=== PATIENT | female | born 1930 | race Caucasian/White ===

== ENCOUNTER → 2016-11-07 | Outpatient (CLI) | payer MEDICARE ==
[2016-06-16 11:00] VITALS: BP 112/54
[~2016-11-07] MED LIST: AMLO10TA2; AMLO10TA2 PO; ATOR10TA60 PO; ATROVENT HFA12.9 GM IH; CARV25TA2 PO; CHOL10002; CHOL10002 PO; DOCU-27 PO; DOXY100T PO; FLUT1DIS IH; FLUT1DIS3; FURO-68 PO; FURO40TA4; LEVO100T5 PO; LORA0.5T PO; LORA10TA3 PO; LORA10TA68 PO; LORA1TAB; METO10TA81 PO; OLME40TA; OLME40TA PO; OXYC1TAB7 PO; PANT40TA3 PO; PANT40TA5; POLY17PO29 PO; POTA20TA4; POTASSIUM CHLO10 MEQ PO; PRED-220 PO; RANI150T2; RANI300C PO; SENN-22 PO; VIT1TABL32 PO; WARF2.5T71 PO; WARF2TAB7 PO
--- NOTE | 2016-11-07 13:26 | RAD ---
Chest, 2 views, 11/07/2016: History: Shortness of breath, cough Comparison is made to a study from 06/12/2016. There has been a previous median sternotomy. Epicardial pacing leads overlie the anterior aspect of the heart. The heart is mildly enlarged. There is moderate calcific plaquing of the aorta. The pulmonary vascularity is normal. No pulmonary infiltrates are seen. There is no evidence of pleural fluid. Moderate spurring is present in the spine. There is mild unchanged loss of height of the T12 vertebral body. IMPRESSION: 1. Cardiomegaly and aortic atherosclerosis. 2. No acute abnormality is detected.
== END | disposition home or self-care (01) ==
LOC: RAD 11:46
PROVIDERS: ATTEND Internal Medicine Pulmonary Disease
DX: I51.7 Cardiomegaly (principal); I70.0 Atherosclerosis of aorta; R06.02 Shortness of breath; R05 Cough
CPT/HCPCS: 71020

== ENCOUNTER 2016-11-28 10:42 | Emergency (ER) | payer MEDICARE ==
[~2016-11-28] VITALS: Ht 149.9 cm; Wt 102.1 kg
[~2016-11-28 10:42] MED LIST changes: +DOCU-109 PO; -DOCU-27 PO; -OLME40TA; -OLME40TA PO; +OLME40TA12; +OLME40TA12 PO
--- NOTE | 2016-11-28 11:43 | EKG ---
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 Electronically Signed On 12-01-2016 22:21:33 CDT by Zahra Worley
[2016-11-28 11:44] LABS: BASO # 0.1 x10^3/uL (0.0-0.2); BASO % 1 % (0-3); EOS % 3 % (0-3); HEMATOCRIT 39.8 % (36.0-47.0); HEMOGLOBIN 13.4 g/dL (12.0-15.5); LYMPH # 1.1 x10^3/uL (1.0-4.8); LYMPH % 17 % (24-48); MEAN CORPUSCULAR HEMOGLOBIN 32 pg (25-35); MEAN CORPUSCULAR HGB CONC 34 g/dL (31-37); MEAN CORPUSCULAR VOLUME 95 fL (79-100); MONO % 12 % (0-9); NEUT % 67 % (31-73); PLATELET COUNT 167 x10^3/uL (140-400); RED BLOOD COUNT 4.21 x10^6/uL (3.50-5.40); RED CELL DISTRIBUTION WIDTH 13.9 % (11.5-14.5); WHITE BLOOD COUNT 6.7 x10^3/uL (4.0-11.0)
[2016-11-28] MEDS ORDERED: IPRATRPIUM/ALBUTEROL 0.5/2.5MG 3 ML NEBU. NEB ONE (11:45)
[2016-11-28 11:56] LABS: INR 2.3 (0.8-1.1); PROTHROMBIN TIME PATIENT 23.9 SEC (11.7-14.0)
[2016-11-28 12:07] LABS: CALCIUM 8.8 mg/dL (8.5-10.1); CREATININE 0.8 mg/dL (0.6-1.0); GFR 67.8; POTASSIUM 4.1 mmol/L (3.5-5.1)
--- NOTE | 2016-11-28 12:08 | RAD ---
Chest, 2 views, 11/28/2016: History: Cough, shortness of breath Comparison is made to a study from 11/07/2016. There has been a previous median sternotomy. Epicardial pacing leads overlie the anterior aspect of the heart. The heart is enlarged. There is moderate calcific plaquing of the thoracic aorta. The pulmonary vascularity is normal. There is minimal parenchymal scarring. No pulmonary infiltrate is seen. No significant pleural fluid is evident. The bony structures are demineralized. There are moderate scattered spurs in the spine. IMPRESSION: 1. Cardiomegaly and aortic atherosclerosis. 2. No acute abnormality is detected.
[2016-11-28 12:41] VITALS: BP 126/72
[2016-11-28] MEDS ORDERED: PRED-220 PO (12:46)
--- NOTE | 2016-11-28 12:46 | PHYS DOC ---
Past Medical History Past Medical History: A-Fib, Anxiety, Bronchitis, COPD, GERD, High Cholesterol , Heart Disease, Hypertension, Hypothyroid, Other Additional Past Medical Histor: sleep apnea Past Surgical History: Cholecystectomy, Coronary Bypass Surgery, Hysterectomy, Pacemaker, Other Additional Past Surgical Histo: left knee, cardiac ablation, tricuspid valve replacement Alcohol Use: None Drug Use: None Adult General Chief Complaint Chief Complaint: SHORTNESS OF BREATH HPI HPI Patient is a 86 year old female with chronic dyspnea and cough who presents with 1-2 weeks of worsened dyspnea and increased cough with clear/white sputum. She notes compliance with home meds including coumadin and nebs. Has not been on steroids in a month. States she sees cardiology and pulmonology for this and wears 3L NC at baseline. States she has slight chest pressure for the past 2 days, mild, constant. Denies hemoptysis, palpitations, diaphoresis, leg pain or swelling, weight gain, orthopnea, fever or chills, sore throat, nasal congestion, rhinorrhea. Review of Systems Review of Systems Constitutional: Denies fever or chills [] Eyes: Denies change in visual acuity, redness, or eye pain [] HENT: Denies nasal congestion or sore throat [] Respiratory: Has cough and shortness of breath [] Cardiovascular: No additional information not addressed in HPI [] GI: Denies abdominal pain, nausea, vomiting, bloody stools or diarrhea [] : Denies dysuria or hematuria [] Musculoskeletal: Denies back pain or joint pain [] Integument: Denies rash or skin lesions [] Neurologic: Denies headache, focal weakness or sensory changes [] Endocrine: Denies polyuria or polydipsia [] Current Medications Current Medications Current Medications Medications (Trade) Dose Ordered Sig/Rhiannon Start Time Stop Time Status Last Admin Dose Admin Albuterol/ Ipratropium (Duoneb) 3 ml 1X ONCE 11/28/16 11:45 11/28/16 11:46 DC 11/28/16 11:50 3 ML Allergies Allergies Allergies Coded Allergies Type Severity Reaction Last Updated Verified Iodine and Iodide Containing Produc Allergy Intermediate Hives 11/28/16 Yes Penicillins Allergy Intermediate Rash 11/28/16 Yes bacitracin Allergy Intermediate 11/28/16 Yes codeine Allergy Intermediate Hives 11/28/16 Yes cyclobenzaprine Allergy Intermediate 11/28/16 Yes erythromycin base Allergy Intermediate Hives 11/28/16 Yes ethyl alcohol Allergy Intermediate 11/28/16 Yes mold Allergy Intermediate 11/28/16 Yes moxifloxacin Allergy Intermediate Hives 11/28/16 Yes neomycin Allergy Intermediate 11/28/16 Yes polymyxin B Allergy Intermediate 11/28/16 Yes Physical Exam Physical Exam Constitutional: Well developed, well nourished, no acute distress, non-toxic appearance. [] HENT: Normocephalic, atraumatic, bilateral external ears normal, oropharynx moist, no oral exudates, nose normal. [] Eyes: PERRLA, EOMI. [] Neck: Normal range of motion, no tenderness, supple, no stridor. [] Cardiovascular:Heart rate regular rhythm, no murmur [] Lungs & Thorax: Bilateral breath sounds clear to auscultation. Frequent dry cough and throat clearing [] Abdomen: Bowel sounds normal, soft, no tenderness. [] Skin: Warm, dry, no erythema, no rash. [] Back: No tenderness, no CVA tenderness. [] Extremities: No tenderness, ROM intact, no edema. [] Neurologic: Alert and oriented X 3, normal motor function, normal sensory function, no focal deficits noted. [] Psychologic: Affect normal, judgement normal, mood normal. [] Current Patient Data Vital Signs Vital Signs Date Time Temp Pulse Resp B/P (MAP) Pulse Ox O2 Delivery O2 Flow Rate FiO2 11/28/16 12:11 72 127/71 (89) 93 Nasal Cannula 3.0 11/28/16 10:56 97.9 22 97.9 Lab Values Laboratory Tests Test 11/28/16 11:30 White Blood Count 6.7 x10^3/uL (4.0-11.0) Red Blood Count 4.21 x10^6/uL (3.50-5.40) Hemoglobin 13.4 g/dL (12.0-15.5) Hematocrit 39.8 % (36.0-47.0) Mean Corpuscular Volume 95 fL (79-100) Mean Corpuscular Hemoglobin 32 pg (25-35) Mean Corpuscular Hemoglobin Concent 34 g/dL (31-37) Red Cell Distribution Width 13.9 % (11.5-14.5) Platelet Count 167 x10^3/uL (140-400) Neutrophils (%) (Auto) 67 % (31-73) Lymphocytes (%) (Auto) 17 % (24-48) L Monocytes (%) (Auto) 12 % (0-9) H Eosinophils (%) (Auto) 3 % (0-3) Basophils (%) (Auto) 1 % (0-3) Neutrophils # (Auto) 4.5 x10^3uL (1.8-7.7) Lymphocytes # (Auto) 1.1 x10^3/uL (1.0-4.8) Monocytes # (Auto) 0.8 x10^3/uL (0.0-1.1) Eosinophils # (Auto) 0.2 x10^3/uL (0.0-0.7) Basophils # (Auto) 0.1 x10^3/uL (0.0-0.2) Prothrombin Time 23.9 SEC (11.7-14.0) H Prothrombin Time INR 2.3 (0.8-1.1) H PTT 34 SEC (24-38) Sodium Level 144 mmol/L (136-145) Potassium Level 4.1 mmol/L (3.5-5.1) Chloride Level 106 mmol/L (98-107) Carbon Dioxide Level 30 mmol/L (21-32) Anion Gap 8 (6-14) Blood Urea Nitrogen 16 mg/dL (7-20) Creatinine 0.8 mg/dL (0.6-1.0) Estimated GFR (Cockcroft-Gault) 67.8 Glucose Level 94 mg/dL (70-99) Calcium Level 8.8 mg/dL (8.5-10.1) Troponin I Quantitative < 0.017 ng/mL (0.000-0.055) PT-Swd-[id number]-Type Natriuretic Peptide 715 pg/mL (0-449) H Laboratory Tests 11/28/16 11:30 Laboratory Tests 11/28/16 11:30 EKG EKG EKG as interpreted by me as ventricularly paced rhythm, rate 79 Radiology/Procedures Radiology/Procedures Chest xray as interpreted by me with no acute cardiopulmonary disease process Course & Med Decision Making Course & Med Decision Making Pertinent Labs and Imaging studies reviewed. (See chart for details) Workup is unremarkable. 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 Return precautions given. She and family understand and agree with plan. Dragon Disclaimer Dragon Disclaimer This electronic medical record was generated, in whole or in part, using a voice recognition dictation system. Departure Departure Impression: Primary Impression: SOB (shortness of breath) Additional Impression: Cough Disposition: HOME, SELF-CARE Condition: STABLE Referrals: CHRISTY ANDERSON MD (PCP) Patient Instructions: Cough, Adult, [id number] Additional Instructions: Take prednisone as prescribed. Follow-up with your primary care doctor and machine group leader within one week. Please call for appointments. Return for any concerns. Scripts Prednisone (PREDNISONE) 10 Mg Tablet 10 MG PO DAILY, #30 TAB Take 50 mg (5 pills) daily for 2 days, then take 40 mg (4 pills) daily for 2 days, then take 30 mg (3 pills) daily for 2 days, then take 20 mg (2 pills) daily for 2 days, then take 10 mg for 2 days. Prov: Goran GONZALEZ MD 11/28/16 Problem Qualifiers Goran GONZALEZ MD Nov 28, 2016 12:46
== END 2016-11-28 13:05 | disposition home or self-care (01) ==
LOC: ER 10:42
DX: R06.02 Shortness of breath (principal); R05 Cough; R07.89 Other chest pain; I48.91 Unspecified atrial fibrillation; F41.9 Anxiety disorder, unspecified; J44.9 Chronic obstructive pulmonary disease, unspecified; K21.9 Gastro-esophageal reflux disease without esophagitis; E78.00 Pure hypercholesterolemia, unspecified; I11.9 Hypertensive heart disease without heart failure; G47.30 Sleep apnea, unspecified; E03.9 Hypothyroidism, unspecified; Z95.0 Presence of cardiac pacemaker; Z95.2 Presence of prosthetic heart valve; Z90.49 Acquired absence of other specified parts of digestive tract; Z90.710 Acquired absence of both cervix and uterus; Z88.0 Allergy status to penicillin; Z88.5 Allergy status to narcotic agent; Z88.1 Allergy status to other antibiotic agents; Z91.041 Radiographic dye allergy status; Z88.8 Allergy status to other drugs, medicaments and biological substances; Z91.048 Other nonmedicinal substance allergy status; Z95.1 Presence of aortocoronary bypass graft
CPT/HCPCS: 36415; 71020; 80048; 83880; 84484; 85027; 85610; 85730; 93005; 94250; 94640; 99285; J7620

== ENCOUNTER 2016-12-28 21:57 | Inpatient (IN) | payer MEDICARE ==
[~2016-12-28] VITALS: Ht 152.4 cm; Wt 99.9 kg
[~2016-12-28 21:57] MED LIST changes: -LORA1TAB; +LORA1TAB PO
[2016-12-28] MEDS ORDERED: ALBUTEROL SULFATE 2.5 MG/3 ML NEBU. ONE (22:08)
[2016-12-28] MEDS ORDERED: IPRATRPIUM/ALBUTEROL 0.5/2.5MG 3 ML NEBU. ONE (22:08)
[2016-12-28] MEDS ORDERED: ALBUTEROL SULFATE 2.5 MG/3 ML NEBU. INH ONE (22:15)
[2016-12-28] MEDS ORDERED: IPRATRPIUM/ALBUTEROL 0.5/2.5MG 3 ML NEBU. NEB ONE (22:15)
[2016-12-28 22:28] LABS: BASO # 0.1 x10^3/uL (0.0-0.2); BASO % 1 % (0-3); EOS % 3 % (0-3); HEMATOCRIT 39.9 % (36.0-47.0); LYMPH # 1.2 x10^3/uL (1.0-4.8); LYMPH % 10 % (24-48); MEAN CORPUSCULAR HEMOGLOBIN 32 pg (25-35); MEAN CORPUSCULAR HGB CONC 33 g/dL (31-37); MEAN CORPUSCULAR VOLUME 97 fL (79-100); MONO % 10 % (0-9); NEUT % 77 % (31-73); PLATELET COUNT 208 x10^3/uL (140-400); RED BLOOD COUNT 4.13 x10^6/uL (3.50-5.40); RED CELL DISTRIBUTION WIDTH 14.7 % (11.5-14.5); WHITE BLOOD COUNT 12.2 x10^3/uL (4.0-11.0)
[2016-12-28] MEDS ORDERED: ALBUTEROL SULFATE 2.5 MG/3 ML NEBU. CONT NEB ONE (22:30)
[2016-12-28] MEDS ORDERED: methylPREDNISolone SOD SUCC PF 125 MG/2 ML VIAL. IV ONE (22:30)
[2016-12-28] MEDS ORDERED: ASPIRIN 325 MG TABLET PO ONE (22:30)
[2016-12-28 22:38] LABS: PROTHROMBIN TIME PATIENT 29.6 SEC (11.7-14.0)
--- NOTE | 2016-12-28 22:41 | PHYS DOC ---
Past Medical History Past Medical History: A-Fib, Anxiety, Bronchitis, COPD, GERD, High Cholesterol , Heart Disease, Hypertension, Hypothyroid, Other Additional Past Medical Histor: sleep apnea Past Surgical History: Cholecystectomy, Coronary Bypass Surgery, Hysterectomy, Pacemaker, Other Additional Past Surgical Histo: left knee, cardiac ablation, tricuspid valve replacement Alcohol Use: None Drug Use: None Adult General Chief Complaint Chief Complaint: SHORTNESS OF BREATH HPI HPI Patient is a 86 year old female who presents with shortness of breath. The patient reports 2 day history of dyspnea at rest with increased oxygen requirement. She reports productive cough. Denies fevers or chills, chest pain, lower extremity pain or swelling. Uses oxygen 3 L when necessary at home. Reports history of COPD and sleep apnea as well as CAD status post CABG, she denies history of CHF. Denies previous history of hospital admission for COPD, states she has never been on BiPAP or intubated. Review of Systems Review of Systems Constitutional: Denies fever or chills Eyes: Denies change in visual acuity HENT: Denies nasal congestion or sore throat Respiratory: Reports cough and shortness of breath Cardiovascular: Denies chest pain or edema GI: Denies abdominal pain, nausea, vomiting, bloody stools or diarrhea : Denies dysuria or hematuria Musculoskeletal: Denies back pain or joint pain Integument: Denies rash or skin lesions Neurologic: Denies headache, focal weakness or sensory changes Current Medications Current Medications Current Medications Medications (Trade) Dose Ordered Sig/Rhiannon Start Time Stop Time Status Last Admin Dose Admin Albuterol Sulfate (Ventolin Neb Soln) 10 mg 1X ONCE 12/28/16 22:30 12/28/16 22:34 DC 12/28/16 22:32 10 MG Albuterol/ Ipratropium (Duoneb) 3 ml 1X ONCE 12/28/16 22:15 12/28/16 22:16 DC 12/28/16 22:11 3 ML Aspirin (Andrew Aspirin) 325 mg 1X ONCE 12/28/16 22:30 12/28/16 22:31 DC 12/28/16 22:23 325 MG Methylprednisolone Sodium Succinate (SOLU-Medrol 125MG VIAL) 125 mg 1X ONCE 12/28/16 22:30 12/28/16 22:31 DC 12/28/16 22:23 125 MG Allergies Allergies Allergies Coded Allergies Type Severity Reaction Last Updated Verified Iodine and Iodide Containing Produc Allergy Intermediate Hives 11/28/16 Yes Penicillins Allergy Intermediate Rash 11/28/16 Yes bacitracin Allergy Intermediate 11/28/16 Yes codeine Allergy Intermediate Hives 11/28/16 Yes cyclobenzaprine Allergy Intermediate 11/28/16 Yes erythromycin base Allergy Intermediate Hives 11/28/16 Yes ethyl alcohol Allergy Intermediate 11/28/16 Yes mold Allergy Intermediate 11/28/16 Yes moxifloxacin Allergy Intermediate Hives 11/28/16 Yes neomycin Allergy Intermediate 11/28/16 Yes polymyxin B Allergy Intermediate 11/28/16 Yes Physical Exam Physical Exam Constitutional: Obese, no acute distress, non-toxic appearance. HENT: Normocephalic, atraumatic, bilateral external ears normal, oropharynx moist, nose normal. Eyes: conjunctiva normal, no discharge. Neck: supple, no stridor. Cardiovascular: RRR, no murmurs, 2+ edema to bilateral lower extremities. Lungs & Thorax: Diminished, shallow, tachypneic LCTAB, no wheezing. Speaking in short sentences. Abdomen: soft, nontender, nondistended. Skin: Warm, dry, no erythema, no rash. Back: No tenderness. Extremities: No tenderness, 2+ edema to bilateral lower extremities, no calf tenderness. Neurologic: Alert and oriented X 3, no focal deficits noted. Psychologic: Affect normal, judgement normal, mood normal. Current Patient Data Vital Signs Vital Signs Date Time Temp Pulse Resp B/P (MAP) Pulse Ox O2 Delivery O2 Flow Rate FiO2 12/28/16 23:34 64 24 124/62 (82) 93 Nasal Cannula 4.0 12/28/16 22:00 99.2 99.2 Lab Values Laboratory Tests Test 12/28/16 22:15 White Blood Count 12.2 x10^3/uL (4.0-11.0) H Red Blood Count 4.13 x10^6/uL (3.50-5.40) Hemoglobin 13.0 g/dL (12.0-15.5) Hematocrit 39.9 % (36.0-47.0) Mean Corpuscular Volume 97 fL (79-100) Mean Corpuscular Hemoglobin 32 pg (25-35) Mean Corpuscular Hemoglobin Concent 33 g/dL (31-37) Red Cell Distribution Width 14.7 % (11.5-14.5) H Platelet Count 208 x10^3/uL (140-400) Neutrophils (%) (Auto) 77 % (31-73) H Lymphocytes (%) (Auto) 10 % (24-48) L Monocytes (%) (Auto) 10 % (0-9) H Eosinophils (%) (Auto) 3 % (0-3) Basophils (%) (Auto) 1 % (0-3) Neutrophils # (Auto) 9.3 x10^3uL (1.8-7.7) H Lymphocytes # (Auto) 1.2 x10^3/uL (1.0-4.8) Monocytes # (Auto) 1.2 x10^3/uL (0.0-1.1) H Eosinophils # (Auto) 0.3 x10^3/uL (0.0-0.7) Basophils # (Auto) 0.1 x10^3/uL (0.0-0.2) Prothrombin Time 29.6 SEC (11.7-14.0) H Prothrombin Time INR 3.0 (0.8-1.1) H PTT 36 SEC (24-38) Sodium Level 143 mmol/L (136-145) Potassium Level 3.9 mmol/L (3.5-5.1) Chloride Level 105 mmol/L (98-107) Carbon Dioxide Level 27 mmol/L (21-32) Anion Gap 11 (6-14) Blood Urea Nitrogen 27 mg/dL (7-20) H Creatinine 1.2 mg/dL (0.6-1.0) H Estimated GFR (Cockcroft-Gault) 42.5 BUN/Creatinine Ratio 23 (6-20) H Glucose Level 130 mg/dL (70-99) H Calcium Level 8.1 mg/dL (8.5-10.1) L Total Bilirubin 1.9 mg/dL (0.2-1.0) H Aspartate Amino Transferase (AST) 18 U/L (15-37) Alanine Aminotransferase (ALT) 27 U/L (14-59) Alkaline Phosphatase 92 U/L (46-116) Troponin I Quantitative < 0.017 ng/mL (0.000-0.055) YT-Wpk-U-Type Natriuretic Peptide 1088 pg/mL (0-449) H Total Protein 6.7 g/dL (6.4-8.2) Albumin 3.5 g/dL (3.4-5.0) Albumin/Globulin Ratio 1.1 (1.0-1.7) Laboratory Tests 12/28/16 22:15 Laboratory Tests 12/28/16 22:15 EKG EKG Interpreted by me: Irregularly irregular A. fib rate 65, paced, significant artifact Radiology/Procedures Radiology/Procedures CXR: interpreted by me: cardiomegaly, pulmonary edema, possible infiltrate, no pneumothorax.[] Course & Med Decision Making Course & Med Decision Making Pertinent Labs and Imaging studies reviewed. (See chart for details) Patient presents with dyspnea. Oxygen saturation in the low 90s on 3 L of oxygen by nasal cannula. Gave nebulized breathing treatments here as well as Solu-Medrol and aspirin. She had persistent dyspnea. Administered hour-long breathing treatment. Chest x-ray shows CHF, BNP is elevated. Gave Lasix in the emergency department. She has productive cough and possible infiltrate on chest x-ray. Gave Rocephin and azithromycin for community-acquired pneumonia. She was persistently dyspneic after completing hour-long treatment. We will initiate BiPAP. She the hospital for further evaluation and treatment. The patient agrees with plan of care. Discussed with Dr. Farrell who agrees to admit to inpatient status. Consults to Dr. Dimas of cardiology & Dr. Syed of pulmonary medicine. The patient is admitted in stable & improved condition. Critical care time: 35 minutes[] Dragon Disclaimer Dragon Disclaimer This electronic medical record was generated, in whole or in part, using a voice recognition dictation system. Departure Departure Impression: Primary Impression: Acute respiratory failure Additional Impressions: Congestive heart failure COPD exacerbation Community acquired pneumonia Hypoxia Disposition: ADMITTED INPATIENT Admitting Physician: Davon Farrell Condition: STABLE Referrals: CHRISTY ANEDRSON MD (PCP) Problem Qualifiers MARCELO FRANKEL MD Dec 28, 2016 22:41
[2016-12-28 23:12] LABS: ALBUMIN 3.5 g/dL (3.4-5.0); ALBUMIN/GLOBULIN RATIO 1.1 (1.0-1.7); CALCIUM 8.1 mg/dL (8.5-10.1); CREATININE 1.2 mg/dL (0.6-1.0); GFR 42.5; POTASSIUM 3.9 mmol/L (3.5-5.1); TOTAL BILIRUBIN 1.9 mg/dL (0.2-1.0); TOTAL PROTEIN 6.7 g/dL (6.4-8.2)
[2016-12-29] VITALS (7 sets, daily range): BP systolic 104–146; BP diastolic 52–77
[2016-12-29] MEDS ORDERED: ACETAMINOPHEN 325 MG TABLET. PO PRN (00:15)
[2016-12-29] MEDS ORDERED: ONDANSETRON PF 4 MG/2 ML VIAL. IV PRN (00:15)
[2016-12-29] MEDS ORDERED: MORPHINE SULFATE 2 MG/ML DISP.SYRIN. IV PRN (00:15)
[2016-12-29] MEDS ORDERED: DOXYCYCLINE HYCLATE 100 MG in IV DEXTROSE 5% 100 ML IV ONE (00:30)
[2016-12-29 01:29] LABS: HCO3 ABG 25 mmol/L (21-28); PCO2 ABG 36 mmHg (35-46); PH ABG 7.45 (7.35-7.45); PO2 ABG 78 mmHg (65-108); SAT O2 ABG 96 % (92-99)
[2016-12-29 01:31] LABS: FIO2 ABG 34
[2016-12-29] MEDS ORDERED: BENZ100C PO (03:00)
--- NOTE | 2016-12-29 06:48 | EKG ---
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
--- NOTE | 2016-12-29 07:42 | RAD ---
Portable chest, 12/28/2016: History: Shortness of breath, asthma Comparison is made to a study from 11/28/2016. There has been a previous median sternotomy. Electrode leads overlie the heart. The heart is mildly enlarged. There is calcific plaquing of the aorta. The pulmonary vascularity is somewhat poorly defined. There is mild prominence of the pulmonary markings in the lower chest in a predominantly interstitial pattern. No dense consolidation is seen. There is no evidence of pleural fluid. IMPRESSION: 1. Cardiomegaly. 2. Prominent pulmonary markings in the lower chest suggesting mild interstitial edema and/or atelectasis. Follow-up PA and lateral chest radiographs are suggested for further evaluation, if clinically indicated.
[2016-12-29] MEDS ORDERED: ALBUTEROL SULFATE 2.5 MG/3 ML NEBU. NEB PRN (10:15)
[2016-12-29] MEDS: IPRATRPIUM/ALBUTEROL 0.5/2.5MG 3 ML NEBU. NEB SCH ×3 (10:29→20:33)
[2016-12-29] MEDS ORDERED: FUROSEMIDE 40 MG/4 ML VIAL. IVP ONE ×2 (10:30)
--- NOTE | 2016-12-29 11:19 | PDOC1 ---
History and Physical Date of Admission Date of Admission DATE: 12/29/16 TIME: 11:17 Identification/Chief Complaint Chief Complaint soa Problems: History of Present Illness History of Present Illness Elderly female presented with SOA. In ER noted to have multifactoral resp failure. PNA,COPD,CHF. Pt seen and examined DW RN Will give nebs, antibx, steroids, and Consult Pulm Dication still broken. Total time 31 minutes Past Medical History Cardiovascular: AFIB, CAD, HTN, Hyperlipidemia, Other Pulmonary: Bronchitis, COPD, Other CENTRAL NERVOUS SYSTEM: Other GI: GERD Heme/Onc: No pertinent hx Hepatobiliary: No pertinent hx Psych: Anxiety Musculoskeletal: Osteoarthritis Rheumatologic: No pertinent hx Infectious disease: No pertinent hx Renal/: No pertinent hx Endocrine: Hypothyroidism Family History Family History: Heart Disease Social History ALCOHOL: none Drugs: None Current Problem List Problem List Problems Medical Problems: (1) Acute respiratory failure Status: Acute (2) Community acquired pneumonia Status: Acute (3) Congestive heart failure Status: Acute (4) COPD exacerbation Status: Acute (5) Hypoxia Status: Acute Problems: Current Medications Current Medications Current Medications Albuterol/ Ipratropium (Duoneb) 3 ml STK-MED ONCE .ROUTE ; Start 12/28/16 at 22: 08; Stop 12/28/16 at 22:09; Status DC Albuterol Sulfate (Ventolin Neb Soln) 2.5 mg STK-MED ONCE .ROUTE ; Start at 22:08; Stop 12/28/16 at 22:09; Status DC Albuterol Sulfate (Ventolin Neb Soln) 5 mg 1X ONCE INH Last administered on 22:11; Start 12/28/16 at 22:15; Stop 12/28/16 at 22:16; Status DC Albuterol/ Ipratropium (Duoneb) 3 ml 1X ONCE NEB Last administered on 22:11; Start 12/28/16 at 22:15; Stop 12/28/16 at 22:16; Status DC Methylprednisolone Sodium Succinate (SOLU-Medrol 125MG VIAL) 125 mg 1X ONCE IV Last administered on 12/28/16 22:23; Start 12/28/16 at 22:30; Stop 12/28/16 at 22:31; Status DC Aspirin (Andrew Aspirin) 325 mg 1X ONCE PO Last administered on 12/28/16 22:23 ; Start 12/28/16 at 22:30; Stop 12/28/16 at 22:31; Status DC Albuterol Sulfate (Ventolin Neb Soln) 10 mg 1X ONCE CONT NEB Last administered on 12/28/16 22:32; Start 12/28/16 at 22:30; Stop 12/28/16 at 22:34; Status DC Furosemide (Lasix) 40 mg 1X ONCE IVP Last administered on 12/29/16 00:24; Start 12/29/16 at 00:00; Stop 12/29/16 at 00:01; Status DC Ceftriaxone Sodium 50 ml @ 100 mls/hr 1X ONCE IV Last administered on 00:24; Start 12/29/16 at 00:30; Stop 12/29/16 at 00:59; Status DC Doxycycline Hyclate 100 mg/ Dextrose 100 ml @ 50 mls/hr 1X ONCE IV Last administered on 12/29/16 01:47; Start 12/29/16 at 00:30; Stop 12/29/16 at 02:29; Status DC Ondansetron HCl (Zofran) 4 mg PRN Q8HRS PRN IV NAUSEA/VOMITING; Start 12/29/16 at 00:15; Stop 12/30/16 at 00:14 Morphine Sulfate 2 mg PRN Q2HR PRN IV SEVERE PAIN; Start 12/29/16 at 00:15; Stop 12/30/16 at 00:14 Acetaminophen (Tylenol) 650 mg PRN Q4HRS PRN PO FEVER; Start 12/29/16 at 00:15; Stop 12/30/16 at 00:14 Albuterol/ Ipratropium (Duoneb) 3 ml RTQID NEB Last administered on 12/29/16 10 :29; Start 12/29/16 at 12:00 Albuterol Sulfate (Ventolin Neb Soln) 2.5 mg PRN Q4HRS PRN NEB SHORTNESS OF BREATH; Start 12/29/16 at 10:15 Furosemide (Lasix) 40 mg 1X ONCE IVP Last administered on 12/29/16 10:44; Start 12/29/16 at 10:30; Stop 12/29/16 at 10:31; Status DC Active Scripts Active Prednisone 10 Mg Tablet 10 Mg PO DAILY Take 50 mg (5 pills) daily for 2 days, then take 40 mg (4 pills) daily for 2 days, then take 30 mg (3 pills) daily for 2 days, then take 20 mg (2 pills) daily for 2 days, then take 10 mg for 2 days. Prednisone 10 Mg Tablet 10 Mg PO UD Take 3 tabs daily for 3 days, then 2 tabs daily for 3 days, then 1 tablet daily for 3 days, then 1/2 tab daily x 3 days. Doxycycline Hyclate 100 Mg Tablet 100 Mg PO BID Miralax (Polyethylene Glycol 3350) 17 Gm Powd.pack 17 Gm PO PRN DAILY PRN Oxycodone-Acetaminophen 5-325 (Oxycodone Hcl/Acetaminophen) 1 Each Tablet 1 Tab PO PRN Q4HRS PRN Senna-Time S Tablet (Sennosides/Docusate Sodium) 1 Each Tablet 1 Tab PO BID Colace (Docusate Sodium) 100 Mg Capsule 100 Mg PO BID Reported Tessalon Perle (Benzonatate) 100 Mg Capsule 2 Cap PO BID Atrovent Hfa (Ipratropium [place]) 12.9 Gm Hfa.aer.ad 2 Puff IH Q6HRS Reglan (Metoclopramide Hcl) 10 Mg Tablet 10 Mg PO BIDAC Levothyroxine Sodium 100 Mcg Tablet 1 Tab PO DAILY Advair 250-50 Diskus (Fluticasone/Salmeterol) 1 Each Disk.w.dev Warfarin Sodium 2.5 Mg Tablet 2.5 Mg PO HS Lorazepam 1 Mg Tablet 1-2 Mg PO DAILY PRN Ranitidine Hcl 300 Mg Capsule 1 Cap PO HS Ocuvite Tablet (Vit A,C & E/Lutein/Minerals) 1 Each Tablet 1 Each PO DAILY Vitamin D (Cholecalciferol (Vitamin D3)) 1,000 Unit Tablet 1,000 Unit PO DAILY Amlodipine Besylate 10 Mg Tablet 10 Mg PO DAILY Claritin (Loratadine) 10 Mg Tablet 1-2 Tab PO HS Carvedilol 25 Mg Tablet 1 Tab PO BID Atorvastatin Calcium 10 Mg Tablet 1 Tab PO DAILY Potassium Chloride 10 Meq Capsule.er 20 Meq PO BID PRN Benicar (Olmesartan Medoxomil) 40 Mg Tablet 1 Tab PO DAILY Lasix (Furosemide) 40 Mg Tablet 1 Tab PO DAILY PRN Protonix (Pantoprazole Sodium) 40 Mg Tablet.dr 1 Tab PO DAILY Allergies Allergies: Coded Allergies: Iodine and Iodide Containing Produc (Verified Allergy, Intermediate, Hives , 11/28/16) Penicillins (Verified Allergy, Intermediate, Rash, 11/28/16) bacitracin (Verified Allergy, Intermediate, 11/28/16) codeine (Verified Allergy, Intermediate, Hives, 11/28/16) cyclobenzaprine (Verified Allergy, Intermediate, 11/28/16) erythromycin base (Verified Allergy, Intermediate, Hives, 11/28/16) ethyl alcohol (Verified Allergy, Intermediate, 11/28/16) mold (Verified Allergy, Intermediate, 11/28/16) moxifloxacin (Verified Allergy, Intermediate, Hives, 11/28/16) neomycin (Verified Allergy, Intermediate, 11/28/16) polymyxin B (Verified Allergy, Intermediate, 11/28/16) Vitals Vitals Vital Signs Date Time Temp Pulse Resp B/P (MAP) Pulse Ox O2 Delivery O2 Flow Rate FiO2 12/29/16 10:45 65 20 146/77 (100) 93 Nasal Cannula 3.0 12/29/16 07:51 97.6 97.6 Labs Labs Laboratory Tests Test 12/28/16 22:15 12/29/16 00:08 12/29/16 05:41 White Blood Count 12.2 x10^3/uL (4.0-11.0) Red Blood Count 4.13 x10^6/uL (3.50-5.40) Hemoglobin 13.0 g/dL (12.0-15.5) Hematocrit 39.9 % (36.0-47.0) Mean Corpuscular Volume 97 fL (79-100) Mean Corpuscular Hemoglobin 32 pg (25-35) Mean Corpuscular Hemoglobin Concent 33 g/dL (31-37) Red Cell Distribution Width 14.7 % (11.5-14.5) Platelet Count 208 x10^3/uL (140-400) Neutrophils (%) (Auto) 77 % (31-73) Lymphocytes (%) (Auto) 10 % (24-48) Monocytes (%) (Auto) 10 % (0-9) Eosinophils (%) (Auto) 3 % (0-3) Basophils (%) (Auto) 1 % (0-3) Neutrophils # (Auto) 9.3 x10^3uL (1.8-7.7) Lymphocytes # (Auto) 1.2 x10^3/uL (1.0-4.8) Monocytes # (Auto) 1.2 x10^3/uL (0.0-1.1) Eosinophils # (Auto) 0.3 x10^3/uL (0.0-0.7) Basophils # (Auto) 0.1 x10^3/uL (0.0-0.2) Prothrombin Time 29.6 SEC (11.7-14.0) Prothromb Time International Ratio 3.0 (0.8-1.1) Activated Partial Thromboplast Time 36 SEC (24-38) Sodium Level 143 mmol/L (136-145) Potassium Level 3.9 mmol/L (3.5-5.1) Chloride Level 105 mmol/L (98-107) Carbon Dioxide Level 27 mmol/L (21-32) Anion Gap 11 (6-14) Blood Urea Nitrogen 27 mg/dL (7-20) Creatinine 1.2 mg/dL (0.6-1.0) Estimated GFR (Cockcroft-Gault) 42.5 BUN/Creatinine Ratio 23 (6-20) Glucose Level 130 mg/dL (70-99) Calcium Level 8.1 mg/dL (8.5-10.1) Total Bilirubin 1.9 mg/dL (0.2-1.0) Aspartate Amino Transf (AST/SGOT) 18 U/L (15-37) Alanine Aminotransferase (ALT/SGPT) 27 U/L (14-59) Alkaline Phosphatase 92 U/L (46-116) Troponin I Quantitative < 0.017 ng/mL (0.000-0.055) < 0.017 ng/mL (0.000-0.055) ZW-Jyo-V-Type Natriuretic Peptide 1088 pg/mL (0-449) Total Protein 6.7 g/dL (6.4-8.2) Albumin 3.5 g/dL (3.4-5.0) Albumin/Globulin Ratio 1.1 (1.0-1.7) O2 Saturation 96 % (92-99) Arterial Blood pH 7.45 (7.35-7.45) Arterial Blood pCO2 at Patient Temp 36 mmHg (35-46) Arterial Blood pO2 at Patient Temp 78 mmHg (65-108) Arterial Blood HCO3 25 mmol/L (21-28) Arterial Blood Base Excess 1 mmol/L (-3-3) FiO2 34 Lactic Acid Level 3.7 mmol/L (0.4-2.0) Laboratory Tests Test 12/28/16 22:15 12/29/16 00:08 12/29/16 05:41 White Blood Count 12.2 x10^3/uL (4.0-11.0) Red Blood Count 4.13 x10^6/uL (3.50-5.40) Hemoglobin 13.0 g/dL (12.0-15.5) Hematocrit 39.9 % (36.0-47.0) Mean Corpuscular Volume 97 fL (79-100) Mean Corpuscular Hemoglobin 32 pg (25-35) Mean Corpuscular Hemoglobin Concent 33 g/dL (31-37) Red Cell Distribution Width 14.7 % (11.5-14.5) Platelet Count 208 x10^3/uL (140-400) Neutrophils (%) (Auto) 77 % (31-73) Lymphocytes (%) (Auto) 10 % (24-48) Monocytes (%) (Auto) 10 % (0-9) Eosinophils (%) (Auto) 3 % (0-3) Basophils (%) (Auto) 1 % (0-3) Neutrophils # (Auto) 9.3 x10^3uL (1.8-7.7) Lymphocytes # (Auto) 1.2 x10^3/uL (1.0-4.8) Monocytes # (Auto) 1.2 x10^3/uL (0.0-1.1) Eosinophils # (Auto) 0.3 x10^3/uL (0.0-0.7) Basophils # (Auto) 0.1 x10^3/uL (0.0-0.2) Prothrombin Time 29.6 SEC (11.7-14.0) Prothromb Time International Ratio 3.0 (0.8-1.1) Activated Partial Thromboplast Time 36 SEC (24-38) Sodium Level 143 mmol/L (136-145) Potassium Level 3.9 mmol/L (3.5-5.1) Chloride Level 105 mmol/L (98-107) Carbon Dioxide Level 27 mmol/L (21-32) Anion Gap 11 (6-14) Blood Urea Nitrogen 27 mg/dL (7-20) Creatinine 1.2 mg/dL (0.6-1.0) Estimated GFR (Cockcroft-Gault) 42.5 BUN/Creatinine Ratio 23 (6-20) Glucose Level 130 mg/dL (70-99) Calcium Level 8.1 mg/dL (8.5-10.1) Total Bilirubin 1.9 mg/dL (0.2-1.0) Aspartate Amino Transf (AST/SGOT) 18 U/L (15-37) Alanine Aminotransferase (ALT/SGPT) 27 U/L (14-59) Alkaline Phosphatase 92 U/L (46-116) Troponin I Quantitative < 0.017 ng/mL (0.000-0.055) < 0.017 ng/mL (0.000-0.055) LI-Azu-V-Type Natriuretic Peptide 1088 pg/mL (0-449) Total Protein 6.7 g/dL (6.4-8.2) Albumin 3.5 g/dL (3.4-5.0) Albumin/Globulin Ratio 1.1 (1.0-1.7) O2 Saturation 96 % (92-99) Arterial Blood pH 7.45 (7.35-7.45) Arterial Blood pCO2 at Patient Temp 36 mmHg (35-46) Arterial Blood pO2 at Patient Temp 78 mmHg (65-108) Arterial Blood HCO3 25 mmol/L (21-28) Arterial Blood Base Excess 1 mmol/L (-3-3) FiO2 34 Lactic Acid Level 3.7 mmol/L (0.4-2.0) VTE Prophylaxis Ordered VTE Prophylaxis Devices: Yes VTE Pharmacological Prophylaxi: Yes ALETHA CRYSTAL III DO Dec 29, 2016 11:19
--- NOTE | 2016-12-29 15:27 | PDOC2 ---
CONSULT Date of Consult Date of Consult DATE: 12/29/16 TIME: 15:20 Referring Physician Referring Physician: DR CRYSTAL Identification/Chief Complaint Chief Complaint SOA AND COUGH Problems: Source Source: Chart review, Patient History of Present Illness Reason for Visit: PT MORE SOA PAST 3-4 DAYS COUGH NON PRODUCTIVE NORMALLY WEAR 02 PRN, NEVER SMOKED, DEVELOPED ADULT ONSET ASTHMA USE FLOVENT AND ALBUTERO AT HOME NO CHEST PAIN NO F/C/VD NO RECENT EXPOSURES NO PETS Past Medical History Cardiovascular: AFIB, CAD, HTN, Hyperlipidemia, Other Pulmonary: Asthma (ADULT ONSET), Bronchitis, Other CENTRAL NERVOUS SYSTEM: Other GI: GERD Heme/Onc: No pertinent hx Hepatobiliary: No pertinent hx Psych: Anxiety Musculoskeletal: Osteoarthritis Rheumatologic: No pertinent hx Infectious disease: No pertinent hx Renal/: No pertinent hx Endocrine: Hypothyroidism Family History Family History: Heart Disease Social History ALCOHOL: none Drugs: None Current Problem List Problem List Problems Medical Problems: (1) Acute respiratory failure Status: Acute (2) Community acquired pneumonia Status: Acute (3) Congestive heart failure Status: Acute (4) COPD exacerbation Status: Acute (5) Hypoxia Status: Acute Current Medications Current Medications Current Medications Albuterol/ Ipratropium (Duoneb) 3 ml STK-MED ONCE .ROUTE ; Start 12/28/16 at 22: 08; Stop 12/28/16 at 22:09; Status DC Albuterol Sulfate (Ventolin Neb Soln) 2.5 mg STK-MED ONCE .ROUTE ; Start at 22:08; Stop 12/28/16 at 22:09; Status DC Albuterol Sulfate (Ventolin Neb Soln) 5 mg 1X ONCE INH Last administered on 22:11; Start 12/28/16 at 22:15; Stop 12/28/16 at 22:16; Status DC Albuterol/ Ipratropium (Duoneb) 3 ml 1X ONCE NEB Last administered on 22:11; Start 12/28/16 at 22:15; Stop 12/28/16 at 22:16; Status DC Methylprednisolone Sodium Succinate (SOLU-Medrol 125MG VIAL) 125 mg 1X ONCE IV Last administered on 12/28/16 22:23; Start 12/28/16 at 22:30; Stop 12/28/16 at 22:31; Status DC Aspirin (Andrew Aspirin) 325 mg 1X ONCE PO Last administered on 12/28/16 22:23 ; Start 12/28/16 at 22:30; Stop 12/28/16 at 22:31; Status DC Albuterol Sulfate (Ventolin Neb Soln) 10 mg 1X ONCE CONT NEB Last administered on 12/28/16 22:32; Start 12/28/16 at 22:30; Stop 12/28/16 at 22:34; Status DC Furosemide (Lasix) 40 mg 1X ONCE IVP Last administered on 12/29/16 00:24; Start 12/29/16 at 00:00; Stop 12/29/16 at 00:01; Status DC Ceftriaxone Sodium 50 ml @ 100 mls/hr 1X ONCE IV Last administered on 00:24; Start 12/29/16 at 00:30; Stop 12/29/16 at 00:59; Status DC Doxycycline Hyclate 100 mg/ Dextrose 100 ml @ 50 mls/hr 1X ONCE IV Last administered on 12/29/16 01:47; Start 12/29/16 at 00:30; Stop 12/29/16 at 02:29; Status DC Ondansetron HCl (Zofran) 4 mg PRN Q8HRS PRN IV NAUSEA/VOMITING; Start 12/29/16 at 00:15; Stop 12/30/16 at 00:14 Morphine Sulfate 2 mg PRN Q2HR PRN IV SEVERE PAIN; Start 12/29/16 at 00:15; Stop 12/30/16 at 00:14 Acetaminophen (Tylenol) 650 mg PRN Q4HRS PRN PO FEVER; Start 12/29/16 at 00:15; Stop 12/30/16 at 00:14 Albuterol/ Ipratropium (Duoneb) 3 ml RTQID NEB Last administered on 12/29/16 10 :29; Start 12/29/16 at 12:00 Albuterol Sulfate (Ventolin Neb Soln) 2.5 mg PRN Q4HRS PRN NEB SHORTNESS OF BREATH; Start 12/29/16 at 10:15 Furosemide (Lasix) 40 mg 1X ONCE IVP Last administered on 12/29/16 10:44; Start 12/29/16 at 10:30; Stop 12/29/16 at 10:31; Status DC Active Scripts Active Prednisone 10 Mg Tablet 10 Mg PO DAILY Take 50 mg (5 pills) daily for 2 days, then take 40 mg (4 pills) daily for 2 days, then take 30 mg (3 pills) daily for 2 days, then take 20 mg (2 pills) daily for 2 days, then take 10 mg for 2 days. Prednisone 10 Mg Tablet 10 Mg PO UD Take 3 tabs daily for 3 days, then 2 tabs daily for 3 days, then 1 tablet daily for 3 days, then 1/2 tab daily x 3 days. Doxycycline Hyclate 100 Mg Tablet 100 Mg PO BID Miralax (Polyethylene Glycol 3350) 17 Gm Powd.pack 17 Gm PO PRN DAILY PRN Oxycodone-Acetaminophen 5-325 (Oxycodone Hcl/Acetaminophen) 1 Each Tablet 1 Tab PO PRN Q4HRS PRN Senna-Time S Tablet (Sennosides/Docusate Sodium) 1 Each Tablet 1 Tab PO BID Colace (Docusate Sodium) 100 Mg Capsule 100 Mg PO BID Reported Tessalon Perle (Benzonatate) 100 Mg Capsule 2 Cap PO BID Atrovent Hfa (Ipratropium [place]) 12.9 Gm Hfa.aer.ad 2 Puff IH Q6HRS Reglan (Metoclopramide Hcl) 10 Mg Tablet 10 Mg PO BIDAC Levothyroxine Sodium 100 Mcg Tablet 1 Tab PO DAILY Advair 250-50 Diskus (Fluticasone/Salmeterol) 1 Each Disk.w.dev Warfarin Sodium 2.5 Mg Tablet 2.5 Mg PO HS Lorazepam 1 Mg Tablet 1-2 Mg PO DAILY PRN Ranitidine Hcl 300 Mg Capsule 1 Cap PO HS Ocuvite Tablet (Vit A,C & E/Lutein/Minerals) 1 Each Tablet 1 Each PO DAILY Vitamin D (Cholecalciferol (Vitamin D3)) 1,000 Unit Tablet 1,000 Unit PO DAILY Amlodipine Besylate 10 Mg Tablet 10 Mg PO DAILY Claritin (Loratadine) 10 Mg Tablet 1-2 Tab PO HS Carvedilol 25 Mg Tablet 1 Tab PO BID Atorvastatin Calcium 10 Mg Tablet 1 Tab PO DAILY Potassium Chloride 10 Meq Capsule.er 20 Meq PO BID PRN Benicar (Olmesartan Medoxomil) 40 Mg Tablet 1 Tab PO DAILY Lasix (Furosemide) 40 Mg Tablet 1 Tab PO DAILY PRN Protonix (Pantoprazole Sodium) 40 Mg Tablet.dr 1 Tab PO DAILY Allergies Allergies: Coded Allergies: Iodine and Iodide Containing Produc (Verified Allergy, Intermediate, Hives , 11/28/16) Penicillins (Verified Allergy, Intermediate, Rash, 11/28/16) bacitracin (Verified Allergy, Intermediate, 11/28/16) codeine (Verified Allergy, Intermediate, Hives, 11/28/16) cyclobenzaprine (Verified Allergy, Intermediate, 11/28/16) erythromycin base (Verified Allergy, Intermediate, Hives, 11/28/16) ethyl alcohol (Verified Allergy, Intermediate, 11/28/16) mold (Verified Allergy, Intermediate, 11/28/16) moxifloxacin (Verified Allergy, Intermediate, Hives, 11/28/16) neomycin (Verified Allergy, Intermediate, 11/28/16) polymyxin B (Verified Allergy, Intermediate, 11/28/16) Vitals VITALS Vital Signs Date Time Temp Pulse Resp B/P (MAP) Pulse Ox O2 Delivery O2 Flow Rate FiO2 12/29/16 14:45 98.1 65 21 118/59 (78) 91 Nasal Cannula 3.0 98.1 Labs Labs Laboratory Tests Test 12/28/16 22:15 12/29/16 00:08 12/29/16 05:41 12/29/16 12:25 White Blood Count 12.2 x10^3/uL (4.0-11.0) Red Blood Count 4.13 x10^6/uL (3.50-5.40) Hemoglobin 13.0 g/dL (12.0-15.5) Hematocrit 39.9 % (36.0-47.0) Mean Corpuscular Volume 97 fL (79-100) Mean Corpuscular Hemoglobin 32 pg (25-35) Mean Corpuscular Hemoglobin Concent 33 g/dL (31-37) Red Cell Distribution Width 14.7 % (11.5-14.5) Platelet Count 208 x10^3/uL (140-400) Neutrophils (%) (Auto) 77 % (31-73) Lymphocytes (%) (Auto) 10 % (24-48) Monocytes (%) (Auto) 10 % (0-9) Eosinophils (%) (Auto) 3 % (0-3) Basophils (%) (Auto) 1 % (0-3) Neutrophils # (Auto) 9.3 x10^3uL (1.8-7.7) Lymphocytes # (Auto) 1.2 x10^3/uL (1.0-4.8) Monocytes # (Auto) 1.2 x10^3/uL (0.0-1.1) Eosinophils # (Auto) 0.3 x10^3/uL (0.0-0.7) Basophils # (Auto) 0.1 x10^3/uL (0.0-0.2) Prothrombin Time 29.6 SEC (11.7-14.0) Prothromb Time International Ratio 3.0 (0.8-1.1) Activated Partial Thromboplast Time 36 SEC (24-38) Sodium Level 143 mmol/L (136-145) Potassium Level 3.9 mmol/L (3.5-5.1) Chloride Level 105 mmol/L (98-107) Carbon Dioxide Level 27 mmol/L (21-32) Anion Gap 11 (6-14) Blood Urea Nitrogen 27 mg/dL (7-20) Creatinine 1.2 mg/dL (0.6-1.0) Estimated GFR (Cockcroft-Gault) 42.5 BUN/Creatinine Ratio 23 (6-20) Glucose Level 130 mg/dL (70-99) Calcium Level 8.1 mg/dL (8.5-10.1) Total Bilirubin 1.9 mg/dL (0.2-1.0) Aspartate Amino Transf (AST/SGOT) 18 U/L (15-37) Alanine Aminotransferase (ALT/SGPT) 27 U/L (14-59) Alkaline Phosphatase 92 U/L (46-116) Troponin I Quantitative < 0.017 ng/mL (0.000-0.055) < 0.017 ng/mL (0.000-0.055) < 0.017 ng/mL (0.000-0.055) TN-Hsy-N-Type Natriuretic Peptide 1088 pg/mL (0-449) Total Protein 6.7 g/dL (6.4-8.2) Albumin 3.5 g/dL (3.4-5.0) Albumin/Globulin Ratio 1.1 (1.0-1.7) O2 Saturation 96 % (92-99) Arterial Blood pH 7.45 (7.35-7.45) Arterial Blood pCO2 at Patient Temp 36 mmHg (35-46) Arterial Blood pO2 at Patient Temp 78 mmHg (65-108) Arterial Blood HCO3 25 mmol/L (21-28) Arterial Blood Base Excess 1 mmol/L (-3-3) FiO2 34 Lactic Acid Level 3.7 mmol/L (0.4-2.0) Laboratory Tests Test 12/28/16 22:15 12/29/16 00:08 12/29/16 05:41 12/29/16 12:25 White Blood Count 12.2 x10^3/uL (4.0-11.0) Red Blood Count 4.13 x10^6/uL (3.50-5.40) Hemoglobin 13.0 g/dL (12.0-15.5) Hematocrit 39.9 % (36.0-47.0) Mean Corpuscular Volume 97 fL (79-100) Mean Corpuscular Hemoglobin 32 pg (25-35) Mean Corpuscular Hemoglobin Concent 33 g/dL (31-37) Red Cell Distribution Width 14.7 % (11.5-14.5) Platelet Count 208 x10^3/uL (140-400) Neutrophils (%) (Auto) 77 % (31-73) Lymphocytes (%) (Auto) 10 % (24-48) Monocytes (%) (Auto) 10 % (0-9) Eosinophils (%) (Auto) 3 % (0-3) Basophils (%) (Auto) 1 % (0-3) Neutrophils # (Auto) 9.3 x10^3uL (1.8-7.7) Lymphocytes # (Auto) 1.2 x10^3/uL (1.0-4.8) Monocytes # (Auto) 1.2 x10^3/uL (0.0-1.1) Eosinophils # (Auto) 0.3 x10^3/uL (0.0-0.7) Basophils # (Auto) 0.1 x10^3/uL (0.0-0.2) Prothrombin Time 29.6 SEC (11.7-14.0) Prothromb Time International Ratio 3.0 (0.8-1.1) Activated Partial Thromboplast Time 36 SEC (24-38) Sodium Level 143 mmol/L (136-145) Potassium Level 3.9 mmol/L (3.5-5.1) Chloride Level 105 mmol/L (98-107) Carbon Dioxide Level 27 mmol/L (21-32) Anion Gap 11 (6-14) Blood Urea Nitrogen 27 mg/dL (7-20) Creatinine 1.2 mg/dL (0.6-1.0) Estimated GFR (Cockcroft-Gault) 42.5 BUN/Creatinine Ratio 23 (6-20) Glucose Level 130 mg/dL (70-99) Calcium Level 8.1 mg/dL (8.5-10.1) Total Bilirubin 1.9 mg/dL (0.2-1.0) Aspartate Amino Transf (AST/SGOT) 18 U/L (15-37) Alanine Aminotransferase (ALT/SGPT) 27 U/L (14-59) Alkaline Phosphatase 92 U/L (46-116) Troponin I Quantitative < 0.017 ng/mL (0.000-0.055) < 0.017 ng/mL (0.000-0.055) < 0.017 ng/mL (0.000-0.055) IQ-Kjx-A-Type Natriuretic Peptide 1088 pg/mL (0-449) Total Protein 6.7 g/dL (6.4-8.2) Albumin 3.5 g/dL (3.4-5.0) Albumin/Globulin Ratio 1.1 (1.0-1.7) O2 Saturation 96 % (92-99) Arterial Blood pH 7.45 (7.35-7.45) Arterial Blood pCO2 at Patient Temp 36 mmHg (35-46) Arterial Blood pO2 at Patient Temp 78 mmHg (65-108) Arterial Blood HCO3 25 mmol/L (21-28) Arterial Blood Base Excess 1 mmol/L (-3-3) FiO2 34 Lactic Acid Level 3.7 mmol/L (0.4-2.0) Images Images 1. Cardiomegaly. 2. Prominent pulmonary markings in the lower chest suggesting mild interstitial edema and/or atelectasis. Follow-up PA and lateral chest radiographs are suggested for further evaluation, if clinically indicated. Assessment/Plan Assessment/Plan ASTHMA EXACERBATION ACUTE BRONCHITIS INCREASE DYSPNEA ACUTE HEART FAILURE POSSIBLE DIASTOLIC SACHA HTN S/P VALVE REPLACEMENT PLAN AGREE WITH CURRENT RX HOME CPAP DIURESE SISILLO,SABATO MD Dec 29, 2016 15:27
[2016-12-29] MEDS ORDERED: oxyCODONE/APAP 5/325 1 TAB TABLET PO PRN (18:00)
[2016-12-29] MEDS ORDERED: NON FORMULARY ITEM (Ipratropium Bromide (Atrovent Hfa) 2 PUFF) IH SCH (18:00)
[2016-12-29] MEDS ORDERED: FUROSEMIDE 40 MG TABLET. PO PRN (18:00)
[2016-12-29] MEDS ORDERED: POLYETHYLENE GLYCOL 3350 17 GM PACKET. PO PRN (18:00)
[2016-12-29] MEDS: WARFARIN 2.5 MG TABLET. PO SCH (18:10)
[2016-12-29] MEDS: CARVEDILOL 12.5 MG TABLET. PO SCH (18:14)
[2016-12-29] MEDS ORDERED: DOXYCYCLINE HYCLATE 100 MG TABLET PO SCH (21:00)
[2016-12-29] MEDS: DOCUSATE SODIUM 100 MG CAPSULE. PO SCH (21:00)
[2016-12-29] MEDS ORDERED: NON FORMULARY ITEM (Ranitidine Hcl 1 CAP) PO SCH (21:00)
[2016-12-29] MEDS: SENNOSIDES/DOCUSATE 8.6/50MG TABLET. PO SCH (21:00)
[2016-12-29] MEDS: BENZONATATE 100 MG CAPSULE. PO SCH (21:24)
[2016-12-29] MEDS: ATORVASTATIN CALCIUM 10 MG TABLET. PO SCH (21:25)
[2016-12-29] MEDS: LORazepam 1 MG TABLET PO PRN (21:25)
--- NOTE | 2016-12-29 23:53 | PDOC2 ---
CARDIOLOGY CONSULT NOTE CHEIF COMPLAINT: Shortness of breath Problems: HPI: 86 y.o debilitated woman presenting with recurrent shortness of breath. She denies any chest pain but does have some chest pressure. She has not had palpitations, syncope or orthopnea. PMHX: Adult asthma Tricuspid valve repair diastolic heart failure SOCHX: No alcohol, tobacco or illicits. FAMHX: Non contributory CURRENT MEDS: Current Medications Medications (Trade) Dose Ordered Sig/Rhiannon Start Time Stop Time Status Last Admin Dose Admin Acetaminophen (Tylenol) 650 mg PRN Q4HRS PRN 12/29/16 00:15 12/30/16 00:14 Albuterol Sulfate (Ventolin Neb Soln) 2.5 mg PRN Q4HRS PRN 12/29/16 10:15 12/29/16 23:24 2.5 MG Albuterol/ Ipratropium (Duoneb) 3 ml RTQID 12/29/16 12:00 12/29/16 20:33 3 ML Amlodipine Besylate (Norvasc) 10 mg DAILY 12/30/16 09:00 Aspirin (Andrew Aspirin) 325 mg 1X ONCE 12/28/16 22:30 12/28/16 22:31 DC 12/28/16 22:23 325 MG Atorvastatin Calcium (Lipitor) 10 mg QHS 12/29/16 21:00 12/29/16 21:25 10 MG Benzonatate (Tessalon Perle) 200 mg BID 12/29/16 21:00 12/29/16 21:24 200 MG Carvedilol (Coreg) 25 mg BIDWMEALS 12/29/16 18:30 12/29/16 18:14 25 MG Ceftriaxone Sodium 1 gm/ Sodium Chloride 50 ml @ 100 mls/hr Q24H 12/29/16 22:00 12/29/16 22:25 100 MLS/HR Ceftriaxone Sodium 50 ml @ 100 mls/hr 1X ONCE 12/29/16 00:30 12/29/16 00:59 DC 12/29/16 00:24 100 MLS/HR Cetirizine HCl (ZyrTEC) 10 mg DAILY 12/30/16 09:00 Docusate Sodium (Colace) 100 mg BID 12/29/16 21:00 Doxycycline Hyclate (Vibra-Tab) 100 mg BID 12/29/16 21:00 UNV Doxycycline Hyclate 100 mg/ Dextrose 100 ml @ 50 mls/hr 1X ONCE 12/29/16 00:30 12/29/16 02:29 DC 12/29/16 01:47 50 MLS/HR Furosemide (Lasix) 40 mg DAILY PRN 12/29/16 18:00 Levothyroxine Sodium (Synthroid) 100 mcg DAILY07 12/30/16 07:00 Lorazepam (Ativan) 1 mg PRN DAILY PRN 12/29/16 18:00 12/29/16 21:25 1 MG Losartan Potassium (Cozaar) 100 mg DAILY 12/30/16 09:00 Methylprednisolone Sodium Succinate (SOLU-Medrol 125MG VIAL) 125 mg 1X ONCE 12/28/16 22:30 12/28/16 22:31 DC 12/28/16 22:23 125 MG Metoclopramide HCl (Reglan) 5 mg BIDAC 12/30/16 07:30 Morphine Sulfate 2 mg PRN Q2HR PRN 12/29/16 00:15 12/30/16 00:14 Multivitamins/ Minerals (I-Oscar) 1 tab DAILY 12/30/16 09:00 Non-Formulary Medication 1 cap HS 12/29/16 21:00 UNV Ondansetron HCl (Zofran) 4 mg PRN Q8HRS PRN 12/29/16 00:15 12/30/16 00:14 Oxycodone/ Acetaminophen (Percocet 5/325) 1 tab PRN Q4HRS PRN 12/29/16 18:00 Pantoprazole Sodium (Protonix) 40 mg DAILYAC 12/30/16 07:30 Polyethylene Glycol (miraLAX PACKET) 17 gm PRN DAILY PRN 12/29/16 18:00 Potassium Chloride (Klor-Con) 20 meq PRN BID PRN 12/30/16 08:00 UNV Senna/Docusate Sodium (Senna Plus) 1 tab BID 12/29/16 21:00 Vitamin D (Vitamin D3) 1,000 unit DAILY 12/30/16 09:00 Warfarin Sodium (Coumadin Per Physician) 1 each PRN DAILY PRN 12/29/16 18:15 Warfarin Sodium (Coumadin) 2.5 mg DAILY16 12/29/16 18:30 ALLERGIES: Allergies Coded Allergies Type Severity Reaction Last Updated Verified Iodine and Iodide Containing Produc Allergy Intermediate Hives 11/28/16 Yes Penicillins Allergy Intermediate Rash 11/28/16 Yes bacitracin Allergy Intermediate 11/28/16 Yes codeine Allergy Intermediate Hives 11/28/16 Yes cyclobenzaprine Allergy Intermediate 11/28/16 Yes erythromycin base Allergy Intermediate Hives 11/28/16 Yes ethyl alcohol Allergy Intermediate 11/28/16 Yes mold Allergy Intermediate 11/28/16 Yes moxifloxacin Allergy Intermediate Hives 11/28/16 Yes neomycin Allergy Intermediate 11/28/16 Yes polymyxin B Allergy Intermediate 11/28/16 Yes ROS: Negative for 04/08 systems reviewed unless otherwise noted above in HPI PHYSICAL EXAM: Vital Signs: Vital Signs Date Time Temp Pulse Resp B/P (MAP) Pulse Ox O2 Delivery O2 Flow Rate FiO2 12/29/16 23:30 98.4 65 29 124/58 (80) 95 BiPAP/CPAP 3.0 98.4 I & O Intake and Output 12/29/16 07:00 Intake Total 0 ml Output Total 1400 ml Balance -1400 ml Intake Oral 0 ml Output Urine Total 1400 ml Physical Exam: Gen: Mild distress from dyspnea. CVS: Irr irr. No m/r/g PULM: Bilateral rhonchi. Trace edema. Normal neuro exam. DIAGNOSTIC TESTING: ABG reviewed. CXR noted and suspicious for mild edema Lab Laboratory Tests Test 12/29/16 00:08 12/29/16 05:41 12/29/16 18:33 O2 Saturation 96 % (92-99) Arterial Blood pH 7.45 (7.35-7.45) Arterial Blood pCO2 at Patient Temp 36 mmHg (35-46) Arterial Blood pO2 at Patient Temp 78 mmHg (65-108) Arterial Blood HCO3 25 mmol/L (21-28) Arterial Blood Base Excess 1 mmol/L (-3-3) FiO2 34 Lactic Acid Level 3.7 mmol/L (0.4-2.0) H 3.0 mmol/L (0.4-2.0) H ASSESSMENT: 1. acute on chronic diastolic HF 2. Acute resp failure due to asthma 3. 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 Gentle diuresis. 2. Supportive care from CV perspective. MARIOLA KEMP MD Dec 29, 2016 23:53
[2016-12-30 03:15] VITALS: BP 128/62
[2016-12-30] MEDS: METOCLOPRAMIDE 5 MG TABLET. PO SCH ×2 (06:12→16:56)
[2016-12-30] MEDS: PANTOPRAZOLE 40 MG TABLET.DR. PO SCH (06:12)
[2016-12-30] MEDS: LEVOTHYROXINE 100 MCG TABLET PO SCH (06:12)
[2016-12-30 07:00] VITALS: BP 133/70
--- NOTE | 2016-12-30 07:53 | RAD ---
Portable chest, 12/30/2016: History: Respiratory failure, congestive heart failure Comparison is made to a study from 12/28/2016. The heart is enlarged. The pulmonary vascularity is better defined and now appears to be within normal limits. Interstitial edema has cleared. No pulmonary consolidation is evident. No pleural fluid is identified. IMPRESSION: 1. Mild cardiomegaly. 2. Resolution of the previously seen mild pulmonary edema.
[2016-12-30] MEDS ORDERED: POTASSIUM CHLORIDE 20 MEQ TABLET.ER. PO PRN (08:00)
[2016-12-30] MEDS: IPRATRPIUM/ALBUTEROL 0.5/2.5MG 3 ML NEBU. NEB SCH ×4 (08:12→19:59)
--- NOTE | 2016-12-30 08:27 | PDOC ---
PROGRESS NOTES Chief Complaint Chief Complaint 1. Acute on chronic respiratory failure: likely 2/2 CAP 2. COPD: acute on chronic exacerbation 3. Bronchitis 4. Afib 5. CAD 6. HTN 7. HLP 8. CHF 9. OA 10. Hypothyroidism 11. GERD History of Present Illness History of Present Illness pt is resting in bed this morning, she is on 4L NC and having some difficulty with breathing, she has no other complaints Vitals Vitals Vital Signs Date Time Temp Pulse Resp B/P (MAP) Pulse Ox O2 Delivery O2 Flow Rate FiO2 12/30/16 08:13 92 Nasal Cannula 3.0 12/30/16 07:00 98.1 65 19 133/70 (91) 98.1 Physical Exam General: Alert, Oriented X3, Cooperative, No acute distress Heart: Regular rate, No murmurs Lungs: Wheezing (b/l), Crackles (b/l) Abdomen: Normal bowel sounds, Soft, No tenderness Extremities: No clubbing, No cyanosis, No edema Skin: No rashes, No breakdown Labs LABS Laboratory Tests Test 12/29/16 12:25 12/29/16 18:33 Troponin I Quantitative < 0.017 ng/mL (0.000-0.055) Lactic Acid Level 3.0 mmol/L (0.4-2.0) Review of Systems Review of Systems denies, nausea, vomiting, or WOO mild SOB Assessment and Plan Assessmemt and Plan Assessment 1. Acute on chronic respiratory failure: likely 2/2 CAP 2. COPD: acute on chronic exacerbation 3. Bronchitis 4. Afib 5. CAD 6. HTN 7. HLP 8. CHF 9. OA 10. Hypothyroidism 11. GERD Plan 1. Respiratory treatments with duoneb 2. Ceftriaxone for possible CAP 3. Albuterol prn 4. Gentle diurese with furosemide 5. CPAP at night when sleeping 6. Recheck labs and vitals tomorrow 7. Discussed plan of care with nursing 8. PT/OT 9. Appreciate cardiology subspecialty input 10. Cont home meds 11. Reviewed imaging: CXR showed cardiomegaly, and pulmonary markings in lower chest suggesting edema/atelectasis 12. Echo and repeat CXR today Problems: Comment Review of Relevant I have reviewed the following items wilmer (where applicable) has been applied. Labs Laboratory Tests Test 12/28/16 22:15 12/29/16 00:08 12/29/16 05:41 12/29/16 12:25 White Blood Count 12.2 x10^3/uL (4.0-11.0) Red Blood Count 4.13 x10^6/uL (3.50-5.40) Hemoglobin 13.0 g/dL (12.0-15.5) Hematocrit 39.9 % (36.0-47.0) Mean Corpuscular Volume 97 fL (79-100) Mean Corpuscular Hemoglobin 32 pg (25-35) Mean Corpuscular Hemoglobin Concent 33 g/dL (31-37) Red Cell Distribution Width 14.7 % (11.5-14.5) Platelet Count 208 x10^3/uL (140-400) Neutrophils (%) (Auto) 77 % (31-73) Lymphocytes (%) (Auto) 10 % (24-48) Monocytes (%) (Auto) 10 % (0-9) Eosinophils (%) (Auto) 3 % (0-3) Basophils (%) (Auto) 1 % (0-3) Neutrophils # (Auto) 9.3 x10^3uL (1.8-7.7) Lymphocytes # (Auto) 1.2 x10^3/uL (1.0-4.8) Monocytes # (Auto) 1.2 x10^3/uL (0.0-1.1) Eosinophils # (Auto) 0.3 x10^3/uL (0.0-0.7) Basophils # (Auto) 0.1 x10^3/uL (0.0-0.2) Prothrombin Time 29.6 SEC (11.7-14.0) Prothromb Time International Ratio 3.0 (0.8-1.1) Activated Partial Thromboplast Time 36 SEC (24-38) Sodium Level 143 mmol/L (136-145) Potassium Level 3.9 mmol/L (3.5-5.1) Chloride Level 105 mmol/L (98-107) Carbon Dioxide Level 27 mmol/L (21-32) Anion Gap 11 (6-14) Blood Urea Nitrogen 27 mg/dL (7-20) Creatinine 1.2 mg/dL (0.6-1.0) Estimated GFR (Cockcroft-Gault) 42.5 BUN/Creatinine Ratio 23 (6-20) Glucose Level 130 mg/dL (70-99) Calcium Level 8.1 mg/dL (8.5-10.1) Total Bilirubin 1.9 mg/dL (0.2-1.0) Aspartate Amino Transf (AST/SGOT) 18 U/L (15-37) Alanine Aminotransferase (ALT/SGPT) 27 U/L (14-59) Alkaline Phosphatase 92 U/L (46-116) Troponin I Quantitative < 0.017 ng/mL (0.000-0.055) < 0.017 ng/mL (0.000-0.055) < 0.017 ng/mL (0.000-0.055) MS-Dml-B-Type Natriuretic Peptide 1088 pg/mL (0-449) Total Protein 6.7 g/dL (6.4-8.2) Albumin 3.5 g/dL (3.4-5.0) Albumin/Globulin Ratio 1.1 (1.0-1.7) O2 Saturation 96 % (92-99) Arterial Blood pH 7.45 (7.35-7.45) Arterial Blood pCO2 at Patient Temp 36 mmHg (35-46) Arterial Blood pO2 at Patient Temp 78 mmHg (65-108) Arterial Blood HCO3 25 mmol/L (21-28) Arterial Blood Base Excess 1 mmol/L (-3-3) FiO2 34 Lactic Acid Level 3.7 mmol/L (0.4-2.0) Test 12/29/16 18:33 Lactic Acid Level 3.0 mmol/L (0.4-2.0) Laboratory Tests Test 12/29/16 12:25 12/29/16 18:33 Troponin I Quantitative < 0.017 ng/mL (0.000-0.055) Lactic Acid Level 3.0 mmol/L (0.4-2.0) Medications Current Medications Albuterol/ Ipratropium (Duoneb) 3 ml STK-MED ONCE .ROUTE ; Start 12/28/16 at 22: 08; Stop 12/28/16 at 22:09; Status DC Albuterol Sulfate (Ventolin Neb Soln) 2.5 mg STK-MED ONCE .ROUTE ; Start at 22:08; Stop 12/28/16 at 22:09; Status DC Albuterol Sulfate (Ventolin Neb Soln) 5 mg 1X ONCE INH Last administered on 22:11; Start 12/28/16 at 22:15; Stop 12/28/16 at 22:16; Status DC Albuterol/ Ipratropium (Duoneb) 3 ml 1X ONCE NEB Last administered on 22:11; Start 12/28/16 at 22:15; Stop 12/28/16 at 22:16; Status DC Methylprednisolone Sodium Succinate (SOLU-Medrol 125MG VIAL) 125 mg 1X ONCE IV Last administered on 12/28/16 22:23; Start 12/28/16 at 22:30; Stop 12/28/16 at 22:31; Status DC Aspirin (Andrew Aspirin) 325 mg 1X ONCE PO Last administered on 12/28/16 22:23 ; Start 12/28/16 at 22:30; Stop 12/28/16 at 22:31; Status DC Albuterol Sulfate (Ventolin Neb Soln) 10 mg 1X ONCE CONT NEB Last administered on 12/28/16 22:32; Start 12/28/16 at 22:30; Stop 12/28/16 at 22:34; Status DC Furosemide (Lasix) 40 mg 1X ONCE IVP Last administered on 12/29/16 00:24; Start 12/29/16 at 00:00; Stop 12/29/16 at 00:01; Status DC Ceftriaxone Sodium 50 ml @ 100 mls/hr 1X ONCE IV Last administered on 00:24; Start 12/29/16 at 00:30; Stop 12/29/16 at 00:59; Status DC Doxycycline Hyclate 100 mg/ Dextrose 100 ml @ 50 mls/hr 1X ONCE IV Last administered on 12/29/16 01:47; Start 12/29/16 at 00:30; Stop 12/29/16 at 02:29; Status DC Ondansetron HCl (Zofran) 4 mg PRN Q8HRS PRN IV NAUSEA/VOMITING; Start 12/29/16 at 00:15; Stop 12/30/16 at 00:14; Status DC Morphine Sulfate 2 mg PRN Q2HR PRN IV SEVERE PAIN; Start 12/29/16 at 00:15; Stop 12/30/16 at 00:14; Status DC Acetaminophen (Tylenol) 650 mg PRN Q4HRS PRN PO FEVER; Start 12/29/16 at 00:15; Stop 12/30/16 at 00:14; Status DC Albuterol/ Ipratropium (Duoneb) 3 ml RTQID NEB Last administered on 12/30/16 08 :12; Start 12/29/16 at 12:00 Albuterol Sulfate (Ventolin Neb Soln) 2.5 mg PRN Q4HRS PRN NEB SHORTNESS OF BREATH Last administered on 12/29/16 23:24; Start 12/29/16 at 10:15 Furosemide (Lasix) 40 mg 1X ONCE IVP Last administered on 12/29/16 10:44; Start 12/29/16 at 10:30; Stop 12/29/16 at 10:31; Status DC Amlodipine Besylate (Norvasc) 10 mg DAILY PO ; Start 12/30/16 at 09:00 Atorvastatin Calcium (Lipitor) 10 mg QHS PO Last administered on 12/29/16 21:25 ; Start 12/29/16 at 21:00 Benzonatate (Tessalon Perle) 200 mg BID PO Last administered on 12/29/16 21:24 ; Start 12/29/16 at 21:00 Vitamin D (Vitamin D3) 1,000 unit DAILY PO ; Start 12/30/16 at 09:00 Docusate Sodium (Colace) 100 mg BID PO ; Start 12/29/16 at 21:00 Doxycycline Hyclate (Vibra-Tab) 100 mg BID PO ; Start 12/29/16 at 21:00; Status UNV Furosemide (Lasix) 40 mg DAILY PRN PO WATER RETENTION; Start 12/29/16 at 18:00 Levothyroxine Sodium (Synthroid) 100 mcg DAILY07 PO Last administered on 06:12; Start 12/30/16 at 07:00 Lorazepam (Ativan) 1 mg PRN DAILY PRN PO ANXIETY / AGITATION Last administered on 12/29/16 21:25; Start 12/29/16 at 18:00 Metoclopramide HCl (Reglan) 5 mg BIDAC PO Last administered on 12/30/16 06:12; Start 12/30/16 at 07:30 Oxycodone/ Acetaminophen (Percocet 5/325) 1 tab PRN Q4HRS PRN PO PAIN; Start at 18:00 Pantoprazole Sodium (Protonix) 40 mg DAILYAC PO Last administered on 12/30/16 06:12; Start 12/30/16 at 07:30 Polyethylene Glycol (miraLAX PACKET) 17 gm PRN DAILY PRN PO CONSTIPATION; Start 12/29/16 at 18:00 Senna/Docusate Sodium (Senna Plus) 1 tab BID PO ; Start 12/29/16 at 21:00 Multivitamins/ Minerals (I-Oscar) 1 tab DAILY PO ; Start 12/30/16 at 09:00 Warfarin Sodium (Coumadin) 2.5 mg DAILY16 PO ; Start 12/29/16 at 18:30 Carvedilol (Coreg) 25 mg BIDWMEALS PO Last administered on 12/29/16 18:14; Start 12/29/16 at 18:30 Non-Formulary Medication 2 puff Q6HRS IH ; Start 12/29/16 at 18:00; Status UNV Cetirizine HCl (ZyrTEC) 10 mg DAILY PO ; Start 12/30/16 at 09:00 Losartan Potassium (Cozaar) 100 mg DAILY PO ; Start 12/30/16 at 09:00 Potassium Chloride (Klor-Con) 20 meq PRN BID PRN PO SEE COMMENTS; Start at 08:00; Status UNV Non-Formulary Medication 1 cap HS PO ; Start 12/29/16 at 21:00; Status UNV Warfarin Sodium (Coumadin Per Physician) 1 each PRN DAILY PRN MC SEE COMMENTS; Start 12/29/16 at 18:15 Ceftriaxone Sodium 1 gm/ Sodium Chloride 50 ml @ 100 mls/hr Q24H IV Last administered on 12/29/16 22:25; Start 12/29/16 at 22:00 Active Scripts Active Prednisone 10 Mg Tablet 10 Mg PO DAILY Take 50 mg (5 pills) daily for 2 days, then take 40 mg (4 pills) daily for 2 days, then take 30 mg (3 pills) daily for 2 days, then take 20 mg (2 pills) daily for 2 days, then take 10 mg for 2 days. Prednisone 10 Mg Tablet 10 Mg PO UD Take 3 tabs daily for 3 days, then 2 tabs daily for 3 days, then 1 tablet daily for 3 days, then 1/2 tab daily x 3 days. Doxycycline Hyclate 100 Mg Tablet 100 Mg PO BID Miralax (Polyethylene Glycol 3350) 17 Gm Powd.pack 17 Gm PO PRN DAILY PRN Oxycodone-Acetaminophen 5-325 (Oxycodone Hcl/Acetaminophen) 1 Each Tablet 1 Tab PO PRN Q4HRS PRN Senna-Time S Tablet (Sennosides/Docusate Sodium) 1 Each Tablet 1 Tab PO BID Colace (Docusate Sodium) 100 Mg Capsule 100 Mg PO BID Reported Tessalon Perle (Benzonatate) 100 Mg Capsule 2 Cap PO BID Atrovent Hfa (Ipratropium [place]) 12.9 Gm Hfa.aer.ad 2 Puff IH Q6HRS Reglan (Metoclopramide Hcl) 10 Mg Tablet 10 Mg PO BIDAC Levothyroxine Sodium 100 Mcg Tablet 1 Tab PO DAILY Advair 250-50 Diskus (Fluticasone/Salmeterol) 1 Each Disk.w.dev Warfarin Sodium 2.5 Mg Tablet 2.5 Mg PO HS Lorazepam 1 Mg Tablet 1-2 Mg PO DAILY PRN Ranitidine Hcl 300 Mg Capsule 1 Cap PO HS Ocuvite Tablet (Vit A,C & E/Lutein/Minerals) 1 Each Tablet 1 Each PO DAILY Vitamin D (Cholecalciferol (Vitamin D3)) 1,000 Unit Tablet 1,000 Unit PO DAILY Amlodipine Besylate 10 Mg Tablet 10 Mg PO DAILY Claritin (Loratadine) 10 Mg Tablet 1-2 Tab PO HS Carvedilol 25 Mg Tablet 1 Tab PO BID Atorvastatin Calcium 10 Mg Tablet 1 Tab PO DAILY Potassium Chloride 10 Meq Capsule.er 20 Meq PO BID PRN Benicar (Olmesartan Medoxomil) 40 Mg Tablet 1 Tab PO DAILY Lasix (Furosemide) 40 Mg Tablet 1 Tab PO DAILY PRN Protonix (Pantoprazole Sodium) 40 Mg Tablet. 1 Tab PO DAILY Vitals/I & O Vital Sign - Last 24 Hours 12/29/16 12/29/16 12/29/16 12/29/16 10:26 10:45 14:45 15:26 Temp 98.1 98.1 Pulse 65 65 Resp 20 21 B/P (MAP) 146/77 (100) 118/59 (78) Pulse Ox 92 93 91 93 O2 Delivery Nasal Cannula Nasal Cannula Nasal Cannula Nasal Cannula O2 Flow Rate 3.0 3.0 3.0 3.0 12/29/16 12/29/16 12/29/16 12/29/16 18:14 19:05 19:15 20:20 Temp 98.2 98.2 Pulse 65 65 Resp 28 B/P (MAP) 118/59 128/56 (80) Pulse Ox 95 95 O2 Delivery Nasal Cannula Nasal Cannula Nasal Cannula O2 Flow Rate 3.0 2.0 3.0 12/29/16 12/29/16 12/30/16 12/30/16 23:24 23:30 03:15 07:00 Temp 98.4 98.7 98.1 98.4 98.7 98.1 Pulse 65 65 65 Resp 29 20 19 B/P (MAP) 124/58 (80) 128/62 (84) 133/70 (91) Pulse Ox 97 95 94 93 O2 Delivery Home CPAP w/ 3L Bleed in BiPAP/CPAP BiPAP/CPAP Nasal Cannula O2 Flow Rate 3.0 3.0 3.0 3.0 12/30/16 12/30/16 08:12 08:13 Pulse Ox 92 O2 Delivery Nasal Cannula Nasal Cannula O2 Flow Rate 2.0 3.0 Intake and Output 12/29/16 12/29/16 12/30/16 15:00 23:00 07:00 Intake Total 480 ml 200 ml Output Total 900 ml 200 ml 300 ml Balance -420 ml -200 ml -100 ml ALETHA CRYSTAL III DO Dec 30, 2016 08:27
[2016-12-30] MEDS: SENNOSIDES/DOCUSATE 8.6/50MG TABLET. PO SCH ×2 (08:28→21:00)
[2016-12-30] MEDS: MULTIVITAMIN I-VITE TABLET. PO SCH (08:29)
[2016-12-30] MEDS: DOCUSATE SODIUM 100 MG CAPSULE. PO SCH ×2 (08:30→21:00)
[2016-12-30] MEDS: CHOLECALCIFEROL (VITAMIN D3) 1,000 UNIT TABLET PO SCH (08:31)
[2016-12-30] MEDS: LOSARTAN POTASSIUM 50 MG TABLET. PO SCH (08:31)
[2016-12-30] MEDS: CARVEDILOL 12.5 MG TABLET. PO SCH ×2 (08:32→16:56)
[2016-12-30] MEDS: CETIRIZINE HCL 10 MG TABLET. PO SCH (08:32)
[2016-12-30] MEDS: amLODIPine BESYLATE 10 MG TABLET PO SCH (08:32)
[2016-12-30] MEDS: BENZONATATE 100 MG CAPSULE. PO SCH ×2 (08:33→20:46)
[2016-12-30 08:50] LABS: BASO % 0 % (0-3); EOS % 0 % (0-3); HEMATOCRIT 39.3 % (36.0-47.0); HEMOGLOBIN 12.8 g/dL (12.0-15.5); LYMPH # 1.1 x10^3/uL (1.0-4.8); LYMPH % 8 % (24-48); MEAN CORPUSCULAR HEMOGLOBIN 32 pg (25-35); MEAN CORPUSCULAR HGB CONC 33 g/dL (31-37); MEAN CORPUSCULAR VOLUME 97 fL (79-100); MONO % 9 % (0-9); NEUT % 83 % (31-73); PLATELET COUNT 206 x10^3/uL (140-400); RED BLOOD COUNT 4.04 x10^6/uL (3.50-5.40); RED CELL DISTRIBUTION WIDTH 14.7 % (11.5-14.5); WHITE BLOOD COUNT 12.8 x10^3/uL (4.0-11.0)
[2016-12-30 08:56] LABS: CALCIUM 8.1 mg/dL (8.5-10.1); CREATININE 0.9 mg/dL (0.6-1.0); GFR 59.2; INR 3.1 (0.8-1.1); POTASSIUM 3.6 mmol/L (3.5-5.1); PROTHROMBIN TIME PATIENT 30.2 SEC (11.7-14.0)
[2016-12-30 11:00] VITALS: BP 136/68
--- NOTE | 2016-12-30 14:39 | PDOC ---
NOAH LUCIANO [employer] 12/30/16 1439: CARDIO Progress Notes Date and Time Date of Service 12/30/16 Time of Evaluation 1350 Subjective Subjective: No Chest Pain, No Palpitations, Other (mild SOA) Vitals Vitals Vital Signs Date Time Temp Pulse Resp B/P (MAP) Pulse Ox O2 Delivery O2 Flow Rate FiO2 12/30/16 11:29 96 Nasal Cannula 3.0 12/30/16 11:00 98.2 65 17 136/68 (90) 98.2 Weight Weight [ ] Input and Output Intake and Output Intake and Output 12/30/16 06:59 Intake Total 680 ml Output Total 1400 ml Balance -720 ml Intake Oral 680 ml Output Urine Total 1400 ml Laboratory Labs Laboratory Tests Test 12/29/16 18:33 12/30/16 08:25 12/30/16 08:28 Lactic Acid Level 3.0 mmol/L (0.4-2.0) Prothrombin Time 30.2 SEC (11.7-14.0) Prothromb Time International Ratio 3.1 (0.8-1.1) Sodium Level 147 mmol/L (136-145) Potassium Level 3.6 mmol/L (3.5-5.1) Chloride Level 109 mmol/L (98-107) Carbon Dioxide Level 29 mmol/L (21-32) Anion Gap 9 (6-14) Blood Urea Nitrogen 26 mg/dL (7-20) Creatinine 0.9 mg/dL (0.6-1.0) Estimated GFR (Cockcroft-Gault) 59.2 Glucose Level 130 mg/dL (70-99) Calcium Level 8.1 mg/dL (8.5-10.1) White Blood Count 12.8 x10^3/uL (4.0-11.0) Red Blood Count 4.04 x10^6/uL (3.50-5.40) Hemoglobin 12.8 g/dL (12.0-15.5) Hematocrit 39.3 % (36.0-47.0) Mean Corpuscular Volume 97 fL (79-100) Mean Corpuscular Hemoglobin 32 pg (25-35) Mean Corpuscular Hemoglobin Concent 33 g/dL (31-37) Red Cell Distribution Width 14.7 % (11.5-14.5) Platelet Count 206 x10^3/uL (140-400) Neutrophils (%) (Auto) 83 % (31-73) Lymphocytes (%) (Auto) 8 % (24-48) Monocytes (%) (Auto) 9 % (0-9) Eosinophils (%) (Auto) 0 % (0-3) Basophils (%) (Auto) 0 % (0-3) Neutrophils # (Auto) 10.6 x10^3uL (1.8-7.7) Lymphocytes # (Auto) 1.1 x10^3/uL (1.0-4.8) Monocytes # (Auto) 1.1 x10^3/uL (0.0-1.1) Eosinophils # (Auto) 0.0 x10^3/uL (0.0-0.7) Basophils # (Auto) 0.0 x10^3/uL (0.0-0.2) Physical Exam HEENT: Neck Supple W Full Motion Chest: Symmetric LUNGS: Other (diminished bases ) Heart: S1S2, RRR, murmurs (soft systolic murmur ) Abdomen: Soft N/T, Other (obese ) Extremities: No Edema, No Calf Tenderness Neurology: alert, oriented, follow commands Assessment Assessment 1. Acute on chronic diastolic HF 2. Acute resp failure due to asthma 3. 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 Hypertension Recommendations Daily oral diuresis for now. Replace K Continue supportive care from CV perspective. MARIOLA KEMP MD 12/30/161955: CARDIO Progress Notes Plan Plan Patient seen and examined. Agree with above nurse practitioner note with the following comments/changes Agent is minimally better today with respect to her dyspnea. Her rhonchi in bilateral lung mcneill are still present. Based on her elevated sodium, resolving pulmonary edema on chest x-ray she likely is at the threshold of her volume status. We will stop Lasix and use when necessary to help maintain her current weight. Obtain standing weight. Supportive care. Low suspicion for any cardiovascular involvement. NOAH LUCIANO APRN Dec 30, 2016 14:39 MARIOLA KEMP MD Dec 30, 2016 19:56
[2016-12-30 14:51] VITALS: BP 113/61
--- NOTE | 2016-12-30 15:34 | PDOC ---
PULMONARY PROGRESS NOTES Subjective PT WITH NO INCREASE MAURILIO A LITTLE BETTER LESS COUGH Vitals Vital Signs Date Time Temp Pulse Resp B/P (MAP) Pulse Ox O2 Delivery O2 Flow Rate FiO2 12/30/16 15:23 96 Nasal Cannula 3.0 12/30/16 14:51 98.3 65 17 113/61 (78) 98.3 ROS: No Nausea, No Abdominal Pain, No Increase Cough Cardiovascular: S1, S2 Abdomen: Soft Neuro Exam: Alert Extremities: No Edema Skin: Warm Labs Laboratory Tests Test 12/28/16 22:15 12/29/16 00:08 12/29/16 05:41 12/29/16 12:25 White Blood Count 12.2 x10^3/uL (4.0-11.0) Red Blood Count 4.13 x10^6/uL (3.50-5.40) Hemoglobin 13.0 g/dL (12.0-15.5) Hematocrit 39.9 % (36.0-47.0) Mean Corpuscular Volume 97 fL (79-100) Mean Corpuscular Hemoglobin 32 pg (25-35) Mean Corpuscular Hemoglobin Concent 33 g/dL (31-37) Red Cell Distribution Width 14.7 % (11.5-14.5) Platelet Count 208 x10^3/uL (140-400) Neutrophils (%) (Auto) 77 % (31-73) Lymphocytes (%) (Auto) 10 % (24-48) Monocytes (%) (Auto) 10 % (0-9) Eosinophils (%) (Auto) 3 % (0-3) Basophils (%) (Auto) 1 % (0-3) Neutrophils # (Auto) 9.3 x10^3uL (1.8-7.7) Lymphocytes # (Auto) 1.2 x10^3/uL (1.0-4.8) Monocytes # (Auto) 1.2 x10^3/uL (0.0-1.1) Eosinophils # (Auto) 0.3 x10^3/uL (0.0-0.7) Basophils # (Auto) 0.1 x10^3/uL (0.0-0.2) Prothrombin Time 29.6 SEC (11.7-14.0) Prothromb Time International Ratio 3.0 (0.8-1.1) Activated Partial Thromboplast Time 36 SEC (24-38) Sodium Level 143 mmol/L (136-145) Potassium Level 3.9 mmol/L (3.5-5.1) Chloride Level 105 mmol/L (98-107) Carbon Dioxide Level 27 mmol/L (21-32) Anion Gap 11 (6-14) Blood Urea Nitrogen 27 mg/dL (7-20) Creatinine 1.2 mg/dL (0.6-1.0) Estimated GFR (Cockcroft-Gault) 42.5 BUN/Creatinine Ratio 23 (6-20) Glucose Level 130 mg/dL (70-99) Calcium Level 8.1 mg/dL (8.5-10.1) Total Bilirubin 1.9 mg/dL (0.2-1.0) Aspartate Amino Transf (AST/SGOT) 18 U/L (15-37) Alanine Aminotransferase (ALT/SGPT) 27 U/L (14-59) Alkaline Phosphatase 92 U/L (46-116) Troponin I Quantitative < 0.017 ng/mL (0.000-0.055) < 0.017 ng/mL (0.000-0.055) < 0.017 ng/mL (0.000-0.055) CA-Ocp-L-Type Natriuretic Peptide 1088 pg/mL (0-449) Total Protein 6.7 g/dL (6.4-8.2) Albumin 3.5 g/dL (3.4-5.0) Albumin/Globulin Ratio 1.1 (1.0-1.7) O2 Saturation 96 % (92-99) Arterial Blood pH 7.45 (7.35-7.45) Arterial Blood pCO2 at Patient Temp 36 mmHg (35-46) Arterial Blood pO2 at Patient Temp 78 mmHg (65-108) Arterial Blood HCO3 25 mmol/L (21-28) Arterial Blood Base Excess 1 mmol/L (-3-3) FiO2 34 Lactic Acid Level 3.7 mmol/L (0.4-2.0) Test 12/29/16 18:33 12/30/16 08:25 12/30/16 08:28 Lactic Acid Level 3.0 mmol/L (0.4-2.0) Prothrombin Time 30.2 SEC (11.7-14.0) Prothromb Time International Ratio 3.1 (0.8-1.1) Sodium Level 147 mmol/L (136-145) Potassium Level 3.6 mmol/L (3.5-5.1) Chloride Level 109 mmol/L (98-107) Carbon Dioxide Level 29 mmol/L (21-32) Anion Gap 9 (6-14) Blood Urea Nitrogen 26 mg/dL (7-20) Creatinine 0.9 mg/dL (0.6-1.0) Estimated GFR (Cockcroft-Gault) 59.2 Glucose Level 130 mg/dL (70-99) Calcium Level 8.1 mg/dL (8.5-10.1) White Blood Count 12.8 x10^3/uL (4.0-11.0) Red Blood Count 4.04 x10^6/uL (3.50-5.40) Hemoglobin 12.8 g/dL (12.0-15.5) Hematocrit 39.3 % (36.0-47.0) Mean Corpuscular Volume 97 fL (79-100) Mean Corpuscular Hemoglobin 32 pg (25-35) Mean Corpuscular Hemoglobin Concent 33 g/dL (31-37) Red Cell Distribution Width 14.7 % (11.5-14.5) Platelet Count 206 x10^3/uL (140-400) Neutrophils (%) (Auto) 83 % (31-73) Lymphocytes (%) (Auto) 8 % (24-48) Monocytes (%) (Auto) 9 % (0-9) Eosinophils (%) (Auto) 0 % (0-3) Basophils (%) (Auto) 0 % (0-3) Neutrophils # (Auto) 10.6 x10^3uL (1.8-7.7) Lymphocytes # (Auto) 1.1 x10^3/uL (1.0-4.8) Monocytes # (Auto) 1.1 x10^3/uL (0.0-1.1) Eosinophils # (Auto) 0.0 x10^3/uL (0.0-0.7) Basophils # (Auto) 0.0 x10^3/uL (0.0-0.2) Laboratory Tests Test 12/29/16 18:33 12/30/16 08:25 12/30/16 08:28 Lactic Acid Level 3.0 mmol/L (0.4-2.0) Prothrombin Time 30.2 SEC (11.7-14.0) Prothromb Time International Ratio 3.1 (0.8-1.1) Sodium Level 147 mmol/L (136-145) Potassium Level 3.6 mmol/L (3.5-5.1) Chloride Level 109 mmol/L (98-107) Carbon Dioxide Level 29 mmol/L (21-32) Anion Gap 9 (6-14) Blood Urea Nitrogen 26 mg/dL (7-20) Creatinine 0.9 mg/dL (0.6-1.0) Estimated GFR (Cockcroft-Gault) 59.2 Glucose Level 130 mg/dL (70-99) Calcium Level 8.1 mg/dL (8.5-10.1) White Blood Count 12.8 x10^3/uL (4.0-11.0) Red Blood Count 4.04 x10^6/uL (3.50-5.40) Hemoglobin 12.8 g/dL (12.0-15.5) Hematocrit 39.3 % (36.0-47.0) Mean Corpuscular Volume 97 fL (79-100) Mean Corpuscular Hemoglobin 32 pg (25-35) Mean Corpuscular Hemoglobin Concent 33 g/dL (31-37) Red Cell Distribution Width 14.7 % (11.5-14.5) Platelet Count 206 x10^3/uL (140-400) Neutrophils (%) (Auto) 83 % (31-73) Lymphocytes (%) (Auto) 8 % (24-48) Monocytes (%) (Auto) 9 % (0-9) Eosinophils (%) (Auto) 0 % (0-3) Basophils (%) (Auto) 0 % (0-3) Neutrophils # (Auto) 10.6 x10^3uL (1.8-7.7) Lymphocytes # (Auto) 1.1 x10^3/uL (1.0-4.8) Monocytes # (Auto) 1.1 x10^3/uL (0.0-1.1) Eosinophils # (Auto) 0.0 x10^3/uL (0.0-0.7) Basophils # (Auto) 0.0 x10^3/uL (0.0-0.2) Medications Active Scripts Medications Dose Route/Sig Max Daily Dose Days Date Category Dose Instructions Tessalon Perle (Benzonatate) 100 Mg Capsule 2 Cap PO BID 12/29/16 Reported Prednisone 10 Mg Tablet 10 Mg PO DAILY 11/28/16 Rx Take 50 mg (5 pills) daily for 2 days, then take 40 mg (4 pills) daily for 2 days, then take 30 mg (3 pills) daily for 2 days, then take 20 mg (2 pills) daily for 2 days, then take 10 mg for 2 days. Prednisone 10 Mg Tablet 10 Mg PO UD 06/16/16 Rx Take 3 tabs daily for 3 days, then 2 tabs daily for 3 days, then 1 tablet daily for 3 days, then 1/2 tab daily x 3 days. Doxycycline Hyclate 100 Mg Tablet 100 Mg PO BID 06/16/16 Rx Miralax (Polyethylene Glycol 3350) 17 Gm Powd.pack 17 Gm PO PRN DAILY PRN 03/08/16 Rx Oxycodone-Acetaminophen 5-325 (Oxycodone Hcl/Acetaminophen) 1 Each Tablet 1 Tab PO PRN Q4HRS PRN 03/08/16 Rx Senna-Time S Tablet (Sennosides/Docusate Sodium) 1 Each Tablet 1 Tab PO BID 03/08/16 Rx Colace (Docusate Sodium) 100 Mg Capsule 100 Mg PO BID 03/08/16 Rx Atrovent Hfa (Ipratropium [place]) 12.9 Gm Hfa.aer.ad 2 Puff IH Q6HRS 03/05/16 Reported Reglan (Metoclopramide Hcl) 10 Mg Tablet 10 Mg PO BIDAC 03/05/16 Reported Levothyroxine Sodium 100 Mcg Tablet 1 Tab PO DAILY 03/05/16 Reported Advair 250-50 Diskus (Fluticasone/Salmeterol) 1 Each Disk.w.dev 12/02/15 Reported Warfarin Sodium 2.5 Mg Tablet 2.5 Mg PO HS 12/02/15 Reported Lorazepam 1 Mg Tablet 1-2 Mg PO DAILY PRN 12/02/15 Reported Ranitidine Hcl 300 Mg Capsule 1 Cap PO HS 11/25/15 Reported Ocuvite Tablet (Vit A,C & E/Lutein/Minerals) 1 Each Tablet 1 Each PO DAILY 10/23/15 Reported Vitamin D (Cholecalciferol (Vitamin D3)) 1,000 Unit Tablet 1,000 Unit PO DAILY 10/23/15 Reported Amlodipine Besylate 10 Mg Tablet 10 Mg PO DAILY 10/23/15 Reported Claritin (Loratadine) 10 Mg Tablet 1-2 Tab PO HS 10/23/15 Reported Carvedilol 25 Mg Tablet 1 Tab PO BID 10/23/15 Reported Atorvastatin Calcium 10 Mg Tablet 1 Tab PO DAILY 10/23/15 Reported Potassium Chloride 10 Meq Capsule.er 20 Meq PO BID PRN 10/23/15 Reported Benicar (Olmesartan Medoxomil) 40 Mg Tablet 1 Tab PO DAILY 10/23/15 Reported Lasix (Furosemide) 40 Mg Tablet 1 Tab PO DAILY PRN 10/23/15 Reported Protonix (Pantoprazole Sodium) 40 Mg Tablet.dr 1 Tab PO DAILY 10/23/15 Reported Impression . ASTHMA EXACERBATION ACUTE BRONCHITIS INCREASE DYSPNEA ACUTE HEART FAILURE POSSIBLE DIASTOLIC ASCHA HTN S/P VALVE REPLACEMENT Plan . IMPROVING AGREE WITH CURRENT RX HOME CPAP SHAKIR BOCANEGRA MD Dec 30, 2016 15:34
[2016-12-30] MEDS ORDERED: FUROSEMIDE 40 MG TABLET. PO SCH (15:45)
[2016-12-30] MEDS: WARFARIN 2.5 MG TABLET. PO SCH (16:00)
[2016-12-30] MEDS: POTASSIUM CHLORIDE 20 MEQ TABLET.ER. PO SCH (16:58)
[2016-12-30 19:15] VITALS: BP 124/63
[2016-12-30] MEDS: ATORVASTATIN CALCIUM 10 MG TABLET. PO SCH (20:46)
[2016-12-30] MEDS: LORazepam 1 MG TABLET PO PRN (20:46)
[2016-12-30 23:11] VITALS: BP 120/62
[2016-12-31 03:15] VITALS: BP 133/61
[2016-12-31] MEDS: LEVOTHYROXINE 100 MCG TABLET PO SCH (06:32)
[2016-12-31 06:44] LABS: CALCIUM 8.2 mg/dL (8.5-10.1); CREATININE 0.7 mg/dL (0.6-1.0); GFR 79.2; POTASSIUM 3.8 mmol/L (3.5-5.1)
[2016-12-31 07:00] VITALS: BP 128/63
[2016-12-31] MEDS: IPRATRPIUM/ALBUTEROL 0.5/2.5MG 3 ML NEBU. NEB SCH ×4 (07:23→19:10)
[2016-12-31] MEDS: PANTOPRAZOLE 40 MG TABLET.DR. PO SCH (07:30)
--- NOTE | 2016-12-31 08:05 | PDOC ---
NOAH LUCIANO LONGITUDINAL FLOAT OPERATOR 12/31/16 0804: CARDIO Progress Notes Date and Time Date of Service 12/31/16 Time of Evaluation 0800 Subjective Subjective: No Chest Pain, No Palpitations, Other (sitting up in chair,. SOA improved. ) Vitals Vitals Vital Signs Date Time Temp Pulse Resp B/P (MAP) Pulse Ox O2 Delivery O2 Flow Rate FiO2 12/31/16 07:23 98 Nasal Cannula 3.0 12/31/16 07:00 97.4 65 20 128/63 (84) 97.4 Weight Weight [ ] Input and Output Intake and Output Intake and Output 12/31/16 07:00 Intake Total 1200 ml Output Total 1051 ml Balance 149 ml Intake Oral 1150 ml IV Total 50 ml Output Urine Total 1050 ml Urine/Stool Mix 1 ml Laboratory Labs Laboratory Tests Test 12/30/16 08:25 12/30/16 08:28 12/31/16 05:40 Prothrombin Time 30.2 SEC (11.7-14.0) Prothromb Time International Ratio 3.1 (0.8-1.1) Sodium Level 147 mmol/L (136-145) 145 mmol/L (136-145) Potassium Level 3.6 mmol/L (3.5-5.1) 3.8 mmol/L (3.5-5.1) Chloride Level 109 mmol/L (98-107) 107 mmol/L (98-107) Carbon Dioxide Level 29 mmol/L (21-32) 27 mmol/L (21-32) Anion Gap 9 (6-14) 11 (6-14) Blood Urea Nitrogen 26 mg/dL (7-20) 22 mg/dL (7-20) Creatinine 0.9 mg/dL (0.6-1.0) 0.7 mg/dL (0.6-1.0) Estimated GFR (Cockcroft-Gault) 59.2 79.2 Glucose Level 130 mg/dL (70-99) 109 mg/dL (70-99) Calcium Level 8.1 mg/dL (8.5-10.1) 8.2 mg/dL (8.5-10.1) White Blood Count 12.8 x10^3/uL (4.0-11.0) Red Blood Count 4.04 x10^6/uL (3.50-5.40) Hemoglobin 12.8 g/dL (12.0-15.5) Hematocrit 39.3 % (36.0-47.0) Mean Corpuscular Volume 97 fL (79-100) Mean Corpuscular Hemoglobin 32 pg (25-35) Mean Corpuscular Hemoglobin Concent 33 g/dL (31-37) Red Cell Distribution Width 14.7 % (11.5-14.5) Platelet Count 206 x10^3/uL (140-400) Neutrophils (%) (Auto) 83 % (31-73) Lymphocytes (%) (Auto) 8 % (24-48) Monocytes (%) (Auto) 9 % (0-9) Eosinophils (%) (Auto) 0 % (0-3) Basophils (%) (Auto) 0 % (0-3) Neutrophils # (Auto) 10.6 x10^3uL (1.8-7.7) Lymphocytes # (Auto) 1.1 x10^3/uL (1.0-4.8) Monocytes # (Auto) 1.1 x10^3/uL (0.0-1.1) Eosinophils # (Auto) 0.0 x10^3/uL (0.0-0.7) Basophils # (Auto) 0.0 x10^3/uL (0.0-0.2) Physical Exam HEENT: Neck Supple W Full Motion Chest: Symmetric LUNGS: Other (diminished bases ) Heart: S1S2, RRR, murmurs (soft systolic murmur ) Abdomen: Soft N/T, Other (obese ) Extremities: No Edema, No Calf Tenderness Neurology: alert, oriented, follow commands Assessment Assessment 1. Diastolic HF 2. Acute resp failure due to asthma 3. 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 Hypertension Recommendations Supportive care Diuresis as needed Will follow along peripherally. Please call with questions. MARIOLA KEMP MD 12/31/16 1132: CARDIO Progress Notes Plan Plan Pt. seen and examined. Agree with above [employer] TELEVISION ANNOUNCER note. No new events. Continue present meds. Would hold aggressive diuresis. Supportive care from cardiac standpoint. When closer to DC, consider lasix 20mg or 40mg daily. Will follow peripherally. NOAH LUCIANO APRN Dec 31, 2016 08:04 MARIOLA KEMP MD Dec 31, 2016 11:32
[2016-12-31 08:35] LABS: BASO % 0 % (0-3); EOS % 1 % (0-3); HEMATOCRIT 39.7 % (36.0-47.0); HEMOGLOBIN 13.2 g/dL (12.0-15.5); LYMPH # 1.2 x10^3/uL (1.0-4.8); LYMPH % 12 % (24-48); MEAN CORPUSCULAR HEMOGLOBIN 32 pg (25-35); MEAN CORPUSCULAR HGB CONC 33 g/dL (31-37); MEAN CORPUSCULAR VOLUME 97 fL (79-100); MONO % 11 % (0-9); NEUT % 75 % (31-73); PLATELET COUNT 207 x10^3/uL (140-400); RED BLOOD COUNT 4.11 x10^6/uL (3.50-5.40); RED CELL DISTRIBUTION WIDTH 14.3 % (11.5-14.5); WHITE BLOOD COUNT 9.9 x10^3/uL (4.0-11.0)
[2016-12-31] MEDS: SENNOSIDES/DOCUSATE 8.6/50MG TABLET. PO SCH ×2 (09:00→21:00)
[2016-12-31] MEDS: DOCUSATE SODIUM 100 MG CAPSULE. PO SCH ×2 (09:00→21:35)
[2016-12-31] MEDS: METOCLOPRAMIDE 5 MG TABLET. PO SCH ×2 (09:37→17:15)
[2016-12-31] MEDS: POTASSIUM CHLORIDE 20 MEQ TABLET.ER. PO SCH (09:37)
[2016-12-31] MEDS: MULTIVITAMIN I-VITE TABLET. PO SCH (09:38)
[2016-12-31] MEDS: LOSARTAN POTASSIUM 50 MG TABLET. PO SCH (09:38)
[2016-12-31] MEDS: CHOLECALCIFEROL (VITAMIN D3) 1,000 UNIT TABLET PO SCH (09:38)
[2016-12-31] MEDS: amLODIPine BESYLATE 10 MG TABLET PO SCH (09:39)
[2016-12-31] MEDS: BENZONATATE 100 MG CAPSULE. PO SCH ×2 (09:39→21:35)
[2016-12-31] MEDS: CARVEDILOL 12.5 MG TABLET. PO SCH ×2 (09:41→17:19)
[2016-12-31] MEDS: CETIRIZINE HCL 10 MG TABLET. PO SCH (09:49)
[2016-12-31 09:51] LABS: PROTHROMBIN TIME PATIENT 21.4 SEC (11.7-14.0)
[2016-12-31 10:55] VITALS: BP 123/68
--- NOTE | 2016-12-31 11:17 | PDOC ---
PROGRESS NOTES Chief Complaint Chief Complaint 1. Acute on chronic respiratory failure: likely 2/2 CAP 2. COPD: acute on chronic exacerbation 3. Bronchitis 4. Afib 5. CAD 6. HTN 7. HLP 8. CHF 9. OA 10. Hypothyroidism 11. GERD History of Present Illness History of Present Illness pt is resting comfortably in bed this morning, she denies any complaints, she is receptive to SNU so will evaluate today Vitals Vitals Vital Signs Date Time Temp Pulse Resp B/P (MAP) Pulse Ox O2 Delivery O2 Flow Rate FiO2 12/31/16 10:50 95 Nasal Cannula 3.0 12/31/16 09:41 65 128/63 12/31/16 07:00 97.4 20 97.4 Physical Exam General: Alert, Oriented X3, Cooperative, No acute distress Heart: Regular rate, No murmurs Abdomen: Normal bowel sounds, Soft, No tenderness Extremities: No clubbing, No cyanosis, No edema Skin: No rashes, No breakdown Labs LABS Laboratory Tests Test 12/31/16 05:40 12/31/16 08:05 Sodium Level 145 mmol/L (136-145) Potassium Level 3.8 mmol/L (3.5-5.1) Chloride Level 107 mmol/L (98-107) Carbon Dioxide Level 27 mmol/L (21-32) Anion Gap 11 (6-14) Blood Urea Nitrogen 22 mg/dL (7-20) Creatinine 0.7 mg/dL (0.6-1.0) Estimated GFR (Cockcroft-Gault) 79.2 Glucose Level 109 mg/dL (70-99) Calcium Level 8.2 mg/dL (8.5-10.1) White Blood Count 9.9 x10^3/uL (4.0-11.0) Red Blood Count 4.11 x10^6/uL (3.50-5.40) Hemoglobin 13.2 g/dL (12.0-15.5) Hematocrit 39.7 % (36.0-47.0) Mean Corpuscular Volume 97 fL (79-100) Mean Corpuscular Hemoglobin 32 pg (25-35) Mean Corpuscular Hemoglobin Concent 33 g/dL (31-37) Red Cell Distribution Width 14.3 % (11.5-14.5) Platelet Count 207 x10^3/uL (140-400) Neutrophils (%) (Auto) 75 % (31-73) Lymphocytes (%) (Auto) 12 % (24-48) Monocytes (%) (Auto) 11 % (0-9) Eosinophils (%) (Auto) 1 % (0-3) Basophils (%) (Auto) 0 % (0-3) Neutrophils # (Auto) 7.5 x10^3uL (1.8-7.7) Lymphocytes # (Auto) 1.2 x10^3/uL (1.0-4.8) Monocytes # (Auto) 1.1 x10^3/uL (0.0-1.1) Eosinophils # (Auto) 0.1 x10^3/uL (0.0-0.7) Basophils # (Auto) 0.0 x10^3/uL (0.0-0.2) Prothrombin Time 21.4 SEC (11.7-14.0) Prothromb Time International Ratio 2.0 (0.8-1.1) Lactic Acid Level 1.4 mmol/L (0.4-2.0) Assessment and Plan Assessmemt and Plan Assessment 1. Acute on chronic respiratory failure: likely 2/2 CAP 2. COPD: acute on chronic exacerbation 3. Bronchitis 4. Afib 5. CAD 6. HTN 7. HLP 8. CHF 9. OA 10. Hypothyroidism 11. GERD Plan 1. Respiratory treatments with duoneb 2. Ceftriaxone for possible CAP 3. Albuterol prn 4. Gentle diurese with furosemide, lasix held today 5. CPAP at night when sleeping 6. Recheck labs and vitals tomorrow 7. Discussed plan of care with nursing 8. PT/OT 9. Appreciate cardiology subspecialty input 10. Cont home meds 11. Reviewed imaging: CXR showed cardiomegaly, and pulmonary markings in lower chest suggesting edema/atelectasis 12. SNU eval Problems: Comment Review of Relevant I have reviewed the following items wilmer (where applicable) has been applied. Labs Laboratory Tests Test 12/29/16 12:25 12/29/16 18:33 12/30/16 08:25 12/30/16 08:28 Troponin I Quantitative < 0.017 ng/mL (0.000-0.055) Lactic Acid Level 3.0 mmol/L (0.4-2.0) Prothrombin Time 30.2 SEC (11.7-14.0) Prothromb Time International Ratio 3.1 (0.8-1.1) Sodium Level 147 mmol/L (136-145) Potassium Level 3.6 mmol/L (3.5-5.1) Chloride Level 109 mmol/L (98-107) Carbon Dioxide Level 29 mmol/L (21-32) Anion Gap 9 (6-14) Blood Urea Nitrogen 26 mg/dL (7-20) Creatinine 0.9 mg/dL (0.6-1.0) Estimated GFR (Cockcroft-Gault) 59.2 Glucose Level 130 mg/dL (70-99) Calcium Level 8.1 mg/dL (8.5-10.1) White Blood Count 12.8 x10^3/uL (4.0-11.0) Red Blood Count 4.04 x10^6/uL (3.50-5.40) Hemoglobin 12.8 g/dL (12.0-15.5) Hematocrit 39.3 % (36.0-47.0) Mean Corpuscular Volume 97 fL (79-100) Mean Corpuscular Hemoglobin 32 pg (25-35) Mean Corpuscular Hemoglobin Concent 33 g/dL (31-37) Red Cell Distribution Width 14.7 % (11.5-14.5) Platelet Count 206 x10^3/uL (140-400) Neutrophils (%) (Auto) 83 % (31-73) Lymphocytes (%) (Auto) 8 % (24-48) Monocytes (%) (Auto) 9 % (0-9) Eosinophils (%) (Auto) 0 % (0-3) Basophils (%) (Auto) 0 % (0-3) Neutrophils # (Auto) 10.6 x10^3uL (1.8-7.7) Lymphocytes # (Auto) 1.1 x10^3/uL (1.0-4.8) Monocytes # (Auto) 1.1 x10^3/uL (0.0-1.1) Eosinophils # (Auto) 0.0 x10^3/uL (0.0-0.7) Basophils # (Auto) 0.0 x10^3/uL (0.0-0.2) Test 12/31/16 05:40 12/31/16 08:05 Sodium Level 145 mmol/L (136-145) Potassium Level 3.8 mmol/L (3.5-5.1) Chloride Level 107 mmol/L (98-107) Carbon Dioxide Level 27 mmol/L (21-32) Anion Gap 11 (6-14) Blood Urea Nitrogen 22 mg/dL (7-20) Creatinine 0.7 mg/dL (0.6-1.0) Estimated GFR (Cockcroft-Gault) 79.2 Glucose Level 109 mg/dL (70-99) Calcium Level 8.2 mg/dL (8.5-10.1) White Blood Count 9.9 x10^3/uL (4.0-11.0) Red Blood Count 4.11 x10^6/uL (3.50-5.40) Hemoglobin 13.2 g/dL (12.0-15.5) Hematocrit 39.7 % (36.0-47.0) Mean Corpuscular Volume 97 fL (79-100) Mean Corpuscular Hemoglobin 32 pg (25-35) Mean Corpuscular Hemoglobin Concent 33 g/dL (31-37) Red Cell Distribution Width 14.3 % (11.5-14.5) Platelet Count 207 x10^3/uL (140-400) Neutrophils (%) (Auto) 75 % (31-73) Lymphocytes (%) (Auto) 12 % (24-48) Monocytes (%) (Auto) 11 % (0-9) Eosinophils (%) (Auto) 1 % (0-3) Basophils (%) (Auto) 0 % (0-3) Neutrophils # (Auto) 7.5 x10^3uL (1.8-7.7) Lymphocytes # (Auto) 1.2 x10^3/uL (1.0-4.8) Monocytes # (Auto) 1.1 x10^3/uL (0.0-1.1) Eosinophils # (Auto) 0.1 x10^3/uL (0.0-0.7) Basophils # (Auto) 0.0 x10^3/uL (0.0-0.2) Prothrombin Time 21.4 SEC (11.7-14.0) Prothromb Time International Ratio 2.0 (0.8-1.1) Lactic Acid Level 1.4 mmol/L (0.4-2.0) Laboratory Tests Test 12/31/16 05:40 12/31/16 08:05 Sodium Level 145 mmol/L (136-145) Potassium Level 3.8 mmol/L (3.5-5.1) Chloride Level 107 mmol/L (98-107) Carbon Dioxide Level 27 mmol/L (21-32) Anion Gap 11 (6-14) Blood Urea Nitrogen 22 mg/dL (7-20) Creatinine 0.7 mg/dL (0.6-1.0) Estimated GFR (Cockcroft-Gault) 79.2 Glucose Level 109 mg/dL (70-99) Calcium Level 8.2 mg/dL (8.5-10.1) White Blood Count 9.9 x10^3/uL (4.0-11.0) Red Blood Count 4.11 x10^6/uL (3.50-5.40) Hemoglobin 13.2 g/dL (12.0-15.5) Hematocrit 39.7 % (36.0-47.0) Mean Corpuscular Volume 97 fL (79-100) Mean Corpuscular Hemoglobin 32 pg (25-35) Mean Corpuscular Hemoglobin Concent 33 g/dL (31-37) Red Cell Distribution Width 14.3 % (11.5-14.5) Platelet Count 207 x10^3/uL (140-400) Neutrophils (%) (Auto) 75 % (31-73) Lymphocytes (%) (Auto) 12 % (24-48) Monocytes (%) (Auto) 11 % (0-9) Eosinophils (%) (Auto) 1 % (0-3) Basophils (%) (Auto) 0 % (0-3) Neutrophils # (Auto) 7.5 x10^3uL (1.8-7.7) Lymphocytes # (Auto) 1.2 x10^3/uL (1.0-4.8) Monocytes # (Auto) 1.1 x10^3/uL (0.0-1.1) Eosinophils # (Auto) 0.1 x10^3/uL (0.0-0.7) Basophils # (Auto) 0.0 x10^3/uL (0.0-0.2) Prothrombin Time 21.4 SEC (11.7-14.0) Prothromb Time International Ratio 2.0 (0.8-1.1) Lactic Acid Level 1.4 mmol/L (0.4-2.0) Medications Current Medications Albuterol/ Ipratropium (Duoneb) 3 ml STK-MED ONCE .ROUTE ; Start 12/28/16 at 22: 08; Stop 12/28/16 at 22:09; Status DC Albuterol Sulfate (Ventolin Neb Soln) 2.5 mg STK-MED ONCE .ROUTE ; Start at 22:08; Stop 12/28/16 at 22:09; Status DC Albuterol Sulfate (Ventolin Neb Soln) 5 mg 1X ONCE INH Last administered on 22:11; Start 12/28/16 at 22:15; Stop 12/28/16 at 22:16; Status DC Albuterol/ Ipratropium (Duoneb) 3 ml 1X ONCE NEB Last administered on 22:11; Start 12/28/16 at 22:15; Stop 12/28/16 at 22:16; Status DC Methylprednisolone Sodium Succinate (SOLU-Medrol 125MG VIAL) 125 mg 1X ONCE IV Last administered on 12/28/16 22:23; Start 12/28/16 at 22:30; Stop 12/28/16 at 22:31; Status DC Aspirin (Andrew Aspirin) 325 mg 1X ONCE PO Last administered on 12/28/16 22:23 ; Start 12/28/16 at 22:30; Stop 12/28/16 at 22:31; Status DC Albuterol Sulfate (Ventolin Neb Soln) 10 mg 1X ONCE CONT NEB Last administered on 12/28/16 22:32; Start 12/28/16 at 22:30; Stop 12/28/16 at 22:34; Status DC Furosemide (Lasix) 40 mg 1X ONCE IVP Last administered on 12/29/16 00:24; Start 12/29/16 at 00:00; Stop 12/29/16 at 00:01; Status DC Ceftriaxone Sodium 50 ml @ 100 mls/hr 1X ONCE IV Last administered on 00:24; Start 12/29/16 at 00:30; Stop 12/29/16 at 00:59; Status DC Doxycycline Hyclate 100 mg/ Dextrose 100 ml @ 50 mls/hr 1X ONCE IV Last administered on 12/29/16 01:47; Start 12/29/16 at 00:30; Stop 12/29/16 at 02:29; Status DC Ondansetron HCl (Zofran) 4 mg PRN Q8HRS PRN IV NAUSEA/VOMITING; Start 12/29/16 at 00:15; Stop 12/30/16 at 00:14; Status DC Morphine Sulfate 2 mg PRN Q2HR PRN IV SEVERE PAIN; Start 12/29/16 at 00:15; Stop 12/30/16 at 00:14; Status DC Acetaminophen (Tylenol) 650 mg PRN Q4HRS PRN PO FEVER; Start 12/29/16 at 00:15; Stop 12/30/16 at 00:14; Status DC Albuterol/ Ipratropium (Duoneb) 3 ml RTQID NEB Last administered on 12/31/16 10 :48; Start 12/29/16 at 12:00 Albuterol Sulfate (Ventolin Neb Soln) 2.5 mg PRN Q4HRS PRN NEB SHORTNESS OF BREATH Last administered on 12/29/16 23:24; Start 12/29/16 at 10:15 Furosemide (Lasix) 40 mg 1X ONCE IVP Last administered on 12/29/16 10:44; Start 12/29/16 at 10:30; Stop 12/29/16 at 10:31; Status DC Amlodipine Besylate (Norvasc) 10 mg DAILY PO Last administered on 12/31/16 09: 39; Start 12/30/16 at 09:00 Atorvastatin Calcium (Lipitor) 10 mg QHS PO Last administered on 12/30/16 20:46 ; Start 12/29/16 at 21:00 Benzonatate (Tessalon Perle) 200 mg BID PO Last administered on 12/31/16 09:39 ; Start 12/29/16 at 21:00 Vitamin D (Vitamin D3) 1,000 unit DAILY PO Last administered on 12/31/16 09:38 ; Start 12/30/16 at 09:00 Docusate Sodium (Colace) 100 mg BID PO Last administered on 12/30/16 08:30; Start 12/29/16 at 21:00 Doxycycline Hyclate (Vibra-Tab) 100 mg BID PO ; Start 12/29/16 at 21:00; Status UNV Furosemide (Lasix) 40 mg DAILY PRN PO WATER RETENTION; Start 12/29/16 at 18:00; Stop 12/30/16 at 15:42; Status DC Levothyroxine Sodium (Synthroid) 100 mcg DAILY07 PO Last administered on 06:32; Start 12/30/16 at 07:00 Lorazepam (Ativan) 1 mg PRN DAILY PRN PO ANXIETY / AGITATION Last administered on 12/30/16 20:46; Start 12/29/16 at 18:00 Metoclopramide HCl (Reglan) 5 mg BIDAC PO Last administered on 12/31/16 09:37; Start 12/30/16 at 07:30 Oxycodone/ Acetaminophen (Percocet 5/325) 1 tab PRN Q4HRS PRN PO PAIN; Start at 18:00 Pantoprazole Sodium (Protonix) 40 mg DAILYAC PO Last administered on 12/31/16 07:30; Start 12/30/16 at 07:30 Polyethylene Glycol (miraLAX PACKET) 17 gm PRN DAILY PRN PO CONSTIPATION; Start 12/29/16 at 18:00 Senna/Docusate Sodium (Senna Plus) 1 tab BID PO ; Start 12/29/16 at 21:00 Multivitamins/ Minerals (I-Oscar) 1 tab DAILY PO Last administered on 12/31/16 09:38; Start 12/30/16 at 09:00 Warfarin Sodium (Coumadin) 2.5 mg DAILY16 PO ; Start 12/29/16 at 18:30 Carvedilol (Coreg) 25 mg BIDWMEALS PO Last administered on 12/31/16 09:41; Start 12/29/16 at 18:30 Non-Formulary Medication 2 puff Q6HRS IH ; Start 12/29/16 at 18:00; Status UNV Cetirizine HCl (ZyrTEC) 10 mg DAILY PO Last administered on 12/31/16 09:49; Start 12/30/16 at 09:00 Losartan Potassium (Cozaar) 100 mg DAILY PO Last administered on 12/31/16 09:38 ; Start 12/30/16 at 09:00 Potassium Chloride (Klor-Con) 20 meq PRN BID PRN PO SEE COMMENTS; Start at 08:00; Status UNV Non-Formulary Medication 1 cap HS PO ; Start 12/29/16 at 21:00; Status UNV Warfarin Sodium (Coumadin Per Physician) 1 each PRN DAILY PRN MC SEE COMMENTS Last administered on 12/31/16 09:01; Start 12/29/16 at 18:15 Ceftriaxone Sodium 1 gm/ Sodium Chloride 50 ml @ 100 mls/hr Q24H IV Last administered on 12/30/16 22:11; Start 12/29/16 at 22:00 Furosemide (Lasix) 40 mg DAILY PO Last administered on 12/30/16 16:57; Start at 15:45; Stop 12/30/16 at 19:58; Status DC Potassium Chloride (Klor-Con) 20 meq DAILYWBKFT PO Last administered on 09:37; Start 12/30/16 at 15:45 Active Scripts Active Prednisone 10 Mg Tablet 10 Mg PO DAILY Take 50 mg (5 pills) daily for 2 days, then take 40 mg (4 pills) daily for 2 days, then take 30 mg (3 pills) daily for 2 days, then take 20 mg (2 pills) daily for 2 days, then take 10 mg for 2 days. Prednisone 10 Mg Tablet 10 Mg PO UD Take 3 tabs daily for 3 days, then 2 tabs daily for 3 days, then 1 tablet daily for 3 days, then 1/2 tab daily x 3 days. Doxycycline Hyclate 100 Mg Tablet 100 Mg PO BID Miralax (Polyethylene Glycol 3350) 17 Gm Powd.pack 17 Gm PO PRN DAILY PRN Oxycodone-Acetaminophen 5-325 (Oxycodone Hcl/Acetaminophen) 1 Each Tablet 1 Tab PO PRN Q4HRS PRN Senna-Time S Tablet (Sennosides/Docusate Sodium) 1 Each Tablet 1 Tab PO BID Colace (Docusate Sodium) 100 Mg Capsule 100 Mg PO BID Reported Tessalon Perle (Benzonatate) 100 Mg Capsule 2 Cap PO BID Atrovent Hfa (Ipratropium [place]) 12.9 Gm Hfa.aer.ad 2 Puff IH Q6HRS Reglan (Metoclopramide Hcl) 10 Mg Tablet 10 Mg PO BIDAC Levothyroxine Sodium 100 Mcg Tablet 1 Tab PO DAILY Advair 250-50 Diskus (Fluticasone/Salmeterol) 1 Each Disk.w.dev Warfarin Sodium 2.5 Mg Tablet 2.5 Mg PO HS Lorazepam 1 Mg Tablet 1-2 Mg PO DAILY PRN Ranitidine Hcl 300 Mg Capsule 1 Cap PO HS Ocuvite Tablet (Vit A,C & E/Lutein/Minerals) 1 Each Tablet 1 Each PO DAILY Vitamin D (Cholecalciferol (Vitamin D3)) 1,000 Unit Tablet 1,000 Unit PO DAILY Amlodipine Besylate 10 Mg Tablet 10 Mg PO DAILY Claritin (Loratadine) 10 Mg Tablet 1-2 Tab PO HS Carvedilol 25 Mg Tablet 1 Tab PO BID Atorvastatin Calcium 10 Mg Tablet 1 Tab PO DAILY Potassium Chloride 10 Meq Capsule.er 20 Meq PO BID PRN Benicar (Olmesartan Medoxomil) 40 Mg Tablet 1 Tab PO DAILY Lasix (Furosemide) 40 Mg Tablet 1 Tab PO DAILY PRN Protonix (Pantoprazole Sodium) 40 Mg Tablet. 1 Tab PO DAILY Vitals/I & O Vital Sign - Last 24 Hours 12/30/16 12/30/16 12/30/16 12/30/16 11:29 14:51 15:23 16:56 Temp 98.3 98.3 Pulse 65 65 Resp 17 B/P (MAP) 113/61 (78) 113/61 Pulse Ox 96 93 96 O2 Delivery Nasal Cannula Nasal Cannula Nasal Cannula O2 Flow Rate 3.0 3.0 3.0 12/30/16 12/30/16 12/30/16 12/30/16 19:15 19:48 20:00 23:11 Temp 98.1 98.4 98.1 98.4 Pulse 65 65 Resp 22 22 B/P (MAP) 124/63 (83) 120/62 (81) Pulse Ox 94 97 96 O2 Delivery Nasal Cannula Nasal Cannula Nasal Cannula BiPAP/CPAP O2 Flow Rate 3.0 3.0 2.0 3.0 12/31/16 12/31/16 12/31/16 12/31/16 03:15 07:00 07:23 07:42 Temp 98.0 97.4 98.0 97.4 Pulse 65 65 Resp 18 20 B/P (MAP) 133/61 (85) 128/63 (84) Pulse Ox 97 96 98 O2 Delivery BiPAP/CPAP BiPAP/CPAP Nasal Cannula Nasal Cannula O2 Flow Rate 3.0 3.0 2.0 12/31/16 12/31/16 12/31/16 12/31/16 09:38 09:39 09:41 10:50 Pulse 65 65 65 B/P (MAP) 128/63 128/63 128/63 Pulse Ox 95 O2 Delivery Nasal Cannula O2 Flow Rate 3.0 Intake and Output 12/30/16 12/30/16 12/31/16 15:00 23:00 07:00 Intake Total 1140 ml 60 ml Output Total 701 ml 350 ml Balance 439 ml -290 ml ALETHA CRYSTAL III DO Dec 31, 2016 11:17
[2016-12-31 15:00] VITALS: BP 145/47
--- NOTE | 2016-12-31 15:22 | PDOC ---
PULMONARY PROGRESS NOTES Subjective PT FEELS BETTER COUGH NON PRODUCTIVE Vitals Vital Signs Date Time Temp Pulse Resp B/P (MAP) Pulse Ox O2 Delivery O2 Flow Rate FiO2 12/31/16 15:00 98.0 63 18 145/47 (79) 97 Nasal Cannula 3.0 98.0 ROS: No Nausea, No Abdominal Pain, No Increase Cough Cardiovascular: S1, S2 Abdomen: Soft Neuro Exam: Alert Extremities: No Edema Skin: Warm Labs Laboratory Tests Test 12/29/16 18:33 12/30/16 08:25 12/30/16 08:28 12/31/16 05:40 Lactic Acid Level 3.0 mmol/L (0.4-2.0) Prothrombin Time 30.2 SEC (11.7-14.0) Prothromb Time International Ratio 3.1 (0.8-1.1) Sodium Level 147 mmol/L (136-145) 145 mmol/L (136-145) Potassium Level 3.6 mmol/L (3.5-5.1) 3.8 mmol/L (3.5-5.1) Chloride Level 109 mmol/L (98-107) 107 mmol/L (98-107) Carbon Dioxide Level 29 mmol/L (21-32) 27 mmol/L (21-32) Anion Gap 9 (6-14) 11 (6-14) Blood Urea Nitrogen 26 mg/dL (7-20) 22 mg/dL (7-20) Creatinine 0.9 mg/dL (0.6-1.0) 0.7 mg/dL (0.6-1.0) Estimated GFR (Cockcroft-Gault) 59.2 79.2 Glucose Level 130 mg/dL (70-99) 109 mg/dL (70-99) Calcium Level 8.1 mg/dL (8.5-10.1) 8.2 mg/dL (8.5-10.1) White Blood Count 12.8 x10^3/uL (4.0-11.0) Red Blood Count 4.04 x10^6/uL (3.50-5.40) Hemoglobin 12.8 g/dL (12.0-15.5) Hematocrit 39.3 % (36.0-47.0) Mean Corpuscular Volume 97 fL (79-100) Mean Corpuscular Hemoglobin 32 pg (25-35) Mean Corpuscular Hemoglobin Concent 33 g/dL (31-37) Red Cell Distribution Width 14.7 % (11.5-14.5) Platelet Count 206 x10^3/uL (140-400) Neutrophils (%) (Auto) 83 % (31-73) Lymphocytes (%) (Auto) 8 % (24-48) Monocytes (%) (Auto) 9 % (0-9) Eosinophils (%) (Auto) 0 % (0-3) Basophils (%) (Auto) 0 % (0-3) Neutrophils # (Auto) 10.6 x10^3uL (1.8-7.7) Lymphocytes # (Auto) 1.1 x10^3/uL (1.0-4.8) Monocytes # (Auto) 1.1 x10^3/uL (0.0-1.1) Eosinophils # (Auto) 0.0 x10^3/uL (0.0-0.7) Basophils # (Auto) 0.0 x10^3/uL (0.0-0.2) Test 12/31/16 08:05 White Blood Count 9.9 x10^3/uL (4.0-11.0) Red Blood Count 4.11 x10^6/uL (3.50-5.40) Hemoglobin 13.2 g/dL (12.0-15.5) Hematocrit 39.7 % (36.0-47.0) Mean Corpuscular Volume 97 fL (79-100) Mean Corpuscular Hemoglobin 32 pg (25-35) Mean Corpuscular Hemoglobin Concent 33 g/dL (31-37) Red Cell Distribution Width 14.3 % (11.5-14.5) Platelet Count 207 x10^3/uL (140-400) Neutrophils (%) (Auto) 75 % (31-73) Lymphocytes (%) (Auto) 12 % (24-48) Monocytes (%) (Auto) 11 % (0-9) Eosinophils (%) (Auto) 1 % (0-3) Basophils (%) (Auto) 0 % (0-3) Neutrophils # (Auto) 7.5 x10^3uL (1.8-7.7) Lymphocytes # (Auto) 1.2 x10^3/uL (1.0-4.8) Monocytes # (Auto) 1.1 x10^3/uL (0.0-1.1) Eosinophils # (Auto) 0.1 x10^3/uL (0.0-0.7) Basophils # (Auto) 0.0 x10^3/uL (0.0-0.2) Prothrombin Time 21.4 SEC (11.7-14.0) Prothromb Time International Ratio 2.0 (0.8-1.1) Lactic Acid Level 1.4 mmol/L (0.4-2.0) Laboratory Tests Test 12/31/16 05:40 12/31/16 08:05 Sodium Level 145 mmol/L (136-145) Potassium Level 3.8 mmol/L (3.5-5.1) Chloride Level 107 mmol/L (98-107) Carbon Dioxide Level 27 mmol/L (21-32) Anion Gap 11 (6-14) Blood Urea Nitrogen 22 mg/dL (7-20) Creatinine 0.7 mg/dL (0.6-1.0) Estimated GFR (Cockcroft-Gault) 79.2 Glucose Level 109 mg/dL (70-99) Calcium Level 8.2 mg/dL (8.5-10.1) White Blood Count 9.9 x10^3/uL (4.0-11.0) Red Blood Count 4.11 x10^6/uL (3.50-5.40) Hemoglobin 13.2 g/dL (12.0-15.5) Hematocrit 39.7 % (36.0-47.0) Mean Corpuscular Volume 97 fL (79-100) Mean Corpuscular Hemoglobin 32 pg (25-35) Mean Corpuscular Hemoglobin Concent 33 g/dL (31-37) Red Cell Distribution Width 14.3 % (11.5-14.5) Platelet Count 207 x10^3/uL (140-400) Neutrophils (%) (Auto) 75 % (31-73) Lymphocytes (%) (Auto) 12 % (24-48) Monocytes (%) (Auto) 11 % (0-9) Eosinophils (%) (Auto) 1 % (0-3) Basophils (%) (Auto) 0 % (0-3) Neutrophils # (Auto) 7.5 x10^3uL (1.8-7.7) Lymphocytes # (Auto) 1.2 x10^3/uL (1.0-4.8) Monocytes # (Auto) 1.1 x10^3/uL (0.0-1.1) Eosinophils # (Auto) 0.1 x10^3/uL (0.0-0.7) Basophils # (Auto) 0.0 x10^3/uL (0.0-0.2) Prothrombin Time 21.4 SEC (11.7-14.0) Prothromb Time International Ratio 2.0 (0.8-1.1) Lactic Acid Level 1.4 mmol/L (0.4-2.0) Medications Active Scripts Medications Dose Route/Sig Max Daily Dose Days Date Category Dose Instructions Tessalon Perle (Benzonatate) 100 Mg Capsule 2 Cap PO BID 12/29/16 Reported Prednisone 10 Mg Tablet 10 Mg PO DAILY 11/28/16 Rx Take 50 mg (5 pills) daily for 2 days, then take 40 mg (4 pills) daily for 2 days, then take 30 mg (3 pills) daily for 2 days, then take 20 mg (2 pills) daily for 2 days, then take 10 mg for 2 days. Prednisone 10 Mg Tablet 10 Mg PO UD 06/16/16 Rx Take 3 tabs daily for 3 days, then 2 tabs daily for 3 days, then 1 tablet daily for 3 days, then 1/2 tab daily x 3 days. Doxycycline Hyclate 100 Mg Tablet 100 Mg PO BID 06/16/16 Rx Miralax (Polyethylene Glycol 3350) 17 Gm Powd.pack 17 Gm PO PRN DAILY PRN 03/08/16 Rx Oxycodone-Acetaminophen 5-325 (Oxycodone Hcl/Acetaminophen) 1 Each Tablet 1 Tab PO PRN Q4HRS PRN 03/08/16 Rx Senna-Time S Tablet (Sennosides/Docusate Sodium) 1 Each Tablet 1 Tab PO BID 03/08/16 Rx Colace (Docusate Sodium) 100 Mg Capsule 100 Mg PO BID 03/08/16 Rx Atrovent Hfa (Ipratropium [place]) 12.9 Gm Hfa.aer.ad 2 Puff IH Q6HRS 03/05/16 Reported Reglan (Metoclopramide Hcl) 10 Mg Tablet 10 Mg PO BIDAC 03/05/16 Reported Levothyroxine Sodium 100 Mcg Tablet 1 Tab PO DAILY 03/05/16 Reported Advair 250-50 Diskus (Fluticasone/Salmeterol) 1 Each Disk.w.dev 12/02/15 Reported Warfarin Sodium 2.5 Mg Tablet 2.5 Mg PO HS 12/02/15 Reported Lorazepam 1 Mg Tablet 1-2 Mg PO DAILY PRN 12/02/15 Reported Ranitidine Hcl 300 Mg Capsule 1 Cap PO HS 11/25/15 Reported Ocuvite Tablet (Vit A,C & E/Lutein/Minerals) 1 Each Tablet 1 Each PO DAILY 10/23/15 Reported Vitamin D (Cholecalciferol (Vitamin D3)) 1,000 Unit Tablet 1,000 Unit PO DAILY 10/23/15 Reported Amlodipine Besylate 10 Mg Tablet 10 Mg PO DAILY 10/23/15 Reported Claritin (Loratadine) 10 Mg Tablet 1-2 Tab PO HS 10/23/15 Reported Carvedilol 25 Mg Tablet 1 Tab PO BID 10/23/15 Reported Atorvastatin Calcium 10 Mg Tablet 1 Tab PO DAILY 10/23/15 Reported Potassium Chloride 10 Meq Capsule.er 20 Meq PO BID PRN 10/23/15 Reported Benicar (Olmesartan Medoxomil) 40 Mg Tablet 1 Tab PO DAILY 10/23/15 Reported Lasix (Furosemide) 40 Mg Tablet 1 Tab PO DAILY PRN 10/23/15 Reported Protonix (Pantoprazole Sodium) 40 Mg Tablet.dr 1 Tab PO DAILY 10/23/15 Reported Impression . ASTHMA EXACERBATION ACUTE BRONCHITIS INCREASE DYSPNEA ACUTE HEART FAILURE POSSIBLE DIASTOLIC SACHA HTN S/P VALVE REPLACEMENT Plan . PRED ORAL D/C SOON WILL CHECK AN NOCTURNAL DESAT ON CURRENT SETTING AGREE WITH CURRENT RX HOME CPAP D/C ANTIBX SAHKIR LARA MD Dec 31, 2016 15:22
[2016-12-31] MEDS: WARFARIN 2.5 MG TABLET. PO SCH (16:00)
[2016-12-31] MEDS: predniSONE 20 MG TABLET PO SCH (17:15)
[2016-12-31] MEDS ORDERED: WARFARIN 3 MG TABLET. PO ONE (18:15)
[2016-12-31 19:40] VITALS: BP 115/58
[2016-12-31] MEDS: LORazepam 1 MG TABLET PO PRN (21:35)
[2016-12-31] MEDS: ATORVASTATIN CALCIUM 10 MG TABLET. PO SCH (21:35)
[2016-12-31 23:33] VITALS: BP 130/62
[2017-01-01 03:15] VITALS: BP 127/58
[2017-01-01 03:56] LABS: BASO % 0 % (0-3); EOS % 0 % (0-3); HEMATOCRIT 37.1 % (36.0-47.0); HEMOGLOBIN 12.2 g/dL (12.0-15.5); LYMPH # 0.9 x10^3/uL (1.0-4.8); LYMPH % 11 % (24-48); MEAN CORPUSCULAR HEMOGLOBIN 32 pg (25-35); MEAN CORPUSCULAR HGB CONC 33 g/dL (31-37); MEAN CORPUSCULAR VOLUME 97 fL (79-100); MONO % 8 % (0-9); NEUT % 81 % (31-73); PLATELET COUNT 197 x10^3/uL (140-400); RED BLOOD COUNT 3.83 x10^6/uL (3.50-5.40); RED CELL DISTRIBUTION WIDTH 14.4 % (11.5-14.5); WHITE BLOOD COUNT 8.2 x10^3/uL (4.0-11.0)
[2017-01-01 04:36] LABS: INR 1.6 (0.8-1.1)
[2017-01-01 05:38] LABS: CALCIUM 7.9 mg/dL (8.5-10.1); CREATININE 0.8 mg/dL (0.6-1.0); GFR 67.8; POTASSIUM 3.9 mmol/L (3.5-5.1)
[2017-01-01] MEDS: LEVOTHYROXINE 100 MCG TABLET PO SCH (06:20)
[2017-01-01] MEDS: METOCLOPRAMIDE 5 MG TABLET. PO SCH ×2 (06:50→17:45)
[2017-01-01] MEDS: PANTOPRAZOLE 40 MG TABLET.DR. PO SCH (06:50)
[2017-01-01 07:00] VITALS: BP 138/88
[2017-01-01] MEDS: IPRATRPIUM/ALBUTEROL 0.5/2.5MG 3 ML NEBU. NEB SCH ×4 (07:00→19:09)
[2017-01-01] MEDS: CETIRIZINE HCL 10 MG TABLET. PO SCH (08:39)
[2017-01-01] MEDS: BENZONATATE 100 MG CAPSULE. PO SCH ×2 (08:40→20:57)
[2017-01-01] MEDS: amLODIPine BESYLATE 10 MG TABLET PO SCH (08:40)
[2017-01-01] MEDS: POTASSIUM CHLORIDE 20 MEQ TABLET.ER. PO SCH (08:40)
[2017-01-01] MEDS: predniSONE 20 MG TABLET PO SCH (08:40)
[2017-01-01] MEDS: CHOLECALCIFEROL (VITAMIN D3) 1,000 UNIT TABLET PO SCH (08:41)
[2017-01-01] MEDS: LOSARTAN POTASSIUM 50 MG TABLET. PO SCH (08:41)
[2017-01-01] MEDS: MULTIVITAMIN I-VITE TABLET. PO SCH (08:41)
[2017-01-01] MEDS: DOCUSATE SODIUM 100 MG CAPSULE. PO SCH ×2 (08:42→20:58)
[2017-01-01] MEDS: SENNOSIDES/DOCUSATE 8.6/50MG TABLET. PO SCH ×2 (08:42→20:58)
[2017-01-01] MEDS: CARVEDILOL 12.5 MG TABLET. PO SCH ×2 (08:42→17:49)
[2017-01-01 11:00] VITALS: BP 119/70
--- NOTE | 2017-01-01 12:07 | PDOC ---
PROGRESS NOTES Chief Complaint Chief Complaint 1. Acute on chronic respiratory failure: likely 2/2 CAP 2. COPD: acute on chronic exacerbation 3. Bronchitis 4. Afib 5. CAD 6. HTN 7. HLP 8. CHF 9. OA 10. Hypothyroidism 11. GERD History of Present Illness History of Present Illness pt is sitting comfortably in chair this morning, she denies any complaints, she states she is breathing well, she is receptive to SNU Vitals Vitals Vital Signs Date Time Temp Pulse Resp B/P (MAP) Pulse Ox O2 Delivery O2 Flow Rate FiO2 01/01/17 10:53 Nasal Cannula 3.0 01/01/17 08:42 65 138/88 01/01/17 07:01 95 01/01/17 07:00 98.6 20 98.6 Physical Exam General: Alert, Oriented X3, Cooperative, No acute distress Heart: Regular rate, No murmurs Lungs: Wheezing (b/l lower lobs) Abdomen: Normal bowel sounds, Soft, No tenderness Extremities: No clubbing, No cyanosis, No edema Skin: No rashes, No breakdown Labs LABS Laboratory Tests Test 01/01/17 03:00 White Blood Count 8.2 x10^3/uL (4.0-11.0) Red Blood Count 3.83 x10^6/uL (3.50-5.40) Hemoglobin 12.2 g/dL (12.0-15.5) Hematocrit 37.1 % (36.0-47.0) Mean Corpuscular Volume 97 fL (79-100) Mean Corpuscular Hemoglobin 32 pg (25-35) Mean Corpuscular Hemoglobin Concent 33 g/dL (31-37) Red Cell Distribution Width 14.4 % (11.5-14.5) Platelet Count 197 x10^3/uL (140-400) Neutrophils (%) (Auto) 81 % (31-73) Lymphocytes (%) (Auto) 11 % (24-48) Monocytes (%) (Auto) 8 % (0-9) Eosinophils (%) (Auto) 0 % (0-3) Basophils (%) (Auto) 0 % (0-3) Neutrophils # (Auto) 6.6 x10^3uL (1.8-7.7) Lymphocytes # (Auto) 0.9 x10^3/uL (1.0-4.8) Monocytes # (Auto) 0.7 x10^3/uL (0.0-1.1) Eosinophils # (Auto) 0.0 x10^3/uL (0.0-0.7) Basophils # (Auto) 0.0 x10^3/uL (0.0-0.2) Prothrombin Time 18.0 SEC (11.7-14.0) Prothromb Time International Ratio 1.6 (0.8-1.1) Sodium Level 145 mmol/L (136-145) Potassium Level 3.9 mmol/L (3.5-5.1) Chloride Level 108 mmol/L (98-107) Carbon Dioxide Level 29 mmol/L (21-32) Anion Gap 8 (6-14) Blood Urea Nitrogen 22 mg/dL (7-20) Creatinine 0.8 mg/dL (0.6-1.0) Estimated GFR (Cockcroft-Gault) 67.8 Glucose Level 116 mg/dL (70-99) Calcium Level 7.9 mg/dL (8.5-10.1) Review of Systems Review of Systems denies nausea, vomiting, and WOO Assessment and Plan Assessmemt and Plan Assessment 1. Acute on chronic respiratory failure: likely 2/2 CAP 2. COPD: acute on chronic exacerbation 3. Bronchitis 4. Afib 5. CAD 6. HTN 7. HLP 8. CHF 9. OA 10. Hypothyroidism 11. GERD Plan 1. Respiratory treatments with duoneb 2. Ceftriaxone for possible CAP 3. Albuterol prn 4. Gentle diurese with furosemide, lasix held today 5. CPAP at night when sleeping 6. Recheck labs and vitals tomorrow 7. Discussed plan of care with nursing 8. PT/OT 9. Appreciate cardiology subspecialty input 10. Cont home meds 11. Reviewed imaging: CXR showed cardiomegaly, and pulmonary markings in lower chest suggesting edema/atelectasis 12. SNU eval 13. INR 1.6 today, pharmacy consulted for management 14. Overnight observation for nocturnal desats per pulm Problems: Comment Review of Relevant I have reviewed the following items wilmer (where applicable) has been applied. Labs Laboratory Tests Test 12/31/16 05:40 12/31/16 08:05 01/01/17 03:00 Sodium Level 145 mmol/L (136-145) 145 mmol/L (136-145) Potassium Level 3.8 mmol/L (3.5-5.1) 3.9 mmol/L (3.5-5.1) Chloride Level 107 mmol/L (98-107) 108 mmol/L (98-107) Carbon Dioxide Level 27 mmol/L (21-32) 29 mmol/L (21-32) Anion Gap 11 (6-14) 8 (6-14) Blood Urea Nitrogen 22 mg/dL (7-20) 22 mg/dL (7-20) Creatinine 0.7 mg/dL (0.6-1.0) 0.8 mg/dL (0.6-1.0) Estimated GFR (Cockcroft-Gault) 79.2 67.8 Glucose Level 109 mg/dL (70-99) 116 mg/dL (70-99) Calcium Level 8.2 mg/dL (8.5-10.1) 7.9 mg/dL (8.5-10.1) White Blood Count 9.9 x10^3/uL (4.0-11.0) 8.2 x10^3/uL (4.0-11.0) Red Blood Count 4.11 x10^6/uL (3.50-5.40) 3.83 x10^6/uL (3.50-5.40) Hemoglobin 13.2 g/dL (12.0-15.5) 12.2 g/dL (12.0-15.5) Hematocrit 39.7 % (36.0-47.0) 37.1 % (36.0-47.0) Mean Corpuscular Volume 97 fL (79-100) 97 fL (79-100) Mean Corpuscular Hemoglobin 32 pg (25-35) 32 pg (25-35) Mean Corpuscular Hemoglobin Concent 33 g/dL (31-37) 33 g/dL (31-37) Red Cell Distribution Width 14.3 % (11.5-14.5) 14.4 % (11.5-14.5) Platelet Count 207 x10^3/uL (140-400) 197 x10^3/uL (140-400) Neutrophils (%) (Auto) 75 % (31-73) 81 % (31-73) Lymphocytes (%) (Auto) 12 % (24-48) 11 % (24-48) Monocytes (%) (Auto) 11 % (0-9) 8 % (0-9) Eosinophils (%) (Auto) 1 % (0-3) 0 % (0-3) Basophils (%) (Auto) 0 % (0-3) 0 % (0-3) Neutrophils # (Auto) 7.5 x10^3uL (1.8-7.7) 6.6 x10^3uL (1.8-7.7) Lymphocytes # (Auto) 1.2 x10^3/uL (1.0-4.8) 0.9 x10^3/uL (1.0-4.8) Monocytes # (Auto) 1.1 x10^3/uL (0.0-1.1) 0.7 x10^3/uL (0.0-1.1) Eosinophils # (Auto) 0.1 x10^3/uL (0.0-0.7) 0.0 x10^3/uL (0.0-0.7) Basophils # (Auto) 0.0 x10^3/uL (0.0-0.2) 0.0 x10^3/uL (0.0-0.2) Prothrombin Time 21.4 SEC (11.7-14.0) 18.0 SEC (11.7-14.0) Prothromb Time International Ratio 2.0 (0.8-1.1) 1.6 (0.8-1.1) Lactic Acid Level 1.4 mmol/L (0.4-2.0) Laboratory Tests Test 01/01/17 03:00 White Blood Count 8.2 x10^3/uL (4.0-11.0) Red Blood Count 3.83 x10^6/uL (3.50-5.40) Hemoglobin 12.2 g/dL (12.0-15.5) Hematocrit 37.1 % (36.0-47.0) Mean Corpuscular Volume 97 fL (79-100) Mean Corpuscular Hemoglobin 32 pg (25-35) Mean Corpuscular Hemoglobin Concent 33 g/dL (31-37) Red Cell Distribution Width 14.4 % (11.5-14.5) Platelet Count 197 x10^3/uL (140-400) Neutrophils (%) (Auto) 81 % (31-73) Lymphocytes (%) (Auto) 11 % (24-48) Monocytes (%) (Auto) 8 % (0-9) Eosinophils (%) (Auto) 0 % (0-3) Basophils (%) (Auto) 0 % (0-3) Neutrophils # (Auto) 6.6 x10^3uL (1.8-7.7) Lymphocytes # (Auto) 0.9 x10^3/uL (1.0-4.8) Monocytes # (Auto) 0.7 x10^3/uL (0.0-1.1) Eosinophils # (Auto) 0.0 x10^3/uL (0.0-0.7) Basophils # (Auto) 0.0 x10^3/uL (0.0-0.2) Prothrombin Time 18.0 SEC (11.7-14.0) Prothromb Time International Ratio 1.6 (0.8-1.1) Sodium Level 145 mmol/L (136-145) Potassium Level 3.9 mmol/L (3.5-5.1) Chloride Level 108 mmol/L (98-107) Carbon Dioxide Level 29 mmol/L (21-32) Anion Gap 8 (6-14) Blood Urea Nitrogen 22 mg/dL (7-20) Creatinine 0.8 mg/dL (0.6-1.0) Estimated GFR (Cockcroft-Gault) 67.8 Glucose Level 116 mg/dL (70-99) Calcium Level 7.9 mg/dL (8.5-10.1) Medications Current Medications Albuterol/ Ipratropium (Duoneb) 3 ml STK-MED ONCE .ROUTE ; Start 12/28/16 at 22: 08; Stop 12/28/16 at 22:09; Status DC Albuterol Sulfate (Ventolin Neb Soln) 2.5 mg STK-MED ONCE .ROUTE ; Start at 22:08; Stop 12/28/16 at 22:09; Status DC Albuterol Sulfate (Ventolin Neb Soln) 5 mg 1X ONCE INH Last administered on t 22:11; Start 12/28/16 at 22:15; Stop 12/28/16 at 22:16; Status DC Albuterol/ Ipratropium (Duoneb) 3 ml 1X ONCE NEB Last administered on 22:11; Start 12/28/16 at 22:15; Stop 12/28/16 at 22:16; Status DC Methylprednisolone Sodium Succinate (SOLU-Medrol 125MG VIAL) 125 mg 1X ONCE IV Last administered on 12/28/16 22:23; Start 12/28/16 at 22:30; Stop 12/28/16 at 22:31; Status DC Aspirin (Andrew Aspirin) 325 mg 1X ONCE PO Last administered on 12/28/16 22:23 ; Start 12/28/16 at 22:30; Stop 12/28/16 at 22:31; Status DC Albuterol Sulfate (Ventolin Neb Soln) 10 mg 1X ONCE CONT NEB Last administered on 12/28/16 22:32; Start 12/28/16 at 22:30; Stop 12/28/16 at 22:34; Status DC Furosemide (Lasix) 40 mg 1X ONCE IVP Last administered on 12/29/16 00:24; Start 12/29/16 at 00:00; Stop 12/29/16 at 00:01; Status DC Ceftriaxone Sodium 50 ml @ 100 mls/hr 1X ONCE IV Last administered on 00:24; Start 12/29/16 at 00:30; Stop 12/29/16 at 00:59; Status DC Doxycycline Hyclate 100 mg/ Dextrose 100 ml @ 50 mls/hr 1X ONCE IV Last administered on 12/29/16 01:47; Start 12/29/16 at 00:30; Stop 12/29/16 at 02:29; Status DC Ondansetron HCl (Zofran) 4 mg PRN Q8HRS PRN IV NAUSEA/VOMITING; Start 12/29/16 at 00:15; Stop 12/30/16 at 00:14; Status DC Morphine Sulfate 2 mg PRN Q2HR PRN IV SEVERE PAIN; Start 12/29/16 at 00:15; Stop 12/30/16 at 00:14; Status DC Acetaminophen (Tylenol) 650 mg PRN Q4HRS PRN PO FEVER; Start 12/29/16 at 00:15; Stop 12/30/16 at 00:14; Status DC Albuterol/ Ipratropium (Duoneb) 3 ml RTQID NEB Last administered on 01/01/17 10 :52; Start 12/29/16 at 12:00 Albuterol Sulfate (Ventolin Neb Soln) 2.5 mg PRN Q4HRS PRN NEB SHORTNESS OF BREATH Last administered on 12/29/16 23:24; Start 12/29/16 at 10:15 Furosemide (Lasix) 40 mg 1X ONCE IVP Last administered on 12/29/16 10:44; Start 12/29/16 at 10:30; Stop 12/29/16 at 10:31; Status DC Amlodipine Besylate (Norvasc) 10 mg DAILY PO Last administered on 01/01/17 08: 40; Start 12/30/16 at 09:00 Atorvastatin Calcium (Lipitor) 10 mg QHS PO Last administered on 12/31/16 21:35 ; Start 12/29/16 at 21:00 Benzonatate (Tessalon Perle) 200 mg BID PO Last administered on 01/01/17 08:40 ; Start 12/29/16 at 21:00 Vitamin D (Vitamin D3) 1,000 unit DAILY PO Last administered on 01/01/17 08:41 ; Start 12/30/16 at 09:00 Docusate Sodium (Colace) 100 mg BID PO Last administered on 12/31/16 21:35; Start 12/29/16 at 21:00 Doxycycline Hyclate (Vibra-Tab) 100 mg BID PO ; Start 12/29/16 at 21:00; Status UNV Furosemide (Lasix) 40 mg DAILY PRN PO WATER RETENTION; Start 12/29/16 at 18:00; Stop 12/30/16 at 15:42; Status DC Levothyroxine Sodium (Synthroid) 100 mcg DAILY07 PO Last administered on 06:20; Start 12/30/16 at 07:00 Lorazepam (Ativan) 1 mg PRN DAILY PRN PO ANXIETY / AGITATION Last administered on 12/31/16 21:35; Start 12/29/16 at 18:00 Metoclopramide HCl (Reglan) 5 mg BIDAC PO Last administered on 01/01/17 06:50; Start 12/30/16 at 07:30 Oxycodone/ Acetaminophen (Percocet 5/325) 1 tab PRN Q4HRS PRN PO PAIN; Start at 18:00 Pantoprazole Sodium (Protonix) 40 mg DAILYAC PO Last administered on 01/01/17 06:50; Start 12/30/16 at 07:30 Polyethylene Glycol (miraLAX PACKET) 17 gm PRN DAILY PRN PO CONSTIPATION; Start 12/29/16 at 18:00 Senna/Docusate Sodium (Senna Plus) 1 tab BID PO ; Start 12/29/16 at 21:00 Multivitamins/ Minerals (I-Oscar) 1 tab DAILY PO Last administered on 01/01/17 08:41; Start 12/30/16 at 09:00 Warfarin Sodium (Coumadin) 2.5 mg DAILY16 PO ; Start 12/29/16 at 18:30; Stop 12/31 at 17:55; Status DC Carvedilol (Coreg) 25 mg BIDWMEALS PO Last administered on 01/01/17 08:42; Start 12/29/16 at 18:30 Non-Formulary Medication 2 puff Q6HRS IH ; Start 12/29/16 at 18:00; Status UNV Cetirizine HCl (ZyrTEC) 10 mg DAILY PO Last administered on 01/01/17 08:39; Start 12/30/16 at 09:00 Losartan Potassium (Cozaar) 100 mg DAILY PO Last administered on 01/01/17 08:41 ; Start 12/30/16 at 09:00 Potassium Chloride (Klor-Con) 20 meq PRN BID PRN PO SEE COMMENTS; Start at 08:00; Status UNV Non-Formulary Medication 1 cap HS PO ; Start 12/29/16 at 21:00; Status UNV Warfarin Sodium (Coumadin Per Physician) 1 each PRN DAILY PRN MC SEE COMMENTS Last administered on 12/31/16 09:01; Start 12/29/16 at 18:15; Stop 12/31/16 at 17: 53; Status DC Ceftriaxone Sodium 1 gm/ Sodium Chloride 50 ml @ 100 mls/hr Q24H IV Last administered on 12/30/16 22:11; Start 12/29/16 at 22:00; Stop 12/31/16 at 15:21; Status DC Furosemide (Lasix) 40 mg DAILY PO Last administered on 12/30/16 16:57; Start at 15:45; Stop 12/30/16 at 19:58; Status DC Potassium Chloride (Klor-Con) 20 meq DAILYWBKFT PO Last administered on 08:40; Start 12/30/16 at 15:45 Prednisone (Prednisone) 20 mg DAILY PO Last administered on 01/01/17 08:40; Start 12/31/16 at 16:00 Warfarin Sodium (Coumadin Per Pharmacy) 1 each PRN DAILY PRN MC SEE COMMENTS Last administered on 01/01/17 09:13; Start 12/31/16 at 18:00 Warfarin Sodium (Coumadin) 3 mg 1X ONCE PO Last administered on 12/31/16 18:15 ; Start 12/31/16 at 18:15; Stop 12/31/16 at 18:16; Status DC Warfarin Sodium (Coumadin) 3 mg 1X WARF ONCE PO ; Start 01/01/17 at 16:00; Stop 01/01/17 at 16:01 Active Scripts Active Prednisone 10 Mg Tablet 10 Mg PO DAILY Take 50 mg (5 pills) daily for 2 days, then take 40 mg (4 pills) daily for 2 days, then take 30 mg (3 pills) daily for 2 days, then take 20 mg (2 pills) daily for 2 days, then take 10 mg for 2 days. Prednisone 10 Mg Tablet 10 Mg PO UD Take 3 tabs daily for 3 days, then 2 tabs daily for 3 days, then 1 tablet daily for 3 days, then 1/2 tab daily x 3 days. Doxycycline Hyclate 100 Mg Tablet 100 Mg PO BID Miralax (Polyethylene Glycol 3350) 17 Gm Powd.pack 17 Gm PO PRN DAILY PRN Oxycodone-Acetaminophen 5-325 (Oxycodone Hcl/Acetaminophen) 1 Each Tablet 1 Tab PO PRN Q4HRS PRN Senna-Time S Tablet (Sennosides/Docusate Sodium) 1 Each Tablet 1 Tab PO BID Colace (Docusate Sodium) 100 Mg Capsule 100 Mg PO BID Reported Tessalon Perle (Benzonatate) 100 Mg Capsule 2 Cap PO BID Atrovent Hfa (Ipratropium [place]) 12.9 Gm Hfa.aer.ad 2 Puff IH Q6HRS Reglan (Metoclopramide Hcl) 10 Mg Tablet 10 Mg PO BIDAC Levothyroxine Sodium 100 Mcg Tablet 1 Tab PO DAILY Advair 250-50 Diskus (Fluticasone/Salmeterol) 1 Each Disk.w.dev Warfarin Sodium 2.5 Mg Tablet 2.5 Mg PO HS Lorazepam 1 Mg Tablet 1-2 Mg PO DAILY PRN Ranitidine Hcl 300 Mg Capsule 1 Cap PO HS Ocuvite Tablet (Vit A,C & E/Lutein/Minerals) 1 Each Tablet 1 Each PO DAILY Vitamin D (Cholecalciferol (Vitamin D3)) 1,000 Unit Tablet 1,000 Unit PO DAILY Amlodipine Besylate 10 Mg Tablet 10 Mg PO DAILY Claritin (Loratadine) 10 Mg Tablet 1-2 Tab PO HS Carvedilol 25 Mg Tablet 1 Tab PO BID Atorvastatin Calcium 10 Mg Tablet 1 Tab PO DAILY Potassium Chloride 10 Meq Capsule.er 20 Meq PO BID PRN Benicar (Olmesartan Medoxomil) 40 Mg Tablet 1 Tab PO DAILY Lasix (Furosemide) 40 Mg Tablet 1 Tab PO DAILY PRN Protonix (Pantoprazole Sodium) 40 Mg Tablet.dr 1 Tab PO DAILY Vitals/I & O Vital Sign - Last 24 Hours 12/31/16 12/31/16 12/31/16 12/31/16 14:52 15:00 17:19 19:11 Temp 98.0 98.0 Pulse 63 65 Resp 18 B/P (MAP) 145/47 (79) 145/47 Pulse Ox 96 97 92 O2 Delivery Nasal Cannula Nasal Cannula Nasal Cannula O2 Flow Rate 3.0 3.0 3.0 12/31/16 12/31/16 12/31/16 01/01/17 19:30 19:40 23:33 03:15 Temp 97.9 97.7 98.1 97.9 97.7 98.1 Pulse 65 65 65 Resp 23 22 21 B/P (MAP) 115/58 (77) 130/62 (84) 127/58 (81) Pulse Ox 95 96 94 O2 Delivery Nasal Cannula Nasal Cannula BiPAP/CPAP BiPAP/CPAP O2 Flow Rate 3.0 2.5 3.0 01/01/17 01/01/17 01/01/17 01/01/17 07:00 07:01 08:15 08:40 Temp 98.6 98.6 Pulse 65 65 Resp 20 B/P (MAP) 138/88 (105) 138/88 Pulse Ox 95 95 O2 Delivery Nasal Cannula Nasal Cannula Nasal Cannula O2 Flow Rate 3.0 3.0 01/01/17 01/01/17 01/01/17 08:41 08:42 10:53 Pulse 65 65 B/P (MAP) 138/88 138/88 O2 Delivery Nasal Cannula O2 Flow Rate 3.0 Intake and Output 12/31/16 12/31/16 01/01/17 15:00 23:00 07:00 Intake Total 500 ml 750 ml 200 ml Output Total 550 ml 125 ml 400 ml Balance -50 ml 625 ml -200 ml ALETHA CRYSTAL III DO Jan 01, 2017 12:07
[2017-01-01 15:00] VITALS: BP 107/37
--- NOTE | 2017-01-01 15:51 | PDOC ---
PULMONARY PROGRESS NOTES Subjective PT FEELS BETTER COUGH NON PRODUCTIVE Vitals Vital Signs Date Time Temp Pulse Resp B/P (MAP) Pulse Ox O2 Delivery O2 Flow Rate FiO2 01/01/17 15:00 97.7 65 20 107/37 (60) 94 Nasal Cannula 97.7 01/01/17 14:51 3.0 ROS: No Nausea, No Abdominal Pain, No Increase Cough Lungs: Wheezing (b/l lower lobs) Cardiovascular: S1, S2 Abdomen: Soft Neuro Exam: Alert Extremities: No Edema Skin: Warm Labs Laboratory Tests Test 12/31/16 05:40 12/31/16 08:05 01/01/17 03:00 Sodium Level 145 mmol/L (136-145) 145 mmol/L (136-145) Potassium Level 3.8 mmol/L (3.5-5.1) 3.9 mmol/L (3.5-5.1) Chloride Level 107 mmol/L (98-107) 108 mmol/L (98-107) Carbon Dioxide Level 27 mmol/L (21-32) 29 mmol/L (21-32) Anion Gap 11 (6-14) 8 (6-14) Blood Urea Nitrogen 22 mg/dL (7-20) 22 mg/dL (7-20) Creatinine 0.7 mg/dL (0.6-1.0) 0.8 mg/dL (0.6-1.0) Estimated GFR (Cockcroft-Gault) 79.2 67.8 Glucose Level 109 mg/dL (70-99) 116 mg/dL (70-99) Calcium Level 8.2 mg/dL (8.5-10.1) 7.9 mg/dL (8.5-10.1) White Blood Count 9.9 x10^3/uL (4.0-11.0) 8.2 x10^3/uL (4.0-11.0) Red Blood Count 4.11 x10^6/uL (3.50-5.40) 3.83 x10^6/uL (3.50-5.40) Hemoglobin 13.2 g/dL (12.0-15.5) 12.2 g/dL (12.0-15.5) Hematocrit 39.7 % (36.0-47.0) 37.1 % (36.0-47.0) Mean Corpuscular Volume 97 fL (79-100) 97 fL (79-100) Mean Corpuscular Hemoglobin 32 pg (25-35) 32 pg (25-35) Mean Corpuscular Hemoglobin Concent 33 g/dL (31-37) 33 g/dL (31-37) Red Cell Distribution Width 14.3 % (11.5-14.5) 14.4 % (11.5-14.5) Platelet Count 207 x10^3/uL (140-400) 197 x10^3/uL (140-400) Neutrophils (%) (Auto) 75 % (31-73) 81 % (31-73) Lymphocytes (%) (Auto) 12 % (24-48) 11 % (24-48) Monocytes (%) (Auto) 11 % (0-9) 8 % (0-9) Eosinophils (%) (Auto) 1 % (0-3) 0 % (0-3) Basophils (%) (Auto) 0 % (0-3) 0 % (0-3) Neutrophils # (Auto) 7.5 x10^3uL (1.8-7.7) 6.6 x10^3uL (1.8-7.7) Lymphocytes # (Auto) 1.2 x10^3/uL (1.0-4.8) 0.9 x10^3/uL (1.0-4.8) Monocytes # (Auto) 1.1 x10^3/uL (0.0-1.1) 0.7 x10^3/uL (0.0-1.1) Eosinophils # (Auto) 0.1 x10^3/uL (0.0-0.7) 0.0 x10^3/uL (0.0-0.7) Basophils # (Auto) 0.0 x10^3/uL (0.0-0.2) 0.0 x10^3/uL (0.0-0.2) Prothrombin Time 21.4 SEC (11.7-14.0) 18.0 SEC (11.7-14.0) Prothromb Time International Ratio 2.0 (0.8-1.1) 1.6 (0.8-1.1) Lactic Acid Level 1.4 mmol/L (0.4-2.0) Laboratory Tests Test 01/01/17 03:00 White Blood Count 8.2 x10^3/uL (4.0-11.0) Red Blood Count 3.83 x10^6/uL (3.50-5.40) Hemoglobin 12.2 g/dL (12.0-15.5) Hematocrit 37.1 % (36.0-47.0) Mean Corpuscular Volume 97 fL (79-100) Mean Corpuscular Hemoglobin 32 pg (25-35) Mean Corpuscular Hemoglobin Concent 33 g/dL (31-37) Red Cell Distribution Width 14.4 % (11.5-14.5) Platelet Count 197 x10^3/uL (140-400) Neutrophils (%) (Auto) 81 % (31-73) Lymphocytes (%) (Auto) 11 % (24-48) Monocytes (%) (Auto) 8 % (0-9) Eosinophils (%) (Auto) 0 % (0-3) Basophils (%) (Auto) 0 % (0-3) Neutrophils # (Auto) 6.6 x10^3uL (1.8-7.7) Lymphocytes # (Auto) 0.9 x10^3/uL (1.0-4.8) Monocytes # (Auto) 0.7 x10^3/uL (0.0-1.1) Eosinophils # (Auto) 0.0 x10^3/uL (0.0-0.7) Basophils # (Auto) 0.0 x10^3/uL (0.0-0.2) Prothrombin Time 18.0 SEC (11.7-14.0) Prothromb Time International Ratio 1.6 (0.8-1.1) Sodium Level 145 mmol/L (136-145) Potassium Level 3.9 mmol/L (3.5-5.1) Chloride Level 108 mmol/L (98-107) Carbon Dioxide Level 29 mmol/L (21-32) Anion Gap 8 (6-14) Blood Urea Nitrogen 22 mg/dL (7-20) Creatinine 0.8 mg/dL (0.6-1.0) Estimated GFR (Cockcroft-Gault) 67.8 Glucose Level 116 mg/dL (70-99) Calcium Level 7.9 mg/dL (8.5-10.1) Medications Active Scripts Medications Dose Route/Sig Max Daily Dose Days Date Category Dose Instructions Tessalon Perle (Benzonatate) 100 Mg Capsule 2 Cap PO BID 12/29/16 Reported Prednisone 10 Mg Tablet 10 Mg PO DAILY 11/28/16 Rx Take 50 mg (5 pills) daily for 2 days, then take 40 mg (4 pills) daily for 2 days, then take 30 mg (3 pills) daily for 2 days, then take 20 mg (2 pills) daily for 2 days, then take 10 mg for 2 days. Prednisone 10 Mg Tablet 10 Mg PO UD 06/16/16 Rx Take 3 tabs daily for 3 days, then 2 tabs daily for 3 days, then 1 tablet daily for 3 days, then 1/2 tab daily x 3 days. Doxycycline Hyclate 100 Mg Tablet 100 Mg PO BID 06/16/16 Rx Miralax (Polyethylene Glycol 3350) 17 Gm Powd.pack 17 Gm PO PRN DAILY PRN 03/08/16 Rx Oxycodone-Acetaminophen 5-325 (Oxycodone Hcl/Acetaminophen) 1 Each Tablet 1 Tab PO PRN Q4HRS PRN 03/08/16 Rx Senna-Time S Tablet (Sennosides/Docusate Sodium) 1 Each Tablet 1 Tab PO BID 03/08/16 Rx Colace (Docusate Sodium) 100 Mg Capsule 100 Mg PO BID 03/08/16 Rx Atrovent Hfa (Ipratropium [place]) 12.9 Gm Hfa.aer.ad 2 Puff IH Q6HRS 03/05/16 Reported Reglan (Metoclopramide Hcl) 10 Mg Tablet 10 Mg PO BIDAC 03/05/16 Reported Levothyroxine Sodium 100 Mcg Tablet 1 Tab PO DAILY 03/05/16 Reported Advair 250-50 Diskus (Fluticasone/Salmeterol) 1 Each Disk.w.dev 12/02/15 Reported Warfarin Sodium 2.5 Mg Tablet 2.5 Mg PO HS 12/02/15 Reported Lorazepam 1 Mg Tablet 1-2 Mg PO DAILY PRN 12/02/15 Reported Ranitidine Hcl 300 Mg Capsule 1 Cap PO HS 11/25/15 Reported Ocuvite Tablet (Vit A,C & E/Lutein/Minerals) 1 Each Tablet 1 Each PO DAILY 10/23/15 Reported Vitamin D (Cholecalciferol (Vitamin D3)) 1,000 Unit Tablet 1,000 Unit PO DAILY 10/23/15 Reported Amlodipine Besylate 10 Mg Tablet 10 Mg PO DAILY 10/23/15 Reported Claritin (Loratadine) 10 Mg Tablet 1-2 Tab PO HS 10/23/15 Reported Carvedilol 25 Mg Tablet 1 Tab PO BID 10/23/15 Reported Atorvastatin Calcium 10 Mg Tablet 1 Tab PO DAILY 10/23/15 Reported Potassium Chloride 10 Meq Capsule.er 20 Meq PO BID PRN 10/23/15 Reported Benicar (Olmesartan Medoxomil) 40 Mg Tablet 1 Tab PO DAILY 10/23/15 Reported Lasix (Furosemide) 40 Mg Tablet 1 Tab PO DAILY PRN 10/23/15 Reported Protonix (Pantoprazole Sodium) 40 Mg Tablet. 1 Tab PO DAILY 10/23/15 Reported Impression . ASTHMA EXACERBATION ACUTE BRONCHITIS INCREASE DYSPNEA ACUTE HEART FAILURE POSSIBLE DIASTOLIC SACHA HTN S/P VALVE REPLACEMENT Plan . PRED ORAL, 6 MIN WALK IN AM D/C AM FOLLOW UP WITH DR THOMAS IN OUR OFFICE PT ONLY ABLE TO COME TO OFFICE ON MONDAY OR MONDAY NOCTURNAL DESAT ON HOME CPAP LOOKS GOOD AGREE WITH CURRENT RX HOME CPAP D/C ANTIBX SHAKIR LARA MD Jan 01, 2017 15:51
[2017-01-01] MEDS ORDERED: WARFARIN 3 MG TABLET. PO ONE (16:00)
[2017-01-01 19:32] VITALS: BP 117/61
[2017-01-01] MEDS: LORazepam 1 MG TABLET PO PRN (20:57)
[2017-01-01] MEDS: ATORVASTATIN CALCIUM 10 MG TABLET. PO SCH (20:57)
[2017-01-01 22:57] VITALS: BP 119/64
[2017-01-02 03:34] VITALS: BP 118/64
[2017-01-02 04:57] LABS: BASO % 0 % (0-3); EOS % 1 % (0-3); HEMATOCRIT 37.3 % (36.0-47.0); HEMOGLOBIN 12.3 g/dL (12.0-15.5); LYMPH # 1.3 x10^3/uL (1.0-4.8); LYMPH % 15 % (24-48); MEAN CORPUSCULAR HEMOGLOBIN 32 pg (25-35); MEAN CORPUSCULAR HGB CONC 33 g/dL (31-37); MEAN CORPUSCULAR VOLUME 98 fL (79-100); MONO % 11 % (0-9); NEUT % 73 % (31-73); PLATELET COUNT 179 x10^3/uL (140-400); RED BLOOD COUNT 3.81 x10^6/uL (3.50-5.40); RED CELL DISTRIBUTION WIDTH 14.4 % (11.5-14.5); WHITE BLOOD COUNT 8.4 x10^3/uL (4.0-11.0)
[2017-01-02 05:03] LABS: CALCIUM 7.9 mg/dL (8.5-10.1); CREATININE 0.9 mg/dL (0.6-1.0); GFR 59.2; POTASSIUM 3.6 mmol/L (3.5-5.1)
[2017-01-02 05:16] LABS: INR 1.8 (0.8-1.1); PROTHROMBIN TIME PATIENT 19.7 SEC (11.7-14.0)
[2017-01-02] MEDS: LEVOTHYROXINE 100 MCG TABLET PO SCH (06:24)
[2017-01-02 06:53] LABS: PLT ESTIMATE ADEQUATE (ADEQUATE)
[2017-01-02 07:00] VITALS: BP 158/76
[2017-01-02] MEDS: IPRATRPIUM/ALBUTEROL 0.5/2.5MG 3 ML NEBU. NEB SCH ×2 (07:34→11:24)
[2017-01-02] MEDS: PANTOPRAZOLE 40 MG TABLET.DR. PO SCH (07:47)
[2017-01-02] MEDS: METOCLOPRAMIDE 5 MG TABLET. PO SCH (07:47)
[2017-01-02] MEDS: DOCUSATE SODIUM 100 MG CAPSULE. PO SCH (09:00)
[2017-01-02] MEDS: SENNOSIDES/DOCUSATE 8.6/50MG TABLET. PO SCH (09:00)
[2017-01-02] MEDS: predniSONE 20 MG TABLET PO SCH (09:05)
[2017-01-02] MEDS: amLODIPine BESYLATE 10 MG TABLET PO SCH (09:07)
[2017-01-02] MEDS: LOSARTAN POTASSIUM 50 MG TABLET. PO SCH (09:07)
[2017-01-02] MEDS: CETIRIZINE HCL 10 MG TABLET. PO SCH (09:07)
[2017-01-02] MEDS: CARVEDILOL 12.5 MG TABLET. PO SCH (09:09)
[2017-01-02] MEDS: CHOLECALCIFEROL (VITAMIN D3) 1,000 UNIT TABLET PO SCH (09:09)
[2017-01-02] MEDS: BENZONATATE 100 MG CAPSULE. PO SCH (09:09)
[2017-01-02] MEDS: MULTIVITAMIN I-VITE TABLET. PO SCH (09:09)
[2017-01-02] MEDS: POTASSIUM CHLORIDE 20 MEQ TABLET.ER. PO SCH (09:13)
--- NOTE | 2017-01-02 10:36 | PDOC ---
PULMONARY PROGRESS NOTES Subjective PT FEELS BETTER COUGH NON PRODUCTIVE Vitals Vital Signs Date Time Temp Pulse Resp B/P (MAP) Pulse Ox O2 Delivery O2 Flow Rate FiO2 01/02/17 09:09 65 158/76 01/02/17 07:34 96 Nasal Cannula 3.0 01/02/17 07:00 97.9 18 97.9 ROS: No Nausea, No Abdominal Pain, No Increase Cough Lungs: Wheezing (resolved) Cardiovascular: S1, S2 Abdomen: Soft Neuro Exam: Alert Extremities: No Edema Skin: Warm Labs Laboratory Tests Test 01/01/17 03:00 01/02/17 03:00 01/02/17 03:50 White Blood Count 8.2 x10^3/uL (4.0-11.0) 8.4 x10^3/uL (4.0-11.0) Red Blood Count 3.83 x10^6/uL (3.50-5.40) 3.81 x10^6/uL (3.50-5.40) Hemoglobin 12.2 g/dL (12.0-15.5) 12.3 g/dL (12.0-15.5) Hematocrit 37.1 % (36.0-47.0) 37.3 % (36.0-47.0) Mean Corpuscular Volume 97 fL (79-100) 98 fL (79-100) Mean Corpuscular Hemoglobin 32 pg (25-35) 32 pg (25-35) Mean Corpuscular Hemoglobin Concent 33 g/dL (31-37) 33 g/dL (31-37) Red Cell Distribution Width 14.4 % (11.5-14.5) 14.4 % (11.5-14.5) Platelet Count 197 x10^3/uL (140-400) 179 x10^3/uL (140-400) Neutrophils (%) (Auto) 81 % (31-73) 73 % (31-73) Lymphocytes (%) (Auto) 11 % (24-48) 15 % (24-48) Monocytes (%) (Auto) 8 % (0-9) 11 % (0-9) Eosinophils (%) (Auto) 0 % (0-3) 1 % (0-3) Basophils (%) (Auto) 0 % (0-3) 0 % (0-3) Neutrophils # (Auto) 6.6 x10^3uL (1.8-7.7) 6.2 x10^3uL (1.8-7.7) Lymphocytes # (Auto) 0.9 x10^3/uL (1.0-4.8) 1.3 x10^3/uL (1.0-4.8) Monocytes # (Auto) 0.7 x10^3/uL (0.0-1.1) 0.9 x10^3/uL (0.0-1.1) Eosinophils # (Auto) 0.0 x10^3/uL (0.0-0.7) 0.0 x10^3/uL (0.0-0.7) Basophils # (Auto) 0.0 x10^3/uL (0.0-0.2) 0.0 x10^3/uL (0.0-0.2) Prothrombin Time 18.0 SEC (11.7-14.0) 19.7 SEC (11.7-14.0) Prothromb Time International Ratio 1.6 (0.8-1.1) 1.8 (0.8-1.1) Sodium Level 145 mmol/L (136-145) 147 mmol/L (136-145) Potassium Level 3.9 mmol/L (3.5-5.1) 3.6 mmol/L (3.5-5.1) Chloride Level 108 mmol/L (98-107) 109 mmol/L (98-107) Carbon Dioxide Level 29 mmol/L (21-32) 30 mmol/L (21-32) Anion Gap 8 (6-14) 8 (6-14) Blood Urea Nitrogen 22 mg/dL (7-20) 22 mg/dL (7-20) Creatinine 0.8 mg/dL (0.6-1.0) 0.9 mg/dL (0.6-1.0) Estimated GFR (Cockcroft-Gault) 67.8 59.2 Glucose Level 116 mg/dL (70-99) 114 mg/dL (70-99) Calcium Level 7.9 mg/dL (8.5-10.1) 7.9 mg/dL (8.5-10.1) Segmented Neutrophils % 69 % (35-66) Lymphocytes % 18 % (24-48) Atypical Lymphocytes % (Manual) 1 % (0-0) Monocytes % 12 % (0-10) Platelet Estimate Adequate (ADEQUATE) Laboratory Tests Test 01/02/17 03:00 01/02/17 03:50 White Blood Count 8.4 x10^3/uL (4.0-11.0) Red Blood Count 3.81 x10^6/uL (3.50-5.40) Hemoglobin 12.3 g/dL (12.0-15.5) Hematocrit 37.3 % (36.0-47.0) Mean Corpuscular Volume 98 fL (79-100) Mean Corpuscular Hemoglobin 32 pg (25-35) Mean Corpuscular Hemoglobin Concent 33 g/dL (31-37) Red Cell Distribution Width 14.4 % (11.5-14.5) Platelet Count 179 x10^3/uL (140-400) Neutrophils (%) (Auto) 73 % (31-73) Lymphocytes (%) (Auto) 15 % (24-48) Monocytes (%) (Auto) 11 % (0-9) Eosinophils (%) (Auto) 1 % (0-3) Basophils (%) (Auto) 0 % (0-3) Neutrophils # (Auto) 6.2 x10^3uL (1.8-7.7) Lymphocytes # (Auto) 1.3 x10^3/uL (1.0-4.8) Monocytes # (Auto) 0.9 x10^3/uL (0.0-1.1) Eosinophils # (Auto) 0.0 x10^3/uL (0.0-0.7) Basophils # (Auto) 0.0 x10^3/uL (0.0-0.2) Segmented Neutrophils % 69 % (35-66) Lymphocytes % 18 % (24-48) Atypical Lymphocytes % (Manual) 1 % (0-0) Monocytes % 12 % (0-10) Platelet Estimate Adequate (ADEQUATE) Prothrombin Time 19.7 SEC (11.7-14.0) Prothromb Time International Ratio 1.8 (0.8-1.1) Sodium Level 147 mmol/L (136-145) Potassium Level 3.6 mmol/L (3.5-5.1) Chloride Level 109 mmol/L (98-107) Carbon Dioxide Level 30 mmol/L (21-32) Anion Gap 8 (6-14) Blood Urea Nitrogen 22 mg/dL (7-20) Creatinine 0.9 mg/dL (0.6-1.0) Estimated GFR (Cockcroft-Gault) 59.2 Glucose Level 114 mg/dL (70-99) Calcium Level 7.9 mg/dL (8.5-10.1) Medications Active Scripts Medications Dose Route/Sig Max Daily Dose Days Date Category Dose Instructions Tessalon Perle (Benzonatate) 100 Mg Capsule 2 Cap PO BID 12/29/16 Reported Prednisone 10 Mg Tablet 10 Mg PO DAILY 11/28/16 Rx Take 50 mg (5 pills) daily for 2 days, then take 40 mg (4 pills) daily for 2 days, then take 30 mg (3 pills) daily for 2 days, then take 20 mg (2 pills) daily for 2 days, then take 10 mg for 2 days. Prednisone 10 Mg Tablet 10 Mg PO UD 06/16/16 Rx Take 3 tabs daily for 3 days, then 2 tabs daily for 3 days, then 1 tablet daily for 3 days, then 1/2 tab daily x 3 days. Doxycycline Hyclate 100 Mg Tablet 100 Mg PO BID 06/16/16 Rx Miralax (Polyethylene Glycol 3350) 17 Gm Powd.pack 17 Gm PO PRN DAILY PRN 03/08/16 Rx Oxycodone-Acetaminophen 5-325 (Oxycodone Hcl/Acetaminophen) 1 Each Tablet 1 Tab PO PRN Q4HRS PRN 03/08/16 Rx Senna-Time S Tablet (Sennosides/Docusate Sodium) 1 Each Tablet 1 Tab PO BID 03/08/16 Rx Colace (Docusate Sodium) 100 Mg Capsule 100 Mg PO BID 03/08/16 Rx Atrovent Hfa (Ipratropium [place]) 12.9 Gm Hfa.aer.ad 2 Puff IH Q6HRS 03/05/16 Reported Reglan (Metoclopramide Hcl) 10 Mg Tablet 10 Mg PO BIDAC 03/05/16 Reported Levothyroxine Sodium 100 Mcg Tablet 1 Tab PO DAILY 03/05/16 Reported Advair 250-50 Diskus (Fluticasone/Salmeterol) 1 Each Disk.w.dev 12/02/15 Reported Warfarin Sodium 2.5 Mg Tablet 2.5 Mg PO HS 12/02/15 Reported Lorazepam 1 Mg Tablet 1-2 Mg PO DAILY PRN 12/02/15 Reported Ranitidine Hcl 300 Mg Capsule 1 Cap PO HS 11/25/15 Reported Ocuvite Tablet (Vit A,C & E/Lutein/Minerals) 1 Each Tablet 1 Each PO DAILY 10/23/15 Reported Vitamin D (Cholecalciferol (Vitamin D3)) 1,000 Unit Tablet 1,000 Unit PO DAILY 10/23/15 Reported Amlodipine Besylate 10 Mg Tablet 10 Mg PO DAILY 10/23/15 Reported Claritin (Loratadine) 10 Mg Tablet 1-2 Tab PO HS 10/23/15 Reported Carvedilol 25 Mg Tablet 1 Tab PO BID 10/23/15 Reported Atorvastatin Calcium 10 Mg Tablet 1 Tab PO DAILY 10/23/15 Reported Potassium Chloride 10 Meq Capsule.er 20 Meq PO BID PRN 10/23/15 Reported Benicar (Olmesartan Medoxomil) 40 Mg Tablet 1 Tab PO DAILY 10/23/15 Reported Lasix (Furosemide) 40 Mg Tablet 1 Tab PO DAILY PRN 10/23/15 Reported Protonix (Pantoprazole Sodium) 40 Mg Tablet. 1 Tab PO DAILY 10/23/15 Reported Impression . ASTHMA EXACERBATION, RESOLVED ACUTE BRONCHITIS DYSPNEA, IMPROVED ACUTE HEART FAILURE POSSIBLE DIASTOLIC SACHA HTN S/P VALVE REPLACEMENT Plan . PRED ORAL TAPER PT HAS HOME OXYGEN, 3 LITRES 24 HR D/C HOME. FOLLOW UP WITH DR THOMAS IN OUR OFFICE. PT ONLY ABLE TO COME TO OFFICE ON MONDAY OR MONDAY NOCTURNAL DESAT ON HOME CPAP LOOKS GOOD AGREE WITH CURRENT RX HOME CPAP ZOYA ACOSTA MD Jan 02, 2017 10:36
[2017-01-02 11:00] VITALS: BP 122/53
--- NOTE | 2017-01-02 11:13 | PDOC ---
PROGRESS NOTES Chief Complaint Chief Complaint Acute hypoxic respir failure ASSESSMENT AND PLAN: 1. ?CAP vs bronchtis: on ceftriax, steroids ( increased from home dose of 10mg ) 2. COPD exacerbation: cont nebs, suppl O2 3. CHF: gentle diuresis, monitor BMP 4. Afib: well controlled on BB 5. OAC: on coumadin 5. CAD: no acute issues. continue secondary prevention meds 6. HTN: borderline control. monitor, adjust meds as indicated if persistent 7. HLD: on statin 8. Hypothyroidism: on synthroid 9. OA: on percocet 10. GERD: H2B History of Present Illness History of Present Illness feels well, eager to go home Vitals Vitals Vital Signs Date Time Temp Pulse Resp B/P (MAP) Pulse Ox O2 Delivery O2 Flow Rate FiO2 01/02/17 09:09 65 158/76 01/02/17 07:34 96 Nasal Cannula 3.0 01/02/17 07:00 97.9 18 97.9 Physical Exam General: Alert, Oriented X3, Cooperative, No acute distress Heart: Regular rate, No murmurs Lungs: Wheezing (resolved) Abdomen: Normal bowel sounds, Soft, No tenderness Extremities: No clubbing, No cyanosis, No edema Skin: No rashes, No breakdown Labs LABS Laboratory Tests Test 01/02/17 03:00 01/02/17 03:50 White Blood Count 8.4 x10^3/uL (4.0-11.0) Red Blood Count 3.81 x10^6/uL (3.50-5.40) Hemoglobin 12.3 g/dL (12.0-15.5) Hematocrit 37.3 % (36.0-47.0) Mean Corpuscular Volume 98 fL (79-100) Mean Corpuscular Hemoglobin 32 pg (25-35) Mean Corpuscular Hemoglobin Concent 33 g/dL (31-37) Red Cell Distribution Width 14.4 % (11.5-14.5) Platelet Count 179 x10^3/uL (140-400) Neutrophils (%) (Auto) 73 % (31-73) Lymphocytes (%) (Auto) 15 % (24-48) Monocytes (%) (Auto) 11 % (0-9) Eosinophils (%) (Auto) 1 % (0-3) Basophils (%) (Auto) 0 % (0-3) Neutrophils # (Auto) 6.2 x10^3uL (1.8-7.7) Lymphocytes # (Auto) 1.3 x10^3/uL (1.0-4.8) Monocytes # (Auto) 0.9 x10^3/uL (0.0-1.1) Eosinophils # (Auto) 0.0 x10^3/uL (0.0-0.7) Basophils # (Auto) 0.0 x10^3/uL (0.0-0.2) Segmented Neutrophils % 69 % (35-66) Lymphocytes % 18 % (24-48) Atypical Lymphocytes % (Manual) 1 % (0-0) Monocytes % 12 % (0-10) Platelet Estimate Adequate (ADEQUATE) Prothrombin Time 19.7 SEC (11.7-14.0) Prothromb Time International Ratio 1.8 (0.8-1.1) Sodium Level 147 mmol/L (136-145) Potassium Level 3.6 mmol/L (3.5-5.1) Chloride Level 109 mmol/L (98-107) Carbon Dioxide Level 30 mmol/L (21-32) Anion Gap 8 (6-14) Blood Urea Nitrogen 22 mg/dL (7-20) Creatinine 0.9 mg/dL (0.6-1.0) Estimated GFR (Cockcroft-Gault) 59.2 Glucose Level 114 mg/dL (70-99) Calcium Level 7.9 mg/dL (8.5-10.1) SANDRA BROOKE MD Jan 02, 2017 11:13
--- NOTE | 2017-01-02 13:41 | PDOC3 ---
Discharge Summary* Date of Discharge: Jan 02, 2017 Admitting Diagnosis Problems Medical Problems: (1) Acute respiratory failure Status: Acute (2) Community acquired pneumonia Status: Acute (3) Congestive heart failure Status: Acute (4) COPD exacerbation Status: Acute (5) Hypoxia Status: Acute Problems: Final Diagnosis Problems Medical Problems: (1) Acute respiratory failure Status: Acute (2) Community acquired pneumonia Status: Acute (3) Congestive heart failure Status: Acute (4) COPD exacerbation Status: Acute (5) Hypoxia Status: Acute Brief Hospital Course Ms. Horn is a 86 old [sex] who presented with [ ] CONDITION AT DISCHARGE: Improved Scheduled Amlodipine Besylate (Amlodipine Besylate), 10 MG PO DAILY, (Reported) Atorvastatin Calcium (Atorvastatin Calcium), 1 TAB PO DAILY, (Reported) Benzonatate (Tessalon Perle), 2 CAP PO BID, (Reported) Carvedilol (Carvedilol), 1 TAB PO BID, (Reported) Cholecalciferol (Vitamin D3) (Vitamin D), 1,000 UNIT PO DAILY, (Reported) Docusate Sodium (Colace), 100 MG PO BID Ipratropium [place] (Atrovent Hfa), 2 PUFF IH Q6HRS, (Reported) Levothyroxine Sodium (Levothyroxine Sodium), 1 TAB PO DAILY, (Reported) Loratadine (Claritin), 1-2 TAB PO HS, (Reported) Metoclopramide Hcl (Reglan), 10 MG PO BIDAC, (Reported) Olmesartan Medoxomil (Benicar), 1 TAB PO DAILY, (Reported) Pantoprazole Sodium (Protonix), 1 TAB PO DAILY, (Reported) Prednisone (Prednisone), 10 MG PO UD Prednisone (Prednisone), 10 MG PO DAILY Ranitidine Hcl (Ranitidine Hcl), 1 CAP PO HS, (Reported) Sennosides/Docusate Sodium (Senna-Time S Tablet), 1 TAB PO BID Vit A,C & E/Lutein/Minerals (Ocuvite Tablet), 1 EACH PO DAILY, (Reported) Warfarin Sodium (Warfarin Sodium), 2.5 MG PO HS, (Reported) Scheduled PRN Furosemide (Lasix), 1 TAB PO DAILY PRN for WATER RETENTION, (Reported) Lorazepam (Lorazepam), 1-2 MG PO DAILY PRN for ANXIETY / AGITATION, (Reported) Oxycodone Hcl/Acetaminophen (Oxycodone-Acetaminophen 5-325), 1 TAB PO PRN Q4HRS PRN for PAIN Polyethylene Glycol 3350 (Miralax), 17 GM PO PRN DAILY PRN for CONSTIPATION Potassium Chloride (Potassium Chloride), 20 MEQ PO BID PRN for SEE COMMENTS, ( Reported) Miscellaneous Medications Fluticasone/Salmeterol (Advair 250-50 Diskus), (Reported) Discontinued Medications Doxycycline Hyclate (Doxycycline Hyclate), 100 MG PO BID Time Spent Total time spent with patient [] minutes for coordination of care, counseling, and education. SANDRA BROOKE MD Jan 02, 2017 13:41
[2017-01-02] MEDS ORDERED: WARFARIN 3 MG TABLET. PO ONE (16:00)
[2017-01-02] MEDS ORDERED: FAMOTIDINE 20 MG TABLET. PO SCH (21:00)
--- NOTE | 2017-01-03 18:10 | PDOC3 ---
Discharge Summary* Date of Admission: Dec 28, 2016 Date of Discharge: Jan 02, 2017 Admitting Diagnosis (1) Acute respiratory failure (2) Community acquired pneumonia (3) Congestive heart failure (4) COPD exacerbation (5) Hypoxia Problems: Final Diagnosis (1) Acute respiratory failure (2) Community acquired pneumonia (3) Congestive heart failure (4) COPD exacerbation (5) Hypoxia CONSULTS Cardiology Pulmonology Brief Hospital Course Ms. Horn is a 86 old woman with adult-onset asthma, CHF, CAD, who presented to the ER with 3-4 day history of shortness of breath with nonproductive cough. She is using home O2 at 2L normally. her inhalers did not seem to help. She denied any chest pain, fever, chills. In the ER, she was hyopxic on 3L O2, with CXR showing possible infiltrate. she was admitted with ?CAP, COPD/asthma exacerbation, possible CHF exacerbation 1. ?CAP vs bronchtis: on ceftriax, steroids ( increased from home dose of 10mg , tapering off) 2. COPD exacerbation: cont nebs, suppl O2 3. CHF: gentle diuresis, BMP stable 4. Afib: well controlled on BB 5. OAC: on coumadin 5. CAD: no acute issues. continue secondary prevention meds 6. HTN: borderline control. monitor, adjust meds as indicated if persistent 7. HLD: on statin 8. Hypothyroidism: on synthroid 9. OA: on percocet 10. GERD: H2B Disposition/Orders: D/C to Home CONDITION AT DISCHARGE: Improved Diet: Cardiac Scheduled Amlodipine Besylate (Amlodipine Besylate), 10 MG PO DAILY, (Reported) Atorvastatin Calcium (Atorvastatin Calcium), 1 TAB PO DAILY, (Reported) Benzonatate (Tessalon Perle), 2 CAP PO BID, (Reported) Carvedilol (Carvedilol), 1 TAB PO BID, (Reported) Cholecalciferol (Vitamin D3) (Vitamin D), 1,000 UNIT PO DAILY, (Reported) Docusate Sodium (Colace), 100 MG PO BID Ipratropium [place] (Atrovent Hfa), 2 PUFF IH Q6HRS, (Reported) Levothyroxine Sodium (Levothyroxine Sodium), 1 TAB PO DAILY, (Reported) Loratadine (Claritin), 1-2 TAB PO HS, (Reported) Metoclopramide Hcl (Reglan), 10 MG PO BIDAC, (Reported) Olmesartan Medoxomil (Benicar), 1 TAB PO DAILY, (Reported) Pantoprazole Sodium (Protonix), 1 TAB PO DAILY, (Reported) Prednisone (Prednisone), 10 MG PO UD Prednisone (Prednisone), 10 MG PO DAILY Ranitidine Hcl (Ranitidine Hcl), 1 CAP PO HS, (Reported) Sennosides/Docusate Sodium (Senna-Time S Tablet), 1 TAB PO BID Vit A,C & E/Lutein/Minerals (Ocuvite Tablet), 1 EACH PO DAILY, (Reported) Warfarin Sodium (Warfarin Sodium), 2.5 MG PO HS, (Reported) Scheduled PRN Furosemide (Lasix), 1 TAB PO DAILY PRN for WATER RETENTION, (Reported) Lorazepam (Lorazepam), 1-2 MG PO DAILY PRN for ANXIETY / AGITATION, (Reported) Oxycodone Hcl/Acetaminophen (Oxycodone-Acetaminophen 5-325), 1 TAB PO PRN Q4HRS PRN for PAIN Polyethylene Glycol 3350 (Miralax), 17 GM PO PRN DAILY PRN for CONSTIPATION Potassium Chloride (Potassium Chloride), 20 MEQ PO BID PRN for SEE COMMENTS, ( Reported) Miscellaneous Medications Fluticasone/Salmeterol (Advair 250-50 Diskus), (Reported) Discontinued Medications Doxycycline Hyclate (Doxycycline Hyclate), 100 MG PO BID FOLLOW UP APPOINTMENT: PCP in 1 week Time Spent Total time spent with patient [] minutes for coordination of care, counseling, and education. SANDRA BROOKE MD Jan 03, 2017 18:10
== END 2017-01-02 13:55 | disposition home or self-care (01) | DRG 177 ==
LOC: ER 21:57 → 2 NORTH 23:42
PROVIDERS: ADMIT Internal Medicine; ATTEND Internal Medicine
PROC: 5A09357 Assistance with Respiratory Ventilation, Less than 24 Consecutive Hours, Continuous Positive Airway Pressure (ICD-10-PCS; principal; 2016-12-29)
DX: J69.0 Pneumonitis due to inhalation of food and vomit (principal); I50.33 Acute on chronic diastolic (congestive) heart failure; J96.21 Acute and chronic respiratory failure with hypoxia; J44.0 Chronic obstructive pulmonary disease with (acute) lower respiratory infection; J44.1 Chronic obstructive pulmonary disease with (acute) exacerbation; Z68.41 Body mass index [BMI] 40.0-44.9, adult; E03.9 Hypothyroidism, unspecified; E78.5 Hyperlipidemia, unspecified; E78.00 Pure hypercholesterolemia, unspecified; F41.9 Anxiety disorder, unspecified; G47.33 Obstructive sleep apnea (adult) (pediatric); I08.0 Rheumatic disorders of both mitral and aortic valves; I11.0 Hypertensive heart disease with heart failure; I25.10 Atherosclerotic heart disease of native coronary artery without angina pectoris; I48.91 Unspecified atrial fibrillation; E66.9 Obesity, unspecified; J20.9 Acute bronchitis, unspecified; M19.90 Unspecified osteoarthritis, unspecified site; K21.9 Gastro-esophageal reflux disease without esophagitis; Z95.1 Presence of aortocoronary bypass graft; Z95.2 Presence of prosthetic heart valve; Z90.49 Acquired absence of other specified parts of digestive tract; Z95.0 Presence of cardiac pacemaker; Z90.710 Acquired absence of both cervix and uterus; Z88.5 Allergy status to narcotic agent; Z88.0 Allergy status to penicillin; Z88.8 Allergy status to other drugs, medicaments and biological substances; Z88.1 Allergy status to other antibiotic agents; Z91.041 Radiographic dye allergy status
CPT/HCPCS: 36415; 36600; 71010; 80048; 80053; 82805; 83605; 83880; 84484; 85007; 85027; 85610; 85730; 93005; 94250; 94620; 94640; 94660; 94799; 96365; 96375; J0690; J0696; J1940; J2930; J3490; J7512; J7620; J8597; 99291-25

== ENCOUNTER → 2017-03-30 | Outpatient (CLI) | payer MEDICARE ==
[~2017-03-30] MED LIST changes: +BENZ100C PO
--- NOTE | 2017-03-30 14:56 | KCIC ---
3 views right and left knee 03/30/2017 CLINICAL INDICATION: Bilateral knee degenerative joint disease. COMPARISON: None. FINDINGS: Left knee: There is a surgical clip in the medial tibial plateau. Tricompartment osteoarthritis to severe degree lateral joint compartment with [id number] contact osteophytosis and subchondral sclerosis, severe patellofemoral arthrosis with large osteophyte formation and moderate medial joint compartment with joint space narrowing and osteophytic spurring. No acute fracture or traumatic malalignment. Right knee: Tricompartment osteoarthritis, moderate severe degree in the lateral joint compartment with joint space narrowing osteophytic spurring and subchondral sclerosis, moderate to severe degree patellofemoral with osteophytic spurring, and moderate lateral joint compartment osteoarthritis with joint space narrowing. No significant knee joint effusion. There are multiple ossific densities the posterior aspect of the knee joint. IMPRESSION: 1. Tricompartment left knee osteoarthritis greatest to severe degree in the lateral and patellofemoral joint compartments. 2. Tricompartment right knee osteoarthritis, greatest to a moderate to severe degree lateral and patellofemoral femoral joint compartments. 3. Ossific densities posterior to the right knee, may represent intra-articular bodies. Electronically signed by: Ra Smalls MD (03/30/2017 2:53 PM) [id number]
== END | disposition home or self-care (01) ==
LOC: KCIC 13:58
PROVIDERS: ATTEND Family Medicine
DX: M17.0 Bilateral primary osteoarthritis of knee (principal)
CPT/HCPCS: 73562

== ENCOUNTER → 2017-10-06 | Outpatient (CLI) | payer MEDICARE ==
[2017-10-06 16:55] LABS: INR 3.9 (0.8-1.1); PROTHROMBIN TIME PATIENT 37.5 SEC (11.7-14.0)
== END | disposition home or self-care (01) ==
LOC: LAB 16:26
DX: Z79.01 Long term (current) use of anticoagulants (principal)
CPT/HCPCS: 36415; 85610

== ENCOUNTER → 2017-10-26 | Outpatient (CLI) | payer MEDICARE ==
[2017-10-26 15:38] LABS: INR 2.2 (0.8-1.1); PROTHROMBIN TIME PATIENT 23.8 SEC (11.7-14.0)
== END | disposition home or self-care (01) ==
LOC: LAB 14:44
DX: Z79.01 Long term (current) use of anticoagulants (principal)
CPT/HCPCS: 36415; 85610

== ENCOUNTER 2017-11-18 12:19 | Inpatient (IN) | payer MEDICARE ==
[2017-11-18] MEDS ORDERED: MORPHINE SULFATE 4 MG/ML DISP.SYRIN. IV (13:00)
[2017-11-18] MEDS: fentaNYL PF VIAL 100 MCG/2 ML VIAL IV ×2 (13:14→19:39)
[2017-11-18 13:21] LABS: BASO % 0 % (0-3); EOS # 0.1 x10^3/uL (0.0-0.7); EOS % 1 % (0-3); HEMATOCRIT 38.5 % (36.0-47.0); HEMOGLOBIN 12.8 g/dL (12.0-15.5); LYMPH # 1.2 x10^3/uL (1.0-4.8); LYMPH % 9 % (24-48); MEAN CORPUSCULAR HEMOGLOBIN 32 pg (25-35); MEAN CORPUSCULAR HGB CONC 33 g/dL (31-37); MEAN CORPUSCULAR VOLUME 97 fL (79-100); MONO % 8 % (0-9); NEUT # 10.3 x10^3uL (1.8-7.7); NEUT % 82 % (31-73); PLATELET COUNT 166 x10^3/uL (140-400); RED BLOOD COUNT 3.97 x10^6/uL (3.50-5.40); RED CELL DISTRIBUTION WIDTH 13.8 % (11.5-14.5); WHITE BLOOD COUNT 12.7 x10^3/uL (4.0-11.0)
[2017-11-18 13:27] LABS: ADD MAN DIFF? YES
[2017-11-18 13:32] LABS: PARTIAL THROMBOPLASTIN TIME 31 SEC (24-38)
[2017-11-18 13:33] LABS: INR 3.4 (0.8-1.1); PROTHROMBIN TIME PATIENT 33.8 SEC (11.7-14.0)
[2017-11-18] MEDS: ONDANSETRON PF 4 MG/2 ML VIAL. IV (13:39)
[2017-11-18 13:42] LABS: LACTIC ACID 1.5 mmol/L (0.4-2.0)
[2017-11-18 13:48] LABS: ALBUMIN 3.3 g/dL (3.4-5.0); ALK PHOS 80 U/L (46-116); ALT (SGPT) 23 U/L (14-59); ANION GAP 4 (6-14); AST (SGOT) 16 U/L (15-37); BLOOD UREA NITROGEN 84 mg/dL (7-20); CALCIUM 8.7 mg/dL (8.5-10.1); CARBON DIOXIDE 25 mmol/L (21-32); CHLORIDE 107 mmol/L (98-107); CREATININE 2.5 mg/dL (0.6-1.0); DIRECT BILIRUBIN 0.2 mg/dL (0.0-0.2); GFR 18.2; GLUCOSE 119 mg/dL (70-99); LIPASE 164 U/L (73-393); SODIUM 136 mmol/L (136-145); TOTAL PROTEIN 6.2 g/dL (6.4-8.2)
[2017-11-18 13:48] LABS: TROPONINI < 0.017 ng/mL (0.000-0.055)
[2017-11-18 13:53] LABS: POTASSIUM 6.2 mmol/L (3.5-5.1)
[2017-11-18 14:04] LABS: % BANDS 2 % (0-9); % EOS 1 % (0-5); % LYMPHS 8 % (24-48); % MONOS 5 % (0-10); % SEGS 84 % (35-66)
[2017-11-18 14:05] LABS: PLT ESTIMATE ADEQUATE (ADEQUATE)
[2017-11-18] MEDS: IPRATRPIUM/ALBUTEROL 0.5/2.5MG 3 ML NEBU. NEB (14:05)
[2017-11-18] MEDS: IV NORMAL SALINE 1000ML BAG 1,000 ML IV (14:10)
[2017-11-18] MEDS: CALCIUM GLUCONATE 1,000 MG/10 ML VIAL. IVP (14:12)
[2017-11-18] MEDS: DEXTROSE 50% 25 GM / 50ML DISP.SYRIN. IV (14:19)
[2017-11-18] MEDS: INSULIN REGULAR 100 UNIT/ML 3ML VIAL. IV (14:20)
[2017-11-18] MEDS ORDERED: ONDANSETRON PF 4 MG/2 ML VIAL. IV (14:30)
[2017-11-18 15:34] LABS: FECAL OB PT POSITIVE (NEG); NEG OBC FOB NEG; POS OBC FOB POS
[2017-11-18] MEDS ORDERED: DOCUSATE SODIUM 100 MG CAPSULE. PO (15:45)
[2017-11-18] MEDS: IV DEXTROSE 5 %-0.45 % NACL 500 ML IV (15:45)
[2017-11-18] MEDS ORDERED: MAGNESIUM SULFATE 2GM 50 ML IV (15:45)
[2017-11-18] MEDS ORDERED: hydrALAZINE 20 MG/ML VIAL. IVP (15:45)
[2017-11-18] MEDS: SODIUM POLYSTYRENE SULFONATE 15 GM/60 ML ORAL.SUSP. PO (15:46)
[2017-11-18 16:42] LABS: LACTIC ACID 2.1 mmol/L (0.4-2.0)
[2017-11-18 21:42] LABS: SECOND ABO/RH TYPE 1 1
[2017-11-19] MEDS: fentaNYL PF VIAL 100 MCG/2 ML VIAL IV (04:06)
[2017-11-19 06:29] LABS: INR 1.9 (0.8-1.1); PROTHROMBIN TIME PATIENT 21.5 SEC (11.7-14.0)
[2017-11-19 08:29] LABS: ADD MAN DIFF? NO
[2017-11-19 08:42] LABS: BASO % 0 % (0-3); EOS # 0.1 x10^3/uL (0.0-0.7); EOS % 1 % (0-3); HEMOGLOBIN 12.6 g/dL (12.0-15.5); LYMPH # 1.3 x10^3/uL (1.0-4.8); LYMPH % 12 % (24-48); MEAN CORPUSCULAR HEMOGLOBIN 32 pg (25-35); MEAN CORPUSCULAR HGB CONC 33 g/dL (31-37); MEAN CORPUSCULAR VOLUME 96 fL (79-100); MONO # 1.1 x10^3/uL (0.0-1.1); MONO % 10 % (0-9); NEUT # 8.1 x10^3uL (1.8-7.7); NEUT % 76 % (31-73); PLATELET COUNT 146 x10^3/uL (140-400); RED BLOOD COUNT 3.95 x10^6/uL (3.50-5.40); RED CELL DISTRIBUTION WIDTH 13.4 % (11.5-14.5); WHITE BLOOD COUNT 10.7 x10^3/uL (4.0-11.0)
[2017-11-19 08:47] LABS: % SAT IRON 45 % (15-34); ALBUMIN 3.5 g/dL (3.4-5.0); ANION GAP 8 (6-14); BLOOD UREA NITROGEN 59 mg/dL (7-20); CALCIUM 8.8 mg/dL (8.5-10.1); CARBON DIOXIDE 29 mmol/L (21-32); CHLORIDE 107 mmol/L (98-107); CREATININE 1.8 mg/dL (0.6-1.0); GFR 26.6; GLUCOSE 99 mg/dL (70-99); IRON,SERUM 134 ug/dL (50-170); PHOSPHORUS 4.7 mg/dL (2.6-4.7); SODIUM 144 mmol/L (136-145)
[2017-11-19 08:52] LABS: POTASSIUM 4.3 mmol/L (3.5-5.1)
[2017-11-19 08:54] LABS: LACTIC ACID 2.1 mmol/L (0.4-2.0)
[2017-11-19 09:08] LABS: MAGNESIUM 2.9 mg/dL (1.8-2.4)
[2017-11-19 09:26] LABS: FERRITIN 186 ng/mL (8-252)
[2017-11-19] MEDS ORDERED: IV 1/2 NORMAL SALINE 1,000 ML IV (12:15)
[2017-11-19] MEDS: CHOLECALCIFEROL (VITAMIN D3) 1,000 UNIT TABLET PO (12:35)
[2017-11-19] MEDS: DOCUSATE SODIUM 100 MG CAPSULE. PO ×2 (12:36→20:54)
[2017-11-19] MEDS: amLODIPine BESYLATE 10 MG TABLET PO (12:37)
[2017-11-19] MEDS: HYDROCORTISONE ACETATE 25 MG SUPP.RECT PR ×2 (12:37→20:54)
[2017-11-19] MEDS: PANTOPRAZOLE 40 MG TABLET.DR. PO (12:37)
[2017-11-19] MEDS: LEVOTHYROXINE 100 MCG TABLET PO (12:37)
[2017-11-19] MEDS: POLYETHYLENE GLYCOL 3350 17 GM PACKET. PO (12:38)
[2017-11-19] MEDS ORDERED: FUROSEMIDE 40 MG TABLET. PO (12:45)
[2017-11-19] MEDS: FUROSEMIDE 40 MG TABLET. PO (14:10)
[2017-11-19] MEDS: METOCLOPRAMIDE 10 MG TABLET. PO (17:26)
[2017-11-19 18:10] LABS: MRSA BY PCR Negative (Negative)
[2017-11-19] MEDS: ATORVASTATIN CALCIUM 10 MG TABLET. PO (20:54)
[2017-11-19] MEDS: IPRATRPIUM/ALBUTEROL 0.5/2.5MG 3 ML NEBU. NEB (21:29)
[2017-11-20] MEDS: LORazepam 1 MG TABLET PO ×2 (03:58→22:49)
[2017-11-20] MEDS: LEVOTHYROXINE 100 MCG TABLET PO (05:32)
[2017-11-20 07:09] LABS: ADD MAN DIFF? NO
[2017-11-20 07:29] LABS: ALBUMIN 3.2 g/dL (3.4-5.0); ANION GAP 5 (6-14); BLOOD UREA NITROGEN 44 mg/dL (7-20); CALCIUM 8.2 mg/dL (8.5-10.1); CARBON DIOXIDE 31 mmol/L (21-32); CHLORIDE 108 mmol/L (98-107); CREATININE 1.6 mg/dL (0.6-1.0); GFR 30.4; GLUCOSE 104 mg/dL (70-99); MAGNESIUM 2.4 mg/dL (1.8-2.4); PHOSPHORUS 3.7 mg/dL (2.6-4.7); POTASSIUM 3.8 mmol/L (3.5-5.1); SODIUM 144 mmol/L (136-145)
[2017-11-20 07:33] LABS: INR 2.2 (0.8-1.1); PROTHROMBIN TIME PATIENT 23.9 SEC (11.7-14.0)
[2017-11-20] MEDS: IPRATRPIUM/ALBUTEROL 0.5/2.5MG 3 ML NEBU. NEB ×4 (07:53→20:06)
[2017-11-20 08:23] LABS: BASO % 0 % (0-3); EOS # 0.2 x10^3/uL (0.0-0.7); EOS % 2 % (0-3); HEMOGLOBIN 12.3 g/dL (12.0-15.5); LYMPH # 1.3 x10^3/uL (1.0-4.8); LYMPH % 15 % (24-48); MEAN CORPUSCULAR HEMOGLOBIN 33 pg (25-35); MEAN CORPUSCULAR HGB CONC 34 g/dL (31-37); MEAN CORPUSCULAR VOLUME 96 fL (79-100); MONO # 1.1 x10^3/uL (0.0-1.1); MONO % 12 % (0-9); NEUT # 6.3 x10^3uL (1.8-7.7); NEUT % 71 % (31-73); PLATELET COUNT 143 x10^3/uL (140-400); RED BLOOD COUNT 3.75 x10^6/uL (3.50-5.40); RED CELL DISTRIBUTION WIDTH 13.7 % (11.5-14.5); WHITE BLOOD COUNT 8.9 x10^3/uL (4.0-11.0)
[2017-11-20] MEDS: CHOLECALCIFEROL (VITAMIN D3) 1,000 UNIT TABLET PO (09:00)
[2017-11-20] MEDS: PANTOPRAZOLE 40 MG TABLET.DR. PO (09:10)
[2017-11-20] MEDS: DOCUSATE SODIUM 100 MG CAPSULE. PO ×2 (09:10→21:00)
[2017-11-20] MEDS: METOCLOPRAMIDE 10 MG TABLET. PO ×2 (09:10→16:55)
[2017-11-20] MEDS: FUROSEMIDE 40 MG TABLET. PO (09:11)
[2017-11-20] MEDS: POLYETHYLENE GLYCOL 3350 17 GM PACKET. PO (09:11)
[2017-11-20] MEDS: amLODIPine BESYLATE 10 MG TABLET PO (09:11)
[2017-11-20] MEDS: HYDROCORTISONE ACETATE 25 MG SUPP.RECT PR ×2 (09:11→21:00)
[2017-11-20 09:27] LABS: VITAMIN-B12 326 pg/mL (247-911)
[2017-11-20 09:29] LABS: FOLATE 14.14 ng/ml (3.2-20.0)
[2017-11-20] MEDS: ATORVASTATIN CALCIUM 10 MG TABLET. PO (21:04)
[2017-11-20] MEDS: oxyCODONE/APAP 5/325 1 TAB TABLET PO (22:49)
[2017-11-20] MEDS: ONDANSETRON PF 4 MG/2 ML VIAL. IV (22:49)
[2017-11-21 04:01] LABS: ADD MAN DIFF? NO
[2017-11-21 04:11] LABS: BASO % 0 % (0-3); EOS # 0.3 x10^3/uL (0.0-0.7); EOS % 3 % (0-3); HEMATOCRIT 36.5 % (36.0-47.0); HEMOGLOBIN 12.3 g/dL (12.0-15.5); LYMPH # 1.6 x10^3/uL (1.0-4.8); LYMPH % 17 % (24-48); MEAN CORPUSCULAR HEMOGLOBIN 32 pg (25-35); MEAN CORPUSCULAR HGB CONC 34 g/dL (31-37); MEAN CORPUSCULAR VOLUME 96 fL (79-100); MONO % 12 % (0-9); NEUT # 6.1 x10^3uL (1.8-7.7); NEUT % 68 % (31-73); PLATELET COUNT 141 x10^3/uL (140-400); RED CELL DISTRIBUTION WIDTH 13.6 % (11.5-14.5)
[2017-11-21 04:37] LABS: ALBUMIN 3.2 g/dL (3.4-5.0); ANION GAP 8 (6-14); BLOOD UREA NITROGEN 43 mg/dL (7-20); CALCIUM 8.3 mg/dL (8.5-10.1); CARBON DIOXIDE 28 mmol/L (21-32); CHLORIDE 106 mmol/L (98-107); CREATININE 1.8 mg/dL (0.6-1.0); GFR 26.6; GLUCOSE 113 mg/dL (70-99); MAGNESIUM 2.4 mg/dL (1.8-2.4); PHOSPHORUS 3.9 mg/dL (2.6-4.7); POTASSIUM 3.7 mmol/L (3.5-5.1); SODIUM 142 mmol/L (136-145)
[2017-11-21 04:54] LABS: INR 1.8 (0.8-1.1); PROTHROMBIN TIME PATIENT 19.9 SEC (11.7-14.0)
[2017-11-21] MEDS: METOCLOPRAMIDE 10 MG TABLET. PO ×2 (06:37→17:35)
[2017-11-21] MEDS: PANTOPRAZOLE 40 MG TABLET.DR. PO (06:37)
[2017-11-21] MEDS: LEVOTHYROXINE 100 MCG TABLET PO (06:37)
[2017-11-21] MEDS: IPRATRPIUM/ALBUTEROL 0.5/2.5MG 3 ML NEBU. NEB ×4 (07:13→20:09)
[2017-11-21] MEDS: FUROSEMIDE 40 MG TABLET. PO (09:00)
[2017-11-21] MEDS: DOCUSATE SODIUM 100 MG CAPSULE. PO ×2 (09:00→21:15)
[2017-11-21] MEDS: amLODIPine BESYLATE 10 MG TABLET PO (09:00)
[2017-11-21] MEDS: HYDROCORTISONE ACETATE 25 MG SUPP.RECT PR ×2 (09:00→21:14)
[2017-11-21] MEDS: CHOLECALCIFEROL (VITAMIN D3) 1,000 UNIT TABLET PO (09:00)
[2017-11-21] MEDS: POLYETHYLENE GLYCOL 3350 17 GM PACKET. PO (09:00)
[2017-11-21] MEDS: WARFARIN 1 MG TABLET. PO (16:00)
[2017-11-21] MEDS: WARFARIN 2 MG TABLET. PO (17:36)
[2017-11-21] MEDS: ATORVASTATIN CALCIUM 10 MG TABLET. PO (21:15)
[2017-11-21] MEDS: NYSTATIN TOPICAL POWDER 15GM BOTTLE. TP (21:15)
[2017-11-21] MEDS: oxyCODONE/APAP 5/325 1 TAB TABLET PO (23:03)
[2017-11-22 01:01] LABS: BILIRUBIN,URINE NEGATIVE (NEG); CLARITY,URINE CLEAR; COLOR,URINE YELLOW; GLUCOSE,URINE NEGATIVE (NEG); NITRITE,URINE NEGATIVE (NEG); PROTEIN,URINE NEGATIVE (NEG-TRACE); UROBILINOGEN,URINE 0.2 mg/dL (0.2 mg/dL)
[2017-11-22 01:46] LABS: BACTERIA,URINE FEW /HPF (0-FEW); RBC,URINE 0 /HPF (0-2)
[2017-11-22 01:47] LABS: HYALINE CASTS, URINE FEW /HPF; SQUAMOUS EPITHELIAL CELL,UR FEW /LPF
[2017-11-22 04:39] LABS: ADD MAN DIFF? NO
[2017-11-22 04:47] LABS: BASO # 0.1 x10^3/uL (0.0-0.2); BASO % 1 % (0-3); EOS # 0.4 x10^3/uL (0.0-0.7); EOS % 4 % (0-3); HEMATOCRIT 36.1 % (36.0-47.0); HEMOGLOBIN 12.4 g/dL (12.0-15.5); LYMPH # 1.6 x10^3/uL (1.0-4.8); LYMPH % 17 % (24-48); MEAN CORPUSCULAR HEMOGLOBIN 33 pg (25-35); MEAN CORPUSCULAR HGB CONC 34 g/dL (31-37); MEAN CORPUSCULAR VOLUME 96 fL (79-100); MONO # 1.1 x10^3/uL (0.0-1.1); MONO % 12 % (0-9); NEUT # 6.4 x10^3uL (1.8-7.7); NEUT % 67 % (31-73); PLATELET COUNT 135 x10^3/uL (140-400); RED BLOOD COUNT 3.76 x10^6/uL (3.50-5.40); RED CELL DISTRIBUTION WIDTH 13.3 % (11.5-14.5); WHITE BLOOD COUNT 9.5 x10^3/uL (4.0-11.0)
[2017-11-22 05:20] LABS: ALBUMIN 3.1 g/dL (3.4-5.0); ANION GAP 8 (6-14); BLOOD UREA NITROGEN 38 mg/dL (7-20); CALCIUM 8.2 mg/dL (8.5-10.1); CARBON DIOXIDE 27 mmol/L (21-32); CHLORIDE 100 mmol/L (98-107); GFR 23.5; GLUCOSE 106 mg/dL (70-99); MAGNESIUM 2.4 mg/dL (1.8-2.4); PHOSPHORUS 3.1 mg/dL (2.6-4.7); POTASSIUM 3.5 mmol/L (3.5-5.1); SODIUM 135 mmol/L (136-145)
[2017-11-22 05:21] LABS: INR 1.5 (0.8-1.1); PROTHROMBIN TIME PATIENT 17.8 SEC (11.7-14.0)
[2017-11-22] MEDS: LEVOTHYROXINE 100 MCG TABLET PO (06:22)
[2017-11-22] MEDS: IPRATRPIUM/ALBUTEROL 0.5/2.5MG 3 ML NEBU. NEB ×4 (07:25→19:40)
[2017-11-22] MEDS: NYSTATIN TOPICAL POWDER 15GM BOTTLE. TP ×2 (09:00→20:59)
[2017-11-22] MEDS: PANTOPRAZOLE 40 MG TABLET.DR. PO (09:31)
[2017-11-22] MEDS: POLYETHYLENE GLYCOL 3350 17 GM PACKET. PO (09:32)
[2017-11-22] MEDS: amLODIPine BESYLATE 10 MG TABLET PO (09:32)
[2017-11-22] MEDS: FUROSEMIDE 40 MG TABLET. PO (09:32)
[2017-11-22] MEDS: DOCUSATE SODIUM 100 MG CAPSULE. PO ×2 (09:32→20:59)
[2017-11-22] MEDS: METOCLOPRAMIDE 10 MG TABLET. PO ×2 (09:32→16:30)
[2017-11-22] MEDS: CHOLECALCIFEROL (VITAMIN D3) 1,000 UNIT TABLET PO (09:33)
[2017-11-22] MEDS: HYDROCORTISONE ACETATE 25 MG SUPP.RECT PR ×2 (09:33→20:59)
[2017-11-22] MEDS: WARFARIN 3 MG TABLET. PO (15:37)
[2017-11-22] MEDS: ONDANSETRON PF 4 MG/2 ML VIAL. IV (15:38)
[2017-11-22] MEDS: ATORVASTATIN CALCIUM 10 MG TABLET. PO (20:59)
[2017-11-22] MEDS: oxyCODONE/APAP 5/325 1 TAB TABLET PO (21:00)
[2017-11-23 05:57] LABS: INR 1.6 (0.8-1.1); PROTHROMBIN TIME PATIENT 18.5 SEC (11.7-14.0)
[2017-11-23 05:58] LABS: ALBUMIN 3.2 g/dL (3.4-5.0); ANION GAP 11 (6-14); BLOOD UREA NITROGEN 31 mg/dL (7-20); CALCIUM 8.5 mg/dL (8.5-10.1); CARBON DIOXIDE 28 mmol/L (21-32); CHLORIDE 102 mmol/L (98-107); CREATININE 1.6 mg/dL (0.6-1.0); GFR 30.4; GLUCOSE 121 mg/dL (70-99); MAGNESIUM 2.3 mg/dL (1.8-2.4); PHOSPHORUS 2.7 mg/dL (2.6-4.7); POTASSIUM 3.9 mmol/L (3.5-5.1); SODIUM 141 mmol/L (136-145)
[2017-11-23] MEDS: LEVOTHYROXINE 100 MCG TABLET PO (06:21)
[2017-11-23] MEDS: IPRATRPIUM/ALBUTEROL 0.5/2.5MG 3 ML NEBU. NEB ×4 (07:23→19:45)
[2017-11-23] MEDS: PANTOPRAZOLE 40 MG TABLET.DR. PO (09:00)
[2017-11-23] MEDS: METOCLOPRAMIDE 10 MG TABLET. PO ×2 (09:00→16:51)
[2017-11-23] MEDS: amLODIPine BESYLATE 10 MG TABLET PO (09:00)
[2017-11-23] MEDS: POLYETHYLENE GLYCOL 3350 17 GM PACKET. PO (09:00)
[2017-11-23] MEDS: CHOLECALCIFEROL (VITAMIN D3) 1,000 UNIT TABLET PO (09:00)
[2017-11-23] MEDS: FUROSEMIDE 40 MG TABLET. PO (09:00)
[2017-11-23] MEDS: DOCUSATE SODIUM 100 MG CAPSULE. PO ×2 (09:00→20:32)
[2017-11-23] MEDS: HYDROCORTISONE ACETATE 25 MG SUPP.RECT PR ×2 (09:01→20:33)
[2017-11-23] MEDS: NYSTATIN TOPICAL POWDER 15GM BOTTLE. TP ×2 (14:54→20:33)
[2017-11-23] MEDS: WARFARIN 5 MG TABLET. PO (14:54)
[2017-11-23] MEDS ORDERED: WARFARIN 3 MG TABLET. PO (16:00)
[2017-11-23] MEDS ORDERED: WARFARIN 4 MG TABLET. PO (16:00)
[2017-11-23] MEDS: DOXYCYCLINE HYCLATE 100 MG TABLET PO (16:51)
[2017-11-23] MEDS: ACETAMINOPHEN 325 MG TABLET. PO (16:51)
[2017-11-23] MEDS: ATORVASTATIN CALCIUM 10 MG TABLET. PO (20:32)
[2017-11-23] MEDS: oxyCODONE/APAP 5/325 1 TAB TABLET PO (20:32)
[2017-11-23] MEDS: LACTOBACILLUS RHAMNOSUS GG 1 CAPSULE. PO (20:32)
[2017-11-23 20:38] LABS: BILIRUBIN,URINE NEGATIVE (NEG); CLARITY,URINE CLEAR; COLOR,URINE YELLOW; GLUCOSE,URINE NEGATIVE (NEG); NITRITE,URINE NEGATIVE (NEG); PH,URINE 5.5; PROTEIN,URINE NEGATIVE (NEG-TRACE); UROBILINOGEN,URINE 0.2 mg/dL (0.2 mg/dL)
[2017-11-23 20:52] LABS: BACTERIA,URINE 0 /HPF (0-FEW); RBC,URINE 0 /HPF (0-2); SQUAMOUS EPITHELIAL CELL,UR OCC /LPF; WBC,URINE OCC /HPF (0-4)
[2017-11-23 21:31] LABS: INR 1.7 (0.8-1.1); PROTHROMBIN TIME PATIENT 19.2 SEC (11.7-14.0)
[2017-11-24 04:46] LABS: PROTHROMBIN TIME PATIENT 22.2 SEC (11.7-14.0)
[2017-11-24 04:52] LABS: ALBUMIN 2.9 g/dL (3.4-5.0); ANION GAP 8 (6-14); BLOOD UREA NITROGEN 25 mg/dL (7-20); CALCIUM 8.6 mg/dL (8.5-10.1); CARBON DIOXIDE 29 mmol/L (21-32); CHLORIDE 99 mmol/L (98-107); CREATININE 1.4 mg/dL (0.6-1.0); GFR 35.5; GLUCOSE 118 mg/dL (70-99); PHOSPHORUS 2.7 mg/dL (2.6-4.7); POTASSIUM 3.5 mmol/L (3.5-5.1); SODIUM 136 mmol/L (136-145)
[2017-11-24] MEDS: LEVOTHYROXINE 100 MCG TABLET PO (06:24)
[2017-11-24] MEDS: POLYETHYLENE GLYCOL 3350 17 GM PACKET. PO (08:06)
[2017-11-24] MEDS: METOCLOPRAMIDE 10 MG TABLET. PO (08:06)
[2017-11-24] MEDS: FUROSEMIDE 40 MG TABLET. PO (08:06)
[2017-11-24] MEDS: DOXYCYCLINE HYCLATE 100 MG TABLET PO (08:06)
[2017-11-24] MEDS: DOCUSATE SODIUM 100 MG CAPSULE. PO (08:07)
[2017-11-24] MEDS: amLODIPine BESYLATE 10 MG TABLET PO (08:07)
[2017-11-24] MEDS: LACTOBACILLUS RHAMNOSUS GG 1 CAPSULE. PO (08:07)
[2017-11-24] MEDS: CHOLECALCIFEROL (VITAMIN D3) 1,000 UNIT TABLET PO (08:07)
[2017-11-24] MEDS: PANTOPRAZOLE 40 MG TABLET.DR. PO (08:07)
[2017-11-24] MEDS: HYDROCORTISONE ACETATE 25 MG SUPP.RECT PR (08:07)
[2017-11-24] MEDS: NYSTATIN TOPICAL POWDER 15GM BOTTLE. TP (08:11)
[2017-11-24] MEDS: IPRATRPIUM/ALBUTEROL 0.5/2.5MG 3 ML NEBU. NEB ×2 (09:09→12:25)
== END 2017-11-24 16:00 | DRG 393 ==
LOC: ER 12:19 → 2 NORTH 14:20
PROC: 30233L1 Transfusion of Nonautologous Fresh Plasma into Peripheral Vein, Percutaneous Approach (ICD-10-PCS; principal; 2017-11-18)
PROC: 30233K1 Transfusion of Nonautologous Frozen Plasma into Peripheral Vein, Percutaneous Approach (ICD-10-PCS; 2017-11-18)
DX: K64.9 Unspecified hemorrhoids (principal); N17.0 Acute kidney failure with tubular necrosis; J96.10 Chronic respiratory failure, unspecified whether with hypoxia or hypercapnia; I95.9 Hypotension, unspecified; E87.2 Acidosis; E87.5 Hyperkalemia; I48.91 Unspecified atrial fibrillation; J44.1 Chronic obstructive pulmonary disease with (acute) exacerbation; E66.01 Morbid (severe) obesity due to excess calories; E87.1 Hypo-osmolality and hyponatremia; Z68.42 Body mass index [BMI] 45.0-49.9, adult; N39.0 Urinary tract infection, site not specified; E86.0 Dehydration; D64.9 Anemia, unspecified; E03.9 Hypothyroidism, unspecified; E78.00 Pure hypercholesterolemia, unspecified; E78.5 Hyperlipidemia, unspecified; F03.90 Unspecified dementia, unspecified severity, without behavioral disturbance, psychotic disturbance, mood disturbance, and anxiety; G47.33 Obstructive sleep apnea (adult) (pediatric); I12.9 Hypertensive chronic kidney disease with stage 1 through stage 4 chronic kidney disease, or unspecified chronic kidney disease; I25.10 Atherosclerotic heart disease of native coronary artery without angina pectoris; I34.0 Nonrheumatic mitral (valve) insufficiency; K21.9 Gastro-esophageal reflux disease without esophagitis; K57.30 Diverticulosis of large intestine without perforation or abscess without bleeding; K59.00 Constipation, unspecified; N18.3 Chronic kidney disease, stage 3 (moderate); Z79.01 Long term (current) use of anticoagulants; Z79.899 Other long term (current) drug therapy; Z90.710 Acquired absence of both cervix and uterus; Z95.1 Presence of aortocoronary bypass graft; Z95.2 Presence of prosthetic heart valve; Z99.81 Dependence on supplemental oxygen; F41.9 Anxiety disorder, unspecified; M19.90 Unspecified osteoarthritis, unspecified site; Z90.49 Acquired absence of other specified parts of digestive tract; Z88.1 Allergy status to other antibiotic agents; Z88.5 Allergy status to narcotic agent; Z88.0 Allergy status to penicillin; Z88.8 Allergy status to other drugs, medicaments and biological substances; Z82.49 Family history of ischemic heart disease and other diseases of the circulatory system
CPT/HCPCS: 36415; 71045; 74176; 80048; 80069; 80076; 81001; 82274; 82607; 82728; 82746; 83540; 83550; 83605; 83690; 83735; 84484; 85007; 85025; 85610; 85730; 86850; 86900; 86901; 86927; 87086; 87186; 87641; 93005; 94640; 94760; 96361; 96374; 96375; 97110-GO; 97110-GP; 97116-GP; 97162-GP; 97166-GO; 97530-GO; 97535-GO; 99285; 99285-25; J0610; J1815; J2405; J3010; J7030; J7042; J7620; J8597; P9017

== ENCOUNTER → 2017-12-05 | Outpatient (CLI) | payer MEDICARE | END | disposition home or self-care (01) | LOC: RAD 10:03 | DX: M43.16 Spondylolisthesis, lumbar region (principal); M12.88 Other specific arthropathies, not elsewhere classified, other specified site; I51.7 Cardiomegaly | CPT/HCPCS: 72072; 72100 ==

== ENCOUNTER 2018-02-08 16:59 | Inpatient (IN) | payer MEDICARE ==
[~2018-02-08] VITALS: Ht 152.4 cm; Wt 102.6 kg
[~2018-02-08 16:59] MED LIST changes: +APIX5TAB PO; +DOXY100C2 PO; +LEVO500T59 PO; +LIDO1ADH44 TD; +NYST15PO9 TOP; +POTA10TA12 PO; -POTASSIUM CHLO10 MEQ PO; +WARF2TAB PO; -WARF2TAB7 PO; +WARF2TAB96 PO
[2018-02-08 17:39] LABS: BILIRUBIN,URINE NEGATIVE (NEG); CLARITY,URINE CLEAR; COLOR,URINE YELLOW; NITRITE,URINE NEGATIVE (NEG); PROTEIN,URINE NEGATIVE (NEG-TRACE); UROBILINOGEN,URINE 0.2 mg/dL (0.2 mg/dL)
[2018-02-08 17:42] LABS: BASO % 0 % (0-3); EOS % 0 % (0-3); HEMATOCRIT 40.1 % (36.0-47.0); LYMPH # 0.8 x10^3/uL (1.0-4.8); LYMPH % 6 % (24-48); MEAN CORPUSCULAR HEMOGLOBIN 32 pg (25-35); MEAN CORPUSCULAR HGB CONC 32 g/dL (31-37); MEAN CORPUSCULAR VOLUME 98 fL (79-100); MONO # 0.9 x10^3/uL (0.0-1.1); MONO % 7 % (0-9); NEUT % 87 % (31-73); PLATELET COUNT 220 x10^3/uL (140-400); RED BLOOD COUNT 4.09 x10^6/uL (3.50-5.40); RED CELL DISTRIBUTION WIDTH 14.8 % (11.5-14.5); WHITE BLOOD COUNT 13.8 x10^3/uL (4.0-11.0)
[2018-02-08 17:51] LABS: BACTERIA,URINE FEW /HPF (0-FEW); SQUAMOUS EPITHELIAL CELL,UR MOD /LPF
[2018-02-08 17:54] LABS: PROTHROMBIN TIME PATIENT 19.2 SEC (11.7-14.0)
[2018-02-08 18:02] LABS: ALBUMIN 4.1 g/dL (3.4-5.0); ALBUMIN/GLOBULIN RATIO 1.5 (1.0-1.7); CALCIUM 9.3 mg/dL (8.5-10.1); CREATININE 2.8 mg/dL (0.6-1.0); GFR 15.9; TOTAL BILIRUBIN 0.9 mg/dL (0.2-1.0); TOTAL PROTEIN 6.9 g/dL (6.4-8.2)
[2018-02-08 18:09] LABS: POTASSIUM 8.2 mmol/L (3.5-5.1)
--- NOTE | 2018-02-08 18:15 | PHYS DOC ---
Past Medical History Past Medical History: A-Fib, Anxiety, Bronchitis, CHF, COPD, GERD, High Cholesterol, Heart Disease, Hypertension, Hypothyroid, Other Additional Past Medical Histor: sleep apnea Past Surgical History: Cholecystectomy, Coronary Bypass Surgery, Hysterectomy, Pacemaker, Other Additional Past Surgical Histo: left knee, cardiac ablation, tricuspid valve replacement Alcohol Use: None Drug Use: None Adult General Chief Complaint Chief Complaint: DYSPNEA/RESPIRATOY DISTRESS HPI HPI Patient is a 87 year old female with a history of A. fib, COPD and CHF presents the ED shortness of breath times one day. Patient lives at [facility] and was complaining of shortness of breath so the staff thought that she needed to come to the ER. Patient is on 3 L of oxygen at home. Patient states she is more short of breath when she lays down. EMS gave her a breathing treatment which patient states has improved her symptoms. Denies chest pain, dizziness, skin changes, neck pain, fever, nausea/ vomiting, headache or rash. Review of Systems Review of Systems Constitutional: Denies fever or chills [] Eyes: Denies change in visual acuity, redness, or eye pain [] HENT: Denies nasal congestion or sore throat [] Respiratory: Complains of shortness of breath and cough. Cardiovascular: No additional information not addressed in HPI [] GI: Denies abdominal pain, nausea, vomiting, bloody stools or diarrhea [] : Denies dysuria or hematuria [] Musculoskeletal: Denies back pain or joint pain [] Integument: Denies rash or skin lesions [] Neurologic: Denies headache, focal weakness or sensory changes [] All other systems were reviewed and found to be within normal limits, except as documented in this note. Current Medications Current Medications Allergies Allergies Allergies Coded Allergies Type Severity Reaction Last Updated Verified Iodine and Iodide Containing Produc Allergy Intermediate Hives 04/12/17 Yes Penicillins Allergy Intermediate Rash, TOLERATES ROCEPHIN 12/15/17 Yes bacitracin Allergy Intermediate 04/12/17 Yes codeine Allergy Intermediate Hives 04/12/17 Yes cyclobenzaprine Allergy Intermediate 04/12/17 Yes erythromycin base Allergy Intermediate Hives 04/12/17 Yes ethyl alcohol Allergy Intermediate 04/12/17 Yes mold Allergy Intermediate 04/12/17 Yes moxifloxacin Allergy Intermediate Hives 04/12/17 Yes neomycin Allergy Intermediate 04/12/17 Yes polymyxin B Allergy Intermediate 04/12/17 Yes I S O L A T I O N *CONTACT* Allergy Unknown 12/13/17 Yes Physical Exam Physical Exam Constitutional: Well developed, well nourished, no acute distress, non-toxic appearance. [] HENT: Normocephalic, atraumatic, bilateral external ears normal, oropharynx moist, no oral exudates, nose normal. [] Eyes: PERRLA, EOMI, conjunctiva normal, no discharge. [] Neck: Normal range of motion, no tenderness, supple, no stridor. [] Cardiovascular:Heart rate regular rhythm, no murmur [] Lungs & Thorax: Bilateral breath sounds clear to auscultation [] Abdomen: Bowel sounds normal, soft, no tenderness, no masses, no pulsatile masses. [] Skin: Warm, dry, no erythema, no rash. [] Back: No tenderness, no CVA tenderness. [] Extremities: No tenderness, no cyanosis, no clubbing, ROM intact, 2+ bilateral lower leg pitting edema. Neurologic: Alert and oriented X 3, normal motor function, normal sensory function, no focal deficits noted. [] Psychologic: Affect normal, judgement normal, mood normal. [] Current Patient Data Vital Signs Vital Signs Date Time Temp Pulse Resp B/P (MAP) Pulse Ox O2 Delivery O2 Flow Rate FiO2 02/08/18 17:39 68 164/70 (101) 98 Nasal Cannula 3.0 02/08/18 16:59 97.5 26 97.5 Lab Values Laboratory Tests Test 02/08/18 17:10 02/08/18 17:36 02/08/18 18:50 Urine Collection Type Void Urine Color Yellow Urine Clarity Clear Urine pH 5.0 Urine Specific [place] 1.015 Urine Protein Negative mg/dL (NEG-TRACE) Urine Glucose (UA) Negative mg/dL (NEG) Urine Ketones (Stick) Negative mg/dL (NEG) Urine Blood Moderate (NEG) Urine Nitrite Negative (NEG) Urine Bilirubin Negative (NEG) Urine Urobilinogen Dipstick 0.2 mg/dL (0.2 mg/dL) Urine Leukocyte Esterase Moderate (NEG) Urine RBC 11-20 /HPF (0-2) Urine WBC 1-4 /HPF (0-4) Urine Squamous Epithelial Cells Mod /LPF Urine Bacteria Few /HPF (0-FEW) Urine Mucus Slight /LPF White Blood Count 13.8 x10^3/uL (4.0-11.0) H Red Blood Count 4.09 x10^6/uL (3.50-5.40) Hemoglobin 13.0 g/dL (12.0-15.5) Hematocrit 40.1 % (36.0-47.0) Mean Corpuscular Volume 98 fL (79-100) Mean Corpuscular Hemoglobin 32 pg (25-35) Mean Corpuscular Hemoglobin Concent 32 g/dL (31-37) Red Cell Distribution Width 14.8 % (11.5-14.5) H Platelet Count 220 x10^3/uL (140-400) Neutrophils (%) (Auto) 87 % (31-73) H Lymphocytes (%) (Auto) 6 % (24-48) L Monocytes (%) (Auto) 7 % (0-9) Eosinophils (%) (Auto) 0 % (0-3) Basophils (%) (Auto) 0 % (0-3) Neutrophils # (Auto) 12.0 x10^3uL (1.8-7.7) H Lymphocytes # (Auto) 0.8 x10^3/uL (1.0-4.8) L Monocytes # (Auto) 0.9 x10^3/uL (0.0-1.1) Eosinophils # (Auto) 0.0 x10^3/uL (0.0-0.7) Basophils # (Auto) 0.0 x10^3/uL (0.0-0.2) Segmented Neutrophils % 88 % (35-66) H Lymphocytes % 7 % (24-48) L Monocytes % 5 % (0-10) Platelet Estimate Adequate (ADEQUATE) Prothrombin Time 19.2 SEC (11.7-14.0) H Prothrombin Time INR 1.7 (0.8-1.1) H Sodium Level 126 mmol/L (136-145) L Potassium Level 8.2 mmol/L (3.5-5.1) *H 7.5 mmol/L (3.5-5.1) *H Chloride Level 99 mmol/L (98-107) Carbon Dioxide Level 17 mmol/L (21-32) L Anion Gap 10 (6-14) Blood Urea Nitrogen 81 mg/dL (7-20) H Creatinine 2.8 mg/dL (0.6-1.0) H Estimated GFR (Cockcroft-Gault) 15.9 BUN/Creatinine Ratio 29 (6-20) H Glucose Level 132 mg/dL (70-99) H Calcium Level 9.3 mg/dL (8.5-10.1) Total Bilirubin 0.9 mg/dL (0.2-1.0) Aspartate Amino Transferase (AST) 29 U/L (15-37) Alanine Aminotransferase (ALT) 72 U/L (14-59) H Alkaline Phosphatase 115 U/L (46-116) Troponin I Quantitative < 0.017 ng/mL (0.000-0.055) BQ-Xel-X-Type Natriuretic Peptide 867 pg/mL (0-449) H Total Protein 6.9 g/dL (6.4-8.2) Albumin 4.1 g/dL (3.4-5.0) Albumin/Globulin Ratio 1.5 (1.0-1.7) Laboratory Tests 02/08/18 17:36 Laboratory Tests 02/08/18 17:36 02/08/18 18:50 EKG EKG Regular Rhythmat 70 BPM. LBBB. No STEMI. Compared with previous EKG on 11/18/2017 [] Radiology/Procedures Radiology/Procedures [] Course & Med Decision Making Course & Med Decision Making Pertinent Labs and Imaging studies reviewed. (See chart for details) []Patient found to be hyperkalemic at 7.5. Discussed case with attending physician. Will order calcium gluconate, DuoNeb, bicarbonate, insulin and fluids. Patient states she is feeling better at this time. Discussed case with hospitalist, Dr. Adam. Agrees to admission further management patient. Patient stable for admission. Dragon Disclaimer Dragon Disclaimer This electronic medical record was generated, in whole or in part, using a voice recognition dictation system. Departure Departure Impression: Primary Impression: Hyperkalemia Additional Impressions: ELIEZER (acute kidney injury) Shortness of breath Urinary tract infection Disposition: ADMITTED INPATIENT Admitting Physician: René Adams Condition: STABLE Referrals: CHRISTY ANDERSON MD (PCP) Problem Qualifiers VALORIE CURTIS Feb 08, 2018 18:15
[2018-02-08 18:26] LABS: % LYMPHS 7 % (24-48); % MONOS 5 % (0-10); % SEGS 88 % (35-66)
[2018-02-08 18:27] LABS: PLT ESTIMATE ADEQUATE (ADEQUATE)
[2018-02-08] MEDS ORDERED: IPRATRPIUM/ALBUTEROL 0.5/2.5MG 3 ML NEBU. NEB ONE (19:30)
[2018-02-08] MEDS ORDERED: SODIUM BICARB ADULT 8.4% 50 MEQ/50 ML DISP.SYRIN. IV ONE (19:30)
[2018-02-08] MEDS ORDERED: INSULIN REGULAR 100 UNIT/ML 3ML VIAL. IV ONE (19:30)
[2018-02-08] MEDS ORDERED: SODIUM POLYSTYRENE SULFONATE 15 GM/60 ML ORAL.SUSP. PO ONE (19:30)
[2018-02-08] MEDS ORDERED: DEXTROSE 50% 25 GM / 50ML DISP.SYRIN. IV ONE (19:30)
[2018-02-08] MEDS ORDERED: CALCIUM GLUCONATE 1,000 MG/10 ML VIAL. IVP ONE ×2 (19:30)
[2018-02-08] MEDS ORDERED: IV NORMAL SALINE 500ML BAG 500 ML IV ONE (19:45)
[2018-02-08] MEDS ORDERED: ONDANSETRON PF 4 MG/2 ML VIAL. IV PRN (20:00)
[2018-02-08] MEDS ORDERED: fentaNYL PF VIAL 100 MCG/2 ML VIAL IV PRN (20:00)
[2018-02-08] MEDS ORDERED: ACETAMINOPHEN 325 MG TABLET. PO PRN (20:00)
[2018-02-08 21:45] VITALS: BP 121/60
[2018-02-08 22:00] VITALS: BP 108/52
[2018-02-08 22:15] VITALS: BP 100/53
--- NOTE | 2018-02-08 22:19 | EKG ---
[facility] [address] [place] [address] Test Date: 2018-02-08 Test Time: 17:38:02 Pat Name: DEMETRICE SNOWDEN Department: Room: 104 1 Gender: F Core Inserter: GIOVANY : 1930 Requested By: VALORIE CURTIS Order Number: [id number] Reading MD: Deni Mane MD Measurements Intervals Yantis Rate: 69 P: AL: QRS: -138 QRSD: 202 T: 46 QT: 454 QTc: 493 Interpretive Statements V-PACING Electronically Signed On 02-12-2018 10:33:00 CDT by Deni Mane MD
[2018-02-08 22:30] VITALS: BP 89/59
[2018-02-08 23:00] VITALS: BP 118/60
[2018-02-08] MEDS: IV NORMAL SALINE 1000ML BAG 1,000 ML IV SCH (23:28)
[2018-02-09] VITALS (15 sets, daily range): BP systolic 81–150; BP diastolic 47–70
[2018-02-09] MEDS ORDERED: LORazepam 0.5 MG TABLET PO PRN (00:30)
[2018-02-09] MEDS ORDERED: SODIUM POLYSTYRENE SULFONATE 15 GM/60 ML ORAL.SUSP. PO ONE (01:00)
[2018-02-09 03:54] LABS: BASO % 0 % (0-3); EOS # 0.1 x10^3/uL (0.0-0.7); EOS % 1 % (0-3); HEMATOCRIT 33.5 % (36.0-47.0); HEMOGLOBIN 11.6 g/dL (12.0-15.5); LYMPH % 9 % (24-48); MEAN CORPUSCULAR HEMOGLOBIN 33 pg (25-35); MEAN CORPUSCULAR HGB CONC 35 g/dL (31-37); MEAN CORPUSCULAR VOLUME 95 fL (79-100); MONO # 1.3 x10^3/uL (0.0-1.1); MONO % 11 % (0-9); NEUT % 79 % (31-73); PLATELET COUNT 175 x10^3/uL (140-400); RED BLOOD COUNT 3.51 x10^6/uL (3.50-5.40); RED CELL DISTRIBUTION WIDTH 14.5 % (11.5-14.5); WHITE BLOOD COUNT 11.4 x10^3/uL (4.0-11.0)
[2018-02-09 04:24] LABS: ALBUMIN/GLOBULIN RATIO 1.1 (1.0-1.7); CALCIUM 8.5 mg/dL (8.5-10.1); CREATININE 2.1 mg/dL (0.6-1.0); GFR 22.2; POTASSIUM 3.5 mmol/L (3.5-5.1); TOTAL BILIRUBIN 0.9 mg/dL (0.2-1.0); TOTAL PROTEIN 5.7 g/dL (6.4-8.2)
--- NOTE | 2018-02-09 07:56 | RAD ---
EXAM: Portable AP upright view of the chest DATE: 02/08/2018 5:27 PM INDICATION: SOA. HX OF COPD, CHF COMPARISON: 01/08/2018, 12/12/2017 FINDINGS: Changes of cardiothoracic surgery are seen with median sternotomy wires.. Cardiomediastinal silhouette is enlarged, grossly stable accounting for differences in positioning and technique. Platelike opacities left lung base, stable. No lobar consolidation. No definite pleural effusion or pneumothorax. IMPRESSION: 1. Cardiomegaly 2. Unchanged platelike opacities left lung base likely atelectasis. Electronically signed by: Polo Padilla MD (02/09/2018 7:52 AM) [facility]
[2018-02-09] MEDS: NYSTATIN TOPICAL POWDER 15GM BOTTLE. TP SCH ×2 (10:08→20:02)
--- NOTE | 2018-02-09 10:55 | CONS ---
DATE OF CONSULTATION: ATTENDING PHYSICIAN: Dr. Adam. REASON FOR CONSULTATION: Dyspnea. HISTORY OF PRESENT ILLNESS: The patient is an 87-year-old female with history of chronic atrial fibrillation, history of COPD, CHF and [id number] mitral regurgitation. She presented to the Hospital ER after she was complaining of shortness of breath to the staff. The patient normally is on 3 liters of oxygen on a chronic basis. She denies history of tobacco use, but reportedly has COPD in her medical records. The patient has no headaches, no nausea or vomiting, no diarrhea. I have reviewed the patient's chest x-ray on admission, it showed poor inspiratory effort. The vascular markings at the upper limit of normal and left basilar atelectasis. The patient was noted to have severe hyperkalemia with a potassium level of 7.5, which is now down to 3.5. She also has renal failure. I have been asked to see her for further evaluation. PAST MEDICAL HISTORY: History of AFib, anxiety, bronchitis, CHF, COPD, GERD, dyslipidemia, [id number] MR. Normal EF. PAST SURGICAL HISTORY: Cholecystectomy, coronary bypass surgery, hysterectomy, pacemaker, left knee surgery, cardiac ablation, and triscuspid valve replacement. ALLERGIES: IODINE, PENICILLIN, BACITRACIN, CODEINE, CYCLOBENZAPRINE, ERYTHROMYCIN, MOXIFLOXACIN, NEOMYCIN, POLYMYXIN B. MEDICATIONS: All reviewed as listed in the MRAD. REVIEW OF SYSTEMS: Limited, but 10-point system review obtained. Pertinent positives discussed in my history of present illness, otherwise noncontributory. All systems that were negative were reviewed as well. SOCIAL HISTORY: She denies tobacco history. PHYSICAL EXAMINATION: GENERAL: She is awake, following commands. VITAL SIGNS: Blood pressure 102/48, afebrile, pulse ox 96% on 2 liters. NECK: Supple. LUNGS: Diminished breath sounds. CARDIOVASCULAR: Regular rate. ABDOMEN: Soft, obese. EXTREMITIES: With venous stasis and 1+ pitting edema. LABORATORY DATA: Reviewed. Chemistries with a BUN of 65, creatinine 2.1. Potassium is down from 7.5 to 3.5. INR 1.7. White cell count was 13.8 and it is improving, hemoglobin 11.6 and platelets 175. IMPRESSION: 1. Dyspnea, likely related to physical deconditioning, weakness and possible mild congestive heart failure. 2. Abnormal chest x-ray with poor inspiratory effort. She has left lower lobe atelectasis and vascular markings slightly prominent. 3. History of [id number] mitral regurgitation. 4. History of chronic hypoxic respiratory failure. 5. Questionable history of COPD. She admits to no history of tobacco use. 6. Severe hyperkalemia, present on admission, this has improved. RECOMMENDATIONS: 1. From a pulmonary standpoint, continue present oxygen. 2. Avoid benzodiazepines. 3. Monitoring of hyperkalemia per Renal. 4. Add DuoNeb. 5. Empiric antibiotic was initiated. We can continue for now. 6. She can be transferred out of the ICU. Discussed with RN and RT. Critical care time 30 minutes. ZOYA ACOSTA MD DR: THEE/zulema JOB#: [id number] / [id number]
[2018-02-09] MEDS: VITS A & D/LANOLIN TOPICAL OINTMENT 56GM TUBE. TP SCH ×2 (11:30→20:02)
[2018-02-09] MEDS: IPRATRPIUM/ALBUTEROL 0.5/2.5MG 3 ML NEBU. NEB SCH ×3 (11:52→19:40)
--- NOTE | 2018-02-09 12:10 | HP ---
ADMIT DATE: 02/09/2018 CHIEF COMPLAINT: Shortness of breath. HISTORY OF PRESENT ILLNESS: The patient is a pleasant 87-year-old female well known to our service. She presented with shortness of breath. While in the ER, they found that she had potassium of 8.2. Also had acute kidney injury with a creatinine of 2.1. I have discussed the case with the ER physician. We are admitting the patient to the ICU with consultation to Nephrology and Pulmonary Medicine. PAST MEDICAL HISTORY: AFib, anxiety, bronchitis, CHF, COPD, GERD, hypertension, hyperlipidemia, hypothyroidism, obstructive sleep apnea, cholecystectomy, coronary artery bypass, hysterectomy, pacemaker, left knee surgery, cardiac ablation and tricuspid valve replacement. ALLERGIES: IODINE, PENICILLIN, BACITRACIN, CODEINE, CYCLOBENZAPRINE, ERYTHROMYCIN, ETHYL ALCOHOL, MOLD, MOXIFLOXACIN, NEOMYCIN, POLYMYXIN. FAMILY HISTORY: Coronary artery disease. SOCIAL HISTORY: She does not drink, smoke or take drugs. MEDICATIONS: Reviewed, please refer to the MRAD. REVIEW OF SYSTEMS: GENERAL: No history of weight change, weakness or fevers. SKIN: No bruising, hair changes or rashes. EYES: No blurred, double or loss of vision. NOSE AND THROAT: No history of nosebleeds, hoarseness or sore throat. HEART: No history of palpitations, chest pain or shortness of breath on exertion. LUNGS: Denies cough, hemoptysis, wheezing or shortness of breath. GASTROINTESTINAL: Denies changes in appetite, nausea, vomiting, diarrhea or constipation. GENITOURINARY: No history of frequency, urgency, hesitancy or nocturia. NEUROLOGIC: Denies history of numbness, tingling, tremor or weakness. PSYCHIATRIC: No history of panic, anxiety or depression. ENDOCRINE: No history of heat or cold intolerance, polyuria or polydipsia. EXTREMITIES: Denies muscle weakness, joint pain, pain on walking or stiffness. PHYSICAL EXAMINATION: VITAL SIGNS: Temperature afebrile, pulse 90, respirations 18, blood pressure 116/63. GENERAL: She is awake and weak, but pleasant. HEART: Normal S1 and S2. LUNGS: Clear. ABDOMEN: Soft. EXTREMITIES: Trace edema. SKIN: No rash. ENDOCRINE: No thyromegaly. LYMPHATICS: No cervical nodes. HEMATOPOIETIC: No bruising. LABORATORY DATA: Potassium was 8.2 and we have got it now down to 3.5 after several treatments with appropriate hyperkalemia drugs. White count is high at 13, hemoglobin low at 11.6 and platelets 220. Sodium is 135, creatinine is 2.1 and BUN 65. ASSESSMENT AND PLAN: Acute on chronic renal failure with hyperkalemia, anemia, leukocytosis, hyponatremia and UTI. The patient has been admitted. We will consult Dr. Crawford and consult Dr. Syed. IV antibiotics for her UTI, home meds and ICU monitoring. PROGNOSIS: Guarded. ALETHA CRYSTAL DO DR: GAVIOTA/zulema JOB#: [id number] / [id number]
[2018-02-09] MEDS: IV NORMAL SALINE 1000ML BAG 1,000 ML IV SCH (13:54)
[2018-02-09] MEDS ORDERED: SMZ/TMP 800/160MG TABLET. PO SCH (14:00)
[2018-02-09] MEDS ORDERED: PROAIR HFA8.5 GM INH (14:36)
[2018-02-09] MEDS ORDERED: LIDO1ADH TP (14:36)
[2018-02-09] MEDS ORDERED: FLUT1DIS3 IH (14:36)
[2018-02-09] MEDS ORDERED: GUAI600T79 PO (14:36)
[2018-02-09] MEDS ORDERED: DICL100G18 TP (14:36)
[2018-02-09] MEDS ORDERED: SENN1TAB99 PO (14:36)
[2018-02-09] MEDS ORDERED: IPRA3AMP29 NEB (14:36)
[2018-02-09] MEDS ORDERED: CETI10TA16 PO (14:36)
[2018-02-09] MEDS ORDERED: LOSA50TA6 PO (14:40)
[2018-02-09] MEDS ORDERED: RANI150T2 PO (14:43)
[2018-02-09] MEDS ORDERED: SPIR50TA4 PO (14:43)
[2018-02-09] MEDS ORDERED: DICLOFENAC SODIUM 1% TOPICAL GEL 100GM TUBE. TP PRN (15:00)
[2018-02-09] MEDS: CETIRIZINE HCL 10 MG TABLET. PO SCH (15:25)
[2018-02-09] MEDS: FUROSEMIDE 20 MG TABLET PO SCH (15:25)
[2018-02-09] MEDS: predniSONE 10 MG TABLET PO SCH (15:26)
[2018-02-09] MEDS: FAMOTIDINE 20 MG TABLET. PO SCH (15:26)
[2018-02-09] MEDS ORDERED: ALBUTEROL SULFATE 2.5 MG/3 ML NEBU. NEB SCH (16:00)
[2018-02-09] MEDS: SMZ/TMP 800/160MG TABLET. PO SCH (17:34)
[2018-02-09] MEDS ORDERED: IPRATRPIUM/ALBUTEROL 0.5/2.5MG 3 ML NEBU. NEB SCH (18:00)
[2018-02-09] MEDS ORDERED: BUDESONIDE 0.5 MG/2 ML NEBU. NEB SCH (20:00)
[2018-02-09] MEDS: LORazepam 1 MG TABLET PO SCH (20:02)
[2018-02-09] MEDS: LACTOBACILLUS RHAMNOSUS GG 1 CAPSULE. PO SCH (20:02)
[2018-02-09] MEDS: SENNOSIDES/DOCUSATE 8.6/50MG TABLET. PO SCH (20:02)
[2018-02-09] MEDS: oxyCODONE/APAP 5/325 1 TAB TABLET PO PRN (20:08)
[2018-02-09] MEDS ORDERED: NITROFURANTOIN MONOHYD/M-CRYST 100 MG CAPSULE. PO SCH (21:00)
[2018-02-09] MEDS ORDERED: NON FORMULARY ITEM (Fluticasone/Salmeterol (Advair 250-50 Diskus) 1 INH) IH SCH (21:00)
[2018-02-09] MEDS ORDERED: APIXABAN 5 MG TABLET. PO SCH (21:00)
[2018-02-10] VITALS (8 sets, daily range): BP systolic 109–152; BP diastolic 53–72
[2018-02-10] MEDS: IV NORMAL SALINE 1000ML BAG 1,000 ML IV SCH ×2 (00:15→14:09)
[2018-02-10] MEDS: LEVOTHYROXINE 100 MCG TABLET PO SCH (06:28)
--- NOTE | 2018-02-10 06:46 | PDOC ---
PULMONARY PROGRESS NOTES Subjective is on home 02, has sob, better, has cough, no pain Vitals Vital Signs Date Time Temp Pulse Resp B/P (MAP) Pulse Ox O2 Delivery O2 Flow Rate FiO2 02/10/18 04:00 98.3 68 21 117/58 (77) 95 Nasal Cannula 2.0 98.3 Comments ros as mentioned as above, other sys otherwise neg ROS: No Nausea, No Chest Pain General: Alert, No acute distress HEENT: Other (nc at perrl nose throat clear neck no lad, no thyromegaly) Lungs: Wheezing, Crackles, Other Cardiovascular: S1, S2 Abdomen: Soft, Non-tender, Other (no mass) Neuro Exam: Alert Extremities: No Edema Skin: Warm Labs Laboratory Tests Test 02/08/18 17:10 02/08/18 17:36 02/08/18 18:50 02/08/18 23:00 Urine Collection Type Void Urine Color Yellow Urine Clarity Clear Urine pH 5.0 Urine Specific [place] 1.015 Urine Protein Negative mg/dL (NEG-TRACE) Urine Glucose (UA) Negative mg/dL (NEG) Urine Ketones (Stick) Negative mg/dL (NEG) Urine Blood Moderate (NEG) Urine Nitrite Negative (NEG) Urine Bilirubin Negative (NEG) Urine Urobilinogen Dipstick 0.2 mg/dL (0.2 mg/dL) Urine Leukocyte Esterase Moderate (NEG) Urine RBC 11-20 /HPF (0-2) Urine WBC 1-4 /HPF (0-4) Urine Squamous Epithelial Cells Mod /LPF Urine Bacteria Few /HPF (0-FEW) Urine Mucus Slight /LPF White Blood Count 13.8 x10^3/uL (4.0-11.0) Red Blood Count 4.09 x10^6/uL (3.50-5.40) Hemoglobin 13.0 g/dL (12.0-15.5) Hematocrit 40.1 % (36.0-47.0) Mean Corpuscular Volume 98 fL (79-100) Mean Corpuscular Hemoglobin 32 pg (25-35) Mean Corpuscular Hemoglobin Concent 32 g/dL (31-37) Red Cell Distribution Width 14.8 % (11.5-14.5) Platelet Count 220 x10^3/uL (140-400) Neutrophils (%) (Auto) 87 % (31-73) Lymphocytes (%) (Auto) 6 % (24-48) Monocytes (%) (Auto) 7 % (0-9) Eosinophils (%) (Auto) 0 % (0-3) Basophils (%) (Auto) 0 % (0-3) Neutrophils # (Auto) 12.0 x10^3uL (1.8-7.7) Lymphocytes # (Auto) 0.8 x10^3/uL (1.0-4.8) Monocytes # (Auto) 0.9 x10^3/uL (0.0-1.1) Eosinophils # (Auto) 0.0 x10^3/uL (0.0-0.7) Basophils # (Auto) 0.0 x10^3/uL (0.0-0.2) Segmented Neutrophils % 88 % (35-66) Lymphocytes % 7 % (24-48) Monocytes % 5 % (0-10) Platelet Estimate Adequate (ADEQUATE) Prothrombin Time 19.2 SEC (11.7-14.0) Prothromb Time International Ratio 1.7 (0.8-1.1) Sodium Level 126 mmol/L (136-145) Potassium Level 8.2 mmol/L (3.5-5.1) 7.5 mmol/L (3.5-5.1) 5.7 mmol/L (3.5-5.1) Chloride Level 99 mmol/L (98-107) Carbon Dioxide Level 17 mmol/L (21-32) Anion Gap 10 (6-14) Blood Urea Nitrogen 81 mg/dL (7-20) Creatinine 2.8 mg/dL (0.6-1.0) Estimated GFR (Cockcroft-Gault) 15.9 BUN/Creatinine Ratio 29 (6-20) Glucose Level 132 mg/dL (70-99) Calcium Level 9.3 mg/dL (8.5-10.1) Total Bilirubin 0.9 mg/dL (0.2-1.0) Aspartate Amino Transf (AST/SGOT) 29 U/L (15-37) Alanine Aminotransferase (ALT/SGPT) 72 U/L (14-59) Alkaline Phosphatase 115 U/L (46-116) Troponin I Quantitative < 0.017 ng/mL (0.000-0.055) BC-Lxi-H-Type Natriuretic Peptide 867 pg/mL (0-449) Total Protein 6.9 g/dL (6.4-8.2) Albumin 4.1 g/dL (3.4-5.0) Albumin/Globulin Ratio 1.5 (1.0-1.7) Lactic Acid Level 2.1 mmol/L (0.4-2.0) Test 02/09/18 00:30 02/09/18 03:30 Nasal Screen MRSA (PCR) Positive (Negative) White Blood Count 11.4 x10^3/uL (4.0-11.0) Red Blood Count 3.51 x10^6/uL (3.50-5.40) Hemoglobin 11.6 g/dL (12.0-15.5) Hematocrit 33.5 % (36.0-47.0) Mean Corpuscular Volume 95 fL (79-100) Mean Corpuscular Hemoglobin 33 pg (25-35) Mean Corpuscular Hemoglobin Concent 35 g/dL (31-37) Red Cell Distribution Width 14.5 % (11.5-14.5) Platelet Count 175 x10^3/uL (140-400) Neutrophils (%) (Auto) 79 % (31-73) Lymphocytes (%) (Auto) 9 % (24-48) Monocytes (%) (Auto) 11 % (0-9) Eosinophils (%) (Auto) 1 % (0-3) Basophils (%) (Auto) 0 % (0-3) Neutrophils # (Auto) 9.0 x10^3uL (1.8-7.7) Lymphocytes # (Auto) 1.0 x10^3/uL (1.0-4.8) Monocytes # (Auto) 1.3 x10^3/uL (0.0-1.1) Eosinophils # (Auto) 0.1 x10^3/uL (0.0-0.7) Basophils # (Auto) 0.0 x10^3/uL (0.0-0.2) Sodium Level 135 mmol/L (136-145) Potassium Level 3.5 mmol/L (3.5-5.1) Chloride Level 104 mmol/L (98-107) Carbon Dioxide Level 20 mmol/L (21-32) Anion Gap 11 (6-14) Blood Urea Nitrogen 65 mg/dL (7-20) Creatinine 2.1 mg/dL (0.6-1.0) Estimated GFR (Cockcroft-Gault) 22.2 BUN/Creatinine Ratio 31 (6-20) Glucose Level 94 mg/dL (70-99) Lactic Acid Level 0.8 mmol/L (0.4-2.0) Calcium Level 8.5 mg/dL (8.5-10.1) Total Bilirubin 0.9 mg/dL (0.2-1.0) Aspartate Amino Transf (AST/SGOT) 25 U/L (15-37) Alanine Aminotransferase (ALT/SGPT) 57 U/L (14-59) Alkaline Phosphatase 91 U/L (46-116) Total Protein 5.7 g/dL (6.4-8.2) Albumin 3.0 g/dL (3.4-5.0) Albumin/Globulin Ratio 1.1 (1.0-1.7) Medications Active Scripts Medications Dose Route/Sig Max Daily Dose Days Date Category Dose Instructions Spironolactone 50 Mg Tablet 50 Mg PO DAILY 02/09/18 Reported Ranitidine Hcl 150 Mg Tablet 150 Mg PO DAILY 02/09/18 Reported Losartan Potassium 50 Mg Tablet 50 Mg PO DAILY 02/09/18 Reported Lidopatch (Lidocaine/Menthol) 1 Each Adh..patch 1 Patch TP PRN DAILY PRN 02/09/18 Reported Guaifenesin 600 Mg Tablet.er 600 Mg PO BID 02/09/18 Reported Advair 250-50 Diskus (Fluticasone/Salmeterol) 1 Each Disk.w.dev 1 Inh IH BID 02/09/18 Reported Senna-Docusate Sodium Tablet (Sennosides/Docusate Sodium) 1 Each Tablet 1 Tab PO BID 02/09/18 Reported Voltaren (Diclofenac Sodium) 100 Gm Gel..gram. 4 Gm TP PRN Q6HRS PRN 02/09/18 Reported Cetirizine Hcl 10 Mg Tablet 10 Mg PO DAILY 02/09/18 Reported Duoneb 0.5-3(2.5) Mg/3 Ml (Albuterol/Ipratropium) 3 Ml Ampul.neb 3 Ml NEB Q6HRS 02/09/18 Reported Proair Hfa Inhaler (Albuterol Sulfate) 8.5 Gm Hfa.aer.ad 1 Puff INH DAILY 02/09/18 Reported Eliquis (Apixaban) 5 Mg Tablet 5 Mg PO BID 12/12/17 Reported Nystatin Unknown Strength Powder 1 Keisha TOP PRN BID PRN 12/12/17 Reported Tessalon Perle (Benzonatate) 100 Mg Capsule 200 Mg PO PRN Q8HRS 12/29/16 Reported Prednisone (Prednisone) 10 Mg Tablet 10 Mg PO DAILY 11/28/16 Rx Take 50 mg (5 pills) daily for 2 days, then take 40 mg (4 pills) daily for 2 days, then take 30 mg (3 pills) daily for 2 days, then take 20 mg (2 pills) daily for 2 days, then take 10 mg for 2 days. Miralax (Polyethylene Glycol 3350) 17 Gm Powd.pack 17 Gm PO PRN DAILY PRN 03/08/16 Rx Oxycodone-Acetaminophen 5-325 (Oxycodone Hcl/Acetaminophen) 1 Each Tablet 1 Tab PO PRN Q4HRS PRN 03/08/16 Rx Levothyroxine Sodium 100 Mcg Tablet 1 Tab PO DAILY 03/05/16 Reported Lorazepam 1 Mg Tablet 1 Mg PO BID 12/02/15 Reported Ocuvite Tablet (Vit A,C & E/Lutein/Minerals) 1 Each Tablet 1 Each PO DAILY 10/23/15 Reported Vitamin D (Cholecalciferol (Vitamin D3)) 1,000 Unit Tablet 1,000 Unit PO DAILY 10/23/15 Reported Amlodipine Besylate 10 Mg Tablet 10 Mg PO DAILY 10/23/15 Reported Atorvastatin Calcium 10 Mg Tablet 1 Tab PO DAILY 10/23/15 Reported Potassium Chloride 10 Meq Capsule.er 40 Meq PO BID 10/23/15 Reported Lasix (Furosemide) 40 Mg Tablet 40 Mg PO BID 10/23/15 Reported Comments reviewed cxr 1. Cardiomegaly 2. Unchanged platelike opacities left lung base likely atelectasis. Impression . MPRESSION: 1. acute on chronic resp fail, likely related to physical deconditioning, weakness and congestive heart failure. 2. Abnormal chest x-ray with poor inspiratory effort. She has left lower lobe atelectasis and vascular markings slightly prominent. 3. History of tmvtquvi-tt-saypgy mitral regurgitation. 4. History of chronic hypoxic respiratory failure. 5. Questionable history of COPD. She admits to no history of tobacco use. 6. Severe hyperkalemia, present on admission, resolved RECOMMENDATIONS: 1. From a pulmonary standpoint, continue present oxygen. 2. Avoid benzodiazepines. 3. Monitoring of hyperkalemia per Renal. 4. DuoNeb. 5. Empiric antibiotic was initiated. We can continue for now. 6. add ICS Plan . RECOMMENDATIONS: 1. continue 02 titration 2. Avoid benzodiazepines. 3. hyperkalemia resolved 4. DuoNeb. 5. Empiric antibiotic 6. add ICS 7. pepcid, scds for prophylaxis discussed w rn, pt LAURA CARREON MD Feb 10, 2018 06:46
[2018-02-10] MEDS: IPRATRPIUM/ALBUTEROL 0.5/2.5MG 3 ML NEBU. NEB SCH ×4 (08:03→20:15)
[2018-02-10] MEDS: BUDESONIDE 0.5 MG/2 ML NEBU. NEB SCH ×2 (08:03→20:15)
[2018-02-10] MEDS: VITS A & D/LANOLIN TOPICAL OINTMENT 56GM TUBE. TP SCH ×2 (08:14→21:03)
[2018-02-10] MEDS: SMZ/TMP 800/160MG TABLET. PO SCH ×2 (08:14→21:03)
[2018-02-10] MEDS: LORazepam 1 MG TABLET PO SCH ×2 (08:14→21:03)
[2018-02-10] MEDS: NYSTATIN TOPICAL POWDER 15GM BOTTLE. TP SCH ×2 (08:14→21:03)
[2018-02-10] MEDS: FAMOTIDINE 20 MG TABLET. PO SCH (08:15)
[2018-02-10] MEDS: APIXABAN 2.5 MG TABLET. PO SCH ×2 (08:15→21:03)
[2018-02-10] MEDS: MULTIVITAMIN I-VITE TABLET. PO SCH (08:15)
[2018-02-10] MEDS: CETIRIZINE HCL 10 MG TABLET. PO SCH (08:15)
[2018-02-10] MEDS: CHOLECALCIFEROL (VITAMIN D3) 1,000 UNIT TABLET PO SCH (08:15)
[2018-02-10] MEDS: FUROSEMIDE 20 MG TABLET PO SCH ×2 (08:15→14:08)
[2018-02-10] MEDS: predniSONE 10 MG TABLET PO SCH (08:15)
[2018-02-10] MEDS: SENNOSIDES/DOCUSATE 8.6/50MG TABLET. PO SCH ×2 (08:15→21:03)
[2018-02-10] MEDS: LACTOBACILLUS RHAMNOSUS GG 1 CAPSULE. PO SCH ×2 (08:15→21:03)
[2018-02-10] MEDS ORDERED: POLYETHYLENE GLYCOL 3350 17 GM PACKET. PO PRN (09:00)
[2018-02-10] MEDS ORDERED: NON FORMULARY ITEM (Albuterol Sulfate (Proair Hfa Inhaler) 1 PUFF) INH SCH (09:00)
[2018-02-10] MEDS ORDERED: LIDOCAINE (700MG/PATCH) PATCH. TD PRN (09:00)
[2018-02-10] MEDS ORDERED: ATORVASTATIN CALCIUM 10 MG TABLET. PO SCH (09:00)
--- NOTE | 2018-02-10 12:17 | PDOC ---
PROGRESS NOTES Chief Complaint Chief Complaint Hyperkalemia SOB UTI AFib, anxiety, bronchitis, CHF, COPD, GERD, hypertension, hyperlipidemia, hypothyroidism, obstructive sleep apnea, cholecystectomy, coronary artery bypass, hysterectomy, pacemaker, left knee surgery, cardiac ablation and tricuspid valve replacement. History of Present Illness History of Present Illness Pt seen and examined Pt was receiving bath and getting washed up Was transferred out of ICU and appears to be doing better DW RN Vitals Vitals Vital Signs Date Time Temp Pulse Resp B/P (MAP) Pulse Ox O2 Delivery O2 Flow Rate FiO2 02/10/18 09:30 98.0 71 26 137/72 (93) 92 Nasal Cannula 3.0 98.0 Physical Exam General: Alert, Oriented X3 Heart: Regular rate, Other Lungs: Wheezing, Crackles, Other Abdomen: Normal bowel sounds, Soft Extremities: No clubbing, No cyanosis Skin: No rashes, No breakdown Review of Systems Review of Systems Denies WOO Denies N/V Assessment and Plan Assessmemt and Plan Hyperkalemia SOB UTI AFib, anxiety, bronchitis, CHF, COPD, GERD, hypertension, hyperlipidemia, hypothyroidism, obstructive sleep apnea, cholecystectomy, coronary artery bypass, hysterectomy, pacemaker, left knee surgery, cardiac ablation and tricuspid valve replacement. Plan: Breathing treatments Steroids Abx Cardiac monitoring Home meds labs PT/OT Appreciate input from subspecialties Comment Review of Relevant I have reviewed the following items wilmer (where applicable) has been applied. Labs Laboratory Tests Test 02/08/18 17:10 02/08/18 17:36 02/08/18 18:50 02/08/18 23:00 Urine Collection Type Void Urine Color Yellow Urine Clarity Clear Urine pH 5.0 Urine Specific [place] 1.015 Urine Protein Negative mg/dL (NEG-TRACE) Urine Glucose (UA) Negative mg/dL (NEG) Urine Ketones (Stick) Negative mg/dL (NEG) Urine Blood Moderate (NEG) Urine Nitrite Negative (NEG) Urine Bilirubin Negative (NEG) Urine Urobilinogen Dipstick 0.2 mg/dL (0.2 mg/dL) Urine Leukocyte Esterase Moderate (NEG) Urine RBC 11-20 /HPF (0-2) Urine WBC 1-4 /HPF (0-4) Urine Squamous Epithelial Cells Mod /LPF Urine Bacteria Few /HPF (0-FEW) Urine Mucus Slight /LPF White Blood Count 13.8 x10^3/uL (4.0-11.0) Red Blood Count 4.09 x10^6/uL (3.50-5.40) Hemoglobin 13.0 g/dL (12.0-15.5) Hematocrit 40.1 % (36.0-47.0) Mean Corpuscular Volume 98 fL (79-100) Mean Corpuscular Hemoglobin 32 pg (25-35) Mean Corpuscular Hemoglobin Concent 32 g/dL (31-37) Red Cell Distribution Width 14.8 % (11.5-14.5) Platelet Count 220 x10^3/uL (140-400) Neutrophils (%) (Auto) 87 % (31-73) Lymphocytes (%) (Auto) 6 % (24-48) Monocytes (%) (Auto) 7 % (0-9) Eosinophils (%) (Auto) 0 % (0-3) Basophils (%) (Auto) 0 % (0-3) Neutrophils # (Auto) 12.0 x10^3uL (1.8-7.7) Lymphocytes # (Auto) 0.8 x10^3/uL (1.0-4.8) Monocytes # (Auto) 0.9 x10^3/uL (0.0-1.1) Eosinophils # (Auto) 0.0 x10^3/uL (0.0-0.7) Basophils # (Auto) 0.0 x10^3/uL (0.0-0.2) Segmented Neutrophils % 88 % (35-66) Lymphocytes % 7 % (24-48) Monocytes % 5 % (0-10) Platelet Estimate Adequate (ADEQUATE) Prothrombin Time 19.2 SEC (11.7-14.0) Prothromb Time International Ratio 1.7 (0.8-1.1) Sodium Level 126 mmol/L (136-145) Potassium Level 8.2 mmol/L (3.5-5.1) 7.5 mmol/L (3.5-5.1) 5.7 mmol/L (3.5-5.1) Chloride Level 99 mmol/L (98-107) Carbon Dioxide Level 17 mmol/L (21-32) Anion Gap 10 (6-14) Blood Urea Nitrogen 81 mg/dL (7-20) Creatinine 2.8 mg/dL (0.6-1.0) Estimated GFR (Cockcroft-Gault) 15.9 BUN/Creatinine Ratio 29 (6-20) Glucose Level 132 mg/dL (70-99) Calcium Level 9.3 mg/dL (8.5-10.1) Total Bilirubin 0.9 mg/dL (0.2-1.0) Aspartate Amino Transf (AST/SGOT) 29 U/L (15-37) Alanine Aminotransferase (ALT/SGPT) 72 U/L (14-59) Alkaline Phosphatase 115 U/L (46-116) Troponin I Quantitative < 0.017 ng/mL (0.000-0.055) GD-Nor-Y-Type Natriuretic Peptide 867 pg/mL (0-449) Total Protein 6.9 g/dL (6.4-8.2) Albumin 4.1 g/dL (3.4-5.0) Albumin/Globulin Ratio 1.5 (1.0-1.7) Lactic Acid Level 2.1 mmol/L (0.4-2.0) Test 02/09/18 00:30 02/09/18 03:30 Nasal Screen MRSA (PCR) Positive (Negative) White Blood Count 11.4 x10^3/uL (4.0-11.0) Red Blood Count 3.51 x10^6/uL (3.50-5.40) Hemoglobin 11.6 g/dL (12.0-15.5) Hematocrit 33.5 % (36.0-47.0) Mean Corpuscular Volume 95 fL (79-100) Mean Corpuscular Hemoglobin 33 pg (25-35) Mean Corpuscular Hemoglobin Concent 35 g/dL (31-37) Red Cell Distribution Width 14.5 % (11.5-14.5) Platelet Count 175 x10^3/uL (140-400) Neutrophils (%) (Auto) 79 % (31-73) Lymphocytes (%) (Auto) 9 % (24-48) Monocytes (%) (Auto) 11 % (0-9) Eosinophils (%) (Auto) 1 % (0-3) Basophils (%) (Auto) 0 % (0-3) Neutrophils # (Auto) 9.0 x10^3uL (1.8-7.7) Lymphocytes # (Auto) 1.0 x10^3/uL (1.0-4.8) Monocytes # (Auto) 1.3 x10^3/uL (0.0-1.1) Eosinophils # (Auto) 0.1 x10^3/uL (0.0-0.7) Basophils # (Auto) 0.0 x10^3/uL (0.0-0.2) Sodium Level 135 mmol/L (136-145) Potassium Level 3.5 mmol/L (3.5-5.1) Chloride Level 104 mmol/L (98-107) Carbon Dioxide Level 20 mmol/L (21-32) Anion Gap 11 (6-14) Blood Urea Nitrogen 65 mg/dL (7-20) Creatinine 2.1 mg/dL (0.6-1.0) Estimated GFR (Cockcroft-Gault) 22.2 BUN/Creatinine Ratio 31 (6-20) Glucose Level 94 mg/dL (70-99) Lactic Acid Level 0.8 mmol/L (0.4-2.0) Calcium Level 8.5 mg/dL (8.5-10.1) Total Bilirubin 0.9 mg/dL (0.2-1.0) Aspartate Amino Transf (AST/SGOT) 25 U/L (15-37) Alanine Aminotransferase (ALT/SGPT) 57 U/L (14-59) Alkaline Phosphatase 91 U/L (46-116) Total Protein 5.7 g/dL (6.4-8.2) Albumin 3.0 g/dL (3.4-5.0) Albumin/Globulin Ratio 1.1 (1.0-1.7) Microbiology 02/08/18 Blood Culture - Preliminary, Resulted NO GROWTH AFTER 1 DAY Medications Current Medications Albuterol/ Ipratropium (Duoneb) 3 ml 1X ONCE NEB Last administered on at 20:27; Start 02/08/18 at 19:30; Stop 02/08/18 at 19:31; Status DC Levofloxacin/ Dextrose 150 ml @ 100 mls/hr 1X ONCE IV Last administered on at 21:08; Start 02/08/18 at 19:30; Stop 02/08/18 at 20:59; Status DC Calcium Gluconate (Calcium Gluconate) 1,000 mg 1X ONCE IVP Last administered on 02/08/18at 19:46; Start 02/08/18 at 19:30; Stop 02/08/18 at 19:31; Status DC Sodium Polystyrene Sulfonate (Kayexalate) 30 gm 1X ONCE PO Last administered on 02/08/18at 21:06; Start 02/08/18 at 19:30; Stop 02/08/18 at 19:32; Status DC Calcium Gluconate (Calcium Gluconate) 1,000 mg 1X ONCE IVP ; Start 02/08/18 at 19:30; Stop 02/08/18 at 19:31; Status UNV Sodium Bicarbonate (Sodium Bicarb Adult 8.4% Syr) 50 meq 1X ONCE IV Last administered on 02/08/18at 19:54; Start 02/08/18 at 19:30; Stop 02/08/18 at 19:33 ; Status DC Insulin Human Regular (HumuLIN R VIAL) 10 unit 1X ONCE IV Last administered on 02/08/18at 19:56; Start 02/08/18 at 19:30; Stop 02/08/18 at 19:33; Status DC Dextrose (Dextrose 50%-Water Syringe) 25 gm 1X ONCE IV Last administered on at 19:59; Start 02/08/18 at 19:30; Stop 02/08/18 at 19:33; Status DC Sodium Chloride 500 ml @ 500 mls/hr 1X ONCE IV Last administered on at 22:23; Start 02/08/18 at 19:45; Stop 02/08/18 at 20:44; Status DC Ondansetron HCl (Zofran) 4 mg PRN Q8HRS PRN IV NAUSEA/VOMITING Last administered on 02/09/18at 11:46; Start 02/08/18 at 20:00; Stop 02/09/18 at 19:59 ; Status DC Fentanyl Citrate (Fentanyl 2ml Vial) 50 mcg PRN Q1HR PRN IV PAIN Last administered on 02/09/18at 00:53; Start 02/08/18 at 20:00; Stop 02/09/18 at 19:59 ; Status DC Acetaminophen (Tylenol) 650 mg PRN Q4HRS PRN PO FEVER; Start 02/08/18 at 20:00 ; Stop 02/09/18 at 19:59; Status DC Sodium Chloride 1,000 ml @ 80 mls/hr [id number] IV Last administered on at 00:15; Start 02/08/18 at 23:15 Lorazepam (Ativan) 0.5 mg PRN Q8HRS PRN PO ANXIETY / AGITATION Last administered on 02/09/18at 00:52; Start 02/09/18 at 00:30 Nystatin (Nystop) 1 natasha BID TP Last administered on 02/10/18at 08:14; Start at 09:00 Sodium Polystyrene Sulfonate (Kayexalate) 15 gm 1X ONCE PO Last administered on 02/09/18at 01:00; Start 02/09/18 at 01:00; Stop 02/09/18 at 01:01; Status DC Albuterol/ Ipratropium (Duoneb) 3 ml RTQID NEB Last administered on 02/10/18at 08:03; Start 02/09/18 at 12:00 Vitamin A/Vitamin D (Vitamin A & D Ointment) 1 natasha BID TP Last administered on 02/10/18at 08:14; Start 02/09/18 at 11:00 Nitrofurantoin Macrocrystals (Macrobid) 100 mg BID PO ; Start 02/09/18 at 21:00 ; Status UNV Trimethoprim/ Sulfamethoxazole (Bactrim Ds) 0.5 tab BID PO ; Start 02/09/18 at 14:00; Stop 02/09/18 at 14:08; Status DC Trimethoprim/ Sulfamethoxazole (Bactrim Ds) 0.5 tab BID PO Last administered on 02/10/18at 08:14; Start 02/09/18 at 18:00 Lactobacillus Rhamnosus (Culturelle) 1 cap BID PO Last administered on at 08:15; Start 02/09/18 at 21:00 Apixaban (Eliquis) 5 mg BID PO Last administered on 02/09/18at 20:02; Start at 21:00; Stop 02/10/18 at 08:01; Status DC Atorvastatin Calcium (Lipitor) 10 mg QHS PO ; Start 02/10/18 at 09:00; Stop at 09:00; Status DC Cetirizine HCl (ZyrTEC) 10 mg DAILY PO Last administered on 02/10/18at 08:15; Start 02/09/18 at 15:00 Vitamin D (Vitamin D3) 1,000 unit DAILY PO Last administered on 02/10/18at 08:15 ; Start 02/10/18 at 09:00 Diclofenac Sodium (Voltaren) 4 natasha PRN Q6HRS PRN TP PAIN 2nd Choice; Start at 15:00 Guaifenesin (Mucinex) 600 mg BID PO Last administered on 02/10/18at 08:15; Start 02/09/18 at 21:00 Albuterol/ Ipratropium (Duoneb) 3 ml Q6HRS NEB ; Start 02/09/18 at 18:00; Status Cancel Levothyroxine Sodium (Synthroid) 100 mcg DAILY07 PO Last administered on at 06:28; Start 02/10/18 at 07:00 Lorazepam (Ativan) 1 mg BID PO Last administered on 02/10/18at 08:14; Start at 21:00 Oxycodone/ Acetaminophen (Percocet 5/325) 1 tab PRN Q4HRS PRN PO MODERATE TO SEVERE PAIN Last administered on 02/09/18at 20:08; Start 02/09/18 at 15:00 Prednisone (Prednisone) 10 mg DAILY PO Last administered on 02/10/18at 08:15; Start 02/09/18 at 15:00 Senna/Docusate Sodium (Senna Plus) 1 tab BID PO Last administered on 02/10/18at 08:15; Start 02/09/18 at 21:00 Multivitamins/ Minerals (I-Oscar) 1 tab DAILY PO Last administered on 02/10/18at 08:15; Start 02/10/18 at 09:00 Non-Formulary Medication (Albuterol Sulfate (Proair Hfa Inhaler)) 1 puff DAILY INH ; Start 02/10/18 at 09:00; Status UNV Non-Formulary Medication (Fluticasone/ Salmeterol (Advair 250-50 Diskus)) 1 inh BID IH ; Start 02/09/18 at 21:00; Status UNV Lidocaine (Lidoderm) 1 patch PRN DAILY PRN TD FOR TOPICAL PAIN 1st Choice; Start 02/10/18 at 09:00 Polyethylene Glycol (miraLAX PACKET) 17 gm PRN DAILY PRN PO CONSTIPATION; Start 02/10/18 at 09:00 Famotidine (Pepcid) 20 mg DAILY PO Last administered on 02/10/18at 08:15; Start 02/09/18 at 15:00 Furosemide (Lasix) 20 mg BID92 PO Last administered on 02/10/18at 08:15; Start 02/09/18 at 15:00 Info (Anti-Coagulation Monitoring By Pharmacy) 1 each PRN DAILY PRN MC SEE COMMENTS; Start 02/09/18 at 15:15 Albuterol Sulfate (Ventolin Neb Soln) 2.5 mg RTQID NEB ; Start 02/09/18 at 16:00 ; Status UNV Budesonide (Pulmicort) 0.5 mg RTBID NEB Last administered on 02/09/18at 19:40; Start 02/09/18 at 20:00; Stop 02/10/18 at 06:49; Status DC Budesonide (Pulmicort) 0.5 mg RTBID NEB Last administered on 02/10/18at 08:03; Start 02/10/18 at 08:00 Apixaban (Eliquis) 2.5 mg BID PO Last administered on 02/10/18at 08:15; Start at 09:00 Atorvastatin Calcium (Lipitor) 10 mg QHS PO ; Start 02/10/18 at 21:00 Active Scripts Active Prednisone (Prednisone) 10 Mg Tablet 10 Mg PO DAILY Take 50 mg (5 pills) daily for 2 days, then take 40 mg (4 pills) daily for 2 days, then take 30 mg (3 pills) daily for 2 days, then take 20 mg (2 pills) daily for 2 days, then take 10 mg for 2 days. Miralax (Polyethylene Glycol 3350) 17 Gm Powd.pack 17 Gm PO PRN DAILY PRN Oxycodone-Acetaminophen 5-325 (Oxycodone Hcl/Acetaminophen) 1 Each Tablet 1 Tab PO PRN Q4HRS PRN Reported Spironolactone 50 Mg Tablet 50 Mg PO DAILY Ranitidine Hcl 150 Mg Tablet 150 Mg PO DAILY Losartan Potassium 50 Mg Tablet 50 Mg PO DAILY Lidopatch (Lidocaine/Menthol) 1 Each Adh..patch 1 Patch TP PRN DAILY PRN Guaifenesin 600 Mg Tablet.er 600 Mg PO BID Advair 250-50 Diskus (Fluticasone/Salmeterol) 1 Each Disk.w.dev 1 Inh IH BID Senna-Docusate Sodium Tablet (Sennosides/Docusate Sodium) 1 Each Tablet 1 Tab PO BID Voltaren (Diclofenac Sodium) 100 Gm Gel..gram. 4 Gm TP PRN Q6HRS PRN Cetirizine Hcl 10 Mg Tablet 10 Mg PO DAILY Duoneb 0.5-3(2.5) Mg/3 Ml (Albuterol/Ipratropium) 3 Ml Ampul.neb 3 Ml NEB Q6HRS Proair Hfa Inhaler (Albuterol Sulfate) 8.5 Gm Hfa.aer.ad 1 Puff INH DAILY Eliquis (Apixaban) 5 Mg Tablet 5 Mg PO BID Nystatin Unknown Strength Powder 1 Natasha TOP PRN BID PRN Tessalon Perle (Benzonatate) 100 Mg Capsule 200 Mg PO PRN Q8HRS Levothyroxine Sodium 100 Mcg Tablet 1 Tab PO DAILY Lorazepam 1 Mg Tablet 1 Mg PO BID Ocuvite Tablet (Vit A,C & E/Lutein/Minerals) 1 Each Tablet 1 Each PO DAILY Vitamin D (Cholecalciferol (Vitamin D3)) 1,000 Unit Tablet 1,000 Unit PO DAILY Amlodipine Besylate 10 Mg Tablet 10 Mg PO DAILY Atorvastatin Calcium 10 Mg Tablet 1 Tab PO DAILY Potassium Chloride 10 Meq Capsule.er 40 Meq PO BID Lasix (Furosemide) 40 Mg Tablet 40 Mg PO BID Vitals/I & O Vital Sign - Last 24 Hours 02/09/18 02/09/18 02/09/18 02/09/18 16:00 16:18 19:41 20:00 Temp 97.3 98.1 97.3 98.1 Pulse 77 71 Resp 26 24 B/P (MAP) 150/70 (96) 106/47 (66) Pulse Ox 96 94 94 O2 Delivery Nasal Cannula Nasal Cannula Nasal Cannula Nasal Cannula O2 Flow Rate 2.0 2.0 2.0 2.0 02/09/18 02/09/18 02/09/18 02/10/18 20:00 20:08 21:08 00:00 Temp 98.0 98.0 Pulse 71 Resp 23 B/P (MAP) 109/55 (73) Pulse Ox 94 94 96 O2 Delivery Nasal Cannula Nasal Cannula Nasal Cannula Nasal Cannula O2 Flow Rate 2.0 2.0 2.0 2.0 02/10/18 02/10/18 02/10/18 02/10/18 04:00 08:00 08:00 08:03 Temp 98.3 98.7 98.3 98.7 Pulse 68 73 Resp 21 28 B/P (MAP) 117/58 (77) 122/55 (77) Pulse Ox 95 95 98 O2 Delivery Nasal Cannula Nasal Cannula Nasal Cannula Nasal Cannula O2 Flow Rate 2.0 2.0 2.0 2.0 02/10/18 09:30 Temp 98.0 98.0 Pulse 71 Resp 26 B/P (MAP) 137/72 (93) Pulse Ox 92 O2 Delivery Nasal Cannula O2 Flow Rate 3.0 Intake and Output 02/09/18 02/09/18 02/10/18 15:00 23:00 07:00 Intake Total 600 ml 740.76 ml 1274 ml Output Total 560 ml 580 ml 750 ml Balance 40 ml 160.76 ml 524 ml ALETHA CRYSTAL III DO Feb 10, 2018 12:17
[2018-02-10] MEDS: cefTRIAXone IV Push 1 GM VIAL. IVP SCH (14:09)
[2018-02-10] MEDS: oxyCODONE/APAP 5/325 1 TAB TABLET PO PRN (16:13)
[2018-02-10] MEDS: ANTI-COAG MONITOR BY PHARMACY. MC PRN (17:19)
[2018-02-10] MEDS: ATORVASTATIN CALCIUM 10 MG TABLET. PO SCH (21:02)
--- NOTE | 2018-02-10 22:25 | CONS ---
DATE OF CONSULTATION: REQUESTING PHYSICIAN: Hospitalist. REASON FOR CONSULTATION: Renal failure with hyperkalemia. HISTORY OF PRESENT ILLNESS: An 87-year-old female with history of moderate to severe mitral regurgitation, congestive cardiomyopathy, chronic atrial fibrillation, COPD and chronic kidney disease. The patient presents to the hospital with increasing shortness of breath. She was also found to be hyperkalemic. Hyperkalemia has been addressed and has resolved. In this setting, Nephrology evaluation is requested. The patient states that she does see a senior research engineer and is unsure as to who it is. No difficulty in urination, nephrolithiasis or gross hematuria at this time. PAST MEDICAL HISTORY: Coronary artery disease, coronary artery bypass grafting, moderate to severe mitral regurgitation, hypertension, COPD, atrial fibrillation, GE reflux disease, chronic kidney disease stage 3, hyperlipidemia, cholecystectomy, cholecystectomy, coronary artery bypass grafting, hysterectomy, pacemaker placement, left knee surgery, cardiac ablation, tricuspid valve replacement. ALLERGIES: IODINE, IV CONTRAST, PENICILLIN, BACITRACIN, CODEINE, CYCLOBENZAPRINE, ERYTHROMYCIN, MOXIFLOXACIN, NEOMYCIN, POLYMYXIN B. FAMILY HISTORY: Noncontributory. SOCIAL HISTORY: The patient resides with assistance. REVIEW OF SYSTEMS: No headache, sinus problem, nasal drainage, epistaxis, change in vision or hearing. No difficulty swallowing. No fever, chills, cough, sputum production or hemoptysis. No chest pain. She does get dyspnea on exertion. No abdominal pain or upper or lower gastrointestinal blood loss. No nausea, vomiting, diarrhea, seizures or malignancies. PHYSICAL EXAMINATION: GENERAL: The patient awake, conversant. HEENT: Clear. NECK: No increased JVD. No thyromegaly, masses or adenopathy. LUNGS: Decreased breath sound at bases. CARDIAC: Without S3 or rub. ABDOMEN: Soft, nontender, no bruits. She is obese. EXTREMITIES: 1+ bilateral pretibial edema. NEUROLOGIC: Nonfocal localizing. PSYCHIATRIC: Fair attention to detail, appropriate affect. LABORATORY DATA: Hemoglobin is 11.6, hematocrit 33.5, white count 11.4. Sodium 135, potassium 3.5, chloride 104, CO2 of 20, BUN 65, creatinine 2.1, GFR 31 mL per minute. IMPRESSION: 1. Chronic kidney disease stage 3, likely secondary to hypertension, nephrosclerosis and chronic interstitial nephritis. 2. Hyperkalemia -- resolved. RECOMMENDATIONS: 1. Maintain fluid balance. 2. Per Pulmonary as it relates to shortness of breath. We will follow. NANETTE ROBISON MD DR: JUSTIN/zulema JOB#: [id number] / [id number]
[2018-02-11 04:00] VITALS: BP 122/59
[2018-02-11] MEDS: LEVOTHYROXINE 100 MCG TABLET PO SCH (05:32)
[2018-02-11 05:33] LABS: BASO % 1 % (0-3); EOS # 0.3 x10^3/uL (0.0-0.7); EOS % 3 % (0-3); HEMOGLOBIN 12.3 g/dL (12.0-15.5); LYMPH # 1.2 x10^3/uL (1.0-4.8); LYMPH % 13 % (24-48); MEAN CORPUSCULAR HEMOGLOBIN 33 pg (25-35); MEAN CORPUSCULAR HGB CONC 34 g/dL (31-37); MEAN CORPUSCULAR VOLUME 95 fL (79-100); MONO # 0.8 x10^3/uL (0.0-1.1); MONO % 9 % (0-9); NEUT # 6.8 x10^3uL (1.8-7.7); NEUT % 74 % (31-73); PLATELET COUNT 176 x10^3/uL (140-400); RED BLOOD COUNT 3.78 x10^6/uL (3.50-5.40); RED CELL DISTRIBUTION WIDTH 14.2 % (11.5-14.5); WHITE BLOOD COUNT 9.1 x10^3/uL (4.0-11.0)
[2018-02-11 05:50] LABS: CALCIUM 8.8 mg/dL (8.5-10.1); CREATININE 1.3 mg/dL (0.6-1.0); GFR 38.7
[2018-02-11 07:44] VITALS: BP 142/74
--- NOTE | 2018-02-11 07:57 | PDOC ---
PULMONARY PROGRESS NOTES Subjective is on home 02, sob, cough better, no pain Vitals Vital Signs Date Time Temp Pulse Resp B/P (MAP) Pulse Ox O2 Delivery O2 Flow Rate FiO2 02/11/18 07:44 97.7 82 20 142/74 (96) 96 Nasal Cannula 2.0 97.7 Comments ros as mentioned as above, other sys otherwise neg ROS: No Nausea, No Chest Pain General: Alert, No acute distress HEENT: Other (nc at perrl nose throat clear neck no lad, no thyromegaly) Lungs: Crackles, Other Cardiovascular: S1, S2 Abdomen: Soft, Non-tender, Other (no mass) Neuro Exam: Alert Extremities: No Edema Skin: Warm Labs Laboratory Tests Test 02/11/18 05:00 White Blood Count 9.1 x10^3/uL (4.0-11.0) Red Blood Count 3.78 x10^6/uL (3.50-5.40) Hemoglobin 12.3 g/dL (12.0-15.5) Hematocrit 36.0 % (36.0-47.0) Mean Corpuscular Volume 95 fL (79-100) Mean Corpuscular Hemoglobin 33 pg (25-35) Mean Corpuscular Hemoglobin Concent 34 g/dL (31-37) Red Cell Distribution Width 14.2 % (11.5-14.5) Platelet Count 176 x10^3/uL (140-400) Neutrophils (%) (Auto) 74 % (31-73) Lymphocytes (%) (Auto) 13 % (24-48) Monocytes (%) (Auto) 9 % (0-9) Eosinophils (%) (Auto) 3 % (0-3) Basophils (%) (Auto) 1 % (0-3) Neutrophils # (Auto) 6.8 x10^3uL (1.8-7.7) Lymphocytes # (Auto) 1.2 x10^3/uL (1.0-4.8) Monocytes # (Auto) 0.8 x10^3/uL (0.0-1.1) Eosinophils # (Auto) 0.3 x10^3/uL (0.0-0.7) Basophils # (Auto) 0.0 x10^3/uL (0.0-0.2) Sodium Level 138 mmol/L (136-145) Potassium Level 3.0 mmol/L (3.5-5.1) Chloride Level 103 mmol/L (98-107) Carbon Dioxide Level 24 mmol/L (21-32) Anion Gap 11 (6-14) Blood Urea Nitrogen 24 mg/dL (7-20) Creatinine 1.3 mg/dL (0.6-1.0) Estimated GFR (Cockcroft-Gault) 38.7 Glucose Level 96 mg/dL (70-99) Calcium Level 8.8 mg/dL (8.5-10.1) Laboratory Tests Test 02/11/18 05:00 White Blood Count 9.1 x10^3/uL (4.0-11.0) Red Blood Count 3.78 x10^6/uL (3.50-5.40) Hemoglobin 12.3 g/dL (12.0-15.5) Hematocrit 36.0 % (36.0-47.0) Mean Corpuscular Volume 95 fL (79-100) Mean Corpuscular Hemoglobin 33 pg (25-35) Mean Corpuscular Hemoglobin Concent 34 g/dL (31-37) Red Cell Distribution Width 14.2 % (11.5-14.5) Platelet Count 176 x10^3/uL (140-400) Neutrophils (%) (Auto) 74 % (31-73) Lymphocytes (%) (Auto) 13 % (24-48) Monocytes (%) (Auto) 9 % (0-9) Eosinophils (%) (Auto) 3 % (0-3) Basophils (%) (Auto) 1 % (0-3) Neutrophils # (Auto) 6.8 x10^3uL (1.8-7.7) Lymphocytes # (Auto) 1.2 x10^3/uL (1.0-4.8) Monocytes # (Auto) 0.8 x10^3/uL (0.0-1.1) Eosinophils # (Auto) 0.3 x10^3/uL (0.0-0.7) Basophils # (Auto) 0.0 x10^3/uL (0.0-0.2) Sodium Level 138 mmol/L (136-145) Potassium Level 3.0 mmol/L (3.5-5.1) Chloride Level 103 mmol/L (98-107) Carbon Dioxide Level 24 mmol/L (21-32) Anion Gap 11 (6-14) Blood Urea Nitrogen 24 mg/dL (7-20) Creatinine 1.3 mg/dL (0.6-1.0) Estimated GFR (Cockcroft-Gault) 38.7 Glucose Level 96 mg/dL (70-99) Calcium Level 8.8 mg/dL (8.5-10.1) Medications Active Scripts Medications Dose Route/Sig Max Daily Dose Days Date Category Dose Instructions Spironolactone 50 Mg Tablet 50 Mg PO DAILY 02/09/18 Reported Ranitidine Hcl 150 Mg Tablet 150 Mg PO DAILY 02/09/18 Reported Losartan Potassium 50 Mg Tablet 50 Mg PO DAILY 02/09/18 Reported Lidopatch (Lidocaine/Menthol) 1 Each Adh..patch 1 Patch TP PRN DAILY PRN 02/09/18 Reported Guaifenesin 600 Mg Tablet.er 600 Mg PO BID 02/09/18 Reported Advair 250-50 Diskus (Fluticasone/Salmeterol) 1 Each Disk.w.dev 1 Inh IH BID 02/09/18 Reported Senna-Docusate Sodium Tablet (Sennosides/Docusate Sodium) 1 Each Tablet 1 Tab PO BID 02/09/18 Reported Voltaren (Diclofenac Sodium) 100 Gm Gel..gram. 4 Gm TP PRN Q6HRS PRN 02/09/18 Reported Cetirizine Hcl 10 Mg Tablet 10 Mg PO DAILY 02/09/18 Reported Duoneb 0.5-3(2.5) Mg/3 Ml (Albuterol/Ipratropium) 3 Ml Ampul.neb 3 Ml NEB Q6HRS 02/09/18 Reported Proair Hfa Inhaler (Albuterol Sulfate) 8.5 Gm Hfa.aer.ad 1 Puff INH DAILY 02/09/18 Reported Eliquis (Apixaban) 5 Mg Tablet 5 Mg PO BID 12/12/17 Reported Nystatin Unknown Strength Powder 1 Keisha TOP PRN BID PRN 12/12/17 Reported Tessalon Perle (Benzonatate) 100 Mg Capsule 200 Mg PO PRN Q8HRS 12/29/16 Reported Prednisone (Prednisone) 10 Mg Tablet 10 Mg PO DAILY 11/28/16 Rx Take 50 mg (5 pills) daily for 2 days, then take 40 mg (4 pills) daily for 2 days, then take 30 mg (3 pills) daily for 2 days, then take 20 mg (2 pills) daily for 2 days, then take 10 mg for 2 days. Miralax (Polyethylene Glycol 3350) 17 Gm Powd.pack 17 Gm PO PRN DAILY PRN 03/08/16 Rx Oxycodone-Acetaminophen 5-325 (Oxycodone Hcl/Acetaminophen) 1 Each Tablet 1 Tab PO PRN Q4HRS PRN 03/08/16 Rx Levothyroxine Sodium 100 Mcg Tablet 1 Tab PO DAILY 03/05/16 Reported Lorazepam 1 Mg Tablet 1 Mg PO BID 12/02/15 Reported Ocuvite Tablet (Vit A,C & E/Lutein/Minerals) 1 Each Tablet 1 Each PO DAILY 10/23/15 Reported Vitamin D (Cholecalciferol (Vitamin D3)) 1,000 Unit Tablet 1,000 Unit PO DAILY 10/23/15 Reported Amlodipine Besylate 10 Mg Tablet 10 Mg PO DAILY 10/23/15 Reported Atorvastatin Calcium 10 Mg Tablet 1 Tab PO DAILY 10/23/15 Reported Potassium Chloride 10 Meq Capsule.er 40 Meq PO BID 10/23/15 Reported Lasix (Furosemide) 40 Mg Tablet 40 Mg PO BID 10/23/15 Reported Comments reviewed cxr 1. Cardiomegaly 2. Unchanged platelike opacities left lung base likely atelectasis. Impression . imp: 1. acute on chronic resp fail, likely related to physical deconditioning, weakness and congestive heart failure. 2. Abnormal chest x-ray with poor inspiratory effort. She has left lower lobe atelectasis and vascular markings slightly prominent. 3. History of [id number] mitral regurgitation. 4. History of chronic hypoxic respiratory failure. 5. Questionable history of COPD. She admits to no history of tobacco use. 6. Severe hyperkalemia, present on admission, resolved Plan . RECOMMENDATIONS: 1. continue 02 titration 2. Avoid benzodiazepines. 3. hyperkalemia resolved 4. DuoNeb. 5. Empiric antibiotic, may change to po, total abx for 7 days 6. cont ICS 7. pepcid, scds for prophylaxis discussed w rn, pt LAURA CARREON MD Feb 11, 2018 07:57
[2018-02-11] MEDS: MULTIVITAMIN I-VITE TABLET. PO SCH (07:58)
[2018-02-11] MEDS: SENNOSIDES/DOCUSATE 8.6/50MG TABLET. PO SCH ×2 (07:58→20:02)
[2018-02-11] MEDS: FAMOTIDINE 20 MG TABLET. PO SCH (07:58)
[2018-02-11] MEDS: LORazepam 1 MG TABLET PO SCH ×2 (07:58→20:02)
[2018-02-11] MEDS: CHOLECALCIFEROL (VITAMIN D3) 1,000 UNIT TABLET PO SCH (07:59)
[2018-02-11] MEDS: APIXABAN 2.5 MG TABLET. PO SCH (07:59)
[2018-02-11] MEDS: FUROSEMIDE 20 MG TABLET PO SCH ×2 (07:59→13:21)
[2018-02-11] MEDS: predniSONE 10 MG TABLET PO SCH (07:59)
[2018-02-11] MEDS: CETIRIZINE HCL 10 MG TABLET. PO SCH (07:59)
[2018-02-11] MEDS: SMZ/TMP 800/160MG TABLET. PO SCH ×2 (08:00→20:01)
[2018-02-11] MEDS: VITS A & D/LANOLIN TOPICAL OINTMENT 56GM TUBE. TP SCH ×2 (08:02→20:02)
[2018-02-11] MEDS: NYSTATIN TOPICAL POWDER 15GM BOTTLE. TP SCH ×2 (08:02→20:02)
[2018-02-11] MEDS: LACTOBACILLUS RHAMNOSUS GG 1 CAPSULE. PO SCH ×2 (08:02→20:02)
[2018-02-11] MEDS: BUDESONIDE 0.5 MG/2 ML NEBU. NEB SCH ×2 (08:38→20:17)
[2018-02-11] MEDS: IPRATRPIUM/ALBUTEROL 0.5/2.5MG 3 ML NEBU. NEB SCH ×3 (08:38→20:16)
[2018-02-11] MEDS: ANTI-COAG MONITOR BY PHARMACY. MC PRN (10:22)
[2018-02-11] MEDS: oxyCODONE/APAP 5/325 1 TAB TABLET PO PRN (11:27)
[2018-02-11 12:00] VITALS: BP 150/65
[2018-02-11] MEDS: cefTRIAXone IV Push 1 GM VIAL. IVP SCH (13:21)
--- NOTE | 2018-02-11 14:08 | PDOC ---
PROGRESS NOTES Chief Complaint Chief Complaint Hyperkalemia SOB UTI AFib, anxiety, bronchitis, CHF, COPD, GERD, hypertension, hyperlipidemia, hypothyroidism, obstructive sleep apnea, cholecystectomy, coronary artery bypass, hysterectomy, pacemaker, left knee surgery, cardiac ablation and tricuspid valve replacement. History of Present Illness History of Present Illness Pt seen and examined Pt resting in chair in mild distress still has some SOB bruising on arms around IV sites says she is having trouble sleeping DW RN Vitals Vitals Vital Signs Date Time Temp Pulse Resp B/P (MAP) Pulse Ox O2 Delivery O2 Flow Rate FiO2 02/11/18 12:27 19 97 Nasal Cannula 2.0 02/11/18 12:00 97.2 72 150/65 (93) 97.2 Physical Exam General: Alert, Oriented X3 Heart: Regular rate, Other Lungs: Crackles, Other Abdomen: Normal bowel sounds, Soft Extremities: No clubbing, No cyanosis Skin: No rashes, No breakdown Labs LABS Laboratory Tests Test 02/11/18 05:00 White Blood Count 9.1 x10^3/uL (4.0-11.0) Red Blood Count 3.78 x10^6/uL (3.50-5.40) Hemoglobin 12.3 g/dL (12.0-15.5) Hematocrit 36.0 % (36.0-47.0) Mean Corpuscular Volume 95 fL (79-100) Mean Corpuscular Hemoglobin 33 pg (25-35) Mean Corpuscular Hemoglobin Concent 34 g/dL (31-37) Red Cell Distribution Width 14.2 % (11.5-14.5) Platelet Count 176 x10^3/uL (140-400) Neutrophils (%) (Auto) 74 % (31-73) Lymphocytes (%) (Auto) 13 % (24-48) Monocytes (%) (Auto) 9 % (0-9) Eosinophils (%) (Auto) 3 % (0-3) Basophils (%) (Auto) 1 % (0-3) Neutrophils # (Auto) 6.8 x10^3uL (1.8-7.7) Lymphocytes # (Auto) 1.2 x10^3/uL (1.0-4.8) Monocytes # (Auto) 0.8 x10^3/uL (0.0-1.1) Eosinophils # (Auto) 0.3 x10^3/uL (0.0-0.7) Basophils # (Auto) 0.0 x10^3/uL (0.0-0.2) Sodium Level 138 mmol/L (136-145) Potassium Level 3.0 mmol/L (3.5-5.1) Chloride Level 103 mmol/L (98-107) Carbon Dioxide Level 24 mmol/L (21-32) Anion Gap 11 (6-14) Blood Urea Nitrogen 24 mg/dL (7-20) Creatinine 1.3 mg/dL (0.6-1.0) Estimated GFR (Cockcroft-Gault) 38.7 Glucose Level 96 mg/dL (70-99) Calcium Level 8.8 mg/dL (8.5-10.1) Review of Systems Review of Systems CO bruising on arms around IV CO SOB CO difficulty sleeping Assessment and Plan Assessmemt and Plan Hyperkalemia SOB UTI AFib, anxiety, bronchitis, CHF, COPD, GERD, hypertension, hyperlipidemia, hypothyroidism, obstructive sleep apnea, cholecystectomy, coronary artery bypass, hysterectomy, pacemaker, left knee surgery, cardiac ablation and tricuspid valve replacement. Plan: O2- 2L via cannula Abx Management of K+ levels Labs PT/OT Breathing treatments Steroids Comment Review of Relevant I have reviewed the following items wilmer (where applicable) has been applied. Labs Laboratory Tests Test 02/11/18 05:00 White Blood Count 9.1 x10^3/uL (4.0-11.0) Red Blood Count 3.78 x10^6/uL (3.50-5.40) Hemoglobin 12.3 g/dL (12.0-15.5) Hematocrit 36.0 % (36.0-47.0) Mean Corpuscular Volume 95 fL (79-100) Mean Corpuscular Hemoglobin 33 pg (25-35) Mean Corpuscular Hemoglobin Concent 34 g/dL (31-37) Red Cell Distribution Width 14.2 % (11.5-14.5) Platelet Count 176 x10^3/uL (140-400) Neutrophils (%) (Auto) 74 % (31-73) Lymphocytes (%) (Auto) 13 % (24-48) Monocytes (%) (Auto) 9 % (0-9) Eosinophils (%) (Auto) 3 % (0-3) Basophils (%) (Auto) 1 % (0-3) Neutrophils # (Auto) 6.8 x10^3uL (1.8-7.7) Lymphocytes # (Auto) 1.2 x10^3/uL (1.0-4.8) Monocytes # (Auto) 0.8 x10^3/uL (0.0-1.1) Eosinophils # (Auto) 0.3 x10^3/uL (0.0-0.7) Basophils # (Auto) 0.0 x10^3/uL (0.0-0.2) Sodium Level 138 mmol/L (136-145) Potassium Level 3.0 mmol/L (3.5-5.1) Chloride Level 103 mmol/L (98-107) Carbon Dioxide Level 24 mmol/L (21-32) Anion Gap 11 (6-14) Blood Urea Nitrogen 24 mg/dL (7-20) Creatinine 1.3 mg/dL (0.6-1.0) Estimated GFR (Cockcroft-Gault) 38.7 Glucose Level 96 mg/dL (70-99) Calcium Level 8.8 mg/dL (8.5-10.1) Laboratory Tests Test 02/11/18 05:00 White Blood Count 9.1 x10^3/uL (4.0-11.0) Red Blood Count 3.78 x10^6/uL (3.50-5.40) Hemoglobin 12.3 g/dL (12.0-15.5) Hematocrit 36.0 % (36.0-47.0) Mean Corpuscular Volume 95 fL (79-100) Mean Corpuscular Hemoglobin 33 pg (25-35) Mean Corpuscular Hemoglobin Concent 34 g/dL (31-37) Red Cell Distribution Width 14.2 % (11.5-14.5) Platelet Count 176 x10^3/uL (140-400) Neutrophils (%) (Auto) 74 % (31-73) Lymphocytes (%) (Auto) 13 % (24-48) Monocytes (%) (Auto) 9 % (0-9) Eosinophils (%) (Auto) 3 % (0-3) Basophils (%) (Auto) 1 % (0-3) Neutrophils # (Auto) 6.8 x10^3uL (1.8-7.7) Lymphocytes # (Auto) 1.2 x10^3/uL (1.0-4.8) Monocytes # (Auto) 0.8 x10^3/uL (0.0-1.1) Eosinophils # (Auto) 0.3 x10^3/uL (0.0-0.7) Basophils # (Auto) 0.0 x10^3/uL (0.0-0.2) Sodium Level 138 mmol/L (136-145) Potassium Level 3.0 mmol/L (3.5-5.1) Chloride Level 103 mmol/L (98-107) Carbon Dioxide Level 24 mmol/L (21-32) Anion Gap 11 (6-14) Blood Urea Nitrogen 24 mg/dL (7-20) Creatinine 1.3 mg/dL (0.6-1.0) Estimated GFR (Cockcroft-Gault) 38.7 Glucose Level 96 mg/dL (70-99) Calcium Level 8.8 mg/dL (8.5-10.1) Microbiology 02/08/18 Blood Culture - Preliminary, Resulted NO GROWTH AFTER 2 DAYS Medications Current Medications Albuterol/ Ipratropium (Duoneb) 3 ml 1X ONCE NEB Last administered on at 20:27; Start 02/08/18 at 19:30; Stop 02/08/18 at 19:31; Status DC Levofloxacin/ Dextrose 150 ml @ 100 mls/hr 1X ONCE IV Last administered on at 21:08; Start 02/08/18 at 19:30; Stop 02/08/18 at 20:59; Status DC Calcium Gluconate (Calcium Gluconate) 1,000 mg 1X ONCE IVP Last administered on 02/08/18at 19:46; Start 02/08/18 at 19:30; Stop 02/08/18 at 19:31; Status DC Sodium Polystyrene Sulfonate (Kayexalate) 30 gm 1X ONCE PO Last administered on 02/08/18at 21:06; Start 02/08/18 at 19:30; Stop 02/08/18 at 19:32; Status DC Calcium Gluconate (Calcium Gluconate) 1,000 mg 1X ONCE IVP ; Start 02/08/18 at 19:30; Stop 02/08/18 at 19:31; Status UNV Sodium Bicarbonate (Sodium Bicarb Adult 8.4% Syr) 50 meq 1X ONCE IV Last administered on 02/08/18 19:54; Start 02/08/18 at 19:30; Stop 02/08/18 at 19:33 ; Status DC Insulin Human Regular (HumuLIN R VIAL) 10 unit 1X ONCE IV Last administered on 02/08/18at 19:56; Start 02/08/18 at 19:30; Stop 02/08/18 at 19:33; Status DC Dextrose (Dextrose 50%-Water Syringe) 25 gm 1X ONCE IV Last administered on at 19:59; Start 02/08/18 at 19:30; Stop 02/08/18 at 19:33; Status DC Sodium Chloride 500 ml @ 500 mls/hr 1X ONCE IV Last administered on at 22:23; Start 02/08/18 at 19:45; Stop 02/08/18 at 20:44; Status DC Ondansetron HCl (Zofran) 4 mg PRN Q8HRS PRN IV NAUSEA/VOMITING Last administered on 02/09/18at 11:46; Start 02/08/18 at 20:00; Stop 02/09/18 at 19:59 ; Status DC Fentanyl Citrate (Fentanyl 2ml Vial) 50 mcg PRN Q1HR PRN IV PAIN Last administered on 02/09/18at 00:53; Start 02/08/18 at 20:00; Stop 02/09/18 at 19:59 ; Status DC Acetaminophen (Tylenol) 650 mg PRN Q4HRS PRN PO FEVER; Start 02/08/18 at 20:00 ; Stop 02/09/18 at 19:59; Status DC Sodium Chloride 1,000 ml @ 80 mls/hr [id number] IV Last administered on at 14:09; Start 02/08/18 at 23:15; Stop 02/10/18 at 16:48; Status DC Lorazepam (Ativan) 0.5 mg PRN Q8HRS PRN PO ANXIETY / AGITATION Last administered on 02/09/18at 00:52; Start 02/09/18 at 00:30 Nystatin (Nystop) 1 natasha BID TP Last administered on 02/11/18at 08:02; Start at 09:00 Sodium Polystyrene Sulfonate (Kayexalate) 15 gm 1X ONCE PO Last administered on 02/09/18at 01:00; Start 02/09/18 at 01:00; Stop 02/09/18 at 01:01; Status DC Albuterol/ Ipratropium (Duoneb) 3 ml RTQID NEB Last administered on 02/11/18at 11:48; Start 02/09/18 at 12:00 Vitamin A/Vitamin D (Vitamin A & D Ointment) 1 natasha BID TP Last administered on 02/11/18at 08:02; Start 02/09/18 at 11:00 Nitrofurantoin Macrocrystals (Macrobid) 100 mg BID PO ; Start 02/09/18 at 21:00 ; Status UNV Trimethoprim/ Sulfamethoxazole (Bactrim Ds) 0.5 tab BID PO ; Start 02/09/18 at 14:00; Stop 02/09/18 at 14:08; Status DC Trimethoprim/ Sulfamethoxazole (Bactrim Ds) 0.5 tab BID PO Last administered on 02/11/18at 08:00; Start 02/09/18 at 18:00 Lactobacillus Rhamnosus (Culturelle) 1 cap BID PO Last administered on at 08:02; Start 02/09/18 at 21:00 Apixaban (Eliquis) 5 mg BID PO Last administered on 02/09/18at 20:02; Start at 21:00; Stop 02/10/18 at 08:01; Status DC Atorvastatin Calcium (Lipitor) 10 mg QHS PO ; Start 02/10/18 at 09:00; Stop at 09:00; Status DC Cetirizine HCl (ZyrTEC) 10 mg DAILY PO Last administered on 02/11/18at 07:59; Start 02/09/18 at 15:00 Vitamin D (Vitamin D3) 1,000 unit DAILY PO Last administered on 02/11/18at 07:59 ; Start 02/10/18 at 09:00 Diclofenac Sodium (Voltaren) 4 natasha PRN Q6HRS PRN TP PAIN [facility] Choice; Start at 15:00 Guaifenesin (Mucinex) 600 mg BID PO Last administered on 02/11/18at 07:59; Start 02/09/18 at 21:00 Albuterol/ Ipratropium (Duoneb) 3 ml Q6HRS NEB ; Start 02/09/18 at 18:00; Status Cancel Levothyroxine Sodium (Synthroid) 100 mcg DAILY07 PO Last administered on at 05:32; Start 02/10/18 at 07:00 Lorazepam (Ativan) 1 mg BID PO Last administered on 02/11/18at 07:58; Start at 21:00 Oxycodone/ Acetaminophen (Percocet 5/325) 1 tab PRN Q4HRS PRN PO MODERATE TO SEVERE PAIN Last administered on 02/11/18 11:27; Start 02/09/18 at 15:00 Prednisone (Prednisone) 10 mg DAILY PO Last administered on 02/11/18 07:59; Start 02/09/18 at 15:00 Senna/Docusate Sodium (Senna Plus) 1 tab BID PO Last administered on 02/11/18 07:58; Start 02/09/18 at 21:00 Multivitamins/ Minerals (I-Oscar) 1 tab DAILY PO Last administered on 02/11/18 07:58; Start 02/10/18 at 09:00 Non-Formulary Medication (Albuterol Sulfate (Proair Hfa Inhaler)) 1 puff DAILY INH ; Start 02/10/18 at 09:00; Status UNV Non-Formulary Medication (Fluticasone/ Salmeterol (Advair 250-50 Diskus)) 1 inh BID IH ; Start 02/09/18 at 21:00; Status UNV Lidocaine (Lidoderm) 1 patch PRN DAILY PRN TD FOR TOPICAL PAIN 1st Choice; Start 02/10/18 at 09:00 Polyethylene Glycol (miraLAX PACKET) 17 gm PRN DAILY PRN PO CONSTIPATION; Start 02/10/18 at 09:00 Famotidine (Pepcid) 20 mg DAILY PO Last administered on 02/11/18at 07:58; Start 02/09/18 at 15:00 Furosemide (Lasix) 20 mg [id number] PO Last administered on 02/11/18at 13:21; Start 02/09/18 at 15:00 Info (Anti-Coagulation Monitoring By Pharmacy) 1 each PRN DAILY PRN MC SEE COMMENTS Last administered on 02/11/18at 10:22; Start 02/09/18 at 15:15 Albuterol Sulfate (Ventolin Neb Soln) 2.5 mg RTQID NEB ; Start 02/09/18 at 16:00 ; Status UNV Budesonide (Pulmicort) 0.5 mg RTBID NEB Last administered on 02/09/18at 19:40; Start 02/09/18 at 20:00; Stop 02/10/18 at 06:49; Status DC Budesonide (Pulmicort) 0.5 mg RTBID NEB Last administered on 02/11/18at 08:38; Start 02/10/18 at 08:00 Apixaban (Eliquis) 2.5 mg BID PO Last administered on 02/11/18at 07:59; Start at 09:00; Stop 02/11/18 at 10:20; Status DC Atorvastatin Calcium (Lipitor) 10 mg QHS PO Last administered on 02/10/18at 21: 02; Start 02/10/18 at 21:00 Ceftriaxone Sodium 1 gm/ Dextrose 50 ml @ 100 mls/hr Q24H IV ; Start 02/10/18 at 12:30; Status UNV Ceftriaxone Sodium (Rocephin) 1 gm Q24H IVP Last administered on 02/11/18at 13: 21; Start 02/10/18 at 13:00 Apixaban (Eliquis) 5 mg BID PO ; Start 02/11/18 at 21:00 Active Scripts Active Prednisone (Prednisone) 10 Mg Tablet 10 Mg PO DAILY Take 50 mg (5 pills) daily for 2 days, then take 40 mg (4 pills) daily for 2 days, then take 30 mg (3 pills) daily for 2 days, then take 20 mg (2 pills) daily for 2 days, then take 10 mg for 2 days. Miralax (Polyethylene Glycol 3350) 17 Gm Powd.pack 17 Gm PO PRN DAILY PRN Oxycodone-Acetaminophen 5-325 (Oxycodone Hcl/Acetaminophen) 1 Each Tablet 1 Tab PO PRN Q4HRS PRN Reported Spironolactone 50 Mg Tablet 50 Mg PO DAILY Ranitidine Hcl 150 Mg Tablet 150 Mg PO DAILY Losartan Potassium 50 Mg Tablet 50 Mg PO DAILY Lidopatch (Lidocaine/Menthol) 1 Each Adh..patch 1 Patch TP PRN DAILY PRN Guaifenesin 600 Mg Tablet.er 600 Mg PO BID Advair 250-50 Diskus (Fluticasone/Salmeterol) 1 Each Disk.w.dev 1 Inh IH BID Senna-Docusate Sodium Tablet (Sennosides/Docusate Sodium) 1 Each Tablet 1 Tab PO BID Voltaren (Diclofenac Sodium) 100 Gm Gel..gram. 4 Gm TP PRN Q6HRS PRN Cetirizine Hcl 10 Mg Tablet 10 Mg PO DAILY Duoneb 0.5-3(2.5) Mg/3 Ml (Albuterol/Ipratropium) 3 Ml Ampul.neb 3 Ml NEB Q6HRS Proair Hfa Inhaler (Albuterol Sulfate) 8.5 Gm Hfa.aer.ad 1 Puff INH DAILY Eliquis (Apixaban) 5 Mg Tablet 5 Mg PO BID Nystatin Unknown Strength Powder 1 Natasha TOP PRN BID PRN Tessalon Perle (Benzonatate) 100 Mg Capsule 200 Mg PO PRN Q8HRS Levothyroxine Sodium 100 Mcg Tablet 1 Tab PO DAILY Lorazepam 1 Mg Tablet 1 Mg PO BID Ocuvite Tablet (Vit A,C & E/Lutein/Minerals) 1 Each Tablet 1 Each PO DAILY Vitamin D (Cholecalciferol (Vitamin D3)) 1,000 Unit Tablet 1,000 Unit PO DAILY Amlodipine Besylate 10 Mg Tablet 10 Mg PO DAILY Atorvastatin Calcium 10 Mg Tablet 1 Tab PO DAILY Potassium Chloride 10 Meq Capsule.er 40 Meq PO BID Lasix (Furosemide) 40 Mg Tablet 40 Mg PO BID Vitals/I & O Vital Sign - Last 24 Hours 02/10/18 02/10/18 02/10/18 02/10/18 15:28 16:08 16:13 19:46 Temp 97.9 97.9 Pulse 69 Resp 24 B/P (MAP) 152/61 (91) Pulse Ox 90 90 O2 Delivery Nasal Cannula Nasal Cannula Nasal Cannula Nasal Cannula O2 Flow Rate 3.0 2.0 2.0 3.0 02/10/18 02/10/18 02/10/18 02/11/18 19:57 20:15 23:38 04:00 Temp 98.0 98.1 97.9 98.0 98.1 97.9 Pulse 71 71 69 Resp 18 18 18 B/P (MAP) 129/53 (78) 134/62 (86) 122/59 (80) Pulse Ox 95 98 97 96 O2 Delivery Nasal Cannula Nasal Cannula Nasal Cannula Nasal Cannula O2 Flow Rate 2.0 2.0 2.0 2.0 02/11/18 02/11/18 02/11/18 02/11/18 07:44 08:00 08:39 11:27 Temp 97.7 97.7 Pulse 82 Resp 20 19 B/P (MAP) 142/74 (96) Pulse Ox 96 96 O2 Delivery Nasal Cannula Nasal Cannula Nasal Cannula Nasal Cannula O2 Flow Rate 2.0 3.0 2.0 2.0 02/11/18 02/11/18 02/11/18 11:48 12:00 12:27 Temp 97.2 97.2 Pulse 72 Resp 20 B/P (MAP) 150/65 (93) Pulse Ox 97 97 O2 Delivery Nasal Cannula Nasal Cannula Nasal Cannula O2 Flow Rate 2.0 2.0 2.0 Intake and Output 02/10/18 02/10/18 02/11/18 15:00 23:00 07:00 Intake Total 720 ml 360 ml 60 ml Output Total 250 ml 800 ml 1250 ml Balance 470 ml -440 ml -1190 ml ALETHA CRYSTAL III DO Feb 11, 2018 14:08
[2018-02-11] MEDS ORDERED: POTASSIUM CHLORIDE 20 MEQ TABLET.ER. PO ONE (15:00)
[2018-02-11 15:26] VITALS: BP 155/74
[2018-02-11 19:55] VITALS: BP 203/84
[2018-02-11] MEDS: APIXABAN 5 MG TABLET. PO SCH (20:01)
[2018-02-11] MEDS: ATORVASTATIN CALCIUM 10 MG TABLET. PO SCH (20:01)
[2018-02-11 23:43] VITALS: BP 145/64
[2018-02-12 03:35] VITALS: BP 187/78
[2018-02-12] MEDS: LEVOTHYROXINE 100 MCG TABLET PO SCH (06:03)
[2018-02-12 06:24] LABS: BASO % 0 % (0-3); EOS # 0.3 x10^3/uL (0.0-0.7); EOS % 3 % (0-3); HEMATOCRIT 35.9 % (36.0-47.0); HEMOGLOBIN 12.1 g/dL (12.0-15.5); LYMPH # 1.2 x10^3/uL (1.0-4.8); LYMPH % 12 % (24-48); MEAN CORPUSCULAR HEMOGLOBIN 32 pg (25-35); MEAN CORPUSCULAR HGB CONC 34 g/dL (31-37); MEAN CORPUSCULAR VOLUME 95 fL (79-100); MONO # 0.9 x10^3/uL (0.0-1.1); MONO % 9 % (0-9); NEUT # 7.7 x10^3uL (1.8-7.7); NEUT % 76 % (31-73); PLATELET COUNT 197 x10^3/uL (140-400); RED BLOOD COUNT 3.76 x10^6/uL (3.50-5.40); RED CELL DISTRIBUTION WIDTH 14.4 % (11.5-14.5); WHITE BLOOD COUNT 10.2 x10^3/uL (4.0-11.0)
[2018-02-12 06:49] LABS: CREATININE 1.3 mg/dL (0.6-1.0); GFR 38.7; POTASSIUM 3.2 mmol/L (3.5-5.1)
[2018-02-12 07:15] VITALS: BP 145/60
[2018-02-12] MEDS: BUDESONIDE 0.5 MG/2 ML NEBU. NEB SCH (08:07)
[2018-02-12] MEDS: IPRATRPIUM/ALBUTEROL 0.5/2.5MG 3 ML NEBU. NEB SCH ×2 (08:08→12:00)
[2018-02-12] MEDS: SMZ/TMP 800/160MG TABLET. PO SCH (08:38)
[2018-02-12] MEDS: LORazepam 1 MG TABLET PO SCH (08:38)
[2018-02-12] MEDS: FUROSEMIDE 20 MG TABLET PO SCH (08:38)
[2018-02-12] MEDS: SENNOSIDES/DOCUSATE 8.6/50MG TABLET. PO SCH (08:39)
[2018-02-12] MEDS: CETIRIZINE HCL 10 MG TABLET. PO SCH (08:39)
[2018-02-12] MEDS: predniSONE 10 MG TABLET PO SCH (08:39)
[2018-02-12] MEDS: LACTOBACILLUS RHAMNOSUS GG 1 CAPSULE. PO SCH (08:39)
[2018-02-12] MEDS: MULTIVITAMIN I-VITE TABLET. PO SCH (08:39)
[2018-02-12] MEDS: FAMOTIDINE 20 MG TABLET. PO SCH (08:39)
[2018-02-12] MEDS: APIXABAN 5 MG TABLET. PO SCH (08:39)
[2018-02-12] MEDS: NYSTATIN TOPICAL POWDER 15GM BOTTLE. TP SCH (08:40)
[2018-02-12] MEDS: VITS A & D/LANOLIN TOPICAL OINTMENT 56GM TUBE. TP SCH (08:40)
[2018-02-12] MEDS: CHOLECALCIFEROL (VITAMIN D3) 1,000 UNIT TABLET PO SCH (08:40)
--- NOTE | 2018-02-12 10:12 | PDOC ---
SUBJECTIVE ROS No new complaints /concerns OBJECTIVE Vital Signs Vital Signs Date Time Temp Pulse Resp B/P (MAP) Pulse Ox O2 Delivery O2 Flow Rate FiO2 02/12/18 08:06 96 Nasal Cannula 2.0 02/12/18 07:15 97.8 71 20 145/60 (88) 97.8 I & 0 Intake and Output 02/12/18 07:01 Intake Total 1100 ml Output Total 1550 ml Balance -450 ml Intake Oral 1100 ml Output Urine Total 1550 ml PHYSICAL EXAM Physical Exam General- NAD HEENT: OM moist NECK: No increased JVD. LUNGS: CTA bIlat ant CARDIAC: RRR ABDOMEN: Soft, nontender, obese. EXTREMITIES: No LE edema, changes of CVI + NEUROLOGIC: AXO X3 No bradley DIAGNOSIS/ASSESSMENT Assessment & Plan ELIEZER on CKD - Improving , good UOP Likely Pre-renal On Bactrim- interferes with Creat secretion without changing GFR Can cause Hyperkalemia as well, defer to Primary Chronic kidney disease stage 3, likely secondary to hypertension, nephrosclerosis and chronic interstitial nephritis. Hyperkalemia -- resolved Mildly Hypokalemic, replace as needed Hyponatremia- resolved Likely dc To [facility] today as per RN , Monitor Renal function and K DW RN COMMENT/RELEVANT DATA Meds Current Medications Medications (Trade) Dose Ordered Sig/Rhiannon Start Time Stop Time Status Last Admin Dose Admin Acetaminophen (Tylenol) 650 mg PRN Q4HRS PRN 02/08/18 20:00 02/09/18 19:59 DC Albuterol Sulfate (Ventolin Neb Soln) 2.5 mg RTQID 02/09/18 16:00 UNV Albuterol/ Ipratropium (Duoneb) 3 ml Q6HRS 02/09/18 18:00 Cancel Apixaban (Eliquis) 5 mg BID 02/11/18 21:00 02/12/18 08:39 5 MG Atorvastatin Calcium (Lipitor) 10 mg QHS 02/10/18 21:00 02/11/18 20:01 10 MG Budesonide (Pulmicort) 0.5 mg RTBID 02/10/18 08:00 02/12/18 08:07 0.5 MG Calcium Gluconate (Calcium Gluconate) 1,000 mg 1X ONCE 02/08/18 19:30 8/16/18 19:31 UNV Ceftriaxone Sodium 1 gm/ Dextrose 50 ml @ 100 mls/hr Q24H 02/10/18 12:30 UNV Ceftriaxone Sodium (Rocephin) 1 gm Q24H 02/10/18 13:00 02/11/18 15:34 DC 02/11/18 13:21 1 GM Cetirizine HCl (ZyrTEC) 10 mg DAILY 02/09/18 15:00 02/12/18 08:39 10 MG Dextrose (Dextrose 50%-Water Syringe) 25 gm 1X ONCE 02/08/18 19:30 02/08/18 19:33 DC 02/08/18 19:59 25 GM Diclofenac Sodium (Voltaren) 4 natasha PRN Q6HRS PRN 02/09/18 15:00 Famotidine (Pepcid) 20 mg DAILY 02/09/18 15:00 02/12/18 08:39 20 MG Fentanyl Citrate (Fentanyl 2ml Vial) 50 mcg PRN Q1HR PRN 02/08/18 20:00 02/09/18 19:59 DC 02/09/18 00:53 50 MCG Furosemide (Lasix) 20 mg [id number] 02/09/18 15:00 02/12/18 08:38 20 MG Guaifenesin (Mucinex) 600 mg BID 02/09/18 21:00 02/12/18 08:39 600 MG Info (Anti-Coagulation Monitoring By Pharmacy) 1 each PRN DAILY PRN 02/09/18 15:15 02/11/18 10:22 1 EACH Insulin Human Regular (HumuLIN R VIAL) 10 unit 1X ONCE 02/08/18 19:30 02/08/18 19:33 DC 02/08/18 19:56 10 UNIT Lactobacillus Rhamnosus (Culturelle) 1 cap BID 02/09/18 21:00 02/12/18 08:39 1 CAP Levofloxacin/ Dextrose 150 ml @ 100 mls/hr 1X ONCE 02/08/18 19:30 02/08/18 20:59 DC 02/08/18 21:08 100 MLS/HR Levothyroxine Sodium (Synthroid) 100 mcg DAILY07 02/10/18 07:00 02/12/18 06:03 100 MCG Lidocaine (Lidoderm) 1 patch PRN DAILY PRN 02/10/18 09:00 Lorazepam (Ativan) 1 mg BID 02/09/18 21:00 02/12/18 08:38 1 MG Multivitamins/ Minerals (I-Oscar) 1 tab DAILY 02/10/18 09:00 02/12/18 08:39 1 TAB Nitrofurantoin Macrocrystals (Macrobid) 100 mg BID 02/09/18 21:00 UNV Non-Formulary Medication (Albuterol Sulfate (Proair Hfa Inhaler)) 1 puff DAILY 02/10/18 09:00 UNV Non-Formulary Medication (Fluticasone/ Salmeterol (Advair 250-50 Diskus)) 1 inh BID 02/09/18 21:00 UNV Nystatin (Nystop) 1 natasha BID 02/09/18 09:00 02/12/18 08:40 1 NATASHA Ondansetron HCl (Zofran) 4 mg PRN Q8HRS PRN 02/08/18 20:00 02/09/18 19:59 DC 02/09/18 11:46 4 MG Oxycodone/ Acetaminophen (Percocet 5/325) 1 tab PRN Q4HRS PRN 02/09/18 15:00 02/11/18 11:27 1 TAB Polyethylene Glycol (miraLAX PACKET) 17 gm PRN DAILY PRN 02/10/18 09:00 Potassium Chloride (Klor-Con) 40 meq 1X ONCE 02/11/18 15:00 02/11/18 15:01 DC 02/11/18 16:34 40 MEQ Prednisone (Prednisone) 10 mg DAILY 02/09/18 15:00 02/12/18 08:39 10 MG Senna/Docusate Sodium (Senna Plus) 1 tab BID 02/09/18 21:00 02/12/18 08:39 1 TAB Sodium Polystyrene Sulfonate (Kayexalate) 15 gm 1X ONCE 02/09/18 01:00 02/09/18 01:01 DC 02/09/18 01:00 15 GM Sodium Bicarbonate (Sodium Bicarb Adult 8.4% Syr) 50 meq 1X ONCE 02/08/18 19:30 02/08/18 19:33 DC 02/08/18 19:54 50 MEQ Sodium Chloride 1,000 ml @ 80 mls/hr [id number] 02/08/18 23:15 02/10/18 16:48 DC 02/10/18 14:09 80 MLS/HR Trimethoprim/ Sulfamethoxazole (Bactrim Ds) 1 tab BID 02/11/18 21:00 02/12/18 08:38 1 TAB Vitamin A/Vitamin D (Vitamin A & D Ointment) 1 natasha BID 02/09/18 11:00 02/12/18 08:40 1 NATASHA Vitamin D (Vitamin D3) 1,000 unit DAILY 02/10/18 09:00 02/12/18 08:40 1,000 UNIT Lab Laboratory Tests Test 02/12/18 05:15 White Blood Count 10.2 x10^3/uL (4.0-11.0) Red Blood Count 3.76 x10^6/uL (3.50-5.40) Hemoglobin 12.1 g/dL (12.0-15.5) Hematocrit 35.9 % (36.0-47.0) Mean Corpuscular Volume 95 fL (79-100) Mean Corpuscular Hemoglobin 32 pg (25-35) Mean Corpuscular Hemoglobin Concent 34 g/dL (31-37) Red Cell Distribution Width 14.4 % (11.5-14.5) Platelet Count 197 x10^3/uL (140-400) Neutrophils (%) (Auto) 76 % (31-73) Lymphocytes (%) (Auto) 12 % (24-48) Monocytes (%) (Auto) 9 % (0-9) Eosinophils (%) (Auto) 3 % (0-3) Basophils (%) (Auto) 0 % (0-3) Neutrophils # (Auto) 7.7 x10^3uL (1.8-7.7) Lymphocytes # (Auto) 1.2 x10^3/uL (1.0-4.8) Monocytes # (Auto) 0.9 x10^3/uL (0.0-1.1) Eosinophils # (Auto) 0.3 x10^3/uL (0.0-0.7) Basophils # (Auto) 0.0 x10^3/uL (0.0-0.2) Sodium Level 138 mmol/L (136-145) Potassium Level 3.2 mmol/L (3.5-5.1) Chloride Level 101 mmol/L (98-107) Carbon Dioxide Level 26 mmol/L (21-32) Anion Gap 11 (6-14) Blood Urea Nitrogen 19 mg/dL (7-20) Creatinine 1.3 mg/dL (0.6-1.0) Estimated GFR (Cockcroft-Gault) 38.7 Glucose Level 86 mg/dL (70-99) Calcium Level 9.0 mg/dL (8.5-10.1) Results All relevant outside records, renal labs, imaging studies, telemetry/EKG's were reviewed. SIMI ARVIZU MD Feb 12, 2018 10:11
[2018-02-12] MEDS ORDERED: POTASSIUM CHLORIDE 20 MEQ TABLET.ER. PO ONE (11:00)
--- NOTE | 2018-02-12 11:39 | PDOC ---
PULMONARY PROGRESS NOTES Subjective is on home 02, sob, cough better, no pain Vitals Vital Signs Date Time Temp Pulse Resp B/P (MAP) Pulse Ox O2 Delivery O2 Flow Rate FiO2 02/12/18 08:06 96 Nasal Cannula 2.0 02/12/18 07:15 97.8 71 20 145/60 (88) 97.8 Comments ros as mentioned as above, other sys otherwise neg ROS: No Nausea, No Chest Pain General: Alert, No acute distress HEENT: Other (nc at perrl nose throat clear neck no lad, no thyromegaly) Lungs: Other (decrease bs) Cardiovascular: S1, S2 Abdomen: Soft, Non-tender, Other (no mass) Neuro Exam: Alert Extremities: Other (trace edema) Skin: Warm Labs Laboratory Tests Test 02/11/18 05:00 02/12/18 05:15 White Blood Count 9.1 x10^3/uL (4.0-11.0) 10.2 x10^3/uL (4.0-11.0) Red Blood Count 3.78 x10^6/uL (3.50-5.40) 3.76 x10^6/uL (3.50-5.40) Hemoglobin 12.3 g/dL (12.0-15.5) 12.1 g/dL (12.0-15.5) Hematocrit 36.0 % (36.0-47.0) 35.9 % (36.0-47.0) Mean Corpuscular Volume 95 fL (79-100) 95 fL (79-100) Mean Corpuscular Hemoglobin 33 pg (25-35) 32 pg (25-35) Mean Corpuscular Hemoglobin Concent 34 g/dL (31-37) 34 g/dL (31-37) Red Cell Distribution Width 14.2 % (11.5-14.5) 14.4 % (11.5-14.5) Platelet Count 176 x10^3/uL (140-400) 197 x10^3/uL (140-400) Neutrophils (%) (Auto) 74 % (31-73) 76 % (31-73) Lymphocytes (%) (Auto) 13 % (24-48) 12 % (24-48) Monocytes (%) (Auto) 9 % (0-9) 9 % (0-9) Eosinophils (%) (Auto) 3 % (0-3) 3 % (0-3) Basophils (%) (Auto) 1 % (0-3) 0 % (0-3) Neutrophils # (Auto) 6.8 x10^3uL (1.8-7.7) 7.7 x10^3uL (1.8-7.7) Lymphocytes # (Auto) 1.2 x10^3/uL (1.0-4.8) 1.2 x10^3/uL (1.0-4.8) Monocytes # (Auto) 0.8 x10^3/uL (0.0-1.1) 0.9 x10^3/uL (0.0-1.1) Eosinophils # (Auto) 0.3 x10^3/uL (0.0-0.7) 0.3 x10^3/uL (0.0-0.7) Basophils # (Auto) 0.0 x10^3/uL (0.0-0.2) 0.0 x10^3/uL (0.0-0.2) Sodium Level 138 mmol/L (136-145) 138 mmol/L (136-145) Potassium Level 3.0 mmol/L (3.5-5.1) 3.2 mmol/L (3.5-5.1) Chloride Level 103 mmol/L (98-107) 101 mmol/L (98-107) Carbon Dioxide Level 24 mmol/L (21-32) 26 mmol/L (21-32) Anion Gap 11 (6-14) 11 (6-14) Blood Urea Nitrogen 24 mg/dL (7-20) 19 mg/dL (7-20) Creatinine 1.3 mg/dL (0.6-1.0) 1.3 mg/dL (0.6-1.0) Estimated GFR (Cockcroft-Gault) 38.7 38.7 Glucose Level 96 mg/dL (70-99) 86 mg/dL (70-99) Calcium Level 8.8 mg/dL (8.5-10.1) 9.0 mg/dL (8.5-10.1) Laboratory Tests Test 02/12/18 05:15 White Blood Count 10.2 x10^3/uL (4.0-11.0) Red Blood Count 3.76 x10^6/uL (3.50-5.40) Hemoglobin 12.1 g/dL (12.0-15.5) Hematocrit 35.9 % (36.0-47.0) Mean Corpuscular Volume 95 fL (79-100) Mean Corpuscular Hemoglobin 32 pg (25-35) Mean Corpuscular Hemoglobin Concent 34 g/dL (31-37) Red Cell Distribution Width 14.4 % (11.5-14.5) Platelet Count 197 x10^3/uL (140-400) Neutrophils (%) (Auto) 76 % (31-73) Lymphocytes (%) (Auto) 12 % (24-48) Monocytes (%) (Auto) 9 % (0-9) Eosinophils (%) (Auto) 3 % (0-3) Basophils (%) (Auto) 0 % (0-3) Neutrophils # (Auto) 7.7 x10^3uL (1.8-7.7) Lymphocytes # (Auto) 1.2 x10^3/uL (1.0-4.8) Monocytes # (Auto) 0.9 x10^3/uL (0.0-1.1) Eosinophils # (Auto) 0.3 x10^3/uL (0.0-0.7) Basophils # (Auto) 0.0 x10^3/uL (0.0-0.2) Sodium Level 138 mmol/L (136-145) Potassium Level 3.2 mmol/L (3.5-5.1) Chloride Level 101 mmol/L (98-107) Carbon Dioxide Level 26 mmol/L (21-32) Anion Gap 11 (6-14) Blood Urea Nitrogen 19 mg/dL (7-20) Creatinine 1.3 mg/dL (0.6-1.0) Estimated GFR (Cockcroft-Gault) 38.7 Glucose Level 86 mg/dL (70-99) Calcium Level 9.0 mg/dL (8.5-10.1) Medications Active Scripts Medications Dose Route/Sig Max Daily Dose Days Date Category Dose Instructions Spironolactone 50 Mg Tablet 50 Mg PO DAILY 02/09/18 Reported Ranitidine Hcl 150 Mg Tablet 150 Mg PO DAILY 02/09/18 Reported Losartan Potassium 50 Mg Tablet 50 Mg PO DAILY 02/09/18 Reported Lidopatch (Lidocaine/Menthol) 1 Each Adh..patch 1 Patch TP PRN DAILY PRN 02/09/18 Reported Guaifenesin 600 Mg Tablet.er 600 Mg PO BID 02/09/18 Reported Advair 250-50 Diskus (Fluticasone/Salmeterol) 1 Each Disk.w.dev 1 Inh IH BID 02/09/18 Reported Senna-Docusate Sodium Tablet (Sennosides/Docusate Sodium) 1 Each Tablet 1 Tab PO BID 02/09/18 Reported Voltaren (Diclofenac Sodium) 100 Gm Gel..gram. 4 Gm TP PRN Q6HRS PRN 02/09/18 Reported Cetirizine Hcl 10 Mg Tablet 10 Mg PO DAILY 02/09/18 Reported Duoneb 0.5-3(2.5) Mg/3 Ml (Albuterol/Ipratropium) 3 Ml Ampul.neb 3 Ml NEB Q6HRS 02/09/18 Reported Proair Hfa Inhaler (Albuterol Sulfate) 8.5 Gm Hfa.aer.ad 1 Puff INH DAILY 02/09/18 Reported Eliquis (Apixaban) 5 Mg Tablet 5 Mg PO BID 12/12/17 Reported Nystatin Unknown Strength Powder 1 Keisha TOP PRN BID PRN 12/12/17 Reported Tessalon Perle (Benzonatate) 100 Mg Capsule 200 Mg PO PRN Q8HRS 12/29/16 Reported Prednisone (Prednisone) 10 Mg Tablet 10 Mg PO DAILY 11/28/16 Rx Take 50 mg (5 pills) daily for 2 days, then take 40 mg (4 pills) daily for 2 days, then take 30 mg (3 pills) daily for 2 days, then take 20 mg (2 pills) daily for 2 days, then take 10 mg for 2 days. Miralax (Polyethylene Glycol 3350) 17 Gm Powd.pack 17 Gm PO PRN DAILY PRN 03/08/16 Rx Oxycodone-Acetaminophen 5-325 (Oxycodone Hcl/Acetaminophen) 1 Each Tablet 1 Tab PO PRN Q4HRS PRN 03/08/16 Rx Levothyroxine Sodium 100 Mcg Tablet 1 Tab PO DAILY 03/05/16 Reported Lorazepam 1 Mg Tablet 1 Mg PO BID 12/02/15 Reported Ocuvite Tablet (Vit A,C & E/Lutein/Minerals) 1 Each Tablet 1 Each PO DAILY 10/23/15 Reported Vitamin D (Cholecalciferol (Vitamin D3)) 1,000 Unit Tablet 1,000 Unit PO DAILY 10/23/15 Reported Amlodipine Besylate 10 Mg Tablet 10 Mg PO DAILY 10/23/15 Reported Atorvastatin Calcium 10 Mg Tablet 1 Tab PO DAILY 10/23/15 Reported Potassium Chloride 10 Meq Capsule.er 40 Meq PO BID 10/23/15 Reported Lasix (Furosemide) 40 Mg Tablet 40 Mg PO BID 10/23/15 Reported Comments reviewed cxr 1. Cardiomegaly 2. Unchanged platelike opacities left lung base likely atelectasis. Impression . 1. acute on chronic resp fail, likely related to physical deconditioning, weakness and congestive heart failure. 2. Abnormal chest x-ray with poor inspiratory effort. She has left lower lobe atelectasis and vascular markings slightly prominent. 3. 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 4. History of chronic hypoxic respiratory failure. 5. Questionable history of COPD. She admits to no history of tobacco use. 6. Severe hyperkalemia, present on admission, resolved Plan . 1. continue 02 titration 2. Avoid benzodiazepines. 3. hyperkalemia resolved 4. DuoNeb. 5. Empiric antibiotic, on PO bactrim 6. cont ICS 7. discussed w rn, pt no further rec. ok with dc to skills .will sign off ZOYA ACOSTA MD Feb 12, 2018 11:39
[2018-02-12 11:53] VITALS: BP 147/74
[2018-02-12] MEDS ORDERED: FURO20TA3 PO (13:12)
[2018-02-12] MEDS ORDERED: SULF-143 PO (13:12)
[2018-02-12] MEDS ORDERED: POTA20TA4 PO (13:17)
[2018-02-12] MEDS ORDERED: POTASSIUM CHLORIDE 20 MEQ TABLET.ER. PO SCH (14:00)
--- NOTE | 2018-02-12 14:13 | PDOC3 ---
Discharge Summary [facility] Date of Admission: Feb 08, 2018 Discharge Date: Feb 12, 2018 Admitting Diagnosis Hyperkalemia george, VASOMotor SOB WITH CHF UTI? AFib, anxiety, bronchitis, CHF, COPD, GERD, hypertension, hyperlipidemia, hypothyroidism, obstructive sleep apnea, cholecystectomy, coronary artery bypass, hysterectomy, pacemaker, left knee surgery, cardiac ablation and tricuspid valve replacement. Final Diagnosis CONSULTS pulm Brief Hospital Course Ms. Horn is a 87 old f, comes for sob, was found K8, George cr 2.8. lasix was reduced and KCL held. pt feels better, still need NC tho. pt also has urine frequency, no ucx done, not sure why, abx started, will cont for 5ds. stable to dc with lasix 20mg bid, kcl 20mg daily dc time 35min. General: Alert, Oriented X3 Heart: Regular rate, Other Lungs: bl lungs basilar mild Crackles, Other Abdomen: Normal bowel sounds, Soft Extremities: No clubbing, No cyanosis Skin: No rashes, No breakdown Disposition rehab CONDITION AT DISCHARGE: Improved, Stable Scheduled Albuterol Sulfate (Proair Hfa Inhaler), 1 PUFF INH DAILY, (Reported) Amlodipine Besylate (Amlodipine Besylate), 10 MG PO DAILY, (Reported) Apixaban (Eliquis), 5 MG PO BID, (Reported) Atorvastatin Calcium (Atorvastatin Calcium), 1 TAB PO DAILY, (Reported) Benzonatate (Tessalon Perle), 200 MG PO PRN Q8HRS, (Reported) Cetirizine Hcl (Cetirizine Hcl), 10 MG PO DAILY, (Reported) Cholecalciferol (Vitamin D3) (Vitamin D), 1,000 UNIT PO DAILY, (Reported) Fluticasone/Salmeterol (Advair 250-50 Diskus), 1 INH IH BID, (Reported) Furosemide (Furosemide), 20 MG PO BID92 Guaifenesin (Guaifenesin), 600 MG PO BID, (Reported) Ipratropium/Albuterol Sulfate (Duoneb 0.5-3(2.5) Mg/3 Ml), 3 ML NEB Q6HRS, ( Reported) Levothyroxine Sodium (Levothyroxine Sodium), 1 TAB PO DAILY, (Reported) Lorazepam (Lorazepam), 1 MG PO BID, (Reported) Potassium Chloride (Klor-Con M20), 20 MEQ PO DAILYWBKFT Prednisone (Prednisone ), 10 MG PO DAILY Ranitidine Hcl (Ranitidine Hcl), 150 MG PO DAILY, (Reported) Sennosides/Docusate Sodium (Senna-Docusate Sodium Tablet), 1 TAB PO BID, ( Reported) Sulfamethoxazole/Trimethoprim (Sulfamethoxazole-Tmp Ds Tablet), 1 TAB PO BID Vit A,C & E/Lutein/Minerals (Ocuvite Tablet), 1 EACH PO DAILY, (Reported) Scheduled PRN Diclofenac Sodium (Voltaren), 4 GM TP PRN Q6HRS PRN for PAIN, (Reported) Lidocaine/Menthol (Lidopatch), 1 PATCH TP PRN DAILY PRN for PAIN, (Reported) Nystatin (Nystatin), 1 STEPHANIE TOP PRN BID PRN for REDNESS, (Reported) Oxycodone Hcl/Acetaminophen (Oxycodone-Acetaminophen 5-325), 1 TAB PO PRN Q4HRS PRN for PAIN Polyethylene Glycol 3350 (Miralax), 17 GM PO PRN DAILY PRN for CONSTIPATION Discontinued Medications Furosemide (Lasix), 40 MG PO BID, (Reported) Lidocaine (Aspercreme), 1 PATCH TD DAILY, (Reported) Losartan Potassium (Losartan Potassium), 50 MG PO DAILY, (Reported) Metoclopramide Hcl (Reglan), 10 MG PO BIDAC, (Reported) Pantoprazole Sodium (Protonix), 1 TAB PO DAILY, (Reported) Potassium Chloride (Potassium Chloride), 40 MEQ PO BID, (Reported) Ranitidine Hcl (Ranitidine Hcl), 1 CAP PO HS, (Reported) Spironolactone (Spironolactone), 50 MG PO DAILY, (Reported) AMY BOSS MD Feb 12, 2018 14:13
[2018-02-12 15:18] VITALS: BP 147/74
== END 2018-02-12 15:30 | DRG 871 ==
LOC: ER 16:59 → 1 WEST ICU 19:29 → 2 NORTH 02-10 09:29
PROVIDERS: ADMIT Family Medicine; ATTEND Family Medicine
DX: A41.9 Sepsis, unspecified organism (principal); J96.21 Acute and chronic respiratory failure with hypoxia; N17.0 Acute kidney failure with tubular necrosis; E87.1 Hypo-osmolality and hyponatremia; J98.11 Atelectasis; I13.0 Hypertensive heart and chronic kidney disease with heart failure and stage 1 through stage 4 chronic kidney disease, or unspecified chronic kidney disease; I42.0 Dilated cardiomyopathy; N11.9 Chronic tubulo-interstitial nephritis, unspecified; F41.9 Anxiety disorder, unspecified; I50.9 Heart failure, unspecified; K21.9 Gastro-esophageal reflux disease without esophagitis; E78.00 Pure hypercholesterolemia, unspecified; E03.9 Hypothyroidism, unspecified; J44.9 Chronic obstructive pulmonary disease, unspecified; E87.5 Hyperkalemia; E78.5 Hyperlipidemia, unspecified; G47.33 Obstructive sleep apnea (adult) (pediatric); D64.9 Anemia, unspecified; I48.2 Chronic atrial fibrillation; I34.0 Nonrheumatic mitral (valve) insufficiency; N18.3 Chronic kidney disease, stage 3 (moderate); I25.10 Atherosclerotic heart disease of native coronary artery without angina pectoris; Z90.710 Acquired absence of both cervix and uterus; Z95.1 Presence of aortocoronary bypass graft; Z90.49 Acquired absence of other specified parts of digestive tract; Z95.2 Presence of prosthetic heart valve; Z88.5 Allergy status to narcotic agent; Z88.0 Allergy status to penicillin; Z88.8 Allergy status to other drugs, medicaments and biological substances; Z88.1 Allergy status to other antibiotic agents; Z91.041 Radiographic dye allergy status; Z95.0 Presence of cardiac pacemaker; Z82.49 Family history of ischemic heart disease and other diseases of the circulatory system
CPT/HCPCS: 36415; 51702; 71045; 80048; 80053; 81001; 83605; 83880; 84132; 84484; 85007; 85025; 85610; 87040; 87641; 93005; 94640; 94760; 96374; 96375; J0610; J0696; J1815; J1956; J2405; J3010; J7030; J7040; J7042; J7512; J7620; J7626; 97110; 97116; 99285-25

== ENCOUNTER 2018-03-27 21:25 | Inpatient (IN) | payer MEDICARE ==
[~2018-03-27] VITALS: Ht 144.8 cm; Wt 105.7 kg
[~2018-03-27 21:25] MED LIST changes: -AMLO10TA2; -AMLO10TA2 PO; +AMLO10TA6; +AMLO10TA6 PO; +CETI10TA16 PO; +DICL100G18 TP; +FLUT1DIS3 IH; +FURO20TA3 PO; +GUAI600T79 PO; +IPRA3AMP29 NEB; +LIDO1ADH TP; +LOSA50TA7 PO; +POTA20TA4 PO; +PROAIR HFA8.5 GM INH; +RANI150T2 PO; +SENN1TAB99 PO; +SPIR50TA4 PO; +SULF-143 PO
[2018-03-27 22:10] LABS: BASO # 0.1 x10^3/uL (0.0-0.2); BASO % 1 % (0-3); EOS # 0.1 x10^3/uL (0.0-0.7); EOS % 2 % (0-3); HEMATOCRIT 32.9 % (36.0-47.0); HEMOGLOBIN 11.1 g/dL (12.0-15.5); LYMPH # 0.7 x10^3/uL (1.0-4.8); LYMPH % 9 % (24-48); MEAN CORPUSCULAR HEMOGLOBIN 32 pg (25-35); MEAN CORPUSCULAR HGB CONC 34 g/dL (31-37); MEAN CORPUSCULAR VOLUME 96 fL (79-100); MONO # 0.9 x10^3/uL (0.0-1.1); MONO % 11 % (0-9); NEUT # 6.4 x10^3uL (1.8-7.7); NEUT % 77 % (31-73); PLATELET COUNT 195 x10^3/uL (140-400); RED BLOOD COUNT 3.42 x10^6/uL (3.50-5.40); RED CELL DISTRIBUTION WIDTH 16.2 % (11.5-14.5); WHITE BLOOD COUNT 8.2 x10^3/uL (4.0-11.0)
[2018-03-27 22:21] LABS: PROTHROMBIN TIME PATIENT 18.6 SEC (11.7-14.0)
[2018-03-27] MEDS ORDERED: IPRATRPIUM/ALBUTEROL 0.5/2.5MG 3 ML NEBU. NEB ONE (22:30)
[2018-03-27] MEDS: IV NORMAL SALINE 1000ML BAG 1,000 ML IV SCH ×2 (22:43→23:30)
[2018-03-27 22:49] LABS: CALCIUM 9.3 mg/dL (8.5-10.1); CREATININE 0.9 mg/dL (0.6-1.0); GFR 59.1; POTASSIUM 4.1 mmol/L (3.5-5.1)
[2018-03-27 22:56] LABS: ALBUMIN 3.2 g/dL (3.4-5.0); TOTAL BILIRUBIN 1.3 mg/dL (0.2-1.0); TOTAL PROTEIN 6.5 g/dL (6.4-8.2)
[2018-03-27 23:23] LABS: BILIRUBIN,URINE NEGATIVE (NEG); CLARITY,URINE CLEAR; COLOR,URINE AMBER; NITRITE,URINE NEGATIVE (NEG); PROTEIN,URINE 30 mg/dL (NEG-TRACE); UROBILINOGEN,URINE 0.2 mg/dL (0.2 mg/dL)
[2018-03-27 23:27] LABS: BACTERIA,URINE FEW /HPF (0-FEW); RBC,URINE 0 /HPF (0-2); SQUAMOUS EPITHELIAL CELL,UR FEW /LPF
[2018-03-27 23:28] LABS: HYALINE CASTS, URINE FEW /HPF
[2018-03-28] VITALS (7 sets, daily range): BP systolic 124–157; BP diastolic 48–69
--- NOTE | 2018-03-28 00:25 | RAD ---
AP portable chest radiograph 03/27/2018 Clinical History: Cough and shortness of breath for one week. An AP erect portable digital radiograph of the chest was obtained. Comparison study is dated 03/06/2018. Patient is post median sternotomy. Cardiac silhouette is mildly enlarged. Atherosclerotic calcification of the thoracic aorta is seen. Left midlung subsegmental atelectasis is noted. No pneumothorax or pleural effusion is seen. No area of consolidation is noted. The osseous structures are unchanged. Impression: Left midlung subsegmental atelectasis. Electronically signed by: Willy Mobley MD (03/28/2018 12:21 AM) [facility]
[2018-03-28] MEDS ORDERED: VANCOMYCIN 2 GM in IV NORMAL SALINE 500ML BAG 500 ML IV ONE (00:30)
[2018-03-28] MEDS: IV NORMAL SALINE 1000ML BAG 1,000 ML IV SCH ×2 (00:57→15:26)
[2018-03-28] MEDS: VANCOMYCIN PER PHARMACY MC PRN ×2 (01:24→10:57)
--- NOTE | 2018-03-28 04:30 | PHYS DOC ---
Past Medical History Past Medical History: A-Fib, Anxiety, Bronchitis, CHF, COPD, GERD, High Cholesterol, Heart Disease, Hypertension, Hypothyroid, Other Additional Past Medical Histor: sleep apnea Past Surgical History: Cholecystectomy, Coronary Bypass Surgery, Hysterectomy, Pacemaker, Other Additional Past Surgical Histo: left knee, cardiac ablation, tricuspid valve replacement Alcohol Use: None Drug Use: None Adult General Chief Complaint Chief Complaint: ALTERED MENTAL STATUS HPI HPI Patient is a 87 year old female who presents increased bilateral leg pain with swelling and redness right leg greater than left. No nausea vomiting or sweats. No fever chills. Patient does report chronic shortness of breath with productive cough. History of prior cellulitis. [] Review of Systems Review of Systems Review symptoms as per history of present illness. All other review symptoms are negative. All other systems were reviewed and found to be within normal limits, except as documented in this note. Current Medications Current Medications Current Medications Medications (Trade) Dose Ordered Sig/Rhiannon Start Time Stop Time Status Last Admin Dose Admin Albuterol/ Ipratropium (Duoneb) 3 ml 1X ONCE 03/27/18 22:30 03/27/18 22:31 DC 03/27/18 22:30 3 ML Sodium Chloride 1,000 ml @ 1,000 mls/hr Q1H 03/27/18 22:30 03/27/18 23:51 DC 03/27/18 22:43 1,000 MLS/HR Allergies Allergies Allergies Coded Allergies Type Severity Reaction Last Updated Verified Iodine and Iodide Containing Produc Allergy Intermediate Hives 04/12/17 Yes Penicillins Allergy Intermediate Rash, TOLERATES ROCEPHIN 12/15/17 Yes bacitracin Allergy Intermediate 04/12/17 Yes codeine Allergy Intermediate Hives 04/12/17 Yes cyclobenzaprine Allergy Intermediate 04/12/17 Yes erythromycin base Allergy Intermediate Hives 04/12/17 Yes ethyl alcohol Allergy Intermediate 04/12/17 Yes mold Allergy Intermediate 04/12/17 Yes moxifloxacin Allergy Intermediate Hives 04/12/17 Yes neomycin Allergy Intermediate 04/12/17 Yes polymyxin B Allergy Intermediate 04/12/17 Yes I S O L A T I O N *CONTACT* Allergy Unknown 12/13/17 Yes Physical Exam Physical Exam Constitutional: Well developed, well nourished, no acute distress, non-toxic appearance. [] HENT: Normocephalic, atraumatic, bilateral external ears normal, oropharynx moist, no oral exudates, nose normal. [] Eyes: PERRLA, EOMI, conjunctiva normal, no discharge. [] Neck: Normal range of motion, no tenderness, supple, no stridor. [] Cardiovascular:Heart rate regular rhythm, no murmur [] Lungs & Thorax: Bilateral breath sounds clear to auscultation [] Abdomen: Bowel sounds normal, soft, no tenderness, no masses, no pulsatile masses. [] Skin: Warm, dry, no erythema, no rash. [] Back: No tenderness, no CVA tenderness. [] Extremities: Swelling, redness of bilateral lower extremities right leg or tenderness in left[] Neurologic: Alert and oriented X 3, normal motor function, normal sensory function, no focal deficits noted. [] Psychologic: Affect, anxious Current Patient Data Vital Signs Vital Signs Date Time Temp Pulse Resp B/P (MAP) Pulse Ox O2 Delivery O2 Flow Rate FiO2 03/27/18 22:32 76 34 94 03/27/18 22:29 Nasal Cannula 1.0 03/27/18 21:25 99.3 145/80 (101) 99.3 Lab Values Laboratory Tests Test 03/27/18 21:45 03/27/18 22:28 White Blood Count 8.2 x10^3/uL (4.0-11.0) Red Blood Count 3.42 x10^6/uL (3.50-5.40) L Hemoglobin 11.1 g/dL (12.0-15.5) L Hematocrit 32.9 % (36.0-47.0) L Mean Corpuscular Volume 96 fL (79-100) Mean Corpuscular Hemoglobin 32 pg (25-35) Mean Corpuscular Hemoglobin Concent 34 g/dL (31-37) Red Cell Distribution Width 16.2 % (11.5-14.5) H Platelet Count 195 x10^3/uL (140-400) Neutrophils (%) (Auto) 77 % (31-73) H Lymphocytes (%) (Auto) 9 % (24-48) L Monocytes (%) (Auto) 11 % (0-9) H Eosinophils (%) (Auto) 2 % (0-3) Basophils (%) (Auto) 1 % (0-3) Neutrophils # (Auto) 6.4 x10^3uL (1.8-7.7) Lymphocytes # (Auto) 0.7 x10^3/uL (1.0-4.8) L Monocytes # (Auto) 0.9 x10^3/uL (0.0-1.1) Eosinophils # (Auto) 0.1 x10^3/uL (0.0-0.7) Basophils # (Auto) 0.1 x10^3/uL (0.0-0.2) Prothrombin Time 18.6 SEC (11.7-14.0) H Prothrombin Time INR 1.6 (0.8-1.1) H Lactic Acid Level 1.5 mmol/L (0.4-2.0) Sodium Level 143 mmol/L (136-145) Potassium Level 4.1 mmol/L (3.5-5.1) Chloride Level 104 mmol/L (98-107) Carbon Dioxide Level 28 mmol/L (21-32) Anion Gap 11 (6-14) Blood Urea Nitrogen 10 mg/dL (7-20) Creatinine 0.9 mg/dL (0.6-1.0) Estimated GFR (Cockcroft-Gault) 59.1 BUN/Creatinine Ratio 11 (6-20) Glucose Level 113 mg/dL (70-99) H Calcium Level 9.3 mg/dL (8.5-10.1) Total Bilirubin 1.3 mg/dL (0.2-1.0) H Aspartate Amino Transferase (AST) 15 U/L (15-37) Alanine Aminotransferase (ALT) 21 U/L (14-59) Alkaline Phosphatase 79 U/L (46-116) Total Protein 6.5 g/dL (6.4-8.2) Albumin 3.2 g/dL (3.4-5.0) L Albumin/Globulin Ratio 1.0 (1.0-1.7) Procalcitonin < 0.10 ng/mL (0.00-0.10) Laboratory Tests 03/27/18 21:45 Laboratory Tests 03/27/18 22:28 EKG EKG [] Radiology/Procedures Radiology/Procedures [] Course & Med Decision Making Course & Med Decision Making Pertinent Labs and Imaging studies reviewed. (See chart for details) [Cellulitis lower extremities, low-grade fever in the ED. Service.] Pati Disclaimer Dragon Disclaimer This electronic medical record was generated, in whole or in part, using a voice recognition dictation system. Departure Departure Impression: Primary Impression: Cellulitis of both lower extremities Disposition: ADMITTED INPATIENT Condition: IMPROVED Referrals: CHRISTY ANDERSON MD (PCP) CAROLYN KNIGHT DO Mar 28, 2018 04:30
[2018-03-28] MEDS ORDERED: IPRATRPIUM/ALBUTEROL 0.5/2.5MG 3 ML NEBU. NEB SCH ×3 (08:00→10:00)
[2018-03-28] MEDS ORDERED: DICLOFENAC SODIUM 1% TOPICAL GEL 100GM TUBE. TP PRN (08:45)
[2018-03-28] MEDS ORDERED: guaiFENesin DM 200MG/20MG 10 ML SYRUP PO PRN (08:45)
[2018-03-28] MEDS ORDERED: methylPREDNISolone SOD SUCC PF 40 MG/ML VIAL. IV ONE (08:45)
[2018-03-28] MEDS ORDERED: BENZOCAINE/MENTHOL LOZENGE. PO PRN (08:45)
--- NOTE | 2018-03-28 08:48 | PDOC1 ---
History and Physical Date of Admission Date of Admission DATE: 03/28/18 TIME: 08:41 Identification/Chief Complaint Chief Complaint leg pain Source Source: Chart review, Patient History of Present Illness History of Present Illness Ms. Horn is a 87 year old female admit with worsening bilateral leg pain with swelling and redness right leg greater than left. Pain on both legs, and she warns me not to touch them too hard. No nausea vomiting or sweats. She also complains of cough with sputum and shortness of breath, with possible sore throat. She reports she 'does not feel well at all" Past Medical History Cardiovascular: AFIB, CAD, HTN, Hyperlipidemia, Other Pulmonary: Asthma, Bronchitis, Other CENTRAL NERVOUS SYSTEM: Other GI: GERD Heme/Onc: No pertinent hx Hepatobiliary: No pertinent hx Psych: Anxiety Musculoskeletal: Osteoarthritis Rheumatologic: No pertinent hx Infectious disease: No pertinent hx Renal/: No pertinent hx Endocrine: Hypothyroidism Past Surgical History Past Surgical History: Pacemaker, CABG, Other Family History Family History: Heart Disease Social History Smoke: No ALCOHOL: none Drugs: None Current Problem List Problem List Problems Medical Problems: (1) Cellulitis of both lower extremities Status: Acute Current Medications Current Medications Current Medications Sodium Chloride 1,000 ml @ 1,000 mls/hr Q1H IV Last administered on 03/27/18at 22:43; Start 03/27/18 at 22:30; Stop 03/27/18 at 23:51; Status DC Albuterol/ Ipratropium (Duoneb) 3 ml 1X ONCE NEB Last administered on at 22:30; Start 03/27/18 at 22:30; Stop 03/27/18 at 22:31; Status DC Vancomycin HCl (Vanco Per Pharmacy) 1 each PRN DAILY PRN MC SEE COMMENTS Last administered on 03/28/18at 01:24; Start 03/28/18 at 00:15 Sodium Chloride 1,000 ml @ 75 mls/hr [id number] IV Last administered on at 00:57; Start 03/28/18 at 00:01; Stop 03/29/18 at 00:00 Albuterol/ Ipratropium (Duoneb) 3 ml RTQID NEB Last administered on 03/28/18at 07:43; Start 03/28/18 at 08:00; Stop 03/29/18 at 07:59 Vancomycin HCl 2 gm/Sodium Chloride 500 ml @ 250 mls/hr 1X ONCE IV Last administered on 03/28/18at 00:55; Start 03/28/18 at 00:30; Stop 03/28/18 at 02:29 ; Status DC Vancomycin HCl 1.5 gm/Sodium Chloride 500 ml @ 250 mls/hr Q24H IV ; Start 03/29 at 01:00 Vancomycin HCl (Vancomycin Trough Level) 1 each 1X ONCE MC ; Start 03/30/18 at 00:30; Stop 03/30/18 at 00:31 Active Scripts Active Klor-Con M20 (Potassium Chloride) 20 Meq Tab.er.prt 20 Meq PO [id number] 30 Days Furosemide 20 Mg Tablet 20 Mg PO BID92 30 Days Prednisone (Prednisone) 10 Mg Tablet 10 Mg PO DAILY Take 50 mg (5 pills) daily for 2 days, then take 40 mg (4 pills) daily for 2 days, then take 30 mg (3 pills) daily for 2 days, then take 20 mg (2 pills) daily for 2 days, then take 10 mg for 2 days. Miralax (Polyethylene Glycol 3350) 17 Gm Powd.pack 17 Gm PO PRN DAILY PRN Oxycodone-Acetaminophen 5-325 (Oxycodone Hcl/Acetaminophen) 1 Each Tablet 1 Tab PO PRN Q4HRS PRN Reported Ranitidine Hcl 150 Mg Tablet 150 Mg PO DAILY Lidopatch (Lidocaine/Menthol) 1 Each Adh..patch 1 Patch TP PRN DAILY PRN Guaifenesin 600 Mg Tablet.er 600 Mg PO BID Advair 250-50 Diskus (Fluticasone/Salmeterol) 1 Each Disk.w.dev 1 Inh IH BID Senna-Docusate Sodium Tablet (Sennosides/Docusate Sodium) 1 Each Tablet 1 Tab PO BID Voltaren (Diclofenac Sodium) 100 Gm Gel..gram. 4 Gm TP PRN Q6HRS PRN Cetirizine Hcl 10 Mg Tablet 10 Mg PO DAILY Duoneb 0.5-3(2.5) Mg/3 Ml (Albuterol/Ipratropium) 3 Ml Ampul.neb 3 Ml NEB Q6HRS Proair Hfa Inhaler (Albuterol Sulfate) 8.5 Gm Hfa.aer.ad 1 Puff INH DAILY Eliquis (Apixaban) 5 Mg Tablet 5 Mg PO BID Nystatin Unknown Strength Powder 1 Keisha TOP PRN BID PRN Tessalon Perle (Benzonatate) 100 Mg Capsule 200 Mg PO PRN Q8HRS Levothyroxine Sodium 100 Mcg Tablet 1 Tab PO DAILY Lorazepam 1 Mg Tablet 1 Mg PO BID Ocuvite Tablet (Vit A,C & E/Lutein/Minerals) 1 Each Tablet 1 Each PO DAILY Vitamin D (Cholecalciferol (Vitamin D3)) 1,000 Unit Tablet 1,000 Unit PO DAILY Amlodipine Besylate 10 Mg Tablet 10 Mg PO DAILY Atorvastatin Calcium 10 Mg Tablet 1 Tab PO DAILY Allergies Allergies: Coded Allergies: Iodine and Iodide Containing Produc (Verified Allergy, Intermediate, Hives , 04/12/17) Penicillins (Verified Allergy, Intermediate, Rash, TOLERATES ROCEPHIN, ) bacitracin (Verified Allergy, Intermediate, 04/12/17) codeine (Verified Allergy, Intermediate, Hives, 04/12/17) cyclobenzaprine (Verified Allergy, Intermediate, 04/12/17) erythromycin base (Verified Allergy, Intermediate, Hives, 04/12/17) ethyl alcohol (Verified Allergy, Intermediate, 04/12/17) mold (Verified Allergy, Intermediate, 04/12/17) moxifloxacin (Verified Allergy, Intermediate, Hives, 04/12/17) neomycin (Verified Allergy, Intermediate, 04/12/17) polymyxin B (Verified Allergy, Intermediate, 04/12/17) I S O L A T I O N *CONTACT* (Verified Allergy, Unknown, 12/13/17) mrsa ROS General: YES: Fatigue; No: Chills, Night Sweats, Malaise, Appetite, Other PSYCHOLOGICAL ROS: YES: Anxiety; No: Behavioral Disorder, Concentration difficultie, Decreased libido, Depression, Disorientation, Hallucinations, Hostility, Irritablity, Memory difficulties, Mood Swings, Obsessive thoughts, Physical abuse, Sexual abuse, Sleep disturbances, Suicidal ideation, Other HEENT: No: Heacaches, Visual Changes, Hearing change, Nasal congestion, Nasal discharge, Oral lesions, Sinus pain, Sore Throat, Epistaxis, Sneezing, Snoring, Tinnitus, Vertigo, Vocal changes, Other Respiratory: YES: Cough, Shortness of breath, SOB with excertion, Tachypnea, Wheezing Cardiovascular: yes Chest Pain Gastrointestinal: No Nausea, No Vomiting, No Abdominal Pain, No Diarrhea, No Constipation, No Melena, No Hematochezia, No Other Genitourinary: No Dysuria, No Frequency, No Incontinence, No Hematuria, No Retention, No Discharge, No Urgency, No Pain, No Flank Pain, No Other, No , No , No , No , No , No , No Musculoskeletal: Yes Joint Pain, Yes Joint Stiffness, Yes Pain In:; No Gait Disturbance, No Joint Swelling, No Muscle Pain, No Muscular Weakness , No Swelling In:, No Other Neurological: No Behavorial Changes, No Bowel/Bladder ControlChng, No Confusion , No Dizziness, No Gait Disturbance, No Headaches, No Impaired Coord/balance, No Memory Loss, No Numbness/Tingling, No Seizures, No Speech Problems, No Tremors, No Visual Changes, No Weakness, No Other Skin: Yes Dry Skin; No Eczema, No Hair Changes, No Lumps, No Mole Changes, No Mottling, No Nail Changes, No Pruritus, No Rash, No Skin Lesion Changes, No Other, No Acne Physical Exam General: Alert, Cooperative, mild distress, Other HEENT: PERRLA, EOMI, Mucous membr. moist/pink Lungs: Clear to auscultation, Normal air movement Heart: S1S2, no gallops, no murmurs Abdomen: Normal bowel sounds, Soft Rectal Exam: not examined Extremities: No clubbing, Other (pain, redness, weakness) Skin: No rashes, No breakdown, Other (eryhema and pain both lower legs, most red behind right knee) Neuro: Normal gait, Normal speech, Normal tone, Sensation intact Psych/Mental Status: Mood NL, Other Vitals Vitals Vital Signs Date Time Temp Pulse Resp B/P (MAP) Pulse Ox O2 Delivery O2 Flow Rate FiO2 03/28/18 07:44 93 Nasal Cannula 3.0 03/28/18 07:00 98.6 79 18 157/56 (89) 98.6 Labs Labs Laboratory Tests Test 03/27/18 21:45 03/27/18 22:28 03/27/18 23:15 White Blood Count 8.2 x10^3/uL (4.0-11.0) Red Blood Count 3.42 x10^6/uL (3.50-5.40) Hemoglobin 11.1 g/dL (12.0-15.5) Hematocrit 32.9 % (36.0-47.0) Mean Corpuscular Volume 96 fL (79-100) Mean Corpuscular Hemoglobin 32 pg (25-35) Mean Corpuscular Hemoglobin Concent 34 g/dL (31-37) Red Cell Distribution Width 16.2 % (11.5-14.5) Platelet Count 195 x10^3/uL (140-400) Neutrophils (%) (Auto) 77 % (31-73) Lymphocytes (%) (Auto) 9 % (24-48) Monocytes (%) (Auto) 11 % (0-9) Eosinophils (%) (Auto) 2 % (0-3) Basophils (%) (Auto) 1 % (0-3) Neutrophils # (Auto) 6.4 x10^3uL (1.8-7.7) Lymphocytes # (Auto) 0.7 x10^3/uL (1.0-4.8) Monocytes # (Auto) 0.9 x10^3/uL (0.0-1.1) Eosinophils # (Auto) 0.1 x10^3/uL (0.0-0.7) Basophils # (Auto) 0.1 x10^3/uL (0.0-0.2) Prothrombin Time 18.6 SEC (11.7-14.0) Prothromb Time International Ratio 1.6 (0.8-1.1) Lactic Acid Level 1.5 mmol/L (0.4-2.0) Sodium Level 143 mmol/L (136-145) Potassium Level 4.1 mmol/L (3.5-5.1) Chloride Level 104 mmol/L (98-107) Carbon Dioxide Level 28 mmol/L (21-32) Anion Gap 11 (6-14) Blood Urea Nitrogen 10 mg/dL (7-20) Creatinine 0.9 mg/dL (0.6-1.0) Estimated GFR (Cockcroft-Gault) 59.1 BUN/Creatinine Ratio 11 (6-20) Glucose Level 113 mg/dL (70-99) Calcium Level 9.3 mg/dL (8.5-10.1) Total Bilirubin 1.3 mg/dL (0.2-1.0) Aspartate Amino Transf (AST/SGOT) 15 U/L (15-37) Alanine Aminotransferase (ALT/SGPT) 21 U/L (14-59) Alkaline Phosphatase 79 U/L (46-116) Total Protein 6.5 g/dL (6.4-8.2) Albumin 3.2 g/dL (3.4-5.0) Albumin/Globulin Ratio 1.0 (1.0-1.7) Procalcitonin < 0.10 ng/mL (0.00-0.10) Urine Collection Type U cath Urine Color Aniyah Urine Clarity Clear Urine pH 5.0 Urine Specific [place] >=1.030 Urine Protein 30 mg/dL (NEG-TRACE) Urine Glucose (UA) Negative mg/dL (NEG) Urine Ketones (Stick) Trace mg/dL (NEG) Urine Blood Negative (NEG) Urine Nitrite Negative (NEG) Urine Bilirubin Negative (NEG) Urine Urobilinogen Dipstick 0.2 mg/dL (0.2 mg/dL) Urine Leukocyte Esterase Small (NEG) Urine RBC 0 /HPF (0-2) Urine WBC 5-10 /HPF (0-4) Urine Squamous Epithelial Cells Few /LPF Urine Bacteria Few /HPF (0-FEW) Urine Hyaline Casts Few /HPF Urine Mucus Mod /LPF Laboratory Tests Test 03/27/18 21:45 03/27/18 22:28 03/27/18 23:15 White Blood Count 8.2 x10^3/uL (4.0-11.0) Red Blood Count 3.42 x10^6/uL (3.50-5.40) Hemoglobin 11.1 g/dL (12.0-15.5) Hematocrit 32.9 % (36.0-47.0) Mean Corpuscular Volume 96 fL (79-100) Mean Corpuscular Hemoglobin 32 pg (25-35) Mean Corpuscular Hemoglobin Concent 34 g/dL (31-37) Red Cell Distribution Width 16.2 % (11.5-14.5) Platelet Count 195 x10^3/uL (140-400) Neutrophils (%) (Auto) 77 % (31-73) Lymphocytes (%) (Auto) 9 % (24-48) Monocytes (%) (Auto) 11 % (0-9) Eosinophils (%) (Auto) 2 % (0-3) Basophils (%) (Auto) 1 % (0-3) Neutrophils # (Auto) 6.4 x10^3uL (1.8-7.7) Lymphocytes # (Auto) 0.7 x10^3/uL (1.0-4.8) Monocytes # (Auto) 0.9 x10^3/uL (0.0-1.1) Eosinophils # (Auto) 0.1 x10^3/uL (0.0-0.7) Basophils # (Auto) 0.1 x10^3/uL (0.0-0.2) Prothrombin Time 18.6 SEC (11.7-14.0) Prothromb Time International Ratio 1.6 (0.8-1.1) Lactic Acid Level 1.5 mmol/L (0.4-2.0) Sodium Level 143 mmol/L (136-145) Potassium Level 4.1 mmol/L (3.5-5.1) Chloride Level 104 mmol/L (98-107) Carbon Dioxide Level 28 mmol/L (21-32) Anion Gap 11 (6-14) Blood Urea Nitrogen 10 mg/dL (7-20) Creatinine 0.9 mg/dL (0.6-1.0) Estimated GFR (Cockcroft-Gault) 59.1 BUN/Creatinine Ratio 11 (6-20) Glucose Level 113 mg/dL (70-99) Calcium Level 9.3 mg/dL (8.5-10.1) Total Bilirubin 1.3 mg/dL (0.2-1.0) Aspartate Amino Transf (AST/SGOT) 15 U/L (15-37) Alanine Aminotransferase (ALT/SGPT) 21 U/L (14-59) Alkaline Phosphatase 79 U/L (46-116) Total Protein 6.5 g/dL (6.4-8.2) Albumin 3.2 g/dL (3.4-5.0) Albumin/Globulin Ratio 1.0 (1.0-1.7) Procalcitonin < 0.10 ng/mL (0.00-0.10) Urine Collection Type U cath Urine Color Aniyah Urine Clarity Clear Urine pH 5.0 Urine Specific [place] >=1.030 Urine Protein 30 mg/dL (NEG-TRACE) Urine Glucose (UA) Negative mg/dL (NEG) Urine Ketones (Stick) Trace mg/dL (NEG) Urine Blood Negative (NEG) Urine Nitrite Negative (NEG) Urine Bilirubin Negative (NEG) Urine Urobilinogen Dipstick 0.2 mg/dL (0.2 mg/dL) Urine Leukocyte Esterase Small (NEG) Urine RBC 0 /HPF (0-2) Urine WBC 5-10 /HPF (0-4) Urine Squamous Epithelial Cells Few /LPF Urine Bacteria Few /HPF (0-FEW) Urine Hyaline Casts Few /HPF Urine Mucus Mod /LPF VTE Prophylaxis Ordered VTE Prophylaxis Devices: No VTE Pharmacological Prophylaxi: Yes Assessment/Plan Assessment/Plan sepsis cellulitis BLE COPD with acute bronchitis,, acute on chronic hypercarbic resp failure, marked tachypnea on admit morbid obesity, BMI 51 weakness and debility mult drug allergies admit, ID and PULM consult, ABBY CARRINGTON MD Mar 28, 2018 08:48
[2018-03-28] MEDS ORDERED: predniSONE 10 MG TABLET PO SCH (09:00)
[2018-03-28] MEDS: SENNOSIDES/DOCUSATE 8.6/50MG TABLET. PO SCH ×2 (09:00→21:00)
[2018-03-28] MEDS ORDERED: NON FORMULARY ITEM (Fluticasone/Salmeterol (Advair 250-50 Diskus) 1 INH) IH SCH (09:00)
[2018-03-28] MEDS ORDERED: NON FORMULARY ITEM (Albuterol Sulfate (Proair Hfa Inhaler) 1 PUFF) INH SCH (09:00)
[2018-03-28] MEDS ORDERED: POLYETHYLENE GLYCOL 3350 17 GM PACKET. PO PRN (09:00)
[2018-03-28] MEDS ORDERED: ANTI-COAG MONITOR BY PHARMACY. MC PRN (09:15)
[2018-03-28] MEDS: APIXABAN 5 MG TABLET. PO SCH ×2 (09:27→21:00)
[2018-03-28] MEDS: MULTIVITAMIN I-VITE TABLET. PO SCH (09:27)
[2018-03-28] MEDS: FUROSEMIDE 20 MG TABLET PO SCH ×2 (09:27→15:25)
[2018-03-28] MEDS: CETIRIZINE HCL 10 MG TABLET. PO SCH (09:27)
[2018-03-28] MEDS: CHOLECALCIFEROL (VITAMIN D3) 1,000 UNIT TABLET PO SCH (09:27)
[2018-03-28] MEDS: POTASSIUM CHLORIDE 20 MEQ TABLET.ER. PO SCH (09:28)
[2018-03-28] MEDS: LORazepam 1 MG TABLET PO SCH ×2 (09:28→21:00)
[2018-03-28] MEDS: amLODIPine BESYLATE 10 MG TABLET PO SCH (09:29)
[2018-03-28] MEDS ORDERED: ALBUTEROL SULFATE 2.5 MG/3 ML NEBU. NEB SCH (10:00)
[2018-03-28] MEDS ORDERED: LIDOCAINE (700MG/PATCH) PATCH. TD PRN (10:00)
[2018-03-28] MEDS: LEVOTHYROXINE 100 MCG TABLET PO SCH (10:37)
[2018-03-28] MEDS: FAMOTIDINE 20 MG TABLET. PO SCH (10:37)
[2018-03-28] MEDS: BUDESONIDE 0.5 MG/2 ML NEBU. NEB SCH ×2 (11:33→20:30)
[2018-03-28 11:57] LABS: BASE EXCESS ABG 2 mmol/L (-3-3); HCO3 ABG 27 mmol/L (21-28); PO2 ABG 72 mmHg (65-108); SAT O2 ABG 93 % (92-99)
[2018-03-28] MEDS ORDERED: DOXYCYCLINE HYCLATE 100 MG in IV DEXTROSE 5% 100ML 100 ML IV SCH (12:00)
[2018-03-28 12:10] LABS: PCO2 ABG 45 mmHg (35-46)
--- NOTE | 2018-03-28 12:17 | PDOC ---
Infectious Disease Note Vital Sign Vital Signs Vital Signs Date Time Temp Pulse Resp B/P (MAP) Pulse Ox O2 Delivery O2 Flow Rate FiO2 03/28/18 11:00 98.6 71 16 155/50 (85) 93 Room Air 98.6 03/28/18 07:44 3.0 Labs Lab Laboratory Tests Test 03/27/18 21:45 03/27/18 22:28 03/27/18 23:15 White Blood Count 8.2 x10^3/uL (4.0-11.0) Red Blood Count 3.42 x10^6/uL (3.50-5.40) Hemoglobin 11.1 g/dL (12.0-15.5) Hematocrit 32.9 % (36.0-47.0) Mean Corpuscular Volume 96 fL (79-100) Mean Corpuscular Hemoglobin 32 pg (25-35) Mean Corpuscular Hemoglobin Concent 34 g/dL (31-37) Red Cell Distribution Width 16.2 % (11.5-14.5) Platelet Count 195 x10^3/uL (140-400) Neutrophils (%) (Auto) 77 % (31-73) Lymphocytes (%) (Auto) 9 % (24-48) Monocytes (%) (Auto) 11 % (0-9) Eosinophils (%) (Auto) 2 % (0-3) Basophils (%) (Auto) 1 % (0-3) Neutrophils # (Auto) 6.4 x10^3uL (1.8-7.7) Lymphocytes # (Auto) 0.7 x10^3/uL (1.0-4.8) Monocytes # (Auto) 0.9 x10^3/uL (0.0-1.1) Eosinophils # (Auto) 0.1 x10^3/uL (0.0-0.7) Basophils # (Auto) 0.1 x10^3/uL (0.0-0.2) Prothrombin Time 18.6 SEC (11.7-14.0) Prothromb Time International Ratio 1.6 (0.8-1.1) Lactic Acid Level 1.5 mmol/L (0.4-2.0) Sodium Level 143 mmol/L (136-145) Potassium Level 4.1 mmol/L (3.5-5.1) Chloride Level 104 mmol/L (98-107) Carbon Dioxide Level 28 mmol/L (21-32) Anion Gap 11 (6-14) Blood Urea Nitrogen 10 mg/dL (7-20) Creatinine 0.9 mg/dL (0.6-1.0) Estimated GFR (Cockcroft-Gault) 59.1 BUN/Creatinine Ratio 11 (6-20) Glucose Level 113 mg/dL (70-99) Calcium Level 9.3 mg/dL (8.5-10.1) Total Bilirubin 1.3 mg/dL (0.2-1.0) Aspartate Amino Transf (AST/SGOT) 15 U/L (15-37) Alanine Aminotransferase (ALT/SGPT) 21 U/L (14-59) Alkaline Phosphatase 79 U/L (46-116) Total Protein 6.5 g/dL (6.4-8.2) Albumin 3.2 g/dL (3.4-5.0) Albumin/Globulin Ratio 1.0 (1.0-1.7) Procalcitonin < 0.10 ng/mL (0.00-0.10) Urine Collection Type U cath Urine Color Aniyah Urine Clarity Clear Urine pH 5.0 Urine Specific [place] >=1.030 Urine Protein 30 mg/dL (NEG-TRACE) Urine Glucose (UA) Negative mg/dL (NEG) Urine Ketones (Stick) Trace mg/dL (NEG) Urine Blood Negative (NEG) Urine Nitrite Negative (NEG) Urine Bilirubin Negative (NEG) Urine Urobilinogen Dipstick 0.2 mg/dL (0.2 mg/dL) Urine Leukocyte Esterase Small (NEG) Urine RBC 0 /HPF (0-2) Urine WBC 5-10 /HPF (0-4) Urine Squamous Epithelial Cells Few /LPF Urine Bacteria Few /HPF (0-FEW) Urine Hyaline Casts Few /HPF Urine Mucus Mod /LPF Objective Assessment Encephalopathy Rt leg cellulitis Pneumonia Yeast infection in groin Debility Plan Plan of Care cont vanc d/c doxy start cefepime also add diflucan check cultures supportive care pt/ot LIZ EVANS MD Mar 28, 2018 12:17
[2018-03-28] MEDS: methylPREDNISolone SOD SUCC PF 125 MG/2 ML VIAL. IV SCH ×2 (12:19→22:00)
--- NOTE | 2018-03-28 12:26 | CONS ---
DATE OF CONSULTATION: ATTENDING PHYSICIAN: Dr. Ashly Sousa. REASON FOR CONSULTATION: Acute exacerbation of chronic obstructive pulmonary disease and pneumonia. HISTORY OF PRESENT ILLNESS: The patient is an 87-year-old morbidly obese patient with a BMI of 51.5. There has been no history of tobacco use, but has history of asthma. She was brought into the hospital with lower extremity cellulitis. I have been asked to see for further evaluation of her dyspnea. She has been having faint audible wheezing. She appears to be in mild distress as well. She has a cough with yellow sputum production. Denies any chest pain, no headaches, no nausea, vomiting, no diarrhea. She does have lower extremity erythema and swelling. Her chest x-ray was reviewed by me and it was a poor inspiratory effort, likely infiltrate in the left base. She was started on antibiotic, vancomycin and I have been asked to see her for further evaluation. PAST MEDICAL HISTORY: History of asthma, history of morbid obesity, history of suspected obesity hypoventilation syndrome. History of bronchitis, osteoarthritis, hypothyroidism. PAST SURGICAL HISTORY: Pacemaker and CABG. FAMILY HISTORY: Heart disease. SOCIAL HISTORY: No history of tobacco use. ALLERGIES: Reviewed as listed in the MRAD. MEDICATIONS: Reviewed as listed in the MRAD. REVIEW OF SYSTEMS: Twelve-point system was obtained. Pertinent positives discussed in my history of present illness, otherwise noncontributory. All systems that were negative were reviewed as well. PHYSICAL EXAMINATION: GENERAL: She appears to be ill. VITAL SIGNS: Blood pressure 157/56, afebrile, pulse ox 93% on 3 liters. She is normally on home oxygen at 3 liters. HEENT: Sclerae nonicteric. NECK: Supple. LUNGS: With faint expiratory wheezes. CARDIOVASCULAR: Regular rate and rhythm. ABDOMEN: Soft, obese. EXTREMITIES: With lower extremity erythema. LABORATORY DATA: Reviewed. White cell count 8.2, hemoglobin 11.1 and platelets are 195. BUN is 10, creatinine is 0.9. IMPRESSION: 1. Acute exacerbation of chronic obstructive pulmonary disease with diffuse bronchospasm. 2. Cough with yellow sputum production and likely left lower lobe pneumonia. Chest x-ray was a poor inspiratory effort with volume loss in the left lower lobe. 3. Need to rule out hypercapnia and need for BiPAP. 4. Lower extremity cellulitis. 5. History of chronic hypoxic respiratory failure. RECOMMENDATIONS: 1. We will obtain ABGs. Assess the need for BiPAP. 2. Continue present oxygen via nasal cannula for now. 3. Broaden the antibiotic to add Gram-negative coverage. 4. Sputum for C and S. 5. Noncontrast CT chest once stable. 6. DuoNeb q. 4 hours along with Pulmicort nebs. 7. Change oral prednisone to IV Solu-Medrol. 8. Eliquis per PCP. 9. We will follow along with you. Discussed with RN. ZOYA ACOSTA MD DR: THEE/zulema JOB#: [id number] / [id number]
[2018-03-28] MEDS: FLUCONAZOLE 100 MG TABLET. PO SCH (12:28)
[2018-03-28] MEDS ORDERED: CEFEPIME HCL 1 GM in IV DEXTROSE 5% 50 ML IV SCH (14:00)
[2018-03-28] MEDS: CEFEPIME HCL IV Push 1 GM VIAL. IVP SCH ×2 (15:25→22:00)
[2018-03-28] MEDS: IPRATRPIUM/ALBUTEROL 0.5/2.5MG 3 ML NEBU. NEB SCH ×3 (15:39→23:36)
[2018-03-28 18:14] LABS: FECAL OB PT POSITIVE (NEG)
[2018-03-28] MEDS: PSYLLIUM HUSK (SUGAR FREE) 1 PKT PACKET PO SCH (19:00)
[2018-03-28] MEDS: NYSTATIN TOPICAL POWDER 15GM BOTTLE. TP SCH (21:00)
[2018-03-28] MEDS: LACTOBACILLUS RHAMNOSUS GG 1 CAPSULE. PO SCH (21:00)
[2018-03-28] MEDS: PATCH REMOVAL. MC SCH (21:00)
[2018-03-28] MEDS: ATORVASTATIN CALCIUM 10 MG TABLET. PO SCH (21:00)
--- NOTE | 2018-03-29 00:55 | CONS ---
DATE OF CONSULTATION: 03/28/2018 REQUESTING PHYSICIAN: Dr. Mcclure. REASON FOR CONSULTATION: Leg cellulitis and possible pneumonia. HISTORY OF PRESENT ILLNESS: This is an 87-year-old female who is a [place] [facility] resident who was brought in because of altered mental status. The patient was also found to have right leg cellulitis and a chest x-ray showed possible pneumonia versus atelectasis. The patient is confused. The patient is not to her baseline, not able to talk or make any proper communication. The patient has been started on vancomycin, doxycycline and consult has been requested. There is no nausea, vomiting, diarrhea, chest pain, shortness of breath, abdominal pain, noted by RN or complain by the patient, although the patient cannot be relied upon right now with any symptoms. PAST MEDICAL HISTORY: Positive for congestive heart failure, COPD, gastroesophageal reflux disease, hyperlipidemia, hypertension, hypothyroidism, atrial fibrillation, has had cholecystectomy, coronary artery bypass surgery, hysterectomy, pacemaker in place, total knee replacement, cardiac ablation and tricuspid valve replacement done. SOCIAL HISTORY: Negative for smoking, alcohol or illicit drug use. The patient is a [place] [facility] resident. ALLERGIES: THE PATIENT IS LISTED ALLERGIC TO PENICILLIN. She is not able to provide what happened. Also, evidently LISTED ALLERGIC TO MOXIFLOXACIN, NEOMYCIN, POLYMYXIN B AND ERYTHROMYCIN. REVIEW OF SYSTEMS: As per HPI through the patient's nurse as I mentioned earlier. CURRENT MEDICATIONS: Reviewed. PHYSICAL EXAMINATION: GENERAL: Awake female who is not in any distress, but does not appropriately respond. VITAL SIGNS: Stable, afebrile. HEENT: NAD. NECK: Supple, no JVP, no lymphadenopathy. LUNGS: Clear. HEART: S1, S2 regular. ABDOMEN: Benign. EXTREMITIES: No edema or cyanosis. She does have erythema of the right leg. The patient also has yeast infection in the groin. NEUROLOGIC: She does move all the extremities, but she is encephalopathic and not able to appropriately communicate. LABORATORY DATA: White count is normal. Hemoglobin 11.1, platelets are normal. BUN and creatinine is normal. Lactic acid was 1.5. Urinalysis showed 5-10 wbc's. Cultures are pending. Chest x-ray is showing left mid lung atelectasis versus infiltrate. IMPRESSION: 1. Encephalopathy. 2. Right leg cellulitis. 3. Pneumonia. 4. Yeast infection in the groin. 5. Debility. 6. Coronary artery disease. 7. Atrial fibrillation. 8. Hypertension. RECOMMENDATIONS: We would continue vancomycin, discontinue doxycycline, add cefepime. Also, add Diflucan, supportive care. We will check the cultures and continue to follow. Discussion with Dr. Claude madrid. Thank you very much, Dr. Mcclure, for giving me the opportunity to participate in this patient's care. LIZ EVANS MD DR: JR/zulema JOB#: [id number] / [id number]
[2018-03-29] MEDS: VANCOMYCIN 1.5 GM in IV NORMAL SALINE 500ML BAG 500 ML IV SCH (01:11)
[2018-03-29 03:00] VITALS: BP 145/68
[2018-03-29] MEDS: BENZONATATE 100 MG CAPSULE. PO PRN (03:16)
[2018-03-29] MEDS: IPRATRPIUM/ALBUTEROL 0.5/2.5MG 3 ML NEBU. NEB SCH ×5 (03:56→21:21)
[2018-03-29 07:00] VITALS: BP 145/58
[2018-03-29 07:19] LABS: BASO % 0 % (0-3); EOS % 0 % (0-3); HEMATOCRIT 33.6 % (36.0-47.0); HEMOGLOBIN 10.7 g/dL (12.0-15.5); LYMPH # 0.4 x10^3/uL (1.0-4.8); LYMPH % 7 % (24-48); MEAN CORPUSCULAR HEMOGLOBIN 32 pg (25-35); MEAN CORPUSCULAR HGB CONC 32 g/dL (31-37); MEAN CORPUSCULAR VOLUME 99 fL (79-100); MONO # 0.2 x10^3/uL (0.0-1.1); MONO % 3 % (0-9); NEUT # 4.9 x10^3uL (1.8-7.7); NEUT % 89 % (31-73); PLATELET COUNT 165 x10^3/uL (140-400); RED CELL DISTRIBUTION WIDTH 16.2 % (11.5-14.5); WHITE BLOOD COUNT 5.5 x10^3/uL (4.0-11.0)
[2018-03-29 07:23] LABS: ALBUMIN 3.2 g/dL (3.4-5.0); CALCIUM 8.5 mg/dL (8.5-10.1); GFR 52.3; POTASSIUM 4.1 mmol/L (3.5-5.1); TOTAL BILIRUBIN 0.8 mg/dL (0.2-1.0); TOTAL PROTEIN 6.3 g/dL (6.4-8.2)
[2018-03-29] MEDS: BUDESONIDE 0.5 MG/2 ML NEBU. NEB SCH ×2 (07:28→21:21)
--- NOTE | 2018-03-29 08:16 | RAD ---
Portable chest, 03/29/2018: HISTORY: Respiratory distress Comparison is made to a study from 03/27/2018. There has been a previous median sternotomy. The heart is mildly enlarged. The pulmonary vascularity is normal. There is mild linear atelectasis or scarring in the left lung laterally. No new pulmonary abnormality is seen. There is no evidence of pleural fluid. IMPRESSION: No significant change since 03/27/2018. Electronically signed by: Junito Palomares MD (03/29/2018 8:12 AM) [facility]
[2018-03-29] MEDS: CEFEPIME HCL IV Push 1 GM VIAL. IVP SCH ×3 (08:32→23:51)
[2018-03-29] MEDS: SENNOSIDES/DOCUSATE 8.6/50MG TABLET. PO SCH ×2 (08:33→20:52)
[2018-03-29] MEDS: methylPREDNISolone SOD SUCC PF 125 MG/2 ML VIAL. IV SCH ×3 (08:33→23:52)
[2018-03-29] MEDS: MULTIVITAMIN I-VITE TABLET. PO SCH (08:33)
[2018-03-29] MEDS: CHOLECALCIFEROL (VITAMIN D3) 1,000 UNIT TABLET PO SCH (08:33)
[2018-03-29] MEDS: FAMOTIDINE 20 MG TABLET. PO SCH (08:34)
[2018-03-29] MEDS: CETIRIZINE HCL 10 MG TABLET. PO SCH (08:34)
[2018-03-29] MEDS: LACTOBACILLUS RHAMNOSUS GG 1 CAPSULE. PO SCH ×2 (08:34→20:52)
[2018-03-29] MEDS: LEVOTHYROXINE 100 MCG TABLET PO SCH (08:35)
[2018-03-29] MEDS: FLUCONAZOLE 100 MG TABLET. PO SCH (08:35)
[2018-03-29] MEDS: POTASSIUM CHLORIDE 20 MEQ TABLET.ER. PO SCH (08:36)
[2018-03-29] MEDS: amLODIPine BESYLATE 10 MG TABLET PO SCH (08:36)
[2018-03-29] MEDS: NYSTATIN TOPICAL POWDER 15GM BOTTLE. TP SCH ×2 (08:37→20:56)
[2018-03-29] MEDS: LORazepam 1 MG TABLET PO SCH ×2 (08:37→20:53)
[2018-03-29] MEDS: FUROSEMIDE 20 MG TABLET PO SCH ×2 (08:37→15:47)
[2018-03-29] MEDS: PSYLLIUM HUSK (SUGAR FREE) 1 PKT PACKET PO SCH (09:00)
[2018-03-29] MEDS: APIXABAN 5 MG TABLET. PO SCH ×2 (09:00→20:56)
--- NOTE | 2018-03-29 09:19 | PDOC ---
Infectious Disease Note Subjective Subjective pt is talking better, cough + ROS ROS no n/v/d/fever sob + Vital Sign Vital Signs Vital Signs Date Time Temp Pulse Resp B/P (MAP) Pulse Ox O2 Delivery O2 Flow Rate FiO2 03/29/18 08:36 83 145/58 03/29/18 07:29 Nasal Cannula 4.0 03/29/18 07:00 97.5 28 92 97.5 Physical Exam PHYSICAL EXAM GENERAL: Awake female who is not in any distress, but does not appropriately respond. VITAL SIGNS: Stable, afebrile. HEENT: NAD. NECK: Supple, no JVP, no lymphadenopathy. LUNGS: Clear. HEART: S1, S2 regular. ABDOMEN: Benign. EXTREMITIES: No edema or cyanosis. She does have erythema of the right leg. The patient also has yeast infection in the groin. NEUROLOGIC: She does move all the extremities, able to communicate better Labs Lab Laboratory Tests Test 03/28/18 11:40 03/28/18 17:00 03/29/18 06:50 O2 Saturation 93 % (92-99) Arterial Blood pH 7.40 (7.35-7.45) Arterial Blood pCO2 at Patient Temp 45 mmHg (35-46) Arterial Blood pO2 at Patient Temp 72 mmHg (65-108) Arterial Blood HCO3 27 mmol/L (21-28) Arterial Blood Base Excess 2 mmol/L (-3-3) FiO2 32.0 Stool Occult Blood Positive (NEG) White Blood Count 5.5 x10^3/uL (4.0-11.0) Red Blood Count 3.40 x10^6/uL (3.50-5.40) Hemoglobin 10.7 g/dL (12.0-15.5) Hematocrit 33.6 % (36.0-47.0) Mean Corpuscular Volume 99 fL (79-100) Mean Corpuscular Hemoglobin 32 pg (25-35) Mean Corpuscular Hemoglobin Concent 32 g/dL (31-37) Red Cell Distribution Width 16.2 % (11.5-14.5) Platelet Count 165 x10^3/uL (140-400) Neutrophils (%) (Auto) 89 % (31-73) Lymphocytes (%) (Auto) 7 % (24-48) Monocytes (%) (Auto) 3 % (0-9) Eosinophils (%) (Auto) 0 % (0-3) Basophils (%) (Auto) 0 % (0-3) Neutrophils # (Auto) 4.9 x10^3uL (1.8-7.7) Lymphocytes # (Auto) 0.4 x10^3/uL (1.0-4.8) Monocytes # (Auto) 0.2 x10^3/uL (0.0-1.1) Eosinophils # (Auto) 0.0 x10^3/uL (0.0-0.7) Basophils # (Auto) 0.0 x10^3/uL (0.0-0.2) Sodium Level 139 mmol/L (136-145) Potassium Level 4.1 mmol/L (3.5-5.1) Chloride Level 106 mmol/L (98-107) Carbon Dioxide Level 22 mmol/L (21-32) Anion Gap 11 (6-14) Blood Urea Nitrogen 14 mg/dL (7-20) Creatinine 1.0 mg/dL (0.6-1.0) Estimated GFR (Cockcroft-Gault) 52.3 BUN/Creatinine Ratio 14 (6-20) Glucose Level 171 mg/dL (70-99) Calcium Level 8.5 mg/dL (8.5-10.1) Total Bilirubin 0.8 mg/dL (0.2-1.0) Aspartate Amino Transf (AST/SGOT) 27 U/L (15-37) Alanine Aminotransferase (ALT/SGPT) 27 U/L (14-59) Alkaline Phosphatase 80 U/L (46-116) Total Protein 6.3 g/dL (6.4-8.2) Albumin 3.2 g/dL (3.4-5.0) Albumin/Globulin Ratio 1.0 (1.0-1.7) Micro Microbiology 03/27/18 Blood Culture - Preliminary, Resulted NO GROWTH AFTER 1 DAY Objective Assessment Encephalopathy Rt leg cellulitis Pneumonia Yeast infection in groin Debility Plan Plan of Care cont vanc cefepime also diflucan check cultures supportive care pt/ot LIZ EVANS MD Mar 29, 2018 09:19
[2018-03-29 10:42] VITALS: BP 131/56
[2018-03-29 11:09] LABS: % ATYL 1 % (0-0); % BANDS 3 % (0-9); % LYMPHS 3 % (24-48); % MONOS 4 % (0-10); % SEGS 89 % (35-66); ANISOCYTOSIS PRESENT; PLT ESTIMATE ADEQUATE (ADEQUATE)
--- NOTE | 2018-03-29 11:20 | PDOC ---
PULMONARY PROGRESS NOTES Subjective less soa improved wheezing Vitals Vital Signs Date Time Temp Pulse Resp B/P (MAP) Pulse Ox O2 Delivery O2 Flow Rate FiO2 03/29/18 10:42 97.5 75 24 131/56 (81) 94 Nasal Cannula 4.0 97.5 General: Alert, No acute distress Lungs: Other (improved wheezing) Cardiovascular: S1, S2 Abdomen: Soft, Non-tender Extremities: Other (less erythema/ edema) Labs Laboratory Tests Test 03/27/18 21:45 03/27/18 22:28 03/27/18 23:15 03/28/18 01:28 White Blood Count 8.2 x10^3/uL (4.0-11.0) Red Blood Count 3.42 x10^6/uL (3.50-5.40) Hemoglobin 11.1 g/dL (12.0-15.5) Hematocrit 32.9 % (36.0-47.0) Mean Corpuscular Volume 96 fL (79-100) Mean Corpuscular Hemoglobin 32 pg (25-35) Mean Corpuscular Hemoglobin Concent 34 g/dL (31-37) Red Cell Distribution Width 16.2 % (11.5-14.5) Platelet Count 195 x10^3/uL (140-400) Neutrophils (%) (Auto) 77 % (31-73) Lymphocytes (%) (Auto) 9 % (24-48) Monocytes (%) (Auto) 11 % (0-9) Eosinophils (%) (Auto) 2 % (0-3) Basophils (%) (Auto) 1 % (0-3) Neutrophils # (Auto) 6.4 x10^3uL (1.8-7.7) Lymphocytes # (Auto) 0.7 x10^3/uL (1.0-4.8) Monocytes # (Auto) 0.9 x10^3/uL (0.0-1.1) Eosinophils # (Auto) 0.1 x10^3/uL (0.0-0.7) Basophils # (Auto) 0.1 x10^3/uL (0.0-0.2) Prothrombin Time 18.6 SEC (11.7-14.0) Prothromb Time International Ratio 1.6 (0.8-1.1) Lactic Acid Level 1.5 mmol/L (0.4-2.0) Sodium Level 143 mmol/L (136-145) Potassium Level 4.1 mmol/L (3.5-5.1) Chloride Level 104 mmol/L (98-107) Carbon Dioxide Level 28 mmol/L (21-32) Anion Gap 11 (6-14) Blood Urea Nitrogen 10 mg/dL (7-20) Creatinine 0.9 mg/dL (0.6-1.0) Estimated GFR (Cockcroft-Gault) 59.1 BUN/Creatinine Ratio 11 (6-20) Glucose Level 113 mg/dL (70-99) Calcium Level 9.3 mg/dL (8.5-10.1) Total Bilirubin 1.3 mg/dL (0.2-1.0) Aspartate Amino Transf (AST/SGOT) 15 U/L (15-37) Alanine Aminotransferase (ALT/SGPT) 21 U/L (14-59) Alkaline Phosphatase 79 U/L (46-116) Total Protein 6.5 g/dL (6.4-8.2) Albumin 3.2 g/dL (3.4-5.0) Albumin/Globulin Ratio 1.0 (1.0-1.7) Procalcitonin < 0.10 ng/mL (0.00-0.10) Urine Collection Type U cath Urine Color Aniyah Urine Clarity Clear Urine pH 5.0 Urine Specific Ashby >=1.030 Urine Protein 30 mg/dL (NEG-TRACE) Urine Glucose (UA) Negative mg/dL (NEG) Urine Ketones (Stick) Trace mg/dL (NEG) Urine Blood Negative (NEG) Urine Nitrite Negative (NEG) Urine Bilirubin Negative (NEG) Urine Urobilinogen Dipstick 0.2 mg/dL (0.2 mg/dL) Urine Leukocyte Esterase Small (NEG) Urine RBC 0 /HPF (0-2) Urine WBC 5-10 /HPF (0-4) Urine Squamous Epithelial Cells Few /LPF Urine Bacteria Few /HPF (0-FEW) Urine Hyaline Casts Few /HPF Urine Mucus Mod /LPF Nasal Screen MRSA (PCR) Positive (Negative) Test 03/28/18 11:40 03/28/18 17:00 03/29/18 06:50 O2 Saturation 93 % (92-99) Arterial Blood pH 7.40 (7.35-7.45) Arterial Blood pCO2 at Patient Temp 45 mmHg (35-46) Arterial Blood pO2 at Patient Temp 72 mmHg (65-108) Arterial Blood HCO3 27 mmol/L (21-28) Arterial Blood Base Excess 2 mmol/L (-3-3) FiO2 32.0 Stool Occult Blood Positive (NEG) White Blood Count 5.5 x10^3/uL (4.0-11.0) Red Blood Count 3.40 x10^6/uL (3.50-5.40) Hemoglobin 10.7 g/dL (12.0-15.5) Hematocrit 33.6 % (36.0-47.0) Mean Corpuscular Volume 99 fL (79-100) Mean Corpuscular Hemoglobin 32 pg (25-35) Mean Corpuscular Hemoglobin Concent 32 g/dL (31-37) Red Cell Distribution Width 16.2 % (11.5-14.5) Platelet Count 165 x10^3/uL (140-400) Neutrophils (%) (Auto) 89 % (31-73) Lymphocytes (%) (Auto) 7 % (24-48) Monocytes (%) (Auto) 3 % (0-9) Eosinophils (%) (Auto) 0 % (0-3) Basophils (%) (Auto) 0 % (0-3) Neutrophils # (Auto) 4.9 x10^3uL (1.8-7.7) Lymphocytes # (Auto) 0.4 x10^3/uL (1.0-4.8) Monocytes # (Auto) 0.2 x10^3/uL (0.0-1.1) Eosinophils # (Auto) 0.0 x10^3/uL (0.0-0.7) Basophils # (Auto) 0.0 x10^3/uL (0.0-0.2) Segmented Neutrophils % 89 % (35-66) Band Neutrophils % 3 % (0-9) Lymphocytes % 3 % (24-48) Atypical Lymphocytes % (Manual) 1 % (0-0) Monocytes % 4 % (0-10) Platelet Estimate Adequate (ADEQUATE) Anisocytosis Present Sodium Level 139 mmol/L (136-145) Potassium Level 4.1 mmol/L (3.5-5.1) Chloride Level 106 mmol/L (98-107) Carbon Dioxide Level 22 mmol/L (21-32) Anion Gap 11 (6-14) Blood Urea Nitrogen 14 mg/dL (7-20) Creatinine 1.0 mg/dL (0.6-1.0) Estimated GFR (Cockcroft-Gault) 52.3 BUN/Creatinine Ratio 14 (6-20) Glucose Level 171 mg/dL (70-99) Calcium Level 8.5 mg/dL (8.5-10.1) Total Bilirubin 0.8 mg/dL (0.2-1.0) Aspartate Amino Transf (AST/SGOT) 27 U/L (15-37) Alanine Aminotransferase (ALT/SGPT) 27 U/L (14-59) Alkaline Phosphatase 80 U/L (46-116) Total Protein 6.3 g/dL (6.4-8.2) Albumin 3.2 g/dL (3.4-5.0) Albumin/Globulin Ratio 1.0 (1.0-1.7) Laboratory Tests Test 03/28/18 11:40 03/28/18 17:00 03/29/18 06:50 O2 Saturation 93 % (92-99) Arterial Blood pH 7.40 (7.35-7.45) Arterial Blood pCO2 at Patient Temp 45 mmHg (35-46) Arterial Blood pO2 at Patient Temp 72 mmHg (65-108) Arterial Blood HCO3 27 mmol/L (21-28) Arterial Blood Base Excess 2 mmol/L (-3-3) FiO2 32.0 Stool Occult Blood Positive (NEG) White Blood Count 5.5 x10^3/uL (4.0-11.0) Red Blood Count 3.40 x10^6/uL (3.50-5.40) Hemoglobin 10.7 g/dL (12.0-15.5) Hematocrit 33.6 % (36.0-47.0) Mean Corpuscular Volume 99 fL (79-100) Mean Corpuscular Hemoglobin 32 pg (25-35) Mean Corpuscular Hemoglobin Concent 32 g/dL (31-37) Red Cell Distribution Width 16.2 % (11.5-14.5) Platelet Count 165 x10^3/uL (140-400) Neutrophils (%) (Auto) 89 % (31-73) Lymphocytes (%) (Auto) 7 % (24-48) Monocytes (%) (Auto) 3 % (0-9) Eosinophils (%) (Auto) 0 % (0-3) Basophils (%) (Auto) 0 % (0-3) Neutrophils # (Auto) 4.9 x10^3uL (1.8-7.7) Lymphocytes # (Auto) 0.4 x10^3/uL (1.0-4.8) Monocytes # (Auto) 0.2 x10^3/uL (0.0-1.1) Eosinophils # (Auto) 0.0 x10^3/uL (0.0-0.7) Basophils # (Auto) 0.0 x10^3/uL (0.0-0.2) Segmented Neutrophils % 89 % (35-66) Band Neutrophils % 3 % (0-9) Lymphocytes % 3 % (24-48) Atypical Lymphocytes % (Manual) 1 % (0-0) Monocytes % 4 % (0-10) Platelet Estimate Adequate (ADEQUATE) Anisocytosis Present Sodium Level 139 mmol/L (136-145) Potassium Level 4.1 mmol/L (3.5-5.1) Chloride Level 106 mmol/L (98-107) Carbon Dioxide Level 22 mmol/L (21-32) Anion Gap 11 (6-14) Blood Urea Nitrogen 14 mg/dL (7-20) Creatinine 1.0 mg/dL (0.6-1.0) Estimated GFR (Cockcroft-Gault) 52.3 BUN/Creatinine Ratio 14 (6-20) Glucose Level 171 mg/dL (70-99) Calcium Level 8.5 mg/dL (8.5-10.1) Total Bilirubin 0.8 mg/dL (0.2-1.0) Aspartate Amino Transf (AST/SGOT) 27 U/L (15-37) Alanine Aminotransferase (ALT/SGPT) 27 U/L (14-59) Alkaline Phosphatase 80 U/L (46-116) Total Protein 6.3 g/dL (6.4-8.2) Albumin 3.2 g/dL (3.4-5.0) Albumin/Globulin Ratio 1.0 (1.0-1.7) Medications Active Scripts Medications Dose Route/Sig Max Daily Dose Days Date Category Dose Instructions Klor-Con M20 (Potassium Chloride) 20 Meq Tab.er.prt 20 Meq PO [id number] 30 8/20/18 Rx Furosemide 20 Mg Tablet 20 Mg PO BID92 30 02/12/18 Rx Ranitidine Hcl 150 Mg Tablet 150 Mg PO DAILY 02/09/18 Reported Lidopatch (Lidocaine/Menthol) 1 Each Adh..patch 1 Patch TP PRN DAILY PRN 02/09/18 Reported Guaifenesin 600 Mg Tablet.er 600 Mg PO BID 02/09/18 Reported Advair 250-50 Diskus (Fluticasone/Salmeterol) 1 Each Disk.w.dev 1 Inh IH BID 02/09/18 Reported Senna-Docusate Sodium Tablet (Sennosides/Docusate Sodium) 1 Each Tablet 1 Tab PO BID 02/09/18 Reported Voltaren (Diclofenac Sodium) 100 Gm Gel..gram. 4 Gm TP PRN Q6HRS PRN 02/09/18 Reported Cetirizine Hcl 10 Mg Tablet 10 Mg PO DAILY 02/09/18 Reported Duoneb 0.5-3(2.5) Mg/3 Ml (Albuterol/Ipratropium) 3 Ml Ampul.neb 3 Ml NEB Q6HRS 02/09/18 Reported Proair Hfa Inhaler (Albuterol Sulfate) 8.5 Gm Hfa.aer.ad 1 Puff INH DAILY 02/09/18 Reported Eliquis (Apixaban) 5 Mg Tablet 5 Mg PO BID 12/12/17 Reported Nystatin Unknown Strength Powder 1 Keisha TOP PRN BID PRN 12/12/17 Reported Tessalon Perle (Benzonatate) 100 Mg Capsule 200 Mg PO PRN Q8HRS 12/29/16 Reported Prednisone (Prednisone) 10 Mg Tablet 10 Mg PO DAILY 11/28/16 Rx Take 50 mg (5 pills) daily for 2 days, then take 40 mg (4 pills) daily for 2 days, then take 30 mg (3 pills) daily for 2 days, then take 20 mg (2 pills) daily for 2 days, then take 10 mg for 2 days. Miralax (Polyethylene Glycol 3350) 17 Gm Powd.pack 17 Gm PO PRN DAILY PRN 03/08/16 Rx Oxycodone-Acetaminophen 5-325 (Oxycodone Hcl/Acetaminophen) 1 Each Tablet 1 Tab PO PRN Q4HRS PRN 03/08/16 Rx Levothyroxine Sodium 100 Mcg Tablet 1 Tab PO DAILY 03/05/16 Reported Lorazepam 1 Mg Tablet 1 Mg PO BID 12/02/15 Reported Ocuvite Tablet (Vit A,C & E/Lutein/Minerals) 1 Each Tablet 1 Each PO DAILY 10/23/15 Reported Vitamin D (Cholecalciferol (Vitamin D3)) 1,000 Unit Tablet 1,000 Unit PO DAILY 10/23/15 Reported Amlodipine Besylate 10 Mg Tablet 10 Mg PO DAILY 10/23/15 Reported Atorvastatin Calcium 10 Mg Tablet 1 Tab PO DAILY 10/23/15 Reported Impression . 1. Acute exacerbation of chronic obstructive pulmonary disease with diffuse bronchospasm. improved 2. Cough with yellow sputum production and likely left lower lobe pneumonia. Chest x-ray was a poor inspiratory effort with volume loss in the left lower lobe. 3. ABG adequate 4. Lower extremity cellulitis. 5. History of chronic hypoxic respiratory failure. Plan . 1. improving clinically 2. Continue present oxygen via nasal cannula for now. 3. Broaden the antibiotic to add Gram-negative coverage./ cefepime added by ID 4. Sputum for C and S. 5. Noncontrast CT chest 6. DuoNeb q. 4 hours along with Pulmicort nebs. 7. IV Solu-Medrol. 8. Eliquis per PCP. 9. We will follow along with you. Discussed with FRANKIE. ZOYA ACOSTA MD Mar 29, 2018 11:20
--- NOTE | 2018-03-29 14:45 | PDOC ---
PROGRESS NOTES Chief Complaint Chief Complaint sepsis cellulitis BLE COPD with acute bronchitis,, acute on chronic hypercarbic resp failure, tachypnea morbid obesity, BMI 51 weakness and debility mult drug allergies History of Present Illness History of Present Illness legs much improved today, pain improved still dyspneic, rales and cough Vitals Vitals Vital Signs Date Time Temp Pulse Resp B/P (MAP) Pulse Ox O2 Delivery O2 Flow Rate FiO2 03/29/18 11:19 95 Nasal Cannula 4.0 03/29/18 10:42 97.5 75 24 131/56 (81) 97.5 Physical Exam Physical Exam GENERAL: Awake female who is not in any distress, but does not appropriately respond. VITAL SIGNS: Stable, afebrile. HEENT: NAD. NECK: Supple, no JVP, no lymphadenopathy. LUNGS: Clear. HEART: S1, S2 regular. ABDOMEN: Benign. EXTREMITIES: No edema or cyanosis. She does have erythema of the right leg. The patient also has yeast infection in the groin. NEUROLOGIC: She does move all the extremities, able to communicate better General: Alert, Cooperative, mild distress, Other Lungs: Clear, Other (improved wheezing, gross rales, but parenchymal exam better than gross exam) Abdomen: Normal bowel sounds, Soft Extremities: No clubbing, Other (pain, redness, weakness) Skin: No rashes, No breakdown, Other (eryhema and pain both lower legs, most red behind right knee) Labs LABS Laboratory Tests Test 03/28/18 17:00 03/29/18 06:50 Stool Occult Blood Positive (NEG) White Blood Count 5.5 x10^3/uL (4.0-11.0) Red Blood Count 3.40 x10^6/uL (3.50-5.40) Hemoglobin 10.7 g/dL (12.0-15.5) Hematocrit 33.6 % (36.0-47.0) Mean Corpuscular Volume 99 fL (79-100) Mean Corpuscular Hemoglobin 32 pg (25-35) Mean Corpuscular Hemoglobin Concent 32 g/dL (31-37) Red Cell Distribution Width 16.2 % (11.5-14.5) Platelet Count 165 x10^3/uL (140-400) Neutrophils (%) (Auto) 89 % (31-73) Lymphocytes (%) (Auto) 7 % (24-48) Monocytes (%) (Auto) 3 % (0-9) Eosinophils (%) (Auto) 0 % (0-3) Basophils (%) (Auto) 0 % (0-3) Neutrophils # (Auto) 4.9 x10^3uL (1.8-7.7) Lymphocytes # (Auto) 0.4 x10^3/uL (1.0-4.8) Monocytes # (Auto) 0.2 x10^3/uL (0.0-1.1) Eosinophils # (Auto) 0.0 x10^3/uL (0.0-0.7) Basophils # (Auto) 0.0 x10^3/uL (0.0-0.2) Segmented Neutrophils % 89 % (35-66) Band Neutrophils % 3 % (0-9) Lymphocytes % 3 % (24-48) Atypical Lymphocytes % (Manual) 1 % (0-0) Monocytes % 4 % (0-10) Platelet Estimate Adequate (ADEQUATE) Anisocytosis Present Sodium Level 139 mmol/L (136-145) Potassium Level 4.1 mmol/L (3.5-5.1) Chloride Level 106 mmol/L (98-107) Carbon Dioxide Level 22 mmol/L (21-32) Anion Gap 11 (6-14) Blood Urea Nitrogen 14 mg/dL (7-20) Creatinine 1.0 mg/dL (0.6-1.0) Estimated GFR (Cockcroft-Gault) 52.3 BUN/Creatinine Ratio 14 (6-20) Glucose Level 171 mg/dL (70-99) Calcium Level 8.5 mg/dL (8.5-10.1) Total Bilirubin 0.8 mg/dL (0.2-1.0) Aspartate Amino Transf (AST/SGOT) 27 U/L (15-37) Alanine Aminotransferase (ALT/SGPT) 27 U/L (14-59) Alkaline Phosphatase 80 U/L (46-116) Total Protein 6.3 g/dL (6.4-8.2) Albumin 3.2 g/dL (3.4-5.0) Albumin/Globulin Ratio 1.0 (1.0-1.7) Assessment and Plan Assessmemt and Plan Problems Medical Problems: (1) Cellulitis of both lower extremities Status: Acute Comment Review of Relevant I have reviewed the following items wilmer (where applicable) has been applied. Labs Laboratory Tests Test 03/27/18 21:45 03/27/18 22:28 03/27/18 23:15 03/28/18 01:28 White Blood Count 8.2 x10^3/uL (4.0-11.0) Red Blood Count 3.42 x10^6/uL (3.50-5.40) Hemoglobin 11.1 g/dL (12.0-15.5) Hematocrit 32.9 % (36.0-47.0) Mean Corpuscular Volume 96 fL (79-100) Mean Corpuscular Hemoglobin 32 pg (25-35) Mean Corpuscular Hemoglobin Concent 34 g/dL (31-37) Red Cell Distribution Width 16.2 % (11.5-14.5) Platelet Count 195 x10^3/uL (140-400) Neutrophils (%) (Auto) 77 % (31-73) Lymphocytes (%) (Auto) 9 % (24-48) Monocytes (%) (Auto) 11 % (0-9) Eosinophils (%) (Auto) 2 % (0-3) Basophils (%) (Auto) 1 % (0-3) Neutrophils # (Auto) 6.4 x10^3uL (1.8-7.7) Lymphocytes # (Auto) 0.7 x10^3/uL (1.0-4.8) Monocytes # (Auto) 0.9 x10^3/uL (0.0-1.1) Eosinophils # (Auto) 0.1 x10^3/uL (0.0-0.7) Basophils # (Auto) 0.1 x10^3/uL (0.0-0.2) Prothrombin Time 18.6 SEC (11.7-14.0) Prothromb Time International Ratio 1.6 (0.8-1.1) Lactic Acid Level 1.5 mmol/L (0.4-2.0) Sodium Level 143 mmol/L (136-145) Potassium Level 4.1 mmol/L (3.5-5.1) Chloride Level 104 mmol/L (98-107) Carbon Dioxide Level 28 mmol/L (21-32) Anion Gap 11 (6-14) Blood Urea Nitrogen 10 mg/dL (7-20) Creatinine 0.9 mg/dL (0.6-1.0) Estimated GFR (Cockcroft-Gault) 59.1 BUN/Creatinine Ratio 11 (6-20) Glucose Level 113 mg/dL (70-99) Calcium Level 9.3 mg/dL (8.5-10.1) Total Bilirubin 1.3 mg/dL (0.2-1.0) Aspartate Amino Transf (AST/SGOT) 15 U/L (15-37) Alanine Aminotransferase (ALT/SGPT) 21 U/L (14-59) Alkaline Phosphatase 79 U/L (46-116) Total Protein 6.5 g/dL (6.4-8.2) Albumin 3.2 g/dL (3.4-5.0) Albumin/Globulin Ratio 1.0 (1.0-1.7) Procalcitonin < 0.10 ng/mL (0.00-0.10) Urine Collection Type U cath Urine Color Aniyah Urine Clarity Clear Urine pH 5.0 Urine Specific Milton >=1.030 Urine Protein 30 mg/dL (NEG-TRACE) Urine Glucose (UA) Negative mg/dL (NEG) Urine Ketones (Stick) Trace mg/dL (NEG) Urine Blood Negative (NEG) Urine Nitrite Negative (NEG) Urine Bilirubin Negative (NEG) Urine Urobilinogen Dipstick 0.2 mg/dL (0.2 mg/dL) Urine Leukocyte Esterase Small (NEG) Urine RBC 0 /HPF (0-2) Urine WBC 5-10 /HPF (0-4) Urine Squamous Epithelial Cells Few /LPF Urine Bacteria Few /HPF (0-FEW) Urine Hyaline Casts Few /HPF Urine Mucus Mod /LPF Nasal Screen MRSA (PCR) Positive (Negative) Test 03/28/18 11:40 03/28/18 17:00 03/29/18 06:50 O2 Saturation 93 % (92-99) Arterial Blood pH 7.40 (7.35-7.45) Arterial Blood pCO2 at Patient Temp 45 mmHg (35-46) Arterial Blood pO2 at Patient Temp 72 mmHg (65-108) Arterial Blood HCO3 27 mmol/L (21-28) Arterial Blood Base Excess 2 mmol/L (-3-3) FiO2 32.0 Stool Occult Blood Positive (NEG) White Blood Count 5.5 x10^3/uL (4.0-11.0) Red Blood Count 3.40 x10^6/uL (3.50-5.40) Hemoglobin 10.7 g/dL (12.0-15.5) Hematocrit 33.6 % (36.0-47.0) Mean Corpuscular Volume 99 fL (79-100) Mean Corpuscular Hemoglobin 32 pg (25-35) Mean Corpuscular Hemoglobin Concent 32 g/dL (31-37) Red Cell Distribution Width 16.2 % (11.5-14.5) Platelet Count 165 x10^3/uL (140-400) Neutrophils (%) (Auto) 89 % (31-73) Lymphocytes (%) (Auto) 7 % (24-48) Monocytes (%) (Auto) 3 % (0-9) Eosinophils (%) (Auto) 0 % (0-3) Basophils (%) (Auto) 0 % (0-3) Neutrophils # (Auto) 4.9 x10^3uL (1.8-7.7) Lymphocytes # (Auto) 0.4 x10^3/uL (1.0-4.8) Monocytes # (Auto) 0.2 x10^3/uL (0.0-1.1) Eosinophils # (Auto) 0.0 x10^3/uL (0.0-0.7) Basophils # (Auto) 0.0 x10^3/uL (0.0-0.2) Segmented Neutrophils % 89 % (35-66) Band Neutrophils % 3 % (0-9) Lymphocytes % 3 % (24-48) Atypical Lymphocytes % (Manual) 1 % (0-0) Monocytes % 4 % (0-10) Platelet Estimate Adequate (ADEQUATE) Anisocytosis Present Sodium Level 139 mmol/L (136-145) Potassium Level 4.1 mmol/L (3.5-5.1) Chloride Level 106 mmol/L (98-107) Carbon Dioxide Level 22 mmol/L (21-32) Anion Gap 11 (6-14) Blood Urea Nitrogen 14 mg/dL (7-20) Creatinine 1.0 mg/dL (0.6-1.0) Estimated GFR (Cockcroft-Gault) 52.3 BUN/Creatinine Ratio 14 (6-20) Glucose Level 171 mg/dL (70-99) Calcium Level 8.5 mg/dL (8.5-10.1) Total Bilirubin 0.8 mg/dL (0.2-1.0) Aspartate Amino Transf (AST/SGOT) 27 U/L (15-37) Alanine Aminotransferase (ALT/SGPT) 27 U/L (14-59) Alkaline Phosphatase 80 U/L (46-116) Total Protein 6.3 g/dL (6.4-8.2) Albumin 3.2 g/dL (3.4-5.0) Albumin/Globulin Ratio 1.0 (1.0-1.7) Laboratory Tests Test 03/28/18 17:00 03/29/18 06:50 Stool Occult Blood Positive (NEG) White Blood Count 5.5 x10^3/uL (4.0-11.0) Red Blood Count 3.40 x10^6/uL (3.50-5.40) Hemoglobin 10.7 g/dL (12.0-15.5) Hematocrit 33.6 % (36.0-47.0) Mean Corpuscular Volume 99 fL (79-100) Mean Corpuscular Hemoglobin 32 pg (25-35) Mean Corpuscular Hemoglobin Concent 32 g/dL (31-37) Red Cell Distribution Width 16.2 % (11.5-14.5) Platelet Count 165 x10^3/uL (140-400) Neutrophils (%) (Auto) 89 % (31-73) Lymphocytes (%) (Auto) 7 % (24-48) Monocytes (%) (Auto) 3 % (0-9) Eosinophils (%) (Auto) 0 % (0-3) Basophils (%) (Auto) 0 % (0-3) Neutrophils # (Auto) 4.9 x10^3uL (1.8-7.7) Lymphocytes # (Auto) 0.4 x10^3/uL (1.0-4.8) Monocytes # (Auto) 0.2 x10^3/uL (0.0-1.1) Eosinophils # (Auto) 0.0 x10^3/uL (0.0-0.7) Basophils # (Auto) 0.0 x10^3/uL (0.0-0.2) Segmented Neutrophils % 89 % (35-66) Band Neutrophils % 3 % (0-9) Lymphocytes % 3 % (24-48) Atypical Lymphocytes % (Manual) 1 % (0-0) Monocytes % 4 % (0-10) Platelet Estimate Adequate (ADEQUATE) Anisocytosis Present Sodium Level 139 mmol/L (136-145) Potassium Level 4.1 mmol/L (3.5-5.1) Chloride Level 106 mmol/L (98-107) Carbon Dioxide Level 22 mmol/L (21-32) Anion Gap 11 (6-14) Blood Urea Nitrogen 14 mg/dL (7-20) Creatinine 1.0 mg/dL (0.6-1.0) Estimated GFR (Cockcroft-Gault) 52.3 BUN/Creatinine Ratio 14 (6-20) Glucose Level 171 mg/dL (70-99) Calcium Level 8.5 mg/dL (8.5-10.1) Total Bilirubin 0.8 mg/dL (0.2-1.0) Aspartate Amino Transf (AST/SGOT) 27 U/L (15-37) Alanine Aminotransferase (ALT/SGPT) 27 U/L (14-59) Alkaline Phosphatase 80 U/L (46-116) Total Protein 6.3 g/dL (6.4-8.2) Albumin 3.2 g/dL (3.4-5.0) Albumin/Globulin Ratio 1.0 (1.0-1.7) Microbiology 03/27/18 Blood Culture - Preliminary, Resulted NO GROWTH AFTER 1 DAY Medications Current Medications Sodium Chloride 1,000 ml @ 1,000 mls/hr Q1H IV Last administered on 03/27/18at 22:43; Start 03/27/18 at 22:30; Stop 03/27/18 at 23:51; Status DC Albuterol/ Ipratropium (Duoneb) 3 ml 1X ONCE NEB Last administered on at 22:30; Start 03/27/18 at 22:30; Stop 03/27/18 at 22:31; Status DC Vancomycin HCl (Vanco Per Pharmacy) 1 each PRN DAILY PRN MC SEE COMMENTS Last administered on 03/28/18at 10:57; Start 03/28/18 at 00:15 Sodium Chloride 1,000 ml @ 75 mls/hr [id number] IV Last administered on at 15:26; Start 03/28/18 at 00:01; Stop 03/29/18 at 00:00; Status DC Albuterol/ Ipratropium (Duoneb) 3 ml RTQID NEB Last administered on 03/28/18at 07:43; Start 03/28/18 at 08:00; Stop 03/28/18 at 09:00; Status DC Vancomycin HCl 2 gm/Sodium Chloride 500 ml @ 250 mls/hr 1X ONCE IV Last administered on 03/28/18at 00:55; Start 03/28/18 at 00:30; Stop 03/28/18 at 02:29 ; Status DC Vancomycin HCl 1.5 gm/Sodium Chloride 500 ml @ 250 mls/hr Q24H IV Last administered on 03/29/18at 01:11; Start 03/29/18 at 01:00 Vancomycin HCl (Vancomycin Trough Level) 1 each 1X ONCE MC ; Start 03/30/18 at 00:30; Stop 03/30/18 at 00:31 Amlodipine Besylate (Norvasc) 10 mg DAILY PO Last administered on 03/29/18at 08: 36; Start 03/28/18 at 09:00 Apixaban (Eliquis) 5 mg BID PO Last administered on 03/28/18at 21:00; Start 03/28/18 at 09:00 Atorvastatin Calcium (Lipitor) 10 mg QHS PO Last administered on 03/28/18at 21: 00; Start 03/28/18 at 21:00 Cetirizine HCl (ZyrTEC) 10 mg DAILY PO Last administered on 03/29/18 08:34; Start 03/28/18 at 09:00 Vitamin D (Vitamin D3) 1,000 unit DAILY PO Last administered on 03/29/18at 08:33 ; Start 03/28/18 at 09:00 Diclofenac Sodium (Voltaren) 1 keisha PRN Q6HRS PRN TP Joint PAIN; Start 03/28/18 at 08:45 Furosemide (Lasix) 20 mg BID92 PO Last administered on 03/29/18at 08:37; Start 03/28/18 at 09:00 Guaifenesin (Mucinex) 600 mg BID PO Last administered on 03/29/18 08:34; Start 03/28/18 at 09:00 Albuterol/ Ipratropium (Duoneb) 3 ml Q6HRS NEB ; Start 03/28/18 at 08:45; Stop 03/28/18 at 09:13; Status DC Levothyroxine Sodium (Synthroid) 100 mcg DAILY07 PO Last administered on 08:35; Start 03/28/18 at 10:30 Lorazepam (Ativan) 1 mg BID PO Last administered on 03/29/18 08:37; Start 03/28/18 at 09:00 Oxycodone/ Acetaminophen (Percocet 5/325) 1 tab PRN Q4HRS PRN PO MODERATE TO SEVERE PAIN; Start 03/28/18 at 08:45 Potassium Chloride (Klor-Con) 20 meq DAILYWBKFT PO Last administered on at 08:36; Start 03/28/18 at 09:00 Prednisone (Prednisone) 10 mg DAILY PO Last administered on 03/28/18 09:29; Start 03/28/18 at 09:00; Stop 03/28/18 at 11:14; Status DC Senna/Docusate Sodium (Senna Plus) 1 tab BID PO Last administered on 03/29/18 08:33; Start 03/28/18 at 09:00 Multivitamins/ Minerals (I-Oscar) 1 tab DAILY PO Last administered on 03/29/18 08:33; Start 03/28/18 at 09:00 Non-Formulary Medication (Albuterol Sulfate (Proair Hfa Inhaler)) 1 puff DAILY INH ; Start 03/28/18 at 09:00; Status UNV Benzonatate (Tessalon Perle) 200 mg PRN Q8HRS PRN PO COUGH 2ND CHOICE Last administered on 03/29/18at 03:16; Start 03/28/18 at 14:00 Non-Formulary Medication (Fluticasone/ Salmeterol (Advair 250-50 Diskus)) 1 inh BID IH ; Start 03/28/18 at 09:00; Status UNV Lidocaine (Lidoderm) 1 patch PRN DAILY PRN TD PAIN; Start 03/28/18 at 10:00 Polyethylene Glycol (miraLAX PACKET) 17 gm PRN DAILY PRN PO CONSTIPATION 1ST CHOICE; Start 03/28/18 at 09:00 Famotidine (Pepcid) 20 mg DAILY PO Last administered on 03/29/18 08:34; Start 03/28/18 at 10:00 Albuterol/ Ipratropium (Duoneb) 3 ml Q4HRS W/A NEB Last administered on 11:34; Start 03/28/18 at 10:00; Stop 03/28/18 at 14:51; Status DC Methylprednisolone Sodium Succinate (SOLU-Medrol 40MG VIAL) 40 mg 1X ONCE IV Last administered on 03/28/18 09:27; Start 03/28/18 at 08:45; Stop 03/28/18 at 09:12; Status DC Throat Lozenges (Cepacol Sore Throat Lozenge) 1 mai PRN Q2HRS PRN PO SORE THROAT; Start 03/28/18 at 08:45 Guaifenesin (Robitussin Dm) 10 ml PRN Q6HRS PRN PO COUGH 1ST CHOICE Last administered on 03/28/18 09:29; Start 03/28/18 at 08:45 Info (Anti-Coagulation Monitoring By Pharmacy) 1 each PRN DAILY PRN MC SEE COMMENTS Last administered on 03/28/18 11:04; Start 03/28/18 at 09:15 Miscellaneous (Lidoderm Patch Removal) 1 ea QHS MC Last administered on 21:00; Start 03/28/18 at 21:00 Budesonide (Pulmicort) 0.5 mg RTBID NEB Last administered on 03/29/18 07:28; Start 03/28/18 at 10:00 Albuterol Sulfate (Ventolin Neb Soln) 2.5 mg DAILY NEB ; Start 03/28/18 at 10:00 ; Stop 03/28/18 at 14:51; Status DC Methylprednisolone Sodium Succinate (SOLU-Medrol 125MG VIAL) 60 mg Q8HRS IV Last administered on 03/29/18 08:33; Start 03/28/18 at 12:00 Doxycycline Hyclate 100 mg/ Dextrose 100 ml @ 50 mls/hr Q12HR IV ; Start at 12:00; Stop 03/28/18 at 12:11; Status DC Nystatin (Nystop) 1 keisha BID TP Last administered on 03/29/18at 08:37; Start 03/28/18 at 21:00 Cefepime HCl 1 gm/ Dextrose 50 ml @ 100 mls/hr Q8HRS IV ; Start 03/28/18 at 14: 00; Status UNV Fluconazole (Diflucan) 200 mg DAILY PO Last administered on 03/29/18at 08:35; Start 03/28/18 at 12:30 Cefepime HCl (Maxipime) 1 gm Q8HRS IVP Last administered on 03/29/18at 08:32; Start 03/28/18 at 14:00 Lactobacillus Rhamnosus (Culturelle) 1 cap BID PO Last administered on at 08:34; Start 03/28/18 at 21:00 Albuterol/ Ipratropium (Duoneb) 3 ml Q4HRS NEB Last administered on 03/29/18at 11:18; Start 03/28/18 at 16:00 Psyllium Hydrophilic Mucilloid (Metamucil Fiber Packet) 1 pkt DAILY PO Last administered on 03/28/18at 19:00; Start 03/28/18 at 19:00 Active Scripts Active Klor-Con M20 (Potassium Chloride) 20 Meq Tab.er.prt 20 Meq PO DAILYWBKFT 30 Days Furosemide 20 Mg Tablet 20 Mg PO BID92 30 Days Prednisone (Prednisone) 10 Mg Tablet 10 Mg PO DAILY Take 50 mg (5 pills) daily for 2 days, then take 40 mg (4 pills) daily for 2 days, then take 30 mg (3 pills) daily for 2 days, then take 20 mg (2 pills) daily for 2 days, then take 10 mg for 2 days. Miralax (Polyethylene Glycol 3350) 17 Gm Powd.pack 17 Gm PO PRN DAILY PRN Oxycodone-Acetaminophen 5-325 (Oxycodone Hcl/Acetaminophen) 1 Each Tablet 1 Tab PO PRN Q4HRS PRN Reported Ranitidine Hcl 150 Mg Tablet 150 Mg PO DAILY Lidopatch (Lidocaine/Menthol) 1 Each Adh..patch 1 Patch TP PRN DAILY PRN Guaifenesin 600 Mg Tablet.er 600 Mg PO BID Advair 250-50 Diskus (Fluticasone/Salmeterol) 1 Each Disk.w.dev 1 Inh IH BID Senna-Docusate Sodium Tablet (Sennosides/Docusate Sodium) 1 Each Tablet 1 Tab PO BID Voltaren (Diclofenac Sodium) 100 Gm Gel..gram. 4 Gm TP PRN Q6HRS PRN Cetirizine Hcl 10 Mg Tablet 10 Mg PO DAILY Duoneb 0.5-3(2.5) Mg/3 Ml (Albuterol/Ipratropium) 3 Ml Ampul.neb 3 Ml NEB Q6HRS Proair Hfa Inhaler (Albuterol Sulfate) 8.5 Gm Hfa.aer.ad 1 Puff INH DAILY Eliquis (Apixaban) 5 Mg Tablet 5 Mg PO BID Nystatin Unknown Strength Powder 1 Keisha TOP PRN BID PRN Tessalon Perle (Benzonatate) 100 Mg Capsule 200 Mg PO PRN Q8HRS Levothyroxine Sodium 100 Mcg Tablet 1 Tab PO DAILY Lorazepam 1 Mg Tablet 1 Mg PO BID Ocuvite Tablet (Vit A,C & E/Lutein/Minerals) 1 Each Tablet 1 Each PO DAILY Vitamin D (Cholecalciferol (Vitamin D3)) 1,000 Unit Tablet 1,000 Unit PO DAILY Amlodipine Besylate 10 Mg Tablet 10 Mg PO DAILY Atorvastatin Calcium 10 Mg Tablet 1 Tab PO DAILY Vitals/I & O Vital Sign - Last 24 Hours 03/28/18 03/28/18 03/28/18 03/28/18 15:00 15:39 19:00 20:00 Temp 97.8 97.5 97.8 97.5 Pulse 78 77 Resp 16 18 B/P (MAP) 150/48 (82) 153/69 (97) Pulse Ox 91 90 O2 Delivery Room Air Nasal Cannula Room Air Nasal Cannula O2 Flow Rate 3.0 3.0 03/28/18 03/28/18 03/28/18 03/29/18 20:10 23:00 23:37 03:00 Temp 97.5 98.0 97.5 98.0 Pulse 74 72 Resp 18 18 B/P (MAP) 128/62 (84) 145/68 (93) Pulse Ox 94 93 94 91 O2 Delivery Nasal Cannula Room Air Nasal Cannula Room Air O2 Flow Rate 3.0 3.0 03/29/18 03/29/18 03/29/18 03/29/18 03:57 07:00 07:29 08:00 Temp 97.5 97.5 Pulse 83 Resp 28 B/P (MAP) 145/58 (87) Pulse Ox 89 92 O2 Delivery Nasal Cannula Nasal Cannula Nasal Cannula Nasal Cannula O2 Flow Rate 3.0 4.0 4.0 3.0 03/29/18 03/29/18 03/29/18 08:36 10:42 11:19 Temp 97.5 97.5 Pulse 83 75 Resp 24 B/P (MAP) 145/58 131/56 (81) Pulse Ox 94 95 O2 Delivery Nasal Cannula Nasal Cannula O2 Flow Rate 4.0 4.0 ABBY CARRINGTON MD Mar 29, 2018 14:45
--- NOTE | 2018-03-29 14:45 | PDOC2 ---
GI CONSULT Reason For Consult: Bright red blood per rectum HPI: HPI: 87 y/o female who we have seen in the past. Admitted w/ RLE cellulitis, possible pneumonia, and encephalopathy. Per RN, overnight and this morning had formed stool surrounded by red blood w/ blood also noted in brief. The patient doesn't recall this. On Eliquis which has been held today. Tolerating PO. Hgb remains stable. Similar symptoms in October of this year - attributed to hemorrhoids/perianal excoriations. H/o GERD/presbyesophagus, questionable h/o PUD, previous H. pylori biopsies negative. Last colonoscopy in 2011 small adenomas and diverticulosis. S/p cholecystectomy. Suspected [facility]'s last admission. No pancreas history. PMH: PMH: VHD, ASHD, A Fib, HTN, COPD, SACHA, morbid obesity, OA, skin cancers, valve replacement, CABG, PPMI, reduction mammoplasties, hysterectomy, left knee surgery, excision of skin cancers FH: Family History: Cancer Social History: Smoke: No ALCOHOL: none Drugs: None ROS: Difficult to obtain. Admits SOB, denies pain. Vitals: Vitals: Vital Signs Date Time Temp Pulse Resp B/P (MAP) Pulse Ox O2 Delivery O2 Flow Rate FiO2 03/29/18 11:19 95 Nasal Cannula 4.0 03/29/18 10:42 97.5 75 24 131/56 (81) 97.5 Labs: Labs: Laboratory Tests Test 03/28/18 17:00 03/29/18 06:50 Stool Occult Blood Positive (NEG) White Blood Count 5.5 x10^3/uL (4.0-11.0) Red Blood Count 3.40 x10^6/uL (3.50-5.40) Hemoglobin 10.7 g/dL (12.0-15.5) Hematocrit 33.6 % (36.0-47.0) Mean Corpuscular Volume 99 fL (79-100) Mean Corpuscular Hemoglobin 32 pg (25-35) Mean Corpuscular Hemoglobin Concent 32 g/dL (31-37) Red Cell Distribution Width 16.2 % (11.5-14.5) Platelet Count 165 x10^3/uL (140-400) Neutrophils (%) (Auto) 89 % (31-73) Lymphocytes (%) (Auto) 7 % (24-48) Monocytes (%) (Auto) 3 % (0-9) Eosinophils (%) (Auto) 0 % (0-3) Basophils (%) (Auto) 0 % (0-3) Neutrophils # (Auto) 4.9 x10^3uL (1.8-7.7) Lymphocytes # (Auto) 0.4 x10^3/uL (1.0-4.8) Monocytes # (Auto) 0.2 x10^3/uL (0.0-1.1) Eosinophils # (Auto) 0.0 x10^3/uL (0.0-0.7) Basophils # (Auto) 0.0 x10^3/uL (0.0-0.2) Segmented Neutrophils % 89 % (35-66) Band Neutrophils % 3 % (0-9) Lymphocytes % 3 % (24-48) Atypical Lymphocytes % (Manual) 1 % (0-0) Monocytes % 4 % (0-10) Platelet Estimate Adequate (ADEQUATE) Anisocytosis Present Sodium Level 139 mmol/L (136-145) Potassium Level 4.1 mmol/L (3.5-5.1) Chloride Level 106 mmol/L (98-107) Carbon Dioxide Level 22 mmol/L (21-32) Anion Gap 11 (6-14) Blood Urea Nitrogen 14 mg/dL (7-20) Creatinine 1.0 mg/dL (0.6-1.0) Estimated GFR (Cockcroft-Gault) 52.3 BUN/Creatinine Ratio 14 (6-20) Glucose Level 171 mg/dL (70-99) Calcium Level 8.5 mg/dL (8.5-10.1) Total Bilirubin 0.8 mg/dL (0.2-1.0) Aspartate Amino Transf (AST/SGOT) 27 U/L (15-37) Alanine Aminotransferase (ALT/SGPT) 27 U/L (14-59) Alkaline Phosphatase 80 U/L (46-116) Total Protein 6.3 g/dL (6.4-8.2) Albumin 3.2 g/dL (3.4-5.0) Albumin/Globulin Ratio 1.0 (1.0-1.7) Allergies: Coded Allergies: Iodine and Iodide Containing Produc (Verified Allergy, Intermediate, Hives , 04/12/17) Penicillins (Verified Allergy, Intermediate, Rash, TOLERATES ROCEPHIN, ) bacitracin (Verified Allergy, Intermediate, 04/12/17) codeine (Verified Allergy, Intermediate, Hives, 04/12/17) cyclobenzaprine (Verified Allergy, Intermediate, 04/12/17) erythromycin base (Verified Allergy, Intermediate, Hives, 04/12/17) ethyl alcohol (Verified Allergy, Intermediate, 04/12/17) mold (Verified Allergy, Intermediate, 04/12/17) moxifloxacin (Verified Allergy, Intermediate, Hives, 04/12/17) neomycin (Verified Allergy, Intermediate, 04/12/17) polymyxin B (Verified Allergy, Intermediate, 04/12/17) I S O L A T I O N *CONTACT* (Verified Allergy, Unknown, 12/13/17) mrsa Medications: Current Medications Medications (Trade) Dose Ordered Sig/Rhiannon Route PRN Reason Start Time Stop Time Status Last Admin Dose Admin Vancomycin HCl 1.5 gm/Sodium Chloride 500 ml @ 250 mls/hr Q24H IV 03/29/18 01:00 03/29/18 01:11 Atorvastatin Calcium (Lipitor) 10 mg QHS PO 03/28/18 21:00 03/28/18 21:00 Miscellaneous (Lidoderm Patch Removal) 1 ea QHS MC 03/28/18 21:00 03/28/18 21:00 Nystatin (Nystop) 1 natasha BID TP 03/28/18 21:00 03/29/18 08:37 Lactobacillus Rhamnosus (Culturelle) 1 cap BID PO 03/28/18 21:00 03/29/18 08:34 Albuterol/ Ipratropium (Duoneb) 3 ml Q4HRS NEB 03/28/18 16:00 03/29/18 11:18 Psyllium Hydrophilic Mucilloid (Metamucil Fiber Packet) 1 pkt DAILY PO 03/28/18 19:00 03/28/18 19:00 Imaging: Imaging: CXR Impression: Left midlung subsegmental atelectasis. Chest CT (pending) PE: GEN: NAD HEENT: Atraumatic, PERRL LUNGS: diminished, NC, some wheezing HEART: RR +murm ABD: NABS, S/ND, vague BLQ discomfort EXTREMITY/SKIN: RLE erythema NEURO/PSYCH: confused A/P: A/P: ?pneumonia, RLE cellulitis, encephalopathy Rectal bleeding - around stools, in brief GERD, ?h/o PUD, presbyesophagus CRC screen, h/o adenomatous polyps - last in 2011 Diverticulosis S/p cholecystectomy Suspected Gilbert's in the past -- Similar bleeding in the past - ?hemorrhoids - with stable Hgb, would observe. Continue acid-car customizer - has Pepcid ordered. JERALD KAUFFMAN Mar 29, 2018 14:45
[2018-03-29 14:50] LABS: HEMATOCRIT 31.3 % (36.0-47.0); HEMOGLOBIN 10.4 g/dL (12.0-15.5); RED BLOOD COUNT 3.21 x10^6/uL (3.50-5.40); WHITE BLOOD COUNT 8.5 x10^3/uL (4.0-11.0)
[2018-03-29 15:06] VITALS: BP 140/81
--- NOTE | 2018-03-29 15:39 | RAD ---
CT of the chest without contrast, 03/29/2018: HISTORY: Pneumonia Noncontrast scans were obtained as requested and compared to a study from 09/02/2015. The depth of inspiration is not as good as on the prior study. This is probably causing relative narrowing of the main bronchi bilaterally compared to the previous study. There is moderate atelectasis in the left lower lobe. There is minimal dependent atelectasis medially in the right lower lobe. There are a few scattered linear parenchymal scars. The upper lobes are clear. There is a suggestion of a small amount of pleural fluid posteromedially in the left lung base. There has been a previous median sternotomy. Epicardial pacing leads remain in place. The heart is generally enlarged. There is moderate calcific plaquing of the thoracic aorta without evidence of aneurysm. Extensive coronary artery calcification is present. No mediastinal adenopathy is seen.There are scattered spurs in the spine. A moderate vertebral compression fracture at L1 appears new since radiographs from 12/05/2017. IMPRESSION: 1. Cardiomegaly with extensive coronary artery calcifications. 2. Moderate left lower lobe atelectasis. A component of pneumonia cannot be excluded. 3. New L1 vertebral compression fracture. PQRS Compliance Statement: One or more of the following individualized dose reduction techniques were utilized for this examination: 1. Automated exposure control 2. Adjustment of the mA and/or kV according to patient size 3. Use of iterative reconstruction technique Electronically signed by: Junito Palomares MD (03/29/2018 3:35 PM) [facility]
[2018-03-29] MEDS: VANCOMYCIN PER PHARMACY MC PRN (18:55)
[2018-03-29 19:30] VITALS: BP 141/50
[2018-03-29] MEDS ORDERED: ALBUTEROL SULFATE 2.5 MG/3 ML NEBU. NEB PRN (20:15)
[2018-03-29] MEDS: ATORVASTATIN CALCIUM 10 MG TABLET. PO SCH (20:53)
[2018-03-29] MEDS: HALOPERIDOL 2 MG TABLET. PO PRN (20:53)
[2018-03-29] MEDS: PATCH REMOVAL. MC SCH (20:56)
[2018-03-29 23:00] VITALS: BP 143/79
[2018-03-30] MEDS: IPRATRPIUM/ALBUTEROL 0.5/2.5MG 3 ML NEBU. NEB SCH ×7 (00:51→23:02)
[2018-03-30 01:04] LABS: VANC TR 19.5 mcg/mL (10.0-20.0)
[2018-03-30] MEDS: VANCOMYCIN PER PHARMACY MC PRN ×2 (01:29→15:24)
[2018-03-30 02:21] VITALS: BP 148/55
[2018-03-30] MEDS: VANCOMYCIN 1.5 GM in IV NORMAL SALINE 500ML BAG 500 ML IV SCH (05:00)
[2018-03-30] MEDS: HALOPERIDOL 2 MG TABLET. PO PRN (05:01)
[2018-03-30 05:17] LABS: BASO % 0 % (0-3); EOS % 0 % (0-3); HEMATOCRIT 29.7 % (36.0-47.0); LYMPH # 0.5 x10^3/uL (1.0-4.8); LYMPH % 5 % (24-48); MEAN CORPUSCULAR HEMOGLOBIN 33 pg (25-35); MEAN CORPUSCULAR HGB CONC 34 g/dL (31-37); MEAN CORPUSCULAR VOLUME 97 fL (79-100); MONO # 0.6 x10^3/uL (0.0-1.1); MONO % 6 % (0-9); NEUT # 9.5 x10^3uL (1.8-7.7); NEUT % 89 % (31-73); PLATELET COUNT 202 x10^3/uL (140-400); RED BLOOD COUNT 3.06 x10^6/uL (3.50-5.40); RED CELL DISTRIBUTION WIDTH 16.3 % (11.5-14.5); WHITE BLOOD COUNT 10.6 x10^3/uL (4.0-11.0)
[2018-03-30 05:35] LABS: ALBUMIN 3.1 g/dL (3.4-5.0); CALCIUM 8.5 mg/dL (8.5-10.1); GFR 52.3; POTASSIUM 3.7 mmol/L (3.5-5.1); TOTAL BILIRUBIN 0.8 mg/dL (0.2-1.0); TOTAL PROTEIN 6.3 g/dL (6.4-8.2)
[2018-03-30] MEDS: methylPREDNISolone SOD SUCC PF 125 MG/2 ML VIAL. IV SCH ×3 (06:00→22:03)
[2018-03-30] MEDS: CEFEPIME HCL IV Push 1 GM VIAL. IVP SCH ×3 (06:00→22:05)
[2018-03-30 06:02] LABS: BASE EXCESS ABG -4 mmol/L (-3-3); HCO3 ABG 21 mmol/L (21-28); PCO2 ABG 39 mmHg (35-46); PO2 ABG 67 mmHg (65-108); SAT O2 ABG 91 % (92-99)
[2018-03-30 06:12] LABS: FIO2 ABG 50
--- NOTE | 2018-03-30 06:37 | RAD ---
INDICATION: decreased o2 sats COMPARISON: March 29, 2018 FINDINGS: Single view of chest obtained. Repeat demonstration of enlarged cardiomediastinal silhouette, moderate to severe. Poststernotomy changes. Hypoexpanded lungs. The left lung base is obscured secondary to overlying cardiac silhouette. Interstitial opacities bilaterally which appears slightly increased from prior IMPRESSION: 1. Interstitial opacities bilaterally which appears slightly increased from prior. Could be secondary to edema or interstitial infiltrate. 2. Repeat repeat demonstration of enlargement of the cardiomediastinal silhouette. 3. Please note that the left lung base is obscured and cannot assess for interval change in the region of consolidation seen on CT from one day prior. Electronically signed by: Farooq Fuentes MD (03/30/2018 6:32 AM) [facility]
[2018-03-30] MEDS ORDERED: FUROSEMIDE 40 MG/4 ML VIAL. IVP ONE (07:00)
[2018-03-30] MEDS ORDERED: HALOPERIDOL LACTATE 5 MG/ML VIAL. IVP ONE ×3 (07:00→13:30)
[2018-03-30 07:30] VITALS: BP 133/62
[2018-03-30] MEDS: LEVOTHYROXINE 100 MCG TABLET PO SCH (07:45)
[2018-03-30] MEDS: POTASSIUM CHLORIDE 20 MEQ TABLET.ER. PO SCH (07:46)
[2018-03-30] MEDS: BUDESONIDE 0.5 MG/2 ML NEBU. NEB SCH ×2 (08:47→19:30)
[2018-03-30] MEDS: PSYLLIUM HUSK (SUGAR FREE) 1 PKT PACKET PO SCH (09:00)
[2018-03-30] MEDS: MULTIVITAMIN I-VITE TABLET. PO SCH (09:00)
[2018-03-30] MEDS: APIXABAN 5 MG TABLET. PO SCH (09:00)
[2018-03-30] MEDS: FAMOTIDINE 20 MG TABLET. PO SCH (09:00)
[2018-03-30] MEDS: CETIRIZINE HCL 10 MG TABLET. PO SCH (09:00)
[2018-03-30] MEDS: LACTOBACILLUS RHAMNOSUS GG 1 CAPSULE. PO SCH (09:00)
[2018-03-30] MEDS: FLUCONAZOLE 100 MG TABLET. PO SCH (09:00)
[2018-03-30] MEDS: FUROSEMIDE 20 MG TABLET PO SCH ×2 (09:00→13:35)
[2018-03-30] MEDS: amLODIPine BESYLATE 10 MG TABLET PO SCH (09:00)
[2018-03-30] MEDS: LORazepam 1 MG TABLET PO SCH ×2 (09:00→21:00)
[2018-03-30] MEDS: SENNOSIDES/DOCUSATE 8.6/50MG TABLET. PO SCH ×2 (09:00→21:00)
[2018-03-30] MEDS: CHOLECALCIFEROL (VITAMIN D3) 1,000 UNIT TABLET PO SCH (09:00)
--- NOTE | 2018-03-30 09:29 | PDOC ---
Infectious Disease Note Subjective Subjective pt is talking better, cough + sob +, on cpap ROS ROS no n/v/d/fever Vital Sign Vital Signs Vital Signs Date Time Temp Pulse Resp B/P (MAP) Pulse Ox O2 Delivery O2 Flow Rate FiO2 03/30/18 09:14 15.0 03/30/18 08:43 92 Venturi Mask 03/30/18 07:30 97.7 77 24 133/62 (85) 97.7 Physical Exam PHYSICAL EXAM GENERAL: Awake female who is in mild distress, but does not appropriately respond. VITAL SIGNS: Stable, afebrile. HEENT: NAD. NECK: Supple, no JVP, no lymphadenopathy. LUNGS: Clear. HEART: S1, S2 regular. ABDOMEN: Benign. EXTREMITIES: No edema or cyanosis. She does have erythema of the right leg. The patient also has yeast infection in the groin. NEUROLOGIC: She does move all the extremities, able to communicate better Labs Lab Laboratory Tests Test 03/29/18 14:30 03/30/18 00:30 03/30/18 04:30 03/30/18 05:53 White Blood Count 8.5 x10^3/uL (4.0-11.0) 10.6 x10^3/uL (4.0-11.0) Red Blood Count 3.21 x10^6/uL (3.50-5.40) 3.06 x10^6/uL (3.50-5.40) Hemoglobin 10.4 g/dL (12.0-15.5) 10.0 g/dL (12.0-15.5) Hematocrit 31.3 % (36.0-47.0) 29.7 % (36.0-47.0) Mean Corpuscular Volume 97 fL (79-100) 97 fL (79-100) Mean Corpuscular Hemoglobin 32 pg (25-35) 33 pg (25-35) Mean Corpuscular Hemoglobin Concent 33 g/dL (31-37) 34 g/dL (31-37) Red Cell Distribution Width 16.0 % (11.5-14.5) 16.3 % (11.5-14.5) Platelet Count 201 x10^3/uL (140-400) 202 x10^3/uL (140-400) Vancomycin Level Trough 19.5 mcg/mL (10.0-20.0) Vancomycin Last Dose Date 03-29-18 Vancomycin Last Dose Time 0100 Neutrophils (%) (Auto) 89 % (31-73) Lymphocytes (%) (Auto) 5 % (24-48) Monocytes (%) (Auto) 6 % (0-9) Eosinophils (%) (Auto) 0 % (0-3) Basophils (%) (Auto) 0 % (0-3) Neutrophils # (Auto) 9.5 x10^3uL (1.8-7.7) Lymphocytes # (Auto) 0.5 x10^3/uL (1.0-4.8) Monocytes # (Auto) 0.6 x10^3/uL (0.0-1.1) Eosinophils # (Auto) 0.0 x10^3/uL (0.0-0.7) Basophils # (Auto) 0.0 x10^3/uL (0.0-0.2) Sodium Level 144 mmol/L (136-145) Potassium Level 3.7 mmol/L (3.5-5.1) Chloride Level 106 mmol/L (98-107) Carbon Dioxide Level 25 mmol/L (21-32) Anion Gap 13 (6-14) Blood Urea Nitrogen 15 mg/dL (7-20) Creatinine 1.0 mg/dL (0.6-1.0) Estimated GFR (Cockcroft-Gault) 52.3 BUN/Creatinine Ratio 15 (6-20) Glucose Level 138 mg/dL (70-99) Calcium Level 8.5 mg/dL (8.5-10.1) Total Bilirubin 0.8 mg/dL (0.2-1.0) Aspartate Amino Transf (AST/SGOT) 27 U/L (15-37) Alanine Aminotransferase (ALT/SGPT) 30 U/L (14-59) Alkaline Phosphatase 69 U/L (46-116) VT-Ahd-K-Type Natriuretic Peptide 2727 pg/mL (0-449) Total Protein 6.3 g/dL (6.4-8.2) Albumin 3.1 g/dL (3.4-5.0) Albumin/Globulin Ratio 1.0 (1.0-1.7) O2 Saturation 91 % (92-99) Arterial Blood pH 7.36 (7.35-7.45) Arterial Blood pCO2 at Patient Temp 39 mmHg (35-46) Arterial Blood pO2 at Patient Temp 67 mmHg (65-108) Arterial Blood HCO3 21 mmol/L (21-28) Arterial Blood Base Excess -4 mmol/L (-3-3) FiO2 50 Micro Microbiology 03/27/18 Blood Culture - Preliminary, Resulted NO GROWTH AFTER 1 DAY Objective Assessment Encephalopathy Rt leg cellulitis Pneumonia Yeast infection in groin Debility Respiratory failure Plan Plan of Care cont vanc cefepime also diflucan check cultures supportive care pt/ot d/w dr Mcclure prognosis poor LIZ EVANS MD Mar 30, 2018 09:29
[2018-03-30] MEDS: NYSTATIN TOPICAL POWDER 15GM BOTTLE. TP SCH ×2 (10:55→21:10)
[2018-03-30 11:00] VITALS: BP 154/76
--- NOTE | 2018-03-30 12:41 | PDOC ---
PULMONARY PROGRESS NOTES Subjective RAPID RESPONSE CALLED THIS AM INCREASE SOA PLACED ON BIPAP STRONG ANXIETY COMPONENT Vitals Vital Signs Date Time Temp Pulse Resp B/P (MAP) Pulse Ox O2 Delivery O2 Flow Rate FiO2 03/30/18 11:09 94 Venturi Mask 15.0 03/30/18 11:00 97.5 76 16 154/76 (102) 97.5 General: Mild Distress Lungs: Other (upper airway wheezes) Cardiovascular: S1, S2 Abdomen: Soft, Non-tender Extremities: Other (less erythema/ edema) Labs Laboratory Tests Test 03/28/18 17:00 03/29/18 06:50 03/29/18 14:30 03/30/18 00:30 Stool Occult Blood Positive (NEG) White Blood Count 5.5 x10^3/uL (4.0-11.0) 8.5 x10^3/uL (4.0-11.0) Red Blood Count 3.40 x10^6/uL (3.50-5.40) 3.21 x10^6/uL (3.50-5.40) Hemoglobin 10.7 g/dL (12.0-15.5) 10.4 g/dL (12.0-15.5) Hematocrit 33.6 % (36.0-47.0) 31.3 % (36.0-47.0) Mean Corpuscular Volume 99 fL (79-100) 97 fL (79-100) Mean Corpuscular Hemoglobin 32 pg (25-35) 32 pg (25-35) Mean Corpuscular Hemoglobin Concent 32 g/dL (31-37) 33 g/dL (31-37) Red Cell Distribution Width 16.2 % (11.5-14.5) 16.0 % (11.5-14.5) Platelet Count 165 x10^3/uL (140-400) 201 x10^3/uL (140-400) Neutrophils (%) (Auto) 89 % (31-73) Lymphocytes (%) (Auto) 7 % (24-48) Monocytes (%) (Auto) 3 % (0-9) Eosinophils (%) (Auto) 0 % (0-3) Basophils (%) (Auto) 0 % (0-3) Neutrophils # (Auto) 4.9 x10^3uL (1.8-7.7) Lymphocytes # (Auto) 0.4 x10^3/uL (1.0-4.8) Monocytes # (Auto) 0.2 x10^3/uL (0.0-1.1) Eosinophils # (Auto) 0.0 x10^3/uL (0.0-0.7) Basophils # (Auto) 0.0 x10^3/uL (0.0-0.2) Segmented Neutrophils % 89 % (35-66) Band Neutrophils % 3 % (0-9) Lymphocytes % 3 % (24-48) Atypical Lymphocytes % (Manual) 1 % (0-0) Monocytes % 4 % (0-10) Platelet Estimate Adequate (ADEQUATE) Anisocytosis Present Sodium Level 139 mmol/L (136-145) Potassium Level 4.1 mmol/L (3.5-5.1) Chloride Level 106 mmol/L (98-107) Carbon Dioxide Level 22 mmol/L (21-32) Anion Gap 11 (6-14) Blood Urea Nitrogen 14 mg/dL (7-20) Creatinine 1.0 mg/dL (0.6-1.0) Estimated GFR (Cockcroft-Gault) 52.3 BUN/Creatinine Ratio 14 (6-20) Glucose Level 171 mg/dL (70-99) Calcium Level 8.5 mg/dL (8.5-10.1) Total Bilirubin 0.8 mg/dL (0.2-1.0) Aspartate Amino Transf (AST/SGOT) 27 U/L (15-37) Alanine Aminotransferase (ALT/SGPT) 27 U/L (14-59) Alkaline Phosphatase 80 U/L (46-116) Total Protein 6.3 g/dL (6.4-8.2) Albumin 3.2 g/dL (3.4-5.0) Albumin/Globulin Ratio 1.0 (1.0-1.7) Vancomycin Level Trough 19.5 mcg/mL (10.0-20.0) Vancomycin Last Dose Date 03-29-18 Vancomycin Last Dose Time 0100 Test 03/30/18 04:30 03/30/18 05:53 White Blood Count 10.6 x10^3/uL (4.0-11.0) Red Blood Count 3.06 x10^6/uL (3.50-5.40) Hemoglobin 10.0 g/dL (12.0-15.5) Hematocrit 29.7 % (36.0-47.0) Mean Corpuscular Volume 97 fL (79-100) Mean Corpuscular Hemoglobin 33 pg (25-35) Mean Corpuscular Hemoglobin Concent 34 g/dL (31-37) Red Cell Distribution Width 16.3 % (11.5-14.5) Platelet Count 202 x10^3/uL (140-400) Neutrophils (%) (Auto) 89 % (31-73) Lymphocytes (%) (Auto) 5 % (24-48) Monocytes (%) (Auto) 6 % (0-9) Eosinophils (%) (Auto) 0 % (0-3) Basophils (%) (Auto) 0 % (0-3) Neutrophils # (Auto) 9.5 x10^3uL (1.8-7.7) Lymphocytes # (Auto) 0.5 x10^3/uL (1.0-4.8) Monocytes # (Auto) 0.6 x10^3/uL (0.0-1.1) Eosinophils # (Auto) 0.0 x10^3/uL (0.0-0.7) Basophils # (Auto) 0.0 x10^3/uL (0.0-0.2) Sodium Level 144 mmol/L (136-145) Potassium Level 3.7 mmol/L (3.5-5.1) Chloride Level 106 mmol/L (98-107) Carbon Dioxide Level 25 mmol/L (21-32) Anion Gap 13 (6-14) Blood Urea Nitrogen 15 mg/dL (7-20) Creatinine 1.0 mg/dL (0.6-1.0) Estimated GFR (Cockcroft-Gault) 52.3 BUN/Creatinine Ratio 15 (6-20) Glucose Level 138 mg/dL (70-99) Calcium Level 8.5 mg/dL (8.5-10.1) Total Bilirubin 0.8 mg/dL (0.2-1.0) Aspartate Amino Transf (AST/SGOT) 27 U/L (15-37) Alanine Aminotransferase (ALT/SGPT) 30 U/L (14-59) Alkaline Phosphatase 69 U/L (46-116) RL-Txt-R-Type Natriuretic Peptide 2727 pg/mL (0-449) Total Protein 6.3 g/dL (6.4-8.2) Albumin 3.1 g/dL (3.4-5.0) Albumin/Globulin Ratio 1.0 (1.0-1.7) O2 Saturation 91 % (92-99) Arterial Blood pH 7.36 (7.35-7.45) Arterial Blood pCO2 at Patient Temp 39 mmHg (35-46) Arterial Blood pO2 at Patient Temp 67 mmHg (65-108) Arterial Blood HCO3 21 mmol/L (21-28) Arterial Blood Base Excess -4 mmol/L (-3-3) FiO2 50 Laboratory Tests Test 03/29/18 14:30 03/30/18 00:30 03/30/18 04:30 03/30/18 05:53 White Blood Count 8.5 x10^3/uL (4.0-11.0) 10.6 x10^3/uL (4.0-11.0) Red Blood Count 3.21 x10^6/uL (3.50-5.40) 3.06 x10^6/uL (3.50-5.40) Hemoglobin 10.4 g/dL (12.0-15.5) 10.0 g/dL (12.0-15.5) Hematocrit 31.3 % (36.0-47.0) 29.7 % (36.0-47.0) Mean Corpuscular Volume 97 fL (79-100) 97 fL (79-100) Mean Corpuscular Hemoglobin 32 pg (25-35) 33 pg (25-35) Mean Corpuscular Hemoglobin Concent 33 g/dL (31-37) 34 g/dL (31-37) Red Cell Distribution Width 16.0 % (11.5-14.5) 16.3 % (11.5-14.5) Platelet Count 201 x10^3/uL (140-400) 202 x10^3/uL (140-400) Vancomycin Level Trough 19.5 mcg/mL (10.0-20.0) Vancomycin Last Dose Date 03-29-18 Vancomycin Last Dose Time 0100 Neutrophils (%) (Auto) 89 % (31-73) Lymphocytes (%) (Auto) 5 % (24-48) Monocytes (%) (Auto) 6 % (0-9) Eosinophils (%) (Auto) 0 % (0-3) Basophils (%) (Auto) 0 % (0-3) Neutrophils # (Auto) 9.5 x10^3uL (1.8-7.7) Lymphocytes # (Auto) 0.5 x10^3/uL (1.0-4.8) Monocytes # (Auto) 0.6 x10^3/uL (0.0-1.1) Eosinophils # (Auto) 0.0 x10^3/uL (0.0-0.7) Basophils # (Auto) 0.0 x10^3/uL (0.0-0.2) Sodium Level 144 mmol/L (136-145) Potassium Level 3.7 mmol/L (3.5-5.1) Chloride Level 106 mmol/L (98-107) Carbon Dioxide Level 25 mmol/L (21-32) Anion Gap 13 (6-14) Blood Urea Nitrogen 15 mg/dL (7-20) Creatinine 1.0 mg/dL (0.6-1.0) Estimated GFR (Cockcroft-Gault) 52.3 BUN/Creatinine Ratio 15 (6-20) Glucose Level 138 mg/dL (70-99) Calcium Level 8.5 mg/dL (8.5-10.1) Total Bilirubin 0.8 mg/dL (0.2-1.0) Aspartate Amino Transf (AST/SGOT) 27 U/L (15-37) Alanine Aminotransferase (ALT/SGPT) 30 U/L (14-59) Alkaline Phosphatase 69 U/L (46-116) GS-Uri-W-Type Natriuretic Peptide 2727 pg/mL (0-449) Total Protein 6.3 g/dL (6.4-8.2) Albumin 3.1 g/dL (3.4-5.0) Albumin/Globulin Ratio 1.0 (1.0-1.7) O2 Saturation 91 % (92-99) Arterial Blood pH 7.36 (7.35-7.45) Arterial Blood pCO2 at Patient Temp 39 mmHg (35-46) Arterial Blood pO2 at Patient Temp 67 mmHg (65-108) Arterial Blood HCO3 21 mmol/L (21-28) Arterial Blood Base Excess -4 mmol/L (-3-3) FiO2 50 Medications Active Scripts Medications Dose Route/Sig Max Daily Dose Days Date Category Dose Instructions Klor-Con M20 (Potassium Chloride) 20 Meq Tab.er.prt 20 Meq PO [id number] 30 02/12/18 Rx Furosemide 20 Mg Tablet 20 Mg PO BID92 30 02/12/18 Rx Ranitidine Hcl 150 Mg Tablet 150 Mg PO DAILY 02/09/18 Reported Lidopatch (Lidocaine/Menthol) 1 Each Adh..patch 1 Patch TP PRN DAILY PRN 02/09/18 Reported Guaifenesin 600 Mg Tablet.er 600 Mg PO BID 02/09/18 Reported Advair 250-50 Diskus (Fluticasone/Salmeterol) 1 Each Disk.w.dev 1 Inh IH BID 02/09/18 Reported Senna-Docusate Sodium Tablet (Sennosides/Docusate Sodium) 1 Each Tablet 1 Tab PO BID 02/09/18 Reported Voltaren (Diclofenac Sodium) 100 Gm Gel..gram. 4 Gm TP PRN Q6HRS PRN 02/09/18 Reported Cetirizine Hcl 10 Mg Tablet 10 Mg PO DAILY 02/09/18 Reported Duoneb 0.5-3(2.5) Mg/3 Ml (Albuterol/Ipratropium) 3 Ml Ampul.neb 3 Ml NEB Q6HRS 02/09/18 Reported Proair Hfa Inhaler (Albuterol Sulfate) 8.5 Gm Hfa.aer.ad 1 Puff INH DAILY 02/09/18 Reported Eliquis (Apixaban) 5 Mg Tablet 5 Mg PO BID 12/12/17 Reported Nystatin Unknown Strength Powder 1 Keisha TOP PRN BID PRN 12/12/17 Reported Tessalon Perle (Benzonatate) 100 Mg Capsule 200 Mg PO PRN Q8HRS 12/29/16 Reported Prednisone (Prednisone) 10 Mg Tablet 10 Mg PO DAILY 11/28/16 Rx Take 50 mg (5 pills) daily for 2 days, then take 40 mg (4 pills) daily for 2 days, then take 30 mg (3 pills) daily for 2 days, then take 20 mg (2 pills) daily for 2 days, then take 10 mg for 2 days. Miralax (Polyethylene Glycol 3350) 17 Gm Powd.pack 17 Gm PO PRN DAILY PRN 9/13/16 Rx Oxycodone-Acetaminophen 5-325 (Oxycodone Hcl/Acetaminophen) 1 Each Tablet 1 Tab PO PRN Q4HRS PRN 03/08/16 Rx Levothyroxine Sodium 100 Mcg Tablet 1 Tab PO DAILY 03/05/16 Reported Lorazepam 1 Mg Tablet 1 Mg PO BID 12/02/15 Reported Ocuvite Tablet (Vit A,C & E/Lutein/Minerals) 1 Each Tablet 1 Each PO DAILY 10/23/15 Reported Vitamin D (Cholecalciferol (Vitamin D3)) 1,000 Unit Tablet 1,000 Unit PO DAILY 10/23/15 Reported Amlodipine Besylate 10 Mg Tablet 10 Mg PO DAILY 10/23/15 Reported Atorvastatin Calcium 10 Mg Tablet 1 Tab PO DAILY 10/23/15 Reported Impression . 1. Acute exacerbation of asthma/ COPD with diffuse with increase soa intermittently. ABG adequate except low PO2. upper airway wheezing. strong anxiety component. Possible VCD (vocal cord dysfunction)./ non contrast ct with LLL pneumonia. 2. Cough with yellow sputum production due to left lower lobe pneumonia. 3. ABG adequate 4. Lower extremity cellulitis. 5. History of chronic hypoxic respiratory failure. Plan . 1. BIPAP/ prn ativan 2. Pt already on Eliquis, clinically doubt VTE 3. Broaden the antibiotic to add Gram-negative coverage./ cefepime added by ID 4. Sputum for C and S. 5. Noncontrast CT chest reviewed 6. DuoNeb q. 4 hours along with Pulmicort nebs. 7. IV Solu-Medrol. 8. Eliquis per PCP. DID NOT TOOK IT TODAY. WILL GIVE LOVENOX FOR NOW FOR DVT PROPHYLAXIS TILL SHE CAN TAKE PO SAFELY 9. We will follow along with you. Discussed with FRANKIE. ZOYA ACOSTA MD Mar 30, 2018 12:41
--- NOTE | 2018-03-30 12:45 | PDOC2 ---
PALLIATIVE CARE Palliative Care Note Palliative Care Consult requested by Dr. Mcclure to address poor prognosis Medical Assessment per medical record: COPD Cellulitis with edema Anxiety Patient agitated/restless. Oxygen 15L on ventimask Ativan x 2 IV with poor results. Spoke with grandshabbir [place]---[phone]. Granddaughter states she is aware of her granddmother's End Stage COPD Patient had been on Lasix and was taken off until 5 days ago when she was restarted on po Lasix at the half-way. Tomás understands her granddmother can not make her own decisions now. Patient had said she was not ready to address DNR/DNI 2 weeks ago but did not want the risk of breaking ribs with CPR and being put on a ventilator for fear that she would not get off. Tomás would like to focus on comfort but wants to speak to her mother first before making any decisions. Tomás states Quality is more important than Quantity to her Will continue current treatment for now. Family meeting today when daughter arrives. 1420 Met with granddaughter/DPSUZANNE [place], patient's mother in-law, granddaughter and other family/friends. Reviewed current medical condition. Granddaughter states she has said that she would not want to be intubated or resuscitated/CPR. Tomás would like patient to be DNR/DNI. Discussed further goals; Family would like to continue current treatment plan with the hope that she will improve. Understands that patient may decline and will need further discussion about goals. Outside the Hospital DNR/DNI signed by Tomás. Patient is wanting to eat. Discussed risk of aspiration. Family in agreement. Will hold on po until her breathing approves. Discussed pleasure feeding if goal becomes comfort. Above reviewed with Dr. Mcclure who will write orders DNR/DNI. JOSÉ LUIS MORILLO Mar 30, 2018 12:45
--- NOTE | 2018-03-30 12:47 | PDOC ---
Objective: Objective: 1:1 obs - staff reports bedding just changed from weeping of reddish fluid, was on CPAP overnight. No knowledge of stooling/blood in stools since yesterday. Reviewed other notes. Vital Signs: Vital Signs Date Time Temp Pulse Resp B/P (MAP) Pulse Ox O2 Delivery O2 Flow Rate FiO2 03/30/18 11:09 94 Venturi Mask 15.0 03/30/18 11:00 97.5 76 16 154/76 (102) 97.5 Labs: Laboratory Tests Test 03/29/18 14:30 03/30/18 00:30 03/30/18 04:30 03/30/18 05:53 White Blood Count 8.5 x10^3/uL 10.6 x10^3/uL Red Blood Count 3.21 x10^6/uL 3.06 x10^6/uL Hemoglobin 10.4 g/dL 10.0 g/dL Hematocrit 31.3 % 29.7 % Mean Corpuscular Volume 97 fL 97 fL Mean Corpuscular Hemoglobin 32 pg 33 pg Mean Corpuscular Hemoglobin Concent 33 g/dL 34 g/dL Red Cell Distribution Width 16.0 % 16.3 % Platelet Count 201 x10^3/uL 202 x10^3/uL Vancomycin Level Trough 19.5 mcg/mL Vancomycin Last Dose Date 03-29-18 Vancomycin Last Dose Time 0100 Neutrophils (%) (Auto) 89 % Lymphocytes (%) (Auto) 5 % Monocytes (%) (Auto) 6 % Eosinophils (%) (Auto) 0 % Basophils (%) (Auto) 0 % Neutrophils # (Auto) 9.5 x10^3uL Lymphocytes # (Auto) 0.5 x10^3/uL Monocytes # (Auto) 0.6 x10^3/uL Eosinophils # (Auto) 0.0 x10^3/uL Basophils # (Auto) 0.0 x10^3/uL Sodium Level 144 mmol/L Potassium Level 3.7 mmol/L Chloride Level 106 mmol/L Carbon Dioxide Level 25 mmol/L Anion Gap 13 Blood Urea Nitrogen 15 mg/dL Creatinine 1.0 mg/dL Estimated GFR (Cockcroft-Gault) 52.3 BUN/Creatinine Ratio 15 Glucose Level 138 mg/dL Calcium Level 8.5 mg/dL Total Bilirubin 0.8 mg/dL Aspartate Amino Transf (AST/SGOT) 27 U/L Alanine Aminotransferase (ALT/SGPT) 30 U/L Alkaline Phosphatase 69 U/L CZ-Mzb-[id number]-Type Natriuretic Peptide 2727 pg/mL Total Protein 6.3 g/dL Albumin 3.1 g/dL Albumin/Globulin Ratio 1.0 O2 Saturation 91 % Arterial Blood pH 7.36 Arterial Blood pCO2 at Patient Temp 39 mmHg Arterial Blood pO2 at Patient Temp 67 mmHg Arterial Blood HCO3 21 mmol/L Arterial Blood Base Excess -4 mmol/L FiO2 50 Imaging: CXR IMPRESSION: 1. Interstitial opacities bilaterally which appears slightly increased from prior. Could be secondary to edema or interstitial infiltrate. 2. Repeat repeat demonstration of enlargement of the cardiomediastinal silhouette. 3. Please note that the left lung base is obscured and cannot assess for interval change in the region of consolidation seen on CT from one day prior. PE: GEN: ill LUNGS: breathing mask, tachypneic HEART: RR ABD: large, non-tender NEURO/PSYCH: did not open eyes during exam A/P: Resp failure Rectal bleeding - no recurrence, h/o similar in the past attributed to hemorrhoids - Hgb stable -- Observe from GI standpoint. 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 JERALD KAUFFMAN Mar 30, 2018 12:47
[2018-03-30] MEDS ORDERED: ENOXAPARIN 40 MG/0.4 ML SYRINGE. SQ SCH (13:00)
[2018-03-30] MEDS: PANTOPRAZOLE IV PUSH 40 MG VIAL. IVP SCH (13:00)
[2018-03-30] MEDS: ENOXAPARIN 40 MG/0.4 ML SYRINGE. SQ SCH (13:02)
[2018-03-30] MEDS ORDERED: TPN PER PHARMACY MC PRN (13:30)
[2018-03-30] MEDS: AMINO AC 3%/ELECTROLYTE/GLYCER 1,000 ML IV SCH (13:41)
[2018-03-30 15:00] VITALS: BP 91/45
--- NOTE | 2018-03-30 15:00 | RAD ---
SALMA, 03/30/2018: HISTORY: Abdominal pain and cough A pacemaker generator overlies the upper abdomen near the midline with epicardial leads overlying the heart. Surgical clips are present in the right upper quadrant. The abdominal gas pattern is unremarkable. There is no evidence of organomegaly. Moderate aortic calcific plaquing is present. Moderate scattered degenerative changes are present in the spine. IMPRESSION: No acute abdominal abnormality is detected. Electronically signed by: Junito Palomares MD (03/30/2018 2:57 PM) [facility]
[2018-03-30] MEDS: fentaNYL PF VIAL 100 MCG/2 ML VIAL IV PRN ×2 (15:04→17:58)
[2018-03-30 19:44] VITALS: BP 107/44
[2018-03-30] MEDS: ATORVASTATIN CALCIUM 10 MG TABLET. PO SCH (21:00)
[2018-03-30] MEDS: PATCH REMOVAL. MC SCH (21:00)
[2018-03-30 22:53] VITALS: BP 161/49
[2018-03-31] MEDS: ENOXAPARIN 40 MG/0.4 ML SYRINGE. SQ SCH ×2 (01:26→12:53)
[2018-03-31] MEDS: VANCOMYCIN 1.25 GM in IV NORMAL SALINE 250ML 250 ML IV SCH (01:30)
[2018-03-31] MEDS: IPRATRPIUM/ALBUTEROL 0.5/2.5MG 3 ML NEBU. NEB SCH ×5 (03:07→19:26)
[2018-03-31 03:22] VITALS: BP 158/80
[2018-03-31] MEDS: methylPREDNISolone SOD SUCC PF 125 MG/2 ML VIAL. IV SCH ×3 (05:58→20:25)
[2018-03-31] MEDS: CEFEPIME HCL IV Push 1 GM VIAL. IVP SCH ×3 (05:58→20:25)
[2018-03-31 06:35] VITALS: BP 153/52
[2018-03-31] MEDS: LEVOTHYROXINE 100 MCG TABLET PO SCH (07:00)
[2018-03-31] MEDS: BUDESONIDE 0.5 MG/2 ML NEBU. NEB SCH ×2 (07:18→19:26)
[2018-03-31 07:25] VITALS: BP 163/49
[2018-03-31] MEDS: AMINO AC 3%/ELECTROLYTE/GLYCER 1,000 ML IV SCH ×3 (07:55→20:27)
[2018-03-31] MEDS: POTASSIUM CHLORIDE 20 MEQ TABLET.ER. PO SCH (08:00)
[2018-03-31] MEDS: fentaNYL PF VIAL 100 MCG/2 ML VIAL IV PRN ×4 (08:05→20:39)
[2018-03-31] MEDS: PANTOPRAZOLE IV PUSH 40 MG VIAL. IVP SCH (08:05)
[2018-03-31] MEDS: MULTIVITAMIN I-VITE TABLET. PO SCH (08:06)
[2018-03-31] MEDS: LORazepam 1 MG TABLET PO SCH (08:06)
[2018-03-31] MEDS: FLUCONAZOLE 100 MG TABLET. PO SCH (08:06)
[2018-03-31] MEDS: FUROSEMIDE 40 MG/4 ML VIAL. IVP SCH ×2 (08:06→14:30)
[2018-03-31] MEDS: PSYLLIUM HUSK (SUGAR FREE) 1 PKT PACKET PO SCH (08:07)
[2018-03-31] MEDS: amLODIPine BESYLATE 10 MG TABLET PO SCH (08:07)
[2018-03-31] MEDS: SENNOSIDES/DOCUSATE 8.6/50MG TABLET. PO SCH ×2 (08:07→20:24)
[2018-03-31] MEDS: CHOLECALCIFEROL (VITAMIN D3) 1,000 UNIT TABLET PO SCH (08:07)
[2018-03-31] MEDS: CETIRIZINE HCL 10 MG TABLET. PO SCH (08:08)
--- NOTE | 2018-03-31 08:12 | PDOC ---
PULMONARY PROGRESS NOTES Subjective on bipap, 09/12, fio2 50%, is confused, over night was restless Vitals Vital Signs Date Time Temp Pulse Resp B/P (MAP) Pulse Ox O2 Delivery O2 Flow Rate FiO2 03/31/18 08:05 99 BiPAP/CPAP 03/31/18 07:25 97.7 74 26 163/49 (87) 97.7 03/31/18 03:07 15.0 General: Confused, Mild Distress Lungs: Crackles, Other (upper airway wheezes) Cardiovascular: S1, S2 Abdomen: Soft, Non-tender Extremities: Other (less erythema/ edema) Skin: Warm Labs Laboratory Tests Test 03/29/18 14:30 03/30/18 00:30 03/30/18 04:30 03/30/18 05:53 White Blood Count 8.5 x10^3/uL (4.0-11.0) 10.6 x10^3/uL (4.0-11.0) Red Blood Count 3.21 x10^6/uL (3.50-5.40) 3.06 x10^6/uL (3.50-5.40) Hemoglobin 10.4 g/dL (12.0-15.5) 10.0 g/dL (12.0-15.5) Hematocrit 31.3 % (36.0-47.0) 29.7 % (36.0-47.0) Mean Corpuscular Volume 97 fL (79-100) 97 fL (79-100) Mean Corpuscular Hemoglobin 32 pg (25-35) 33 pg (25-35) Mean Corpuscular Hemoglobin Concent 33 g/dL (31-37) 34 g/dL (31-37) Red Cell Distribution Width 16.0 % (11.5-14.5) 16.3 % (11.5-14.5) Platelet Count 201 x10^3/uL (140-400) 202 x10^3/uL (140-400) Vancomycin Level Trough 19.5 mcg/mL (10.0-20.0) Vancomycin Last Dose Date 03-29-18 Vancomycin Last Dose Time 0100 Neutrophils (%) (Auto) 89 % (31-73) Lymphocytes (%) (Auto) 5 % (24-48) Monocytes (%) (Auto) 6 % (0-9) Eosinophils (%) (Auto) 0 % (0-3) Basophils (%) (Auto) 0 % (0-3) Neutrophils # (Auto) 9.5 x10^3uL (1.8-7.7) Lymphocytes # (Auto) 0.5 x10^3/uL (1.0-4.8) Monocytes # (Auto) 0.6 x10^3/uL (0.0-1.1) Eosinophils # (Auto) 0.0 x10^3/uL (0.0-0.7) Basophils # (Auto) 0.0 x10^3/uL (0.0-0.2) Sodium Level 144 mmol/L (136-145) Potassium Level 3.7 mmol/L (3.5-5.1) Chloride Level 106 mmol/L (98-107) Carbon Dioxide Level 25 mmol/L (21-32) Anion Gap 13 (6-14) Blood Urea Nitrogen 15 mg/dL (7-20) Creatinine 1.0 mg/dL (0.6-1.0) Estimated GFR (Cockcroft-Gault) 52.3 BUN/Creatinine Ratio 15 (6-20) Glucose Level 138 mg/dL (70-99) Calcium Level 8.5 mg/dL (8.5-10.1) Total Bilirubin 0.8 mg/dL (0.2-1.0) Aspartate Amino Transf (AST/SGOT) 27 U/L (15-37) Alanine Aminotransferase (ALT/SGPT) 30 U/L (14-59) Alkaline Phosphatase 69 U/L (46-116) JG-Bgf-Y-Type Natriuretic Peptide 2727 pg/mL (0-449) Total Protein 6.3 g/dL (6.4-8.2) Albumin 3.1 g/dL (3.4-5.0) Albumin/Globulin Ratio 1.0 (1.0-1.7) O2 Saturation 91 % (92-99) Arterial Blood pH 7.36 (7.35-7.45) Arterial Blood pCO2 at Patient Temp 39 mmHg (35-46) Arterial Blood pO2 at Patient Temp 67 mmHg (65-108) Arterial Blood HCO3 21 mmol/L (21-28) Arterial Blood Base Excess -4 mmol/L (-3-3) FiO2 50 Medications Active Scripts Medications Dose Route/Sig Max Daily Dose Days Date Category Dose Instructions Klor-Con M20 (Potassium Chloride) 20 Meq Tab.er.prt 20 Meq PO [id number] 30 02/12/18 Rx Furosemide 20 Mg Tablet 20 Mg PO BID92 30 02/12/18 Rx Ranitidine Hcl 150 Mg Tablet 150 Mg PO DAILY 02/09/18 Reported Lidopatch (Lidocaine/Menthol) 1 Each Adh..patch 1 Patch TP PRN DAILY PRN 02/09/18 Reported Guaifenesin 600 Mg Tablet.er 600 Mg PO BID 02/09/18 Reported Advair 250-50 Diskus (Fluticasone/Salmeterol) 1 Each Disk.w.dev 1 Inh IH BID 02/09/18 Reported Senna-Docusate Sodium Tablet (Sennosides/Docusate Sodium) 1 Each Tablet 1 Tab PO BID 02/09/18 Reported Voltaren (Diclofenac Sodium) 100 Gm Gel..gram. 4 Gm TP PRN Q6HRS PRN 02/09/18 Reported Cetirizine Hcl 10 Mg Tablet 10 Mg PO DAILY 02/09/18 Reported Duoneb 0.5-3(2.5) Mg/3 Ml (Albuterol/Ipratropium) 3 Ml Ampul.neb 3 Ml NEB Q6HRS 02/09/18 Reported Proair Hfa Inhaler (Albuterol Sulfate) 8.5 Gm Hfa.aer.ad 1 Puff INH DAILY 02/09/18 Reported Eliquis (Apixaban) 5 Mg Tablet 5 Mg PO BID 12/12/17 Reported Nystatin Unknown Strength Powder 1 Keisha TOP PRN BID PRN 12/12/17 Reported Tessalon Perle (Benzonatate) 100 Mg Capsule 200 Mg PO PRN Q8HRS 12/29/16 Reported Prednisone (Prednisone) 10 Mg Tablet 10 Mg PO DAILY 11/28/16 Rx Take 50 mg (5 pills) daily for 2 days, then take 40 mg (4 pills) daily for 2 days, then take 30 mg (3 pills) daily for 2 days, then take 20 mg (2 pills) daily for 2 days, then take 10 mg for 2 days. Miralax (Polyethylene Glycol 3350) 17 Gm Powd.pack 17 Gm PO PRN DAILY PRN 03/08/16 Rx Oxycodone-Acetaminophen 5-325 (Oxycodone Hcl/Acetaminophen) 1 Each Tablet 1 Tab PO PRN Q4HRS PRN 03/08/16 Rx Levothyroxine Sodium 100 Mcg Tablet 1 Tab PO DAILY 03/05/16 Reported Lorazepam 1 Mg Tablet 1 Mg PO BID 12/02/15 Reported Ocuvite Tablet (Vit A,C & E/Lutein/Minerals) 1 Each Tablet 1 Each PO DAILY 10/23/15 Reported Vitamin D (Cholecalciferol (Vitamin D3)) 1,000 Unit Tablet 1,000 Unit PO DAILY 10/23/15 Reported Amlodipine Besylate 10 Mg Tablet 10 Mg PO DAILY 10/23/15 Reported Atorvastatin Calcium 10 Mg Tablet 1 Tab PO DAILY 10/23/15 Reported Impression . 1. Acute exacerbation of asthma/ COPD with diffuse with increase soa intermittently. ABG adequate except low PO2. upper airway wheezing. strong anxiety component. Possible VCD (vocal cord dysfunction)./ non contrast ct with LLL pneumonia. 2. Cough with yellow sputum production due to left lower lobe pneumonia. 3. ABG adequate 4. Lower extremity cellulitis. 5. History of chronic hypoxic respiratory failure. Plan . 1. BIPAP until more stable then prn during day, cont at night/ prn ativan, avoid oversedation 2. Pt already on Eliquis, clinically doubt VTE 3. Broad spectrum the antibiotic per ID 4. fu Sputum for C and S. 5. Noncontrast CT chest reviewed 6. DuoNeb q. 4 hours along with Pulmicort nebs. 7. cont Solu-Medrol, no dose change 8. Eliquis per PCP. on LOVENOX FOR NOW FOR DVT PROPHYLAXIS TILL SHE CAN TAKE PO SAFELY 9. agree w lasix, monitor k, cr 10. elevate hob We will follow along with you. Discussed with FRANKIE. LAURA CARREON MD Mar 31, 2018 08:12
[2018-03-31] MEDS: NYSTATIN TOPICAL POWDER 15GM BOTTLE. TP SCH ×2 (08:16→20:26)
[2018-03-31 11:05] VITALS: BP 139/54
[2018-03-31 11:56] LABS: BASE EXCESS ABG -2 mmol/L (-3-3); HCO3 ABG 21 mmol/L (21-28); PCO2 ABG 30 mmHg (35-46); PO2 ABG 71 mmHg (65-108); SAT O2 ABG 94 % (92-99)
[2018-03-31 11:58] LABS: FIO2 ABG 35
[2018-03-31] MEDS: LEVOTHYROXINE SODIUM IVP SCH (12:54)
[2018-03-31] MEDS: NORMAL SALINE IVP SCH (12:54)
--- NOTE | 2018-03-31 13:15 | PDOC ---
Infectious Disease Note Subjective Subjective 1:1 observation On BiPAP No fevers last 24 hours ROS ROS unobtainable as patient is encephalopathic Vital Sign Vital Signs Vital Signs Date Time Temp Pulse Resp B/P (MAP) Pulse Ox O2 Delivery O2 Flow Rate FiO2 03/31/18 12:53 93 BiPAP/CPAP 03/31/18 12:00 15.0 03/31/18 11:05 98.1 71 24 139/54 (82) 98.1 Physical Exam PHYSICAL EXAM GENERAL: Lying down HEENT: on BiPAP LUNGS: Clear anteriorly HEART: S1, S2 ABDOMEN: Obese, soft : [place] EXTREMITIES: Generalized edema. No cyanosis. RLE erythema and yeast infection in the groin. [employer]: Minimally responsive, grunts to name LUE-midline Labs Lab Laboratory Tests Test 03/31/18 11:21 O2 Saturation 94 % (92-99) Arterial Blood pH 7.45 (7.35-7.45) Arterial Blood pCO2 at Patient Temp 30 mmHg (35-46) Arterial Blood pO2 at Patient Temp 71 mmHg (65-108) Arterial Blood HCO3 21 mmol/L (21-28) Arterial Blood Base Excess -2 mmol/L (-3-3) FiO2 35 Micro 03/27/18 Blood Culture - Preliminary, Resulted NO GROWTH AFTER 3 DAYS URINE CULTURE RES 1 Final Comment Culture shows less than 10,000 colony forming units of bacteria per milliliter of urine. This colony count is not generally considered to be clinically significant. Objective Assessment Encephalopathy Right leg cellulitis Pneumonia Yeast infection in groin Debility Respiratory failure on BiPAP L1 vertebral compression fracture. Plan Plan of Care cont vanc, cefepime and fluconazole Trough 19.5 Procalcitonin ,0.10 f/y BC Monitor labs/renal function Prognosis poor Attending Co-Sign Attending Co-Sign The patient was seen and interviewed as well as examined at the bedside. The chart was reviewed. The case was discussed. Agree with the plan of care. MARIA EUGENIA MASTERS APRN Mar 31, 2018 13:15 STEVE SELLERS MD Mar 31, 2018 16:13
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
[2018-03-31] MEDS: VANCOMYCIN PER PHARMACY MC PRN (14:38)
[2018-03-31 15:00] VITALS: BP 147/53
--- NOTE | 2018-03-31 16:38 | RAD ---
Bilateral Upper extremity venous Doppler. 03/31/2018 HISTORY: Bilateral upper extremity pain/swelling. COMPARISON: None. FINDINGS: Grayscale, Color and Doppler analysis of the Bilateral Upper extremity deep venous system was performed with serial graded compression and augmentation. The visualized portions of the bilateral internal jugular and subclavian, axillary, paired brachial, basilic and cephalic veins are patent with normal color Doppler imaging. Bilateral upper extremity subcutaneous edema. IMPRESSION: No evidence of DVT in the visualized portions of the bilateral upper extremities. Limited evaluation of the left upper extremity due to subcutaneous edema. Electronically signed by: Ra Smalls MD (03/31/2018 4:35 PM) [facility] – [place]
[2018-03-31] MEDS: BENZONATATE 100 MG CAPSULE. PO PRN (20:24)
[2018-03-31] MEDS: oxyCODONE/APAP 5/325 1 TAB TABLET PO PRN (20:24)
[2018-03-31] MEDS: ATORVASTATIN CALCIUM 10 MG TABLET. PO SCH (20:24)
[2018-03-31] MEDS: PATCH REMOVAL. MC SCH (20:25)
[2018-03-31] MEDS ORDERED: HALOPERIDOL LACTATE 5 MG/ML VIAL. IM ONE (23:30)
[2018-03-31] MEDS ORDERED: OLANZapine IM 10 MG VIAL. IM ONE (23:45)
[2018-04-01] MEDS: VANCOMYCIN 1.25 GM in IV NORMAL SALINE 250ML 250 ML IV SCH (01:20)
[2018-04-01] MEDS: fentaNYL PF VIAL 100 MCG/2 ML VIAL IV PRN ×4 (01:21→18:00)
[2018-04-01] MEDS: ENOXAPARIN 40 MG/0.4 ML SYRINGE. SQ SCH ×3 (01:22→22:49)
[2018-04-01] MEDS: IPRATRPIUM/ALBUTEROL 0.5/2.5MG 3 ML NEBU. NEB SCH ×7 (04:00→23:14)
[2018-04-01] MEDS: PANTOPRAZOLE IV PUSH 40 MG VIAL. IVP SCH (04:34)
[2018-04-01 05:13] LABS: BASO % 0 % (0-3); EOS % 0 % (0-3); HEMATOCRIT 32.8 % (36.0-47.0); HEMOGLOBIN 10.8 g/dL (12.0-15.5); LYMPH # 0.3 x10^3/uL (1.0-4.8); LYMPH % 3 % (24-48); MEAN CORPUSCULAR HEMOGLOBIN 32 pg (25-35); MEAN CORPUSCULAR HGB CONC 33 g/dL (31-37); MEAN CORPUSCULAR VOLUME 96 fL (79-100); MONO # 0.3 x10^3/uL (0.0-1.1); MONO % 3 % (0-9); NEUT # 9.2 x10^3uL (1.8-7.7); NEUT % 94 % (31-73); PLATELET COUNT 176 x10^3/uL (140-400); RED BLOOD COUNT 3.42 x10^6/uL (3.50-5.40); RED CELL DISTRIBUTION WIDTH 16.1 % (11.5-14.5); WHITE BLOOD COUNT 9.8 x10^3/uL (4.0-11.0)
[2018-04-01] MEDS: CEFEPIME HCL IV Push 1 GM VIAL. IVP SCH ×3 (05:16→19:31)
[2018-04-01] MEDS: methylPREDNISolone SOD SUCC PF 125 MG/2 ML VIAL. IV SCH ×3 (05:16→19:31)
[2018-04-01 05:38] LABS: CALCIUM 8.6 mg/dL (8.5-10.1); CREATININE 1.4 mg/dL (0.6-1.0); GFR 35.5; POTASSIUM 3.1 mmol/L (3.5-5.1)
[2018-04-01] MEDS: BUDESONIDE 0.5 MG/2 ML NEBU. NEB SCH ×2 (07:03→19:47)
--- NOTE | 2018-04-01 07:42 | PDOC ---
PULMONARY PROGRESS NOTES Subjective on bipap, 09/12, fio2 50%, more alert, has sob, cough, no pain Vitals Vital Signs Date Time Temp Pulse Resp B/P (MAP) Pulse Ox O2 Delivery O2 Flow Rate FiO2 04/01/18 07:03 94 BiPAP/CPAP 04/01/18 05:04 20 15.0 03/31/18 15:00 98.4 77 147/53 (84) 98.4 General: Confused, Mild Distress HEENT: Other (nc at perrl. nose clear) Lungs: Wheezing, Crackles, Other (upper airway wheezes) Cardiovascular: S1, S2 Abdomen: Soft, Non-tender Extremities: Other (less erythema/ edema) Skin: Warm Labs Laboratory Tests Test 03/31/18 11:21 03/31/18 14:50 04/01/18 03:30 O2 Saturation 94 % (92-99) Arterial Blood pH 7.45 (7.35-7.45) Arterial Blood pCO2 at Patient Temp 30 mmHg (35-46) Arterial Blood pO2 at Patient Temp 71 mmHg (65-108) Arterial Blood HCO3 21 mmol/L (21-28) Arterial Blood Base Excess -2 mmol/L (-3-3) FiO2 35 Lactic Acid Level 1.3 mmol/L (0.4-2.0) White Blood Count 9.8 x10^3/uL (4.0-11.0) Red Blood Count 3.42 x10^6/uL (3.50-5.40) Hemoglobin 10.8 g/dL (12.0-15.5) Hematocrit 32.8 % (36.0-47.0) Mean Corpuscular Volume 96 fL (79-100) Mean Corpuscular Hemoglobin 32 pg (25-35) Mean Corpuscular Hemoglobin Concent 33 g/dL (31-37) Red Cell Distribution Width 16.1 % (11.5-14.5) Platelet Count 176 x10^3/uL (140-400) Neutrophils (%) (Auto) 94 % (31-73) Lymphocytes (%) (Auto) 3 % (24-48) Monocytes (%) (Auto) 3 % (0-9) Eosinophils (%) (Auto) 0 % (0-3) Basophils (%) (Auto) 0 % (0-3) Neutrophils # (Auto) 9.2 x10^3uL (1.8-7.7) Lymphocytes # (Auto) 0.3 x10^3/uL (1.0-4.8) Monocytes # (Auto) 0.3 x10^3/uL (0.0-1.1) Eosinophils # (Auto) 0.0 x10^3/uL (0.0-0.7) Basophils # (Auto) 0.0 x10^3/uL (0.0-0.2) Sodium Level 144 mmol/L (136-145) Potassium Level 3.1 mmol/L (3.5-5.1) Chloride Level 106 mmol/L (98-107) Carbon Dioxide Level 25 mmol/L (21-32) Anion Gap 13 (6-14) Blood Urea Nitrogen 31 mg/dL (7-20) Creatinine 1.4 mg/dL (0.6-1.0) Estimated GFR (Cockcroft-Gault) 35.5 Glucose Level 178 mg/dL (70-99) Calcium Level 8.6 mg/dL (8.5-10.1) Laboratory Tests Test 03/31/18 11:21 03/31/18 14:50 04/01/18 03:30 O2 Saturation 94 % (92-99) Arterial Blood pH 7.45 (7.35-7.45) Arterial Blood pCO2 at Patient Temp 30 mmHg (35-46) Arterial Blood pO2 at Patient Temp 71 mmHg (65-108) Arterial Blood HCO3 21 mmol/L (21-28) Arterial Blood Base Excess -2 mmol/L (-3-3) FiO2 35 Lactic Acid Level 1.3 mmol/L (0.4-2.0) White Blood Count 9.8 x10^3/uL (4.0-11.0) Red Blood Count 3.42 x10^6/uL (3.50-5.40) Hemoglobin 10.8 g/dL (12.0-15.5) Hematocrit 32.8 % (36.0-47.0) Mean Corpuscular Volume 96 fL (79-100) Mean Corpuscular Hemoglobin 32 pg (25-35) Mean Corpuscular Hemoglobin Concent 33 g/dL (31-37) Red Cell Distribution Width 16.1 % (11.5-14.5) Platelet Count 176 x10^3/uL (140-400) Neutrophils (%) (Auto) 94 % (31-73) Lymphocytes (%) (Auto) 3 % (24-48) Monocytes (%) (Auto) 3 % (0-9) Eosinophils (%) (Auto) 0 % (0-3) Basophils (%) (Auto) 0 % (0-3) Neutrophils # (Auto) 9.2 x10^3uL (1.8-7.7) Lymphocytes # (Auto) 0.3 x10^3/uL (1.0-4.8) Monocytes # (Auto) 0.3 x10^3/uL (0.0-1.1) Eosinophils # (Auto) 0.0 x10^3/uL (0.0-0.7) Basophils # (Auto) 0.0 x10^3/uL (0.0-0.2) Sodium Level 144 mmol/L (136-145) Potassium Level 3.1 mmol/L (3.5-5.1) Chloride Level 106 mmol/L (98-107) Carbon Dioxide Level 25 mmol/L (21-32) Anion Gap 13 (6-14) Blood Urea Nitrogen 31 mg/dL (7-20) Creatinine 1.4 mg/dL (0.6-1.0) Estimated GFR (Cockcroft-Gault) 35.5 Glucose Level 178 mg/dL (70-99) Calcium Level 8.6 mg/dL (8.5-10.1) Medications Active Scripts Medications Dose Route/Sig Max Daily Dose Days Date Category Dose Instructions Klor-Con M20 (Potassium Chloride) 20 Meq Tab.er.prt 20 Meq PO DAILYWBKFT 30 02/12/18 Rx Furosemide 20 Mg Tablet 20 Mg PO BID92 30 02/12/18 Rx Ranitidine Hcl 150 Mg Tablet 150 Mg PO DAILY 02/09/18 Reported Lidopatch (Lidocaine/Menthol) 1 Each Adh..patch 1 Patch TP PRN DAILY PRN 02/09/18 Reported Guaifenesin 600 Mg Tablet.er 600 Mg PO BID 02/09/18 Reported Advair 250-50 Diskus (Fluticasone/Salmeterol) 1 Each Disk.w.dev 1 Inh IH BID 02/09/18 Reported Senna-Docusate Sodium Tablet (Sennosides/Docusate Sodium) 1 Each Tablet 1 Tab PO BID 02/09/18 Reported Voltaren (Diclofenac Sodium) 100 Gm Gel..gram. 4 Gm TP PRN Q6HRS PRN 02/09/18 Reported Cetirizine Hcl 10 Mg Tablet 10 Mg PO DAILY 02/09/18 Reported Duoneb 0.5-3(2.5) Mg/3 Ml (Albuterol/Ipratropium) 3 Ml Ampul.neb 3 Ml NEB Q6HRS 02/09/18 Reported Proair Hfa Inhaler (Albuterol Sulfate) 8.5 Gm Hfa.aer.ad 1 Puff INH DAILY 02/09/18 Reported Eliquis (Apixaban) 5 Mg Tablet 5 Mg PO BID 12/12/17 Reported Nystatin Unknown Strength Powder 1 Keisha TOP PRN BID PRN 12/12/17 Reported Tessalon Perle (Benzonatate) 100 Mg Capsule 200 Mg PO PRN Q8HRS 12/29/16 Reported Prednisone (Prednisone) 10 Mg Tablet 10 Mg PO DAILY 11/28/16 Rx Take 50 mg (5 pills) daily for 2 days, then take 40 mg (4 pills) daily for 2 days, then take 30 mg (3 pills) daily for 2 days, then take 20 mg (2 pills) daily for 2 days, then take 10 mg for 2 days. Miralax (Polyethylene Glycol 3350) 17 Gm Powd.pack 17 Gm PO PRN DAILY PRN 03/08/16 Rx Oxycodone-Acetaminophen 5-325 (Oxycodone Hcl/Acetaminophen) 1 Each Tablet 1 Tab PO PRN Q4HRS PRN 03/08/16 Rx Levothyroxine Sodium 100 Mcg Tablet 1 Tab PO DAILY 03/05/16 Reported Lorazepam 1 Mg Tablet 1 Mg PO BID 12/02/15 Reported Ocuvite Tablet (Vit A,C & E/Lutein/Minerals) 1 Each Tablet 1 Each PO DAILY 10/23/15 Reported Vitamin D (Cholecalciferol (Vitamin D3)) 1,000 Unit Tablet 1,000 Unit PO DAILY 10/23/15 Reported Amlodipine Besylate 10 Mg Tablet 10 Mg PO DAILY 10/23/15 Reported Atorvastatin Calcium 10 Mg Tablet 1 Tab PO DAILY 10/23/15 Reported Impression . 1. Acute exacerbation of asthma/ COPD with upper airway wheezing. strong anxiety component. Possible VCD (vocal cord dysfunction)./ non contrast ct with LLL pneumonia. 2. Cough with yellow sputum production due to left lower lobe pneumonia. 3. abnl ct of chest 4. Lower extremity cellulitis. 5. History of chronic hypoxic respiratory failure. Plan . 1. BIPAP prn during day, cont at night/ prn ativan, avoid oversedation, cxr today 2. Pt already on Eliquis, clinically doubt VTE 3. Broad spectrum the antibiotic per ID 4. fu cxs 5. Noncontrast CT chest reviewed 6. DuoNeb q. 4 hours along with Pulmicort nebs. 7. increase Solu-Medrol to 80 q 8, has wheezing 8. Eliquis per PCP. on LOVENOX FOR NOW FOR DVT PROPHYLAXIS TILL SHE CAN TAKE PO SAFELY 9. agree w lasix, keep I<O, monitor k, cr 10. elevate hob We will follow along with you. Discussed with RN, family is thinking about comfort care. LAURA CARREON MD Apr 01, 2018 07:42
[2018-04-01] MEDS: POTASSIUM CHLORIDE 20 MEQ TABLET.ER. PO SCH (08:00)
[2018-04-01] MEDS: SENNOSIDES/DOCUSATE 8.6/50MG TABLET. PO SCH ×2 (09:00→19:30)
[2018-04-01] MEDS: PSYLLIUM HUSK (SUGAR FREE) 1 PKT PACKET PO SCH (09:00)
[2018-04-01] MEDS: CHOLECALCIFEROL (VITAMIN D3) 1,000 UNIT TABLET PO SCH (09:00)
[2018-04-01] MEDS: FLUCONAZOLE 100 MG TABLET. PO SCH (09:00)
[2018-04-01] MEDS: amLODIPine BESYLATE 10 MG TABLET PO SCH (09:00)
[2018-04-01] MEDS: MULTIVITAMIN I-VITE TABLET. PO SCH (09:00)
[2018-04-01] MEDS: CETIRIZINE HCL 10 MG TABLET. PO SCH (09:00)
--- NOTE | 2018-04-01 09:19 | RAD ---
EXAM: CHEST 1 VIEW. HISTORY: Congestive heart failure. COMPARISON: 03/30/2018. FINDINGS: A frontal view of the chest is obtained. There are changes of coronary artery bypass grafting. Right-sided pacer wires appear to extend from inferiorly. The inspiration is small. Patchy airspace infiltrates on the right greater than left are consistent with mild pulmonary edema or atypical pneumonia. There is no pneumothorax or clear pleural effusion. The heart is moderately enlarged. There are atherosclerotic calcifications of the aorta. IMPRESSION: 1. Mild patchy infiltrates on the right greater than left indicate mild pulmonary edema or atypical pneumonia. 2. Moderate cardiomegaly. Electronically signed by: Amish Deluca MD (04/01/2018 9:16 AM) [facility]
--- NOTE | 2018-04-01 10:16 | PDOC ---
Infectious Disease Note Subjective Subjective More calm and conversant Thirsty, requesting a drink of water Now on vent-mask FiO2 35% No fevers last 24 hours PPN Denies pain/upset stomach or SOA ROS ROS per HPI Vital Sign Vital Signs Vital Signs Date Time Temp Pulse Resp B/P (MAP) Pulse Ox O2 Delivery O2 Flow Rate FiO2 04/01/18 08:43 BiPAP/CPAP 04/01/18 07:03 94 04/01/18 07:00 24 04/01/18 05:04 15.0 03/31/18 15:00 98.4 77 147/53 (84) 98.4 Physical Exam PHYSICAL EXAM GENERAL: Lying down, eyes closed, more calm HEENT: PERRL. Oral cavity dry LUNGS: Clear anteriorly HEART: S1, S2 ABDOMEN: Obese, BS active, soft, NT : [place] EXTREMITIES: Generalized edema. No cyanosis. 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, conversing some LUE-midline Labs Lab Laboratory Tests Test 03/31/18 11:21 03/31/18 14:50 04/01/18 03:30 O2 Saturation 94 % (92-99) Arterial Blood pH 7.45 (7.35-7.45) Arterial Blood pCO2 at Patient Temp 30 mmHg (35-46) Arterial Blood pO2 at Patient Temp 71 mmHg (65-108) Arterial Blood HCO3 21 mmol/L (21-28) Arterial Blood Base Excess -2 mmol/L (-3-3) FiO2 35 Lactic Acid Level 1.3 mmol/L (0.4-2.0) White Blood Count 9.8 x10^3/uL (4.0-11.0) Red Blood Count 3.42 x10^6/uL (3.50-5.40) Hemoglobin 10.8 g/dL (12.0-15.5) Hematocrit 32.8 % (36.0-47.0) Mean Corpuscular Volume 96 fL (79-100) Mean Corpuscular Hemoglobin 32 pg (25-35) Mean Corpuscular Hemoglobin Concent 33 g/dL (31-37) Red Cell Distribution Width 16.1 % (11.5-14.5) Platelet Count 176 x10^3/uL (140-400) Neutrophils (%) (Auto) 94 % (31-73) Lymphocytes (%) (Auto) 3 % (24-48) Monocytes (%) (Auto) 3 % (0-9) Eosinophils (%) (Auto) 0 % (0-3) Basophils (%) (Auto) 0 % (0-3) Neutrophils # (Auto) 9.2 x10^3uL (1.8-7.7) Lymphocytes # (Auto) 0.3 x10^3/uL (1.0-4.8) Monocytes # (Auto) 0.3 x10^3/uL (0.0-1.1) Eosinophils # (Auto) 0.0 x10^3/uL (0.0-0.7) Basophils # (Auto) 0.0 x10^3/uL (0.0-0.2) Sodium Level 144 mmol/L (136-145) Potassium Level 3.1 mmol/L (3.5-5.1) Chloride Level 106 mmol/L (98-107) Carbon Dioxide Level 25 mmol/L (21-32) Anion Gap 13 (6-14) Blood Urea Nitrogen 31 mg/dL (7-20) Creatinine 1.4 mg/dL (0.6-1.0) Estimated GFR (Cockcroft-Gault) 35.5 Glucose Level 178 mg/dL (70-99) Calcium Level 8.6 mg/dL (8.5-10.1) IMPRESSION: 1. Mild patchy infiltrates on the right greater than left indicate mild pulmonary edema or atypical pneumonia. 2. Moderate cardiomegaly. IMPRESSION: No evidence of DVT in the visualized portions of the bilateral upper extremities. Limited evaluation of the left upper extremity due to subcutaneous edema. Micro 03/27/18 Blood Culture - Preliminary, Resulted NO GROWTH AFTER 3 DAYS URINE CULTURE RES 1 Final Comment Culture shows less than 10,000 colony forming units of bacteria per milliliter of urine. This colony count is not generally considered to be clinically significant. Objective Assessment Encephalopathy Right leg cellulitis - improving Pneumonia Yeast infection in groin - improving Debility Respiratory failure L1 vertebral compression fracture. ELIEZER Plan Plan of Care Discont vanc, with ELIEZER Cont cefepime and fluconazole On steroids Trough 19.5 Procalcitonin ,0.10 f/y BC Monitor labs/renal function BMP in am D/w family Prognosis poor Attending Co-Sign Attending Co-Sign The patient was seen and interviewed as well as examined at the bedside. The chart was reviewed. The case was discussed. Agree with the plan of care. MARIA EUGENIA MASTERS APRN Apr 01, 2018 10:16 STEVE SELLERS MD Apr 01, 2018 14:36
[2018-04-01] MEDS ORDERED: POTASSIUM CHLORIDE 20MEQ 50 ML IV SCH (12:00)
[2018-04-01] MEDS: AMINO AC 3%/ELECTROLYTE/GLYCER 1,000 ML IV SCH (12:00)
[2018-04-01] MEDS: FUROSEMIDE 40 MG/4 ML VIAL. IVP SCH (12:00)
[2018-04-01] MEDS: VANCOMYCIN PER PHARMACY MC PRN ×2 (12:11→12:27)
[2018-04-01] MEDS ORDERED: POTASSIUM CHLORIDE IV ONE (12:30)
[2018-04-01] MEDS ORDERED: NORMAL SALINE IV ONE (12:30)
[2018-04-01] MEDS ORDERED: POTASSIUM CHLORIDE 40 MEQ in IV NORMAL SALINE 500ML BAG 500 ML IV ONE (13:00)
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
[2018-04-01] MEDS: NORMAL SALINE IVP SCH (14:56)
[2018-04-01] MEDS: NYSTATIN TOPICAL POWDER 15GM BOTTLE. TP SCH ×2 (14:56→19:30)
[2018-04-01] MEDS: LEVOTHYROXINE SODIUM IVP SCH (14:56)
[2018-04-01] MEDS: HALOPERIDOL LACTATE 5 MG/ML VIAL. IVP PRN (17:00)
[2018-04-01] MEDS: PATCH REMOVAL. MC SCH (19:29)
[2018-04-01] MEDS: ATORVASTATIN CALCIUM 10 MG TABLET. PO SCH (19:30)
[2018-04-01] MEDS: oxyCODONE/APAP 5/325 1 TAB TABLET PO PRN (19:32)
[2018-04-01] MEDS ORDERED: OLANZapine IM 10 MG VIAL. IM ONE ×3 (21:15→21:30)
[2018-04-02] MEDS: AMINO AC 3%/ELECTROLYTE/GLYCER 1,000 ML IV SCH (03:34)
[2018-04-02] MEDS: IPRATRPIUM/ALBUTEROL 0.5/2.5MG 3 ML NEBU. NEB SCH ×5 (04:00→20:00)
[2018-04-02 04:50] LABS: CALCIUM 8.7 mg/dL (8.5-10.1); CREATININE 1.2 mg/dL (0.6-1.0); GFR 42.4; POTASSIUM 3.5 mmol/L (3.5-5.1)
[2018-04-02] MEDS: methylPREDNISolone SOD SUCC PF 125 MG/2 ML VIAL. IV SCH (06:00)
[2018-04-02] MEDS: CEFEPIME HCL IV Push 1 GM VIAL. IVP SCH (06:00)
[2018-04-02] MEDS ORDERED: VANCOMYCIN RANDOM LEVEL. MC ONE (06:00)
[2018-04-02] MEDS: PANTOPRAZOLE IV PUSH 40 MG VIAL. IVP SCH (06:16)
[2018-04-02] MEDS: BUDESONIDE 0.5 MG/2 ML NEBU. NEB SCH (07:19)
[2018-04-02] MEDS: amLODIPine BESYLATE 10 MG TABLET PO SCH (09:00)
[2018-04-02] MEDS: NYSTATIN TOPICAL POWDER 15GM BOTTLE. TP SCH ×2 (09:00→20:56)
[2018-04-02] MEDS: MULTIVITAMIN I-VITE TABLET. PO SCH (09:00)
[2018-04-02] MEDS: PSYLLIUM HUSK (SUGAR FREE) 1 PKT PACKET PO SCH (09:00)
[2018-04-02] MEDS: CETIRIZINE HCL 10 MG TABLET. PO SCH (09:00)
[2018-04-02] MEDS: SENNOSIDES/DOCUSATE 8.6/50MG TABLET. PO SCH (09:00)
[2018-04-02] MEDS: FLUCONAZOLE 100 MG TABLET. PO SCH (09:00)
[2018-04-02] MEDS: CHOLECALCIFEROL (VITAMIN D3) 1,000 UNIT TABLET PO SCH (09:00)
--- NOTE | 2018-04-02 09:17 | PDOC ---
Infectious Disease Note Subjective: Subjective pt on venti mask trying to take it off confusion off and on no f/n/v/d ROS: ROS limited Vital Signs: Vital Signs Vital Signs Date Time Temp Pulse Resp B/P (MAP) Pulse Ox O2 Delivery O2 Flow Rate FiO2 04/02/18 07:15 93 BiPAP/CPAP 04/02/18 04:00 15.0 04/01/18 20:32 20 Physical Exam: PHYSICAL EXAM GENERAL:on ventimask HEENT: PERRL. Oral cavity dry LUNGS: Clear anteriorly HEART: S1, S2 ABDOMEN: Obese, BS active, soft, NT : [place] EXTREMITIES: Generalized edema. No cyanosis. 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-midline Medications: Inpatient Meds: Current Medications Medications (Trade) Dose Ordered Sig/Rhiannon Start Time Stop Time Status Last Admin Dose Admin Albuterol Sulfate (Ventolin Neb Soln) 2.5 mg PRN Q4HRS PRN 03/29/18 20:15 Albuterol/ Ipratropium (Duoneb) 3 ml Q4HRS 03/28/18 16:00 04/02/18 07:19 3 ML Amino Acids/ Glycerin/ Electrolytes 1,000 ml @ 80 mls/hr [id number] 03/30/18 13:45 04/02/18 03:34 80 MLS/HR Amlodipine Besylate (Norvasc) 10 mg DAILY 03/28/18 09:00 03/29/18 08:36 10 MG Apixaban (Eliquis) 5 mg BID 03/28/18 09:00 03/30/18 12:54 DC 03/28/18 21:00 5 MG Atorvastatin Calcium (Lipitor) 10 mg QHS 03/28/18 21:00 03/31/18 20:24 10 MG Benzonatate (Tessalon Perle) 200 mg PRN Q8HRS PRN 03/28/18 14:00 03/31/18 20:24 200 MG Budesonide (Pulmicort) 0.5 mg RTBID 03/28/18 10:00 04/02/18 07:19 0.5 MG Cefepime HCl (Maxipime) 1 gm Q8HRS 03/28/18 14:00 04/02/18 06:00 1 GM Cefepime HCl 1 gm/ Dextrose 50 ml @ 100 mls/hr Q8HRS 03/28/18 14:00 UNV Cetirizine HCl (ZyrTEC) 10 mg DAILY 03/28/18 09:00 03/29/18 08:34 10 MG Diclofenac Sodium (Voltaren) 1 natasha PRN Q6HRS PRN 03/28/18 08:45 Doxycycline Hyclate 100 mg/ Dextrose 100 ml @ 50 mls/hr Q12HR 03/28/18 12:00 03/28/18 12:11 DC Enoxaparin Sodium (Lovenox 40mg Syringe) 40 mg Q12H 03/30/18 13:00 04/01/18 14:58 40 MG Famotidine (Pepcid) 20 mg DAILY 03/28/18 10:00 03/30/18 12:48 DC 03/29/18 08:34 20 MG Fentanyl Citrate (Fentanyl 2ml Vial) 50 mcg PRN Q2HR PRN 04/01/18 21:15 Fluconazole (Diflucan) 200 mg DAILY 03/28/18 12:30 03/29/18 08:35 200 MG Furosemide (Lasix) 40 mg DAILY 04/01/18 12:00 Guaifenesin (Mucinex) 600 mg BID 03/28/18 09:00 03/31/18 20:24 600 MG Guaifenesin (Robitussin Dm) 10 ml PRN Q6HRS PRN 03/28/18 08:45 03/28/18 09:29 10 ML Haloperidol (Haldol) 2 mg PRN Q6HRS PRN 03/29/18 20:15 04/01/18 11:43 DC 03/30/18 05:01 2 MG Haloperidol Lactate (Haldol Inj) 2 mg PRN Q6HRS PRN 04/01/18 14:30 04/01/18 17:00 2 MG Info (Anti-Coagulation Monitoring By Pharmacy) 1 each PRN DAILY PRN 03/28/18 09:15 03/28/18 11:04 1 EACH Info (Tpn Per Pharmacy) 1 each PRN DAILY PRN 03/30/18 13:30 03/30/18 13:31 DC Lactobacillus Rhamnosus (Culturelle) 1 cap BID 03/28/18 21:00 03/30/18 15:28 DC 03/29/18 20:52 1 CAP Levothyroxine Sodium (Synthroid) 100 mcg DAILY07 03/28/18 10:30 03/31/18 11:49 DC 03/30/18 07:45 100 MCG Levothyroxine Sodium 50 mcg/ Sodium Chloride 5 ml @ 100 mls/hr DAILY 03/31/18 12:00 04/01/18 14:56 100 MLS/HR Lidocaine (Lidoderm) 1 patch PRN DAILY PRN 03/28/18 10:00 Lorazepam (Ativan) 0.25 mg 1X ONCE 03/30/18 10:45 03/30/18 10:46 DC 03/30/18 10:53 0.25 MG Methylprednisolone Sodium Succinate (SOLU-Medrol 40MG VIAL) 40 mg 1X ONCE 03/28/18 08:45 03/28/18 09:12 DC 03/28/18 09:27 40 MG Methylprednisolone Sodium Succinate (SOLU-Medrol 125MG VIAL) 80 mg Q8HRS 04/01/18 14:00 04/02/18 06:00 80 MG Miscellaneous (Lidoderm Patch Removal) 1 ea QHS 03/28/18 21:00 04/01/18 19:29 1 EA Multivitamins/ Minerals (I-Oscar) 1 tab DAILY 03/28/18 09:00 03/29/18 08:33 1 TAB Non-Formulary Medication (Albuterol Sulfate (Proair Hfa Inhaler)) 1 puff DAILY 03/28/18 09:00 UNV Non-Formulary Medication (Fluticasone/ Salmeterol (Advair 250-50 Diskus)) 1 inh BID 03/28/18 09:00 UNV Nystatin (Nystop) 1 natasha BID 03/28/18 21:00 04/01/18 19:30 1 NATASHA Olanzapine (ZyPREXA IM) 5 mg 1X ONCE 04/01/18 21:30 04/01/18 21:31 DC 04/02/18 06:16 5 MG Oxycodone/ Acetaminophen (Percocet 5/325) 1 tab PRN Q4HRS PRN 03/28/18 08:45 04/01/18 19:32 1 TAB Pantoprazole Sodium (PROTONIX VIAL for IV PUSH) 40 mg DAILYAC 10/5/18 13:00 04/02/18 06:16 40 MG Polyethylene Glycol (miraLAX PACKET) 17 gm PRN DAILY PRN 03/28/18 09:00 Potassium Chloride 40 meq/ Sodium Chloride 520 ml @ 130 mls/hr 1X ONCE 04/01/18 13:00 04/01/18 16:59 DC 04/01/18 14:59 130 MLS/HR Potassium Chloride/Water 50 ml @ 50 mls/hr Q1H 04/01/18 12:00 04/01/18 12:08 DC Potassium Chloride (Klor-Con) 20 meq [id number] 03/28/18 09:00 04/01/18 11:43 DC 03/30/18 07:46 20 MEQ Prednisone (Prednisone) 10 mg DAILY 03/28/18 09:00 03/28/18 11:14 DC 03/28/18 09:29 10 MG Psyllium Hydrophilic Mucilloid (Metamucil Fiber Packet) 1 pkt DAILY 03/28/18 19:00 03/28/18 19:00 1 PKT Senna/Docusate Sodium (Senna Plus) 1 tab BID 03/28/18 09:00 03/31/18 20:24 1 TAB Sodium Chloride 1,000 ml @ 75 mls/hr [id number] 03/28/18 00:01 03/29/18 00:00 DC 03/28/18 15:26 75 MLS/HR Throat Lozenges (Cepacol Sore Throat Lozenge) 1 mai PRN Q2HRS PRN 03/28/18 08:45 Vancomycin HCl (Vanco Per Pharmacy) 1 each PRN DAILY PRN 03/28/18 00:15 04/01/18 14:29 DC 04/01/18 12:27 1 EACH Vancomycin HCl (Vancomycin Random Level) 1 each 1X ONCE 04/02/18 06:00 04/02/18 06:01 Cancel Vancomycin HCl (Vancomycin Trough Level) 1 each 1X ONCE 03/30/18 00:30 03/30/18 00:32 DC 03/30/18 00:30 1 EACH Vancomycin HCl 1.25 gm/Sodium Chloride 250 ml @ 167 mls/hr Q24H 03/31/18 01:00 04/01/18 12:24 DC 04/01/18 01:20 167 MLS/HR Vancomycin HCl 1.5 gm/Sodium Chloride 500 ml @ 250 mls/hr Q24H 03/29/18 01:00 03/30/18 15:18 DC 03/30/18 05:00 250 MLS/HR Vancomycin HCl 2 gm/Sodium Chloride 500 ml @ 250 mls/hr 1X ONCE 03/28/18 00:30 03/28/18 02:29 DC 03/28/18 00:55 250 MLS/HR Vitamin D (Vitamin D3) 1,000 unit DAILY 03/28/18 09:00 03/29/18 08:33 1,000 UNIT Labs: Lab Laboratory Tests Test 04/02/18 03:50 Sodium Level 145 mmol/L (136-145) Potassium Level 3.5 mmol/L (3.5-5.1) Chloride Level 106 mmol/L (98-107) Carbon Dioxide Level 28 mmol/L (21-32) Anion Gap 11 (6-14) Blood Urea Nitrogen 35 mg/dL (7-20) Creatinine 1.2 mg/dL (0.6-1.0) Estimated GFR (Cockcroft-Gault) 42.4 Glucose Level 218 mg/dL (70-99) Calcium Level 8.7 mg/dL (8.5-10.1) Micro BC neg UC neg Objective: Assessment: Encephalopathy fluctuates Right leg cellulitis - improving Pneumonia Yeast infection in groin - improving Debility Respiratory failure L1 vertebral compression fracture. ELIEZER ,creat improving Plan: Plan of Care Cont cefepime and fluconazole OFF IV Vanc due to ELIEZER On steroids Overall Prognosis poor DALLAS EVANS MD Apr 02, 2018 09:17
[2018-04-02] MEDS: FUROSEMIDE 40 MG/4 ML VIAL. IVP SCH ×2 (09:21→16:00)
[2018-04-02] MEDS: NORMAL SALINE IVP SCH (09:22)
[2018-04-02] MEDS: LEVOTHYROXINE SODIUM IVP SCH (09:22)
[2018-04-02] MEDS: fentaNYL PF VIAL 100 MCG/2 ML VIAL IV PRN ×4 (09:22→20:57)
--- NOTE | 2018-04-02 11:34 | PDOC ---
Subjective: Subjective: Denies pain. Objective: Objective: 1:1 obs Vital Signs: Vital Signs Date Time Temp Pulse Resp B/P (MAP) Pulse Ox O2 Delivery O2 Flow Rate FiO2 04/02/18 11:14 Nasal Cannula 3.0 04/02/18 07:15 93 04/01/18 20:32 20 PE: GEN: ill LUNGS: BiPAP HEART: RRR ABD: round, non-tender NEURO/PSYCH: awake and alert A/P: Resp failure -- Plans for palliative care discussion w/ family today, await this. JERALD KAUFFMAN Apr 02, 2018 11:34
--- NOTE | 2018-04-02 12:13 | PDOC ---
PROGRESS NOTES Chief Complaint Chief Complaint Sepsis Mild cellulitis BLE COPD with acute bronchitis,, acute on chronic hypercarbic resp failure, tachypnea Morbid obesity, BMI 51 Weakness and debility Mult drug allergies Acute diastolic CHF EXACERBATION AMS with hypoxic , metabolic encephalopathy Hypothyroidism Afib on eliquis ELIEZER, vasomotor History of Present Illness History of Present Illness pt seen and examine on bipap w/ 30 pt can squeeze hands in response to questions dw/ RN and rep. from [place] granddaughter is DPOA Vitals Vitals Vital Signs Date Time Temp Pulse Resp B/P (MAP) Pulse Ox O2 Delivery O2 Flow Rate FiO2 04/02/18 11:14 Nasal Cannula 3.0 04/02/18 07:15 93 04/01/18 20:32 20 Physical Exam Physical Exam GENERAL:on ventimask HEENT: PERRL. Oral cavity dry LUNGS: Clear anteriorly HEART: S1, S2 ABDOMEN: Obese, BS active, soft, NT : [place] EXTREMITIES: Generalized edema. No cyanosis. 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 some LUE-midline General: Cooperative, mild distress, Other Heart: Normal S1, Normal S2 Lungs: Wheezing, Crackles, Other (upper airway wheezes) Abdomen: Normal bowel sounds, Soft Extremities: No clubbing, Other (pain, mild redness, weakness, trace edema) Skin: No rashes, No breakdown, Other (eryhema and pain both lower legs, most red behind right knee) Labs LABS Laboratory Tests Test 04/02/18 03:50 Sodium Level 145 mmol/L (136-145) Potassium Level 3.5 mmol/L (3.5-5.1) Chloride Level 106 mmol/L (98-107) Carbon Dioxide Level 28 mmol/L (21-32) Anion Gap 11 (6-14) Blood Urea Nitrogen 35 mg/dL (7-20) Creatinine 1.2 mg/dL (0.6-1.0) Estimated GFR (Cockcroft-Gault) 42.4 Glucose Level 218 mg/dL (70-99) Calcium Level 8.7 mg/dL (8.5-10.1) Review of Systems Review of Systems CO fatigue CO hunger Assessment and Plan Assessmemt and Plan Problems Medical Problems: (1) Cellulitis of both lower extremities Status: Acute Sepsis Mild cellulitis BLE COPD with acute bronchitis,, acute on chronic hypercarbic resp failure, tachypnea Morbid obesity, BMI 51 Weakness and debility Mult drug allergies Acute diastolic CHF EXACERBATION AMS with hypoxic , metabolic encephalopathy Hypothyroidism Afib on eliquis ELIEZER, vasomotor Plan: Bipap Procalamine @ 80 cc/hr K+ replacement Vancomycin awaiting input from palliative residential meds Labs Comment Review of Relevant I have reviewed the following items wilmer (where applicable) has been applied. Labs Laboratory Tests Test 03/31/18 14:50 04/01/18 03:30 04/02/18 03:50 Lactic Acid Level 1.3 mmol/L (0.4-2.0) White Blood Count 9.8 x10^3/uL (4.0-11.0) Red Blood Count 3.42 x10^6/uL (3.50-5.40) Hemoglobin 10.8 g/dL (12.0-15.5) Hematocrit 32.8 % (36.0-47.0) Mean Corpuscular Volume 96 fL (79-100) Mean Corpuscular Hemoglobin 32 pg (25-35) Mean Corpuscular Hemoglobin Concent 33 g/dL (31-37) Red Cell Distribution Width 16.1 % (11.5-14.5) Platelet Count 176 x10^3/uL (140-400) Neutrophils (%) (Auto) 94 % (31-73) Lymphocytes (%) (Auto) 3 % (24-48) Monocytes (%) (Auto) 3 % (0-9) Eosinophils (%) (Auto) 0 % (0-3) Basophils (%) (Auto) 0 % (0-3) Neutrophils # (Auto) 9.2 x10^3uL (1.8-7.7) Lymphocytes # (Auto) 0.3 x10^3/uL (1.0-4.8) Monocytes # (Auto) 0.3 x10^3/uL (0.0-1.1) Eosinophils # (Auto) 0.0 x10^3/uL (0.0-0.7) Basophils # (Auto) 0.0 x10^3/uL (0.0-0.2) Sodium Level 144 mmol/L (136-145) 145 mmol/L (136-145) Potassium Level 3.1 mmol/L (3.5-5.1) 3.5 mmol/L (3.5-5.1) Chloride Level 106 mmol/L (98-107) 106 mmol/L (98-107) Carbon Dioxide Level 25 mmol/L (21-32) 28 mmol/L (21-32) Anion Gap 13 (6-14) 11 (6-14) Blood Urea Nitrogen 31 mg/dL (7-20) 35 mg/dL (7-20) Creatinine 1.4 mg/dL (0.6-1.0) 1.2 mg/dL (0.6-1.0) Estimated GFR (Cockcroft-Gault) 35.5 42.4 Glucose Level 178 mg/dL (70-99) 218 mg/dL (70-99) Calcium Level 8.6 mg/dL (8.5-10.1) 8.7 mg/dL (8.5-10.1) Laboratory Tests Test 04/02/18 03:50 Sodium Level 145 mmol/L (136-145) Potassium Level 3.5 mmol/L (3.5-5.1) Chloride Level 106 mmol/L (98-107) Carbon Dioxide Level 28 mmol/L (21-32) Anion Gap 11 (6-14) Blood Urea Nitrogen 35 mg/dL (7-20) Creatinine 1.2 mg/dL (0.6-1.0) Estimated GFR (Cockcroft-Gault) 42.4 Glucose Level 218 mg/dL (70-99) Calcium Level 8.7 mg/dL (8.5-10.1) Microbiology 03/27/18 Blood Culture - Final, Complete NO GROWTH AFTER 5 DAYS 03/27/18 Urine Culture - Final, Complete 03/27/18 Urine Culture Result 1 (VICK) - Final, Complete Medications Current Medications Sodium Chloride 1,000 ml @ 1,000 mls/hr Q1H IV Last administered on 03/27/18at 22:43; Start 03/27/18 at 22:30; Stop 03/27/18 at 23:51; Status DC Albuterol/ Ipratropium (Duoneb) 3 ml 1X ONCE NEB Last administered on at 22:30; Start 03/27/18 at 22:30; Stop 03/27/18 at 22:31; Status DC Vancomycin HCl (Vanco Per Pharmacy) 1 each PRN DAILY PRN MC SEE COMMENTS Last administered on 04/01/18at 12:27; Start 03/28/18 at 00:15; Stop 04/01/18 at 14:29 ; Status DC Sodium Chloride 1,000 ml @ 75 mls/hr [id number] IV Last administered on at 15:26; Start 03/28/18 at 00:01; Stop 03/29/18 at 00:00; Status DC Albuterol/ Ipratropium (Duoneb) 3 ml RTQID NEB Last administered on 03/28/18at 07:43; Start 03/28/18 at 08:00; Stop 03/28/18 at 09:00; Status DC Vancomycin HCl 2 gm/Sodium Chloride 500 ml @ 250 mls/hr 1X ONCE IV Last administered on 03/28/18at 00:55; Start 03/28/18 at 00:30; Stop 03/28/18 at 02:29 ; Status DC Vancomycin HCl 1.5 gm/Sodium Chloride 500 ml @ 250 mls/hr Q24H IV Last administered on 03/30/18at 05:00; Start 03/29/18 at 01:00; Stop 03/30/18 at 15:18 ; Status DC Vancomycin HCl (Vancomycin Trough Level) 1 each 1X ONCE MC Last administered on 03/30/18at 00:30; Start 03/30/18 at 00:30; Stop 03/30/18 at 00:32; Status DC Amlodipine Besylate (Norvasc) 10 mg DAILY PO Last administered on 03/29/18at 08: 36; Start 03/28/18 at 09:00 Apixaban (Eliquis) 5 mg BID PO Last administered on 03/28/18at 21:00; Start 03/28/18 at 09:00; Stop 03/30/18 at 12:54; Status DC Atorvastatin Calcium (Lipitor) 10 mg QHS PO Last administered on 03/31/18at 20: 24; Start 03/28/18 at 21:00 Cetirizine HCl (ZyrTEC) 10 mg DAILY PO Last administered on 03/29/18 08:34; Start 03/28/18 at 09:00 Vitamin D (Vitamin D3) 1,000 unit DAILY PO Last administered on 03/29/18at 08:33 ; Start 03/28/18 at 09:00 Diclofenac Sodium (Voltaren) 1 keisha PRN Q6HRS PRN TP Joint PAIN; Start 03/28/18 at 08:45 Furosemide (Lasix) 20 mg [id number] PO Last administered on 03/29/18 15:47; Start 03/28/18 at 09:00; Stop 03/31/18 at 08:02; Status DC Guaifenesin (Mucinex) 600 mg BID PO Last administered on 03/31/18 20:24; Start 03/28/18 at 09:00 Albuterol/ Ipratropium (Duoneb) 3 ml Q6HRS NEB ; Start 03/28/18 at 08:45; Stop 03/28/18 at 09:13; Status DC Levothyroxine Sodium (Synthroid) 100 mcg DAILY07 PO Last administered on 07:45; Start 03/28/18 at 10:30; Stop 03/31/18 at 11:49; Status DC Lorazepam (Ativan) 1 mg BID PO Last administered on 03/29/18 20:53; Start 03/28/18 at 09:00; Stop 03/31/18 at 11:49; Status DC Oxycodone/ Acetaminophen (Percocet 5/325) 1 tab PRN Q4HRS PRN PO MODERATE TO SEVERE PAIN Last administered on 04/01/18 19:32; Start 03/28/18 at 08:45 Potassium Chloride (Klor-Con) 20 meq [id number] PO Last administered on 07:46; Start 03/28/18 at 09:00; Stop 04/01/18 at 11:43; Status DC Prednisone (Prednisone) 10 mg DAILY PO Last administered on 03/28/18 09:29; Start 03/28/18 at 09:00; Stop 03/28/18 at 11:14; Status DC Senna/Docusate Sodium (Senna Plus) 1 tab BID PO Last administered on 03/31/18 20:24; Start 03/28/18 at 09:00 Multivitamins/ Minerals (I-Oscar) 1 tab DAILY PO Last administered on 03/29/18 08:33; Start 03/28/18 at 09:00 Non-Formulary Medication (Albuterol Sulfate (Proair Hfa Inhaler)) 1 puff DAILY INH ; Start 03/28/18 at 09:00; Status UNV Benzonatate (Tessalon Perle) 200 mg PRN Q8HRS PRN PO COUGH 2ND CHOICE Last administered on 03/31/18at 20:24; Start 03/28/18 at 14:00 Non-Formulary Medication (Fluticasone/ Salmeterol (Advair 250-50 Diskus)) 1 inh BID IH ; Start 03/28/18 at 09:00; Status UNV Lidocaine (Lidoderm) 1 patch PRN DAILY PRN TD PAIN; Start 03/28/18 at 10:00 Polyethylene Glycol (miraLAX PACKET) 17 gm PRN DAILY PRN PO CONSTIPATION 1ST CHOICE; Start 03/28/18 at 09:00 Famotidine (Pepcid) 20 mg DAILY PO Last administered on 03/29/18 08:34; Start 03/28/18 at 10:00; Stop 03/30/18 at 12:48; Status DC Albuterol/ Ipratropium (Duoneb) 3 ml Q4HRS W/A NEB Last administered on 11:34; Start 03/28/18 at 10:00; Stop 03/28/18 at 14:51; Status DC Methylprednisolone Sodium Succinate (SOLU-Medrol 40MG VIAL) 40 mg 1X ONCE IV Last administered on 03/28/18 09:27; Start 03/28/18 at 08:45; Stop 03/28/18 at 09:12; Status DC Throat Lozenges (Cepacol Sore Throat Lozenge) 1 mai PRN Q2HRS PRN PO SORE THROAT; Start 03/28/18 at 08:45 Guaifenesin (Robitussin Dm) 10 ml PRN Q6HRS PRN PO COUGH 1ST CHOICE Last administered on 03/28/18 09:29; Start 03/28/18 at 08:45 Info (Anti-Coagulation Monitoring By Pharmacy) 1 each PRN DAILY PRN MC SEE COMMENTS Last administered on 03/28/18 11:04; Start 03/28/18 at 09:15 Miscellaneous (Lidoderm Patch Removal) 1 ea QHS MC Last administered on at 19:29; Start 03/28/18 at 21:00 Budesonide (Pulmicort) 0.5 mg RTBID NEB Last administered on 04/02/18 07:19; Start 03/28/18 at 10:00 Albuterol Sulfate (Ventolin Neb Soln) 2.5 mg DAILY NEB ; Start 03/28/18 at 10:00 ; Stop 03/28/18 at 14:51; Status DC Methylprednisolone Sodium Succinate (SOLU-Medrol 125MG VIAL) 60 mg Q8HRS IV Last administered on 04/01/18at 05:16; Start 03/28/18 at 12:00; Stop 04/01/18 at 07:44; Status DC Doxycycline Hyclate 100 mg/ Dextrose 100 ml @ 50 mls/hr Q12HR IV ; Start at 12:00; Stop 03/28/18 at 12:11; Status DC Nystatin (Nystop) 1 keisha BID TP Last administered on 04/02/18 09:00; Start 03/28/18 at 21:00 Cefepime HCl 1 gm/ Dextrose 50 ml @ 100 mls/hr Q8HRS IV ; Start 03/28/18 at 14: 00; Status UNV Fluconazole (Diflucan) 200 mg DAILY PO Last administered on 03/29/18at 08:35; Start 03/28/18 at 12:30 Cefepime HCl (Maxipime) 1 gm Q8HRS IVP Last administered on 04/02/18at 06:00; Start 03/28/18 at 14:00 Lactobacillus Rhamnosus (Culturelle) 1 cap BID PO Last administered on at 20:52; Start 03/28/18 at 21:00; Stop 03/30/18 at 15:28; Status DC Albuterol/ Ipratropium (Duoneb) 3 ml Q4HRS NEB Last administered on 04/02/18 11:12; Start 03/28/18 at 16:00 Psyllium Hydrophilic Mucilloid (Metamucil Fiber Packet) 1 pkt DAILY PO Last administered on 03/28/18 19:00; Start 03/28/18 at 19:00 Haloperidol (Haldol) 2 mg PRN Q6HRS PRN PO ANXIETY Last administered on at 05:01; Start 03/29/18 at 20:15; Stop 04/01/18 at 11:43; Status DC Albuterol Sulfate (Ventolin Neb Soln) 2.5 mg PRN Q4HRS PRN NEB SHORTNESS OF BREATH; Start 03/29/18 at 20:15 Furosemide (Lasix) 40 mg 1X ONCE IVP Last administered on 03/30/18at 07:40; Start 03/30/18 at 07:00; Stop 03/30/18 at 07:01; Status DC Haloperidol Lactate (Haldol Inj) 1 mg 1X ONCE IVP Last administered on at 07:42; Start 03/30/18 at 07:00; Stop 03/30/18 at 07:01; Status DC Lorazepam (Ativan) 0.5 mg PRN Q4HRS PRN IV ANXIETY / AGITATION Last administered on 04/02/18at 06:17; Start 03/30/18 at 09:30 Lorazepam (Ativan) 0.25 mg 1X ONCE IV Last administered on 03/30/18at 10:53; Start 03/30/18 at 10:45; Stop 03/30/18 at 10:46; Status DC Enoxaparin Sodium (Lovenox 40mg Syringe) 40 mg Q24H SQ ; Start 03/30/18 at 13:00 ; Stop 03/30/18 at 13:00; Status DC Haloperidol Lactate (Haldol Inj) 2 mg 1X ONCE IVP Last administered on at 13:00; Start 03/30/18 at 12:45; Stop 03/30/18 at 12:46; Status DC Pantoprazole Sodium (PROTONIX VIAL for IV PUSH) 40 mg DAILYAC IVP Last administered on 04/02/18at 06:16; Start 03/30/18 at 13:00 Enoxaparin Sodium (Lovenox 40mg Syringe) 40 mg Q12H SQ Last administered on 04/01/18at 14:58; Start 03/30/18 at 13:00 Info (Tpn Per Pharmacy) 1 each PRN DAILY PRN MC SEE COMMENTS; Start 03/30/18 at 13:30; Stop 03/30/18 at 13:31; Status DC Haloperidol Lactate (Haldol Inj) 5 mg 1X ONCE IVP Last administered on 13:43; Start 03/30/18 at 13:30; Stop 03/30/18 at 13:31; Status DC Amino Acids/ Glycerin/ Electrolytes 1,000 ml @ 80 mls/hr [id number] IV Last administered on 04/02/18 03:34; Start 03/30/18 at 13:45 Fentanyl Citrate (Fentanyl 2ml Vial) 25 mcg PRN Q2HR PRN IV PAIN Last administered on 04/02/18 09:22; Start 03/30/18 at 14:45 Vancomycin HCl 1.25 gm/Sodium Chloride 250 ml @ 167 mls/hr Q24H IV Last administered on 04/01/18 01:20; Start 03/31/18 at 01:00; Stop 04/01/18 at 12:24 ; Status DC Furosemide (Lasix) 40 mg [id number] IVP Last administered on 03/31/18 14:30; Start 03/31/18 at 09:00; Stop 04/01/18 at 11:43; Status DC Levothyroxine Sodium 50 mcg/ Sodium Chloride 5 ml @ 100 mls/hr DAILY IVP Last administered on 04/02/18 09:22; Start 03/31/18 at 12:00 Haloperidol Lactate (Haldol Inj) 5 mg 1X ONCE IM ; Start 03/31/18 at 23:30; Stop 03/31/18 at 23:42; Status DC Olanzapine (ZyPREXA IM) 5 mg 1X ONCE IM Last administered on 04/01/18 01:22; Start 03/31/18 at 23:45; Stop 03/31/18 at 23:46; Status DC Methylprednisolone Sodium Succinate (SOLU-Medrol 125MG VIAL) 80 mg Q8HRS IV Last administered on 04/02/18 06:00; Start 04/01/18 at 14:00 Furosemide (Lasix) 40 mg DAILY IVP Last administered on 04/02/18 09:21; Start 04/01/18 at 12:00 Potassium Chloride/Water 50 ml @ 50 mls/hr Q1H IV ; Start 04/01/18 at 12:00; Stop 04/01/18 at 12:08; Status DC Potassium Chloride 40 meq/ Sodium Chloride 270 ml @ 67.5 mls/hr ONCE ONCE IV ; Start 04/01/18 at 12:30; Stop 04/01/18 at 16:29; Status Cancel Potassium Chloride 40 meq/ Sodium Chloride 520 ml @ 130 mls/hr 1X ONCE IV Last administered on 04/01/18at 14:59; Start 04/01/18 at 13:00; Stop 04/01/18 at 16:59; Status DC Vancomycin HCl (Vancomycin Random Level) 1 each 1X ONCE MC ; Start 04/02/18 at 06:00; Stop 04/02/18 at 06:01; Status Cancel Haloperidol Lactate (Haldol Inj) 2 mg PRN Q6HRS PRN IVP AGITATION Last administered on 04/01/18at 17:00; Start 04/01/18 at 14:30 Olanzapine (ZyPREXA IM) 5 mg 1X ONCE IM Last administered on 04/01/18at 21:35; Start 04/01/18 at 21:15; Stop 04/01/18 at 21:16; Status DC Fentanyl Citrate (Fentanyl 2ml Vial) 50 mcg PRN Q2HR PRN IV PAIN; Start at 21:15 Olanzapine (ZyPREXA IM) 5 mg 1X ONCE IM ; Start 04/01/18 at 21:15; Stop at 21:16; Status UNV Olanzapine (ZyPREXA IM) 5 mg 1X ONCE IM Last administered on 04/02/18at 06:16; Start 04/01/18 at 21:30; Stop 04/01/18 at 21:31; Status DC Active Scripts Active Klor-Con M20 (Potassium Chloride) 20 Meq Tab.er.prt 20 Meq PO [id number] 30 Days Furosemide 20 Mg Tablet 20 Mg PO [id number] 30 Days Prednisone (Prednisone) 10 Mg Tablet 10 Mg PO DAILY Take 50 mg (5 pills) daily for 2 days, then take 40 mg (4 pills) daily for 2 days, then take 30 mg (3 pills) daily for 2 days, then take 20 mg (2 pills) daily for 2 days, then take 10 mg for 2 days. Miralax (Polyethylene Glycol 3350) 17 Gm Powd.pack 17 Gm PO PRN DAILY PRN Oxycodone-Acetaminophen 5-325 (Oxycodone Hcl/Acetaminophen) 1 Each Tablet 1 Tab PO PRN Q4HRS PRN Reported Ranitidine Hcl 150 Mg Tablet 150 Mg PO DAILY Lidopatch (Lidocaine/Menthol) 1 Each Adh..patch 1 Patch TP PRN DAILY PRN Guaifenesin 600 Mg Tablet.er 600 Mg PO BID Advair 250-50 Diskus (Fluticasone/Salmeterol) 1 Each Disk.w.dev 1 Inh IH BID Senna-Docusate Sodium Tablet (Sennosides/Docusate Sodium) 1 Each Tablet 1 Tab PO BID Voltaren (Diclofenac Sodium) 100 Gm Gel..gram. 4 Gm TP PRN Q6HRS PRN Cetirizine Hcl 10 Mg Tablet 10 Mg PO DAILY Duoneb 0.5-3(2.5) Mg/3 Ml (Albuterol/Ipratropium) 3 Ml Ampul.neb 3 Ml NEB Q6HRS Proair Hfa Inhaler (Albuterol Sulfate) 8.5 Gm Hfa.aer.ad 1 Puff INH DAILY Eliquis (Apixaban) 5 Mg Tablet 5 Mg PO BID Nystatin Unknown Strength Powder 1 Keisha TOP PRN BID PRN Tessalon Perle (Benzonatate) 100 Mg Capsule 200 Mg PO PRN Q8HRS Levothyroxine Sodium 100 Mcg Tablet 1 Tab PO DAILY Lorazepam 1 Mg Tablet 1 Mg PO BID Ocuvite Tablet (Vit A,C & E/Lutein/Minerals) 1 Each Tablet 1 Each PO DAILY Vitamin D (Cholecalciferol (Vitamin D3)) 1,000 Unit Tablet 1,000 Unit PO DAILY Amlodipine Besylate 10 Mg Tablet 10 Mg PO DAILY Atorvastatin Calcium 10 Mg Tablet 1 Tab PO DAILY Vitals/I & O Vital Sign - Last 24 Hours 04/01/18 04/01/18 04/01/18 04/01/18 14:53 15:00 15:23 15:25 Resp 20 24 22 Pulse Ox 91 O2 Delivery Nasal Cannula Nasal Cannula O2 Flow Rate 3.0 3.0 3.0 04/01/18 04/01/18 04/01/18 04/01/18 17:02 18:00 18:02 19:32 Resp 17 23 Pulse Ox 97 97 O2 Delivery BiPAP/CPAP BiPAP/CPAP BiPAP/CPAP BiPAP/CPAP O2 Flow Rate 15.0 04/01/18 04/01/18 04/01/18 04/01/18 19:47 20:00 20:00 20:32 Resp 20 Pulse Ox 98 98 O2 Delivery BiPAP/CPAP Bi-pap BiPAP/CPAP O2 Flow Rate 15.0 15.0 04/01/18 04/02/18 04/02/18 04/02/18 23:15 00:00 04:00 04:10 Pulse Ox 98 98 O2 Delivery BiPAP/CPAP BiPAP/CPAP O2 Flow Rate 15.0 15.0 04/02/18 04/02/18 04/02/18 04/02/18 07:15 08:00 08:00 09:52 Pulse Ox 93 O2 Delivery BiPAP/CPAP Bi-pap BiPAP/CPAP O2 Flow Rate 15.0 15.0 04/02/18 11:14 O2 Delivery Nasal Cannula O2 Flow Rate 3.0 Intake and Output 04/01/18 04/01/18 04/02/18 15:00 23:00 07:00 Intake Total 0 ml 0 ml Output Total 1800 ml 400 ml Balance -1800 ml -400 ml ALETHA CRYSTAL III DO Apr 02, 2018 12:13
--- NOTE | 2018-04-02 13:57 | PDOC2 ---
PALLIATIVE CARE Palliative Care Note Palliative Care Spoke with patient and granddaughter Tomás. Patient wants to focus on her comfort. Granddaughter is supportive of this request. Discussed options for care. Home with Hospice vs Skilled Nursing with Hospice vs [facility] House. Tomás requests [facility]. Wants to make sure her granddmother is comfortable. Understands that opioids and sedatives may decrease respirations but the goal is comfort and she does not see her granddmother being kept comfortable. Will stop those medications not adding to comfort. Will increase medications for comfort as needed. Discussed PPN. This is not keeping patient from being hungry. Keeping her mouth clean and moist will add to comfort. Increase in fluids can add to discomfort. Midline leaking and will likely not be replaced. Above reviewed with RN and Chris LOBO who will fax information and call Dr. Manzo for orders. JOSÉ LUIS MORILLO Apr 02, 2018 13:57
--- NOTE | 2018-04-02 16:17 | PDOC ---
PULMONARY PROGRESS NOTES Subjective on bipap 16/6 at night and oxygen via cannula during day., responds to questions but not always appropriately. appears in no distress, Vitals Vital Signs Date Time Temp Pulse Resp B/P (MAP) Pulse Ox O2 Delivery O2 Flow Rate FiO2 04/02/18 15:09 Nasal Cannula 3.0 04/02/18 15:02 93 04/01/18 20:32 20 General: Confused, Mild Distress HEENT: Other (nc at perrl. nose clear) Lungs: Wheezing, Crackles, Other (upper airway wheezes) Cardiovascular: S1, S2 Abdomen: Soft, Non-tender Extremities: Other (less erythema/ edema) Skin: Warm Labs Laboratory Tests Test 04/01/18 03:30 04/02/18 03:50 White Blood Count 9.8 x10^3/uL (4.0-11.0) Red Blood Count 3.42 x10^6/uL (3.50-5.40) Hemoglobin 10.8 g/dL (12.0-15.5) Hematocrit 32.8 % (36.0-47.0) Mean Corpuscular Volume 96 fL (79-100) Mean Corpuscular Hemoglobin 32 pg (25-35) Mean Corpuscular Hemoglobin Concent 33 g/dL (31-37) Red Cell Distribution Width 16.1 % (11.5-14.5) Platelet Count 176 x10^3/uL (140-400) Neutrophils (%) (Auto) 94 % (31-73) Lymphocytes (%) (Auto) 3 % (24-48) Monocytes (%) (Auto) 3 % (0-9) Eosinophils (%) (Auto) 0 % (0-3) Basophils (%) (Auto) 0 % (0-3) Neutrophils # (Auto) 9.2 x10^3uL (1.8-7.7) Lymphocytes # (Auto) 0.3 x10^3/uL (1.0-4.8) Monocytes # (Auto) 0.3 x10^3/uL (0.0-1.1) Eosinophils # (Auto) 0.0 x10^3/uL (0.0-0.7) Basophils # (Auto) 0.0 x10^3/uL (0.0-0.2) Sodium Level 144 mmol/L (136-145) 145 mmol/L (136-145) Potassium Level 3.1 mmol/L (3.5-5.1) 3.5 mmol/L (3.5-5.1) Chloride Level 106 mmol/L (98-107) 106 mmol/L (98-107) Carbon Dioxide Level 25 mmol/L (21-32) 28 mmol/L (21-32) Anion Gap 13 (6-14) 11 (6-14) Blood Urea Nitrogen 31 mg/dL (7-20) 35 mg/dL (7-20) Creatinine 1.4 mg/dL (0.6-1.0) 1.2 mg/dL (0.6-1.0) Estimated GFR (Cockcroft-Gault) 35.5 42.4 Glucose Level 178 mg/dL (70-99) 218 mg/dL (70-99) Calcium Level 8.6 mg/dL (8.5-10.1) 8.7 mg/dL (8.5-10.1) Laboratory Tests Test 04/02/18 03:50 Sodium Level 145 mmol/L (136-145) Potassium Level 3.5 mmol/L (3.5-5.1) Chloride Level 106 mmol/L (98-107) Carbon Dioxide Level 28 mmol/L (21-32) Anion Gap 11 (6-14) Blood Urea Nitrogen 35 mg/dL (7-20) Creatinine 1.2 mg/dL (0.6-1.0) Estimated GFR (Cockcroft-Gault) 42.4 Glucose Level 218 mg/dL (70-99) Calcium Level 8.7 mg/dL (8.5-10.1) Medications Active Scripts Medications Dose Route/Sig Max Daily Dose Days Date Category Dose Instructions Klor-Con M20 (Potassium Chloride) 20 Meq Tab.er.prt 20 Meq PO DAILYWBKFT 30 02/12/18 Rx Furosemide 20 Mg Tablet 20 Mg PO BID92 30 02/12/18 Rx Ranitidine Hcl 150 Mg Tablet 150 Mg PO DAILY 02/09/18 Reported Lidopatch (Lidocaine/Menthol) 1 Each Adh..patch 1 Patch TP PRN DAILY PRN 02/09/18 Reported Guaifenesin 600 Mg Tablet.er 600 Mg PO BID 02/09/18 Reported Advair 250-50 Diskus (Fluticasone/Salmeterol) 1 Each Disk.w.dev 1 Inh IH BID 02/09/18 Reported Senna-Docusate Sodium Tablet (Sennosides/Docusate Sodium) 1 Each Tablet 1 Tab PO BID 02/09/18 Reported Voltaren (Diclofenac Sodium) 100 Gm Gel..gram. 4 Gm TP PRN Q6HRS PRN 02/09/18 Reported Cetirizine Hcl 10 Mg Tablet 10 Mg PO DAILY 02/09/18 Reported Duoneb 0.5-3(2.5) Mg/3 Ml (Albuterol/Ipratropium) 3 Ml Ampul.neb 3 Ml NEB Q6HRS 02/09/18 Reported Proair Hfa Inhaler (Albuterol Sulfate) 8.5 Gm Hfa.aer.ad 1 Puff INH DAILY 02/09/18 Reported Eliquis (Apixaban) 5 Mg Tablet 5 Mg PO BID 12/12/17 Reported Nystatin Unknown Strength Powder 1 Keisha TOP PRN BID PRN 12/12/17 Reported Tessalon Perle (Benzonatate) 100 Mg Capsule 200 Mg PO PRN Q8HRS 12/29/16 Reported Prednisone (Prednisone) 10 Mg Tablet 10 Mg PO DAILY 11/28/16 Rx Take 50 mg (5 pills) daily for 2 days, then take 40 mg (4 pills) daily for 2 days, then take 30 mg (3 pills) daily for 2 days, then take 20 mg (2 pills) daily for 2 days, then take 10 mg for 2 days. Miralax (Polyethylene Glycol 3350) 17 Gm Powd.pack 17 Gm PO PRN DAILY PRN 03/08/16 Rx Oxycodone-Acetaminophen 5-325 (Oxycodone Hcl/Acetaminophen) 1 Each Tablet 1 Tab PO PRN Q4HRS PRN 03/08/16 Rx Levothyroxine Sodium 100 Mcg Tablet 1 Tab PO DAILY 03/05/16 Reported Lorazepam 1 Mg Tablet 1 Mg PO BID 12/02/15 Reported Ocuvite Tablet (Vit A,C & E/Lutein/Minerals) 1 Each Tablet 1 Each PO DAILY 10/23/15 Reported Vitamin D (Cholecalciferol (Vitamin D3)) 1,000 Unit Tablet 1,000 Unit PO DAILY 10/23/15 Reported Amlodipine Besylate 10 Mg Tablet 10 Mg PO DAILY 10/23/15 Reported Atorvastatin Calcium 10 Mg Tablet 1 Tab PO DAILY 10/23/15 Reported Impression . 1. Acute exacerbation of asthma/ COPD with CT showing infiltrate or atelectasis 2. Cough with yellow sputu 3. Lower extremity cellulitis. Plan . Agree with palliative care note. 1. BIPAP prn during day, cont at night/ prn ativan, avoid oversedation 2. Pt already on Broad spectrum the antibiotic per ID 3. DuoNeb q. 4 hours along with Pulmicort nebs. 4 agree w lasix, keep I<O, monitor k, cr 5. elevate hob We will follow along with you. NACHO THOMAS MD Apr 02, 2018 16:17
[2018-04-03] MEDS: fentaNYL PF VIAL 100 MCG/2 ML VIAL IV PRN ×5 (00:34→12:49)
[2018-04-03] MEDS: IPRATRPIUM/ALBUTEROL 0.5/2.5MG 3 ML NEBU. NEB SCH ×2 (07:25→11:10)
[2018-04-03] MEDS: FUROSEMIDE 40 MG/4 ML VIAL. IVP SCH (08:39)
[2018-04-03] MEDS: NYSTATIN TOPICAL POWDER 15GM BOTTLE. TP SCH (08:44)
--- NOTE | 2018-04-03 09:03 | PDOC ---
PULMONARY PROGRESS NOTES Subjective on bipap 09/12 at night and oxygen via cannula during day., responds to questions but not always appropriately. appears in no distress, Vitals Vital Signs Date Time Temp Pulse Resp B/P (MAP) Pulse Ox O2 Delivery O2 Flow Rate FiO2 04/03/18 07:41 3.5 04/03/18 07:22 95 BiPAP/CPAP 04/03/18 03:07 98.1 70 20 98.1 04/02/18 23:10 General: Confused, Mild Distress HEENT: Other (nc at perrl. nose clear) Lungs: Wheezing, Crackles, Other (upper airway wheezes) Cardiovascular: S1, S2 Abdomen: Soft, Non-tender Extremities: Other (less erythema/ edema) Skin: Warm Labs Laboratory Tests Test 04/02/18 03:50 Sodium Level 145 mmol/L (136-145) Potassium Level 3.5 mmol/L (3.5-5.1) Chloride Level 106 mmol/L (98-107) Carbon Dioxide Level 28 mmol/L (21-32) Anion Gap 11 (6-14) Blood Urea Nitrogen 35 mg/dL (7-20) Creatinine 1.2 mg/dL (0.6-1.0) Estimated GFR (Cockcroft-Gault) 42.4 Glucose Level 218 mg/dL (70-99) Calcium Level 8.7 mg/dL (8.5-10.1) Medications Active Scripts Medications Dose Route/Sig Max Daily Dose Days Date Category Dose Instructions Klor-Con M20 (Potassium Chloride) 20 Meq Tab.er.prt 20 Meq PO DAILYWBKFT 30 02/12/18 Rx Furosemide 20 Mg Tablet 20 Mg PO BID92 30 02/12/18 Rx Ranitidine Hcl 150 Mg Tablet 150 Mg PO DAILY 02/09/18 Reported Lidopatch (Lidocaine/Menthol) 1 Each Adh..patch 1 Patch TP PRN DAILY PRN 02/09/18 Reported Guaifenesin 600 Mg Tablet.er 600 Mg PO BID 02/09/18 Reported Advair 250-50 Diskus (Fluticasone/Salmeterol) 1 Each Disk.w.dev 1 Inh IH BID 02/09/18 Reported Senna-Docusate Sodium Tablet (Sennosides/Docusate Sodium) 1 Each Tablet 1 Tab PO BID 02/09/18 Reported Voltaren (Diclofenac Sodium) 100 Gm Gel..gram. 4 Gm TP PRN Q6HRS PRN 02/09/18 Reported Cetirizine Hcl 10 Mg Tablet 10 Mg PO DAILY 02/09/18 Reported Duoneb 0.5-3(2.5) Mg/3 Ml (Albuterol/Ipratropium) 3 Ml Ampul.neb 3 Ml NEB Q6HRS 02/09/18 Reported Proair Hfa Inhaler (Albuterol Sulfate) 8.5 Gm Hfa.aer.ad 1 Puff INH DAILY 02/09/18 Reported Eliquis (Apixaban) 5 Mg Tablet 5 Mg PO BID 12/12/17 Reported Nystatin Unknown Strength Powder 1 Keisha TOP PRN BID PRN 12/12/17 Reported Tessalon Perle (Benzonatate) 100 Mg Capsule 200 Mg PO PRN Q8HRS 12/29/16 Reported Prednisone (Prednisone) 10 Mg Tablet 10 Mg PO DAILY 11/28/16 Rx Take 50 mg (5 pills) daily for 2 days, then take 40 mg (4 pills) daily for 2 days, then take 30 mg (3 pills) daily for 2 days, then take 20 mg (2 pills) daily for 2 days, then take 10 mg for 2 days. Miralax (Polyethylene Glycol 3350) 17 Gm Powd.pack 17 Gm PO PRN DAILY PRN 03/08/16 Rx Oxycodone-Acetaminophen 5-325 (Oxycodone Hcl/Acetaminophen) 1 Each Tablet 1 Tab PO PRN Q4HRS PRN 03/08/16 Rx Levothyroxine Sodium 100 Mcg Tablet 1 Tab PO DAILY 03/05/16 Reported Lorazepam 1 Mg Tablet 1 Mg PO BID 12/02/15 Reported Ocuvite Tablet (Vit A,C & E/Lutein/Minerals) 1 Each Tablet 1 Each PO DAILY 10/23/15 Reported Vitamin D (Cholecalciferol (Vitamin D3)) 1,000 Unit Tablet 1,000 Unit PO DAILY 10/23/15 Reported Amlodipine Besylate 10 Mg Tablet 10 Mg PO DAILY 10/23/15 Reported Atorvastatin Calcium 10 Mg Tablet 1 Tab PO DAILY 10/23/15 Reported Impression . 1. Acute exacerbation of asthma/ COPD with CT showing infiltrate or atelectasis 2. Cough with yellow sputu 3. Lower extremity cellulitis. Plan . Agree with palliative care note. 1. BIPAP prn during day, cont at night/ prn ativan, avoid oversedation 2. Pt already on Broad spectrum the antibiotic per ID 3. DuoNeb q. 4 hours along with Pulmicort nebs. 4 agree w lasix, keep I<O, monitor k, cr 5. elevate hob We will follow along with you. SHAKIR LARA MD Apr 03, 2018 09:03
--- NOTE | 2018-04-03 10:36 | PDOC ---
PROGRESS NOTES Chief Complaint Chief Complaint Sepsis Mild cellulitis BLE COPD with acute bronchitis,, acute on chronic hypercarbic resp failure, tachypnea Morbid obesity, BMI 51 Weakness and debility Mult drug allergies Acute diastolic CHF EXACERBATION AMS with hypoxic , metabolic encephalopathy Hypothyroidism Afib on eliquis ELIEZER, vasomotor History of Present Illness History of Present Illness on bipap w/ 30 dw/ RN granddaughter is DPOA Vitals Vitals Vital Signs Date Time Temp Pulse Resp B/P (MAP) Pulse Ox O2 Delivery O2 Flow Rate FiO2 04/03/18 10:25 95 Nasal Cannula 3.5 04/03/18 03:07 98.1 70 20 98.1 04/02/18 23:10 Physical Exam Physical Exam GENERAL:on ventimask HEENT: PERRL. Oral cavity dry LUNGS: Clear anteriorly HEART: S1, S2 ABDOMEN: Obese, BS active, soft, NT : [place] EXTREMITIES: Generalized edema. No cyanosis. 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 Labs Laboratory Tests Test 04/02/18 03:50 Sodium Level 145 mmol/L (136-145) Potassium Level 3.5 mmol/L (3.5-5.1) Chloride Level 106 mmol/L (98-107) Carbon Dioxide Level 28 mmol/L (21-32) Anion Gap 11 (6-14) Blood Urea Nitrogen 35 mg/dL (7-20) Creatinine 1.2 mg/dL (0.6-1.0) Estimated GFR (Cockcroft-Gault) 42.4 Glucose Level 218 mg/dL (70-99) Calcium Level 8.7 mg/dL (8.5-10.1) Microbiology 03/27/18 Blood Culture - Final, Complete NO GROWTH AFTER 5 DAYS 03/27/18 Urine Culture - Final, Complete 03/27/18 Urine Culture Result 1 (VICK) - Final, Complete Medications Current Medications Sodium Chloride 1,000 ml @ 1,000 mls/hr Q1H IV Last administered on 03/27/18at 22:43; Start 03/27/18 at 22:30; Stop 03/27/18 at 23:51; Status DC Albuterol/ Ipratropium (Duoneb) 3 ml 1X ONCE NEB Last administered on at 22:30; Start 03/27/18 at 22:30; Stop 03/27/18 at 22:31; Status DC Vancomycin HCl (Vanco Per Pharmacy) 1 each PRN DAILY PRN MC SEE COMMENTS Last administered on 04/01/18at 12:27; Start 03/28/18 at 00:15; Stop 04/01/18 at 14:29 ; Status DC Sodium Chloride 1,000 ml @ 75 mls/hr [id number] IV Last administered on at 15:26; Start 03/28/18 at 00:01; Stop 03/29/18 at 00:00; Status DC Albuterol/ Ipratropium (Duoneb) 3 ml RTQID NEB Last administered on 03/28/18at 07:43; Start 03/28/18 at 08:00; Stop 03/28/18 at 09:00; Status DC Vancomycin HCl 2 gm/Sodium Chloride 500 ml @ 250 mls/hr 1X ONCE IV Last administered on 03/28/18at 00:55; Start 03/28/18 at 00:30; Stop 03/28/18 at 02:29 ; Status DC Vancomycin HCl 1.5 gm/Sodium Chloride 500 ml @ 250 mls/hr Q24H IV Last administered on 03/30/18at 05:00; Start 03/29/18 at 01:00; Stop 03/30/18 at 15:18 ; Status DC Vancomycin HCl (Vancomycin Trough Level) 1 each 1X ONCE MC Last administered on 03/30/18at 00:30; Start 03/30/18 at 00:30; Stop 03/30/18 at 00:32; Status DC Amlodipine Besylate (Norvasc) 10 mg DAILY PO Last administered on 03/29/18at 08: 36; Start 03/28/18 at 09:00; Stop 04/02/18 at 15:29; Status DC Apixaban (Eliquis) 5 mg BID PO Last administered on 03/28/18at 21:00; Start 03/28/18 at 09:00; Stop 03/30/18 at 12:54; Status DC Atorvastatin Calcium (Lipitor) 10 mg QHS PO Last administered on 03/31/18at 20: 24; Start 03/28/18 at 21:00; Stop 04/02/18 at 15:29; Status DC Cetirizine HCl (ZyrTEC) 10 mg DAILY PO Last administered on 03/29/18at 08:34; Start 03/28/18 at 09:00; Stop 04/02/18 at 15:29; Status DC Vitamin D (Vitamin D3) 1,000 unit DAILY PO Last administered on 03/29/18at 08:33 ; Start 03/28/18 at 09:00; Stop 04/02/18 at 15:29; Status DC Diclofenac Sodium (Voltaren) 1 keisha PRN Q6HRS PRN TP Joint PAIN; Start 03/28/18 at 08:45; Stop 04/02/18 at 15:29; Status DC Furosemide (Lasix) 20 mg [id number] PO Last administered on 03/29/18at 15:47; Start 03/28/18 at 09:00; Stop 03/31/18 at 08:02; Status DC Guaifenesin (Mucinex) 600 mg BID PO Last administered on 03/31/18at 20:24; Start 03/28/18 at 09:00; Stop 04/02/18 at 15:29; Status DC Albuterol/ Ipratropium (Duoneb) 3 ml Q6HRS NEB ; Start 03/28/18 at 08:45; Stop 03/28/18 at 09:13; Status DC Levothyroxine Sodium (Synthroid) 100 mcg DAILY07 PO Last administered on at 07:45; Start 03/28/18 at 10:30; Stop 03/31/18 at 11:49; Status DC Lorazepam (Ativan) 1 mg BID PO Last administered on 03/29/18at 20:53; Start 03/28/18 at 09:00; Stop 03/31/18 at 11:49; Status DC Oxycodone/ Acetaminophen (Percocet 5/325) 1 tab PRN Q4HRS PRN PO MODERATE TO SEVERE PAIN Last administered on 04/01/18at 19:32; Start 03/28/18 at 08:45; Stop 04/02/18 at 15:29; Status DC Potassium Chloride (Klor-Con) 20 meq DAILYWBKFT PO Last administered on at 07:46; Start 03/28/18 at 09:00; Stop 04/01/18 at 11:43; Status DC Prednisone (Prednisone) 10 mg DAILY PO Last administered on 03/28/18at 09:29; Start 03/28/18 at 09:00; Stop 03/28/18 at 11:14; Status DC Senna/Docusate Sodium (Senna Plus) 1 tab BID PO Last administered on 03/31/18at 20:24; Start 03/28/18 at 09:00; Stop 04/02/18 at 15:29; Status DC Multivitamins/ Minerals (I-Oscar) 1 tab DAILY PO Last administered on 03/29/18at 08:33; Start 03/28/18 at 09:00; Stop 04/02/18 at 15:29; Status DC Non-Formulary Medication (Albuterol Sulfate (Proair Hfa Inhaler)) 1 puff DAILY INH ; Start 03/28/18 at 09:00; Status UNV Benzonatate (Tessalon Perle) 200 mg PRN Q8HRS PRN PO COUGH 2ND CHOICE Last administered on 03/31/18at 20:24; Start 03/28/18 at 14:00; Stop 04/02/18 at 15:29 ; Status DC Non-Formulary Medication (Fluticasone/ Salmeterol (Advair 250-50 Diskus)) 1 inh BID IH ; Start 03/28/18 at 09:00; Status UNV Lidocaine (Lidoderm) 1 patch PRN DAILY PRN TD TOPICAL PAIN; Start 03/28/18 at 10:00; Stop 04/02/18 at 15:29; Status DC Polyethylene Glycol (miraLAX PACKET) 17 gm PRN DAILY PRN PO CONSTIPATION 1ST CHOICE; Start 03/28/18 at 09:00; Stop 04/02/18 at 15:29; Status DC Famotidine (Pepcid) 20 mg DAILY PO Last administered on 03/29/18at 08:34; Start 03/28/18 at 10:00; Stop 03/30/18 at 12:48; Status DC Albuterol/ Ipratropium (Duoneb) 3 ml Q4HRS W/A NEB Last administered on at 11:34; Start 03/28/18 at 10:00; Stop 03/28/18 at 14:51; Status DC Methylprednisolone Sodium Succinate (SOLU-Medrol 40MG VIAL) 40 mg 1X ONCE IV Last administered on 03/28/18at 09:27; Start 03/28/18 at 08:45; Stop 03/28/18 at 09:12; Status DC Throat Lozenges (Cepacol Sore Throat Lozenge) 1 mai PRN Q2HRS PRN PO SORE THROAT; Start 03/28/18 at 08:45; Stop 04/02/18 at 15:29; Status DC Guaifenesin (Robitussin Dm) 10 ml PRN Q6HRS PRN PO COUGH 1ST CHOICE Last administered on 03/28/18at 09:29; Start 03/28/18 at 08:45; Stop 04/02/18 at 15:29 ; Status DC Info (Anti-Coagulation Monitoring By Pharmacy) 1 each PRN DAILY PRN MC SEE COMMENTS Last administered on 03/28/18at 11:04; Start 03/28/18 at 09:15; Stop at 15:29; Status DC Miscellaneous (Lidoderm Patch Removal) 1 ea QHS MC Last administered on at 19:29; Start 03/28/18 at 21:00; Stop 04/02/18 at 15:29; Status DC Budesonide (Pulmicort) 0.5 mg RTBID NEB Last administered on 04/02/18at 07:19; Start 03/28/18 at 10:00; Stop 04/02/18 at 15:29; Status DC Albuterol Sulfate (Ventolin Neb Soln) 2.5 mg DAILY NEB ; Start 03/28/18 at 10:00 ; Stop 03/28/18 at 14:51; Status DC Methylprednisolone Sodium Succinate (SOLU-Medrol 125MG VIAL) 60 mg Q8HRS IV Last administered on 04/01/18at 05:16; Start 03/28/18 at 12:00; Stop 04/01/18 at 07:44; Status DC Doxycycline Hyclate 100 mg/ Dextrose 100 ml @ 50 mls/hr Q12HR IV ; Start at 12:00; Stop 03/28/18 at 12:11; Status DC Nystatin (Nystop) 1 keisha BID TP Last administered on 04/03/18at 08:44; Start 03/28/18 at 21:00 Cefepime HCl 1 gm/ Dextrose 50 ml @ 100 mls/hr Q8HRS IV ; Start 03/28/18 at 14: 00; Status UNV Fluconazole (Diflucan) 200 mg DAILY PO Last administered on 03/29/18at 08:35; Start 03/28/18 at 12:30; Stop 04/02/18 at 15:29; Status DC Cefepime HCl (Maxipime) 1 gm Q8HRS IVP Last administered on 04/02/18at 06:00; Start 03/28/18 at 14:00; Stop 04/02/18 at 15:29; Status DC Lactobacillus Rhamnosus (Culturelle) 1 cap BID PO Last administered on at 20:52; Start 03/28/18 at 21:00; Stop 03/30/18 at 15:28; Status DC Albuterol/ Ipratropium (Duoneb) 3 ml Q4HRS NEB Last administered on 04/02/18at 15:09; Start 03/28/18 at 16:00; Stop 04/02/18 at 15:29; Status DC Psyllium Hydrophilic Mucilloid (Metamucil Fiber Packet) 1 pkt DAILY PO Last administered on 03/28/18at 19:00; Start 03/28/18 at 19:00; Stop 04/02/18 at 15:29 ; Status DC Haloperidol (Haldol) 2 mg PRN Q6HRS PRN PO ANXIETY Last administered on at 05:01; Start 03/29/18 at 20:15; Stop 04/01/18 at 11:43; Status DC Albuterol Sulfate (Ventolin Neb Soln) 2.5 mg PRN Q4HRS PRN NEB SHORTNESS OF BREATH; Start 03/29/18 at 20:15 Furosemide (Lasix) 40 mg 1X ONCE IVP Last administered on 03/30/18at 07:40; Start 03/30/18 at 07:00; Stop 03/30/18 at 07:01; Status DC Haloperidol Lactate (Haldol Inj) 1 mg 1X ONCE IVP Last administered on at 07:42; Start 03/30/18 at 07:00; Stop 03/30/18 at 07:01; Status DC Lorazepam (Ativan) 0.5 mg PRN Q4HRS PRN IV ANXIETY / AGITATION Last administered on 04/02/18at 13:02; Start 03/30/18 at 09:30; Stop 04/02/18 at 15:29 ; Status DC Lorazepam (Ativan) 0.25 mg 1X ONCE IV Last administered on 03/30/18at 10:53; Start 03/30/18 at 10:45; Stop 03/30/18 at 10:46; Status DC Enoxaparin Sodium (Lovenox 40mg Syringe) 40 mg Q24H SQ ; Start 03/30/18 at 13:00 ; Stop 03/30/18 at 13:00; Status DC Haloperidol Lactate (Haldol Inj) 2 mg 1X ONCE IVP Last administered on at 13:00; Start 03/30/18 at 12:45; Stop 03/30/18 at 12:46; Status DC Pantoprazole Sodium (PROTONIX VIAL for IV PUSH) 40 mg DAILYAC IVP Last administered on 04/02/18at 06:16; Start 03/30/18 at 13:00; Stop 04/02/18 at 15:29 ; Status DC Enoxaparin Sodium (Lovenox 40mg Syringe) 40 mg Q12H SQ Last administered on 04/01/18at 14:58; Start 03/30/18 at 13:00; Stop 04/02/18 at 15:29; Status DC Info (Tpn Per Pharmacy) 1 each PRN DAILY PRN MC SEE COMMENTS; Start 03/30/18 at 13:30; Stop 03/30/18 at 13:31; Status DC Haloperidol Lactate (Haldol Inj) 5 mg 1X ONCE IVP Last administered on at 13:43; Start 03/30/18 at 13:30; Stop 03/30/18 at 13:31; Status DC Amino Acids/ Glycerin/ Electrolytes 1,000 ml @ 80 mls/hr [id number] IV Last administered on 04/02/18at 03:34; Start 03/30/18 at 13:45; Stop 04/02/18 at 15:30 ; Status DC Fentanyl Citrate (Fentanyl 2ml Vial) 25 mcg PRN Q2HR PRN IV MODERATE PAIN Last administered on 04/02/18at 18:01; Start 03/30/18 at 14:45 Vancomycin HCl 1.25 gm/Sodium Chloride 250 ml @ 167 mls/hr Q24H IV Last administered on 04/01/18 01:20; Start 03/31/18 at 01:00; Stop 04/01/18 at 12:24 ; Status DC Furosemide (Lasix) 40 mg [id number] IVP Last administered on 03/31/18 14:30; Start 03/31/18 at 09:00; Stop 04/01/18 at 11:43; Status DC Levothyroxine Sodium 50 mcg/ Sodium Chloride 5 ml @ 100 mls/hr DAILY IVP Last administered on 04/02/18 09:22; Start 03/31/18 at 12:00; Stop 04/02/18 at 15:30 ; Status DC Haloperidol Lactate (Haldol Inj) 5 mg 1X ONCE IM ; Start 03/31/18 at 23:30; Stop 03/31/18 at 23:42; Status DC Olanzapine (ZyPREXA IM) 5 mg 1X ONCE IM Last administered on 04/01/18 01:22; Start 03/31/18 at 23:45; Stop 03/31/18 at 23:46; Status DC Methylprednisolone Sodium Succinate (SOLU-Medrol 125MG VIAL) 80 mg Q8HRS IV Last administered on 04/02/18at 06:00; Start 04/01/18 at 14:00; Stop 04/02/18 at 15:30; Status DC Furosemide (Lasix) 40 mg DAILY IVP Last administered on 04/02/18at 09:21; Start 04/01/18 at 12:00; Stop 04/02/18 at 15:30; Status DC Potassium Chloride/Water 50 ml @ 50 mls/hr Q1H IV ; Start 04/01/18 at 12:00; Stop 04/01/18 at 12:08; Status DC Potassium Chloride 40 meq/ Sodium Chloride 270 ml @ 67.5 mls/hr ONCE ONCE IV ; Start 04/01/18 at 12:30; Stop 04/01/18 at 16:29; Status Cancel Potassium Chloride 40 meq/ Sodium Chloride 520 ml @ 130 mls/hr 1X ONCE IV Last administered on 04/01/18at 14:59; Start 04/01/18 at 13:00; Stop 04/01/18 at 16:59; Status DC Vancomycin HCl (Vancomycin Random Level) 1 each 1X ONCE MC ; Start 04/02/18 at 06:00; Stop 04/02/18 at 06:01; Status Cancel Haloperidol Lactate (Haldol Inj) 2 mg PRN Q6HRS PRN IVP AGITATION Last administered on 04/01/18at 17:00; Start 04/01/18 at 14:30 Olanzapine (ZyPREXA IM) 5 mg 1X ONCE IM Last administered on 04/01/18at 21:35; Start 04/01/18 at 21:15; Stop 04/01/18 at 21:16; Status DC Fentanyl Citrate (Fentanyl 2ml Vial) 50 mcg PRN Q2HR PRN IV SEVERE PAIN Last administered on 04/03/18at 10:25; Start 04/01/18 at 21:15 Olanzapine (ZyPREXA IM) 5 mg 1X ONCE IM ; Start 04/01/18 at 21:15; Stop at 21:16; Status UNV Olanzapine (ZyPREXA IM) 5 mg 1X ONCE IM Last administered on 04/02/18at 06:16; Start 04/01/18 at 21:30; Stop 04/01/18 at 21:31; Status DC Lorazepam (Ativan) 2 mg PRN Q2HR PRN IV ANXIETY / AGITATION Last administered on 04/03/18at 08:40; Start 04/02/18 at 15:30 Furosemide (Lasix) 40 mg DAILY IVP Last administered on 04/03/18at 08:39; Start 04/02/18 at 16:00 Albuterol/ Ipratropium (Duoneb) 3 ml RTQID NEB Last administered on 04/03/18at 07:25; Start 04/02/18 at 20:00 Active Scripts Active Klor-Con M20 (Potassium Chloride) 20 Meq Tab.er.prt 20 Meq PO [id number] 30 Days Furosemide 20 Mg Tablet 20 Mg PO [id number] 30 Days Prednisone (Prednisone) 10 Mg Tablet 10 Mg PO DAILY Take 50 mg (5 pills) daily for 2 days, then take 40 mg (4 pills) daily for 2 days, then take 30 mg (3 pills) daily for 2 days, then take 20 mg (2 pills) daily for 2 days, then take 10 mg for 2 days. Miralax (Polyethylene Glycol 3350) 17 Gm Powd.pack 17 Gm PO PRN DAILY PRN Oxycodone-Acetaminophen 5-325 (Oxycodone Hcl/Acetaminophen) 1 Each Tablet 1 Tab PO PRN Q4HRS PRN Reported Ranitidine Hcl 150 Mg Tablet 150 Mg PO DAILY Lidopatch (Lidocaine/Menthol) 1 Each Adh..patch 1 Patch TP PRN DAILY PRN Guaifenesin 600 Mg Tablet.er 600 Mg PO BID Advair 250-50 Diskus (Fluticasone/Salmeterol) 1 Each Disk.w.dev 1 Inh IH BID Senna-Docusate Sodium Tablet (Sennosides/Docusate Sodium) 1 Each Tablet 1 Tab PO BID Voltaren (Diclofenac Sodium) 100 Gm Gel..gram. 4 Gm TP PRN Q6HRS PRN Cetirizine Hcl 10 Mg Tablet 10 Mg PO DAILY Duoneb 0.5-3(2.5) Mg/3 Ml (Albuterol/Ipratropium) 3 Ml Ampul.neb 3 Ml NEB Q6HRS Proair Hfa Inhaler (Albuterol Sulfate) 8.5 Gm Hfa.aer.ad 1 Puff INH DAILY Eliquis (Apixaban) 5 Mg Tablet 5 Mg PO BID Nystatin Unknown Strength Powder 1 Keisha TOP PRN BID PRN Tessalon Perle (Benzonatate) 100 Mg Capsule 200 Mg PO PRN Q8HRS Levothyroxine Sodium 100 Mcg Tablet 1 Tab PO DAILY Lorazepam 1 Mg Tablet 1 Mg PO BID Ocuvite Tablet (Vit A,C & E/Lutein/Minerals) 1 Each Tablet 1 Each PO DAILY Vitamin D (Cholecalciferol (Vitamin D3)) 1,000 Unit Tablet 1,000 Unit PO DAILY Amlodipine Besylate 10 Mg Tablet 10 Mg PO DAILY Atorvastatin Calcium 10 Mg Tablet 1 Tab PO DAILY Vitals/I & O Vital Sign - Last 24 Hours 04/02/18 04/02/18 04/02/18 04/02/18 11:14 12:00 15:02 15:09 Pulse Ox 93 O2 Delivery Nasal Cannula Nasal Cannula Nasal Cannula O2 Flow Rate 3.0 3.0 3.5 3.0 04/02/18 04/02/18 04/02/18 04/02/18 16:00 19:00 20:30 20:30 Temp 99.5 99.5 Pulse 77 Resp 20 B/P (MAP) Pulse Ox 95 O2 Delivery Nasal Cannula Nasal Cannula O2 Flow Rate 3.0 3.5 3.5 3.5 04/02/18 04/02/18 04/02/18 04/03/18 20:57 21:30 23:10 00:00 Temp 99.0 99.0 Pulse 73 Resp 20 20 B/P (MAP) Pulse Ox 94 O2 Delivery Nasal Cannula O2 Flow Rate 3.5 3.5 3.5 04/03/18 04/03/18 04/03/18 04/03/18 00:34 01:08 02:38 03:07 Temp 98.1 98.1 Pulse 70 Resp 20 Pulse Ox 94 94 O2 Delivery Nasal Cannula BiPAP/CPAP BiPAP/CPAP O2 Flow Rate 3.5 3.5 04/03/18 04/03/18 04/03/18 04/03/18 04:00 05:56 06:26 07:22 Pulse Ox 95 O2 Delivery BiPAP/CPAP BiPAP/CPAP BiPAP/CPAP O2 Flow Rate 3.5 04/03/18 04/03/18 04/03/18 07:41 09:47 10:25 Pulse Ox 95 O2 Delivery BiPAP/CPAP Nasal Cannula O2 Flow Rate 3.5 3.5 Intake and Output 04/02/18 04/02/18 04/03/18 15:00 23:00 07:00 Intake Total 0 ml 0 ml Output Total 850 ml 275 ml Balance -850 ml -275 ml LOGAN MACIEL MD Apr 03, 2018 10:36
--- NOTE | 2018-04-03 10:59 | PDOC ---
Infectious Disease Note Subjective: Subjective pt on venti mask comfortable no f/n/v/d D/W RN Going to hospice later today ROS: ROS Negative except for above. Vital Signs: Vital Signs Vital Signs Date Time Temp Pulse Resp B/P (MAP) Pulse Ox O2 Delivery O2 Flow Rate FiO2 04/03/18 10:25 95 Nasal Cannula 3.5 04/03/18 03:07 98.1 70 20 98.1 04/02/18 23:10 Physical Exam: PHYSICAL EXAM GENERAL:on ventimask HEENT: PERRL. Oral cavity dry LUNGS: Clear anteriorly HEART: S1, S2 ABDOMEN: Obese, BS active, soft, NT : [place]iscoe EXTREMITIES: Generalized edema. No cyanosis. 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 Medications: Inpatient Meds: Current Medications Medications (Trade) Dose Ordered Sig/Rhiannon Start Time Stop Time Status Last Admin Dose Admin Albuterol Sulfate (Ventolin Neb Soln) 2.5 mg PRN Q4HRS PRN 03/29/18 20:15 Albuterol/ Ipratropium (Duoneb) 3 ml RTQID 04/02/18 20:00 04/03/18 07:25 3 ML Amino Acids/ Glycerin/ Electrolytes 1,000 ml @ 80 mls/hr [id number] 03/30/18 13:45 04/02/18 15:30 DC 04/02/18 03:34 80 MLS/HR Amlodipine Besylate (Norvasc) 10 mg DAILY 03/28/18 09:00 04/02/18 15:29 DC 03/29/18 08:36 10 MG Apixaban (Eliquis) 5 mg BID 03/28/18 09:00 03/30/18 12:54 DC 03/28/18 21:00 5 MG Atorvastatin Calcium (Lipitor) 10 mg QHS 03/28/18 21:00 04/02/18 15:29 DC 03/31/18 20:24 10 MG Benzonatate (Tessalon Perle) 200 mg PRN Q8HRS PRN 03/28/18 14:00 04/02/18 15:29 DC 03/31/18 20:24 200 MG Budesonide (Pulmicort) 0.5 mg RTBID 03/28/18 10:00 04/02/18 15:29 DC 04/02/18 07:19 0.5 MG Cefepime HCl (Maxipime) 1 gm Q8HRS 03/28/18 14:00 04/02/18 15:29 DC 04/02/18 06:00 1 GM Cefepime HCl 1 gm/ Dextrose 50 ml @ 100 mls/hr Q8HRS 03/28/18 14:00 UNV Cetirizine HCl (ZyrTEC) 10 mg DAILY 03/28/18 09:00 04/02/18 15:29 DC 03/29/18 08:34 10 MG Diclofenac Sodium (Voltaren) 1 natasha PRN Q6HRS PRN 03/28/18 08:45 04/02/18 15:29 DC Doxycycline Hyclate 100 mg/ Dextrose 100 ml @ 50 mls/hr Q12HR 03/28/18 12:00 03/28/18 12:11 DC Enoxaparin Sodium (Lovenox 40mg Syringe) 40 mg Q12H 03/30/18 13:00 04/02/18 15:29 DC 04/01/18 14:58 40 MG Famotidine (Pepcid) 20 mg DAILY 03/28/18 10:00 03/30/18 12:48 DC 03/29/18 08:34 20 MG Fentanyl Citrate (Fentanyl 2ml Vial) 50 mcg PRN Q2HR PRN 04/01/18 21:15 04/03/18 10:25 50 MCG Fluconazole (Diflucan) 200 mg DAILY 03/28/18 12:30 04/02/18 15:29 DC 03/29/18 08:35 200 MG Furosemide (Lasix) 40 mg DAILY 04/02/18 16:00 04/03/18 08:39 40 MG Guaifenesin (Mucinex) 600 mg BID 03/28/18 09:00 04/02/18 15:29 DC 03/31/18 20:24 600 MG Guaifenesin (Robitussin Dm) 10 ml PRN Q6HRS PRN 03/28/18 08:45 04/02/18 15:29 DC 03/28/18 09:29 10 ML Haloperidol (Haldol) 2 mg PRN Q6HRS PRN 03/29/18 20:15 04/01/18 11:43 DC 03/30/18 05:01 2 MG Haloperidol Lactate (Haldol Inj) 2 mg PRN Q6HRS PRN 04/01/18 14:30 04/01/18 17:00 2 MG Info (Anti-Coagulation Monitoring By Pharmacy) 1 each PRN DAILY PRN 03/28/18 09:15 04/02/18 15:29 DC 03/28/18 11:04 1 EACH Info (Tpn Per Pharmacy) 1 each PRN DAILY PRN 03/30/18 13:30 03/30/18 13:31 DC Lactobacillus Rhamnosus (Culturelle) 1 cap BID 03/28/18 21:00 03/30/18 15:28 DC 03/29/18 20:52 1 CAP Levothyroxine Sodium (Synthroid) 100 mcg DAILY07 03/28/18 10:30 03/31/18 11:49 DC 03/30/18 07:45 100 MCG Levothyroxine Sodium 50 mcg/ Sodium Chloride 5 ml @ 100 mls/hr DAILY 03/31/18 12:00 04/02/18 15:30 DC 04/02/18 09:22 100 MLS/HR Lidocaine (Lidoderm) 1 patch PRN DAILY PRN 03/28/18 10:00 04/02/18 15:29 DC Lorazepam (Ativan) 2 mg PRN Q2HR PRN 04/02/18 15:30 04/03/18 08:40 2 MG Methylprednisolone Sodium Succinate (SOLU-Medrol 40MG VIAL) 40 mg 1X ONCE 03/28/18 08:45 03/28/18 09:12 DC 03/28/18 09:27 40 MG Methylprednisolone Sodium Succinate (SOLU-Medrol 125MG VIAL) 80 mg Q8HRS 04/01/18 14:00 04/02/18 15:30 DC 04/02/18 06:00 80 MG Miscellaneous (Lidoderm Patch Removal) 1 ea QHS 03/28/18 21:00 04/02/18 15:29 DC 04/01/18 19:29 1 EA Multivitamins/ Minerals (I-Oscar) 1 tab DAILY 03/28/18 09:00 04/02/18 15:29 DC 03/29/18 08:33 1 TAB Non-Formulary Medication (Albuterol Sulfate (Proair Hfa Inhaler)) 1 puff DAILY 03/28/18 09:00 UNV Non-Formulary Medication (Fluticasone/ Salmeterol (Advair 250-50 Diskus)) 1 inh BID 03/28/18 09:00 UNV Nystatin (Nystop) 1 natasha BID 03/28/18 21:00 04/03/18 08:44 1 NATASHA Olanzapine (ZyPREXA IM) 5 mg 1X ONCE 04/01/18 21:30 04/01/18 21:31 DC 04/02/18 06:16 5 MG Oxycodone/ Acetaminophen (Percocet 5/325) 1 tab PRN Q4HRS PRN 03/28/18 08:45 04/02/18 15:29 DC 04/01/18 19:32 1 TAB Pantoprazole Sodium (PROTONIX VIAL for IV PUSH) 40 mg DAILYAC 03/30/18 13:00 04/02/18 15:29 DC 04/02/18 06:16 40 MG Polyethylene Glycol (miraLAX PACKET) 17 gm PRN DAILY PRN 03/28/18 09:00 04/02/18 15:29 DC Potassium Chloride 40 meq/ Sodium Chloride 520 ml @ 130 mls/hr 1X ONCE 04/01/18 13:00 04/01/18 16:59 DC 04/01/18 14:59 130 MLS/HR Potassium Chloride/Water 50 ml @ 50 mls/hr Q1H 04/01/18 12:00 04/01/18 12:08 DC Potassium Chloride (Klor-Con) 20 meq [id number] 03/28/18 09:00 04/01/18 11:43 DC 03/30/18 07:46 20 MEQ Prednisone (Prednisone) 10 mg DAILY 03/28/18 09:00 03/28/18 11:14 DC 03/28/18 09:29 10 MG Psyllium Hydrophilic Mucilloid (Metamucil Fiber Packet) 1 pkt DAILY 03/28/18 19:00 04/02/18 15:29 DC 03/28/18 19:00 1 PKT Senna/Docusate Sodium (Senna Plus) 1 tab BID 03/28/18 09:00 04/02/18 15:29 DC 03/31/18 20:24 1 TAB Sodium Chloride 1,000 ml @ 75 mls/hr [id number] 03/28/18 00:01 03/29/18 00:00 DC 03/28/18 15:26 75 MLS/HR Throat Lozenges (Cepacol Sore Throat Lozenge) 1 mai PRN Q2HRS PRN 03/28/18 08:45 04/02/18 15:29 DC Vancomycin HCl (Vanco Per Pharmacy) 1 each PRN DAILY PRN 03/28/18 00:15 04/01/18 14:29 DC 04/01/18 12:27 1 EACH Vancomycin HCl (Vancomycin Random Level) 1 each 1X ONCE 04/02/18 06:00 04/02/18 06:01 Cancel Vancomycin HCl (Vancomycin Trough Level) 1 each 1X ONCE 03/30/18 00:30 03/30/18 00:32 DC 03/30/18 00:30 1 EACH Vancomycin HCl 1.25 gm/Sodium Chloride 250 ml @ 167 mls/hr Q24H 03/31/18 01:00 04/01/18 12:24 DC 04/01/18 01:20 167 MLS/HR Vancomycin HCl 1.5 gm/Sodium Chloride 500 ml @ 250 mls/hr Q24H 03/29/18 01:00 03/30/18 15:18 DC 03/30/18 05:00 250 MLS/HR Vancomycin HCl 2 gm/Sodium Chloride 500 ml @ 250 mls/hr 1X ONCE 03/28/18 00:30 03/28/18 02:29 DC 03/28/18 00:55 250 MLS/HR Vitamin D (Vitamin D3) 1,000 unit DAILY 03/28/18 09:00 04/02/18 15:29 DC 03/29/18 08:33 1,000 UNIT Labs: Micro BC neg UC neg Objective: Assessment: Encephalopathy fluctuates Right leg cellulitis - improving Pneumonia Yeast infection in groin - improving Debility Respiratory failure L1 vertebral compression fracture. ELIEZER ,creat improving Plan: Plan of Care Pt going to hospice house today D/W granddaughter at bedside DALLAS EVANS MD Apr 03, 2018 10:59
--- NOTE | 2018-04-03 11:04 | PDOC3 ---
Discharge Summary Date of Admission: Mar 27, 2018 Date of Discharge: Apr 03, 2018 Follow-Up: 1-2 days Admitting Diagnosis comment: Chief Complaint Chief Complaint Sepsis Mild cellulitis BLE COPD with acute bronchitis,, acute on chronic hypercarbic resp failure, Morbid obesity, BMI 51 Weakness and debility Mult drug allergies Acute diastolic CHF EXACERBATION AMS with hypoxic , metabolic encephalopathy Hypothyroidism Afib on eliquis ELIEZER, vasomotor History of Present Illness History of Present Illness on bipap w/ 29 dw/ RN to hospice care in [place] today granddaughter is DPOA Vitals Vitals Vital Signs Date Time Temp Pulse Resp B/P (MAP) Pulse Ox O2 Delivery O2 Flow Rate FiO2 04/03/18 10:25 95 Nasal Cannula 3.5 04/03/18 03:07 98.1 70 20 98.1 04/02/18 23:10 Physical Exam Physical Exam GENERAL:on ventimask FINAL DIAGNOSIS Problems Medical Problems: (1) Cellulitis of both lower extremities Status: Acute Brief Hospital Course Ms. Horn is a 87 old [sex] who presented with [ ] Discharge Medications Current Medications Sodium Chloride 1,000 ml @ 1,000 mls/hr Q1H IV Last administered on 03/27/18at 22:43; Start 03/27/18 at 22:30; Stop 03/27/18 at 23:51; Status DC Albuterol/ Ipratropium (Duoneb) 3 ml 1X ONCE NEB Last administered on at 22:30; Start 03/27/18 at 22:30; Stop 03/27/18 at 22:31; Status DC Vancomycin HCl (Vanco Per Pharmacy) 1 each PRN DAILY PRN MC SEE COMMENTS Last administered on 04/01/18at 12:27; Start 03/28/18 at 00:15; Stop 04/01/18 at 14:29 ; Status DC Sodium Chloride 1,000 ml @ 75 mls/hr [id number] IV Last administered on at 15:26; Start 03/28/18 at 00:01; Stop 03/29/18 at 00:00; Status DC Albuterol/ Ipratropium (Duoneb) 3 ml RTQID NEB Last administered on 03/28/18at 07:43; Start 03/28/18 at 08:00; Stop 03/28/18 at 09:00; Status DC Vancomycin HCl 2 gm/Sodium Chloride 500 ml @ 250 mls/hr 1X ONCE IV Last administered on 03/28/18at 00:55; Start 03/28/18 at 00:30; Stop 03/28/18 at 02:29 ; Status DC Vancomycin HCl 1.5 gm/Sodium Chloride 500 ml @ 250 mls/hr Q24H IV Last administered on 03/30/18at 05:00; Start 03/29/18 at 01:00; Stop 03/30/18 at 15:18 ; Status DC Vancomycin HCl (Vancomycin Trough Level) 1 each 1X ONCE MC Last administered on 03/30/18at 00:30; Start 03/30/18 at 00:30; Stop 03/30/18 at 00:32; Status DC Amlodipine Besylate (Norvasc) 10 mg DAILY PO Last administered on 03/29/18at 08: 36; Start 03/28/18 at 09:00; Stop 04/02/18 at 15:29; Status DC Apixaban (Eliquis) 5 mg BID PO Last administered on 03/28/18at 21:00; Start 03/28/18 at 09:00; Stop 03/30/18 at 12:54; Status DC Atorvastatin Calcium (Lipitor) 10 mg QHS PO Last administered on 03/31/18at 20: 24; Start 03/28/18 at 21:00; Stop 04/02/18 at 15:29; Status DC Cetirizine HCl (ZyrTEC) 10 mg DAILY PO Last administered on 03/29/18at 08:34; Start 03/28/18 at 09:00; Stop 04/02/18 at 15:29; Status DC Vitamin D (Vitamin D3) 1,000 unit DAILY PO Last administered on 03/29/18at 08:33 ; Start 03/28/18 at 09:00; Stop 04/02/18 at 15:29; Status DC Diclofenac Sodium (Voltaren) 1 keisha PRN Q6HRS PRN TP Joint PAIN; Start 03/28/18 at 08:45; Stop 04/02/18 at 15:29; Status DC Furosemide (Lasix) 20 mg BID92 PO Last administered on 03/29/18at 15:47; Start 03/28/18 at 09:00; Stop 03/31/18 at 08:02; Status DC Guaifenesin (Mucinex) 600 mg BID PO Last administered on 03/31/18 20:24; Start 03/28/18 at 09:00; Stop 04/02/18 at 15:29; Status DC Albuterol/ Ipratropium (Duoneb) 3 ml Q6HRS NEB ; Start 03/28/18 at 08:45; Stop 03/28/18 at 09:13; Status DC Levothyroxine Sodium (Synthroid) 100 mcg DAILY07 PO Last administered on at 07:45; Start 03/28/18 at 10:30; Stop 03/31/18 at 11:49; Status DC Lorazepam (Ativan) 1 mg BID PO Last administered on 03/29/18at 20:53; Start 03/28/18 at 09:00; Stop 03/31/18 at 11:49; Status DC Oxycodone/ Acetaminophen (Percocet 5/325) 1 tab PRN Q4HRS PRN PO MODERATE TO SEVERE PAIN Last administered on 04/01/18at 19:32; Start 03/28/18 at 08:45; Stop 04/02/18 at 15:29; Status DC Potassium Chloride (Klor-Con) 20 meq DAILYWBKFT PO Last administered on at 07:46; Start 03/28/18 at 09:00; Stop 04/01/18 at 11:43; Status DC Prednisone (Prednisone) 10 mg DAILY PO Last administered on 03/28/18 09:29; Start 03/28/18 at 09:00; Stop 03/28/18 at 11:14; Status DC Senna/Docusate Sodium (Senna Plus) 1 tab BID PO Last administered on 03/31/18 20:24; Start 03/28/18 at 09:00; Stop 04/02/18 at 15:29; Status DC Multivitamins/ Minerals (I-Oscar) 1 tab DAILY PO Last administered on 03/29/18at 08:33; Start 03/28/18 at 09:00; Stop 04/02/18 at 15:29; Status DC Non-Formulary Medication (Albuterol Sulfate (Proair Hfa Inhaler)) 1 puff DAILY INH ; Start 03/28/18 at 09:00; Status UNV Benzonatate (Tessalon Perle) 200 mg PRN Q8HRS PRN PO COUGH 2ND CHOICE Last administered on 03/31/18at 20:24; Start 03/28/18 at 14:00; Stop 04/02/18 at 15:29 ; Status DC Non-Formulary Medication (Fluticasone/ Salmeterol (Advair 250-50 Diskus)) 1 inh BID IH ; Start 03/28/18 at 09:00; Status UNV Lidocaine (Lidoderm) 1 patch PRN DAILY PRN TD TOPICAL PAIN; Start 03/28/18 at 10:00; Stop 04/02/18 at 15:29; Status DC Polyethylene Glycol (miraLAX PACKET) 17 gm PRN DAILY PRN PO CONSTIPATION 1ST CHOICE; Start 03/28/18 at 09:00; Stop 04/02/18 at 15:29; Status DC Famotidine (Pepcid) 20 mg DAILY PO Last administered on 03/29/18at 08:34; Start 03/28/18 at 10:00; Stop 03/30/18 at 12:48; Status DC Albuterol/ Ipratropium (Duoneb) 3 ml Q4HRS W/A NEB Last administered on at 11:34; Start 03/28/18 at 10:00; Stop 03/28/18 at 14:51; Status DC Methylprednisolone Sodium Succinate (SOLU-Medrol 40MG VIAL) 40 mg 1X ONCE IV Last administered on 03/28/18at 09:27; Start 03/28/18 at 08:45; Stop 03/28/18 at 09:12; Status DC Throat Lozenges (Cepacol Sore Throat Lozenge) 1 mai PRN Q2HRS PRN PO SORE THROAT; Start 03/28/18 at 08:45; Stop 04/02/18 at 15:29; Status DC Guaifenesin (Robitussin Dm) 10 ml PRN Q6HRS PRN PO COUGH 1ST CHOICE Last administered on 03/28/18at 09:29; Start 03/28/18 at 08:45; Stop 04/02/18 at 15:29 ; Status DC Info (Anti-Coagulation Monitoring By Pharmacy) 1 each PRN DAILY PRN MC SEE COMMENTS Last administered on 03/28/18at 11:04; Start 03/28/18 at 09:15; Stop at 15:29; Status DC Miscellaneous (Lidoderm Patch Removal) 1 ea QHS MC Last administered on at 19:29; Start 03/28/18 at 21:00; Stop 04/02/18 at 15:29; Status DC Budesonide (Pulmicort) 0.5 mg RTBID NEB Last administered on 04/02/18at 07:19; Start 03/28/18 at 10:00; Stop 04/02/18 at 15:29; Status DC Albuterol Sulfate (Ventolin Neb Soln) 2.5 mg DAILY NEB ; Start 03/28/18 at 10:00 ; Stop 03/28/18 at 14:51; Status DC Methylprednisolone Sodium Succinate (SOLU-Medrol 125MG VIAL) 60 mg Q8HRS IV Last administered on 04/01/18at 05:16; Start 03/28/18 at 12:00; Stop 04/01/18 at 07:44; Status DC Doxycycline Hyclate 100 mg/ Dextrose 100 ml @ 50 mls/hr Q12HR IV ; Start at 12:00; Stop 03/28/18 at 12:11; Status DC Nystatin (Nystop) 1 keisha BID TP Last administered on 04/03/18at 08:44; Start 03/28/18 at 21:00 Cefepime HCl 1 gm/ Dextrose 50 ml @ 100 mls/hr Q8HRS IV ; Start 03/28/18 at 14: 00; Status UNV Fluconazole (Diflucan) 200 mg DAILY PO Last administered on 03/29/18at 08:35; Start 03/28/18 at 12:30; Stop 04/02/18 at 15:29; Status DC Cefepime HCl (Maxipime) 1 gm Q8HRS IVP Last administered on 04/02/18at 06:00; Start 03/28/18 at 14:00; Stop 04/02/18 at 15:29; Status DC Lactobacillus Rhamnosus (Culturelle) 1 cap BID PO Last administered on at 20:52; Start 03/28/18 at 21:00; Stop 03/30/18 at 15:28; Status DC Albuterol/ Ipratropium (Duoneb) 3 ml Q4HRS NEB Last administered on 04/02/18at 15:09; Start 03/28/18 at 16:00; Stop 04/02/18 at 15:29; Status DC Psyllium Hydrophilic Mucilloid (Metamucil Fiber Packet) 1 pkt DAILY PO Last administered on 03/28/18at 19:00; Start 03/28/18 at 19:00; Stop 04/02/18 at 15:29 ; Status DC Haloperidol (Haldol) 2 mg PRN Q6HRS PRN PO ANXIETY Last administered on at 05:01; Start 03/29/18 at 20:15; Stop 04/01/18 at 11:43; Status DC Albuterol Sulfate (Ventolin Neb Soln) 2.5 mg PRN Q4HRS PRN NEB SHORTNESS OF BREATH; Start 03/29/18 at 20:15 Furosemide (Lasix) 40 mg 1X ONCE IVP Last administered on 03/30/18at 07:40; Start 03/30/18 at 07:00; Stop 03/30/18 at 07:01; Status DC Haloperidol Lactate (Haldol Inj) 1 mg 1X ONCE IVP Last administered on at 07:42; Start 03/30/18 at 07:00; Stop 03/30/18 at 07:01; Status DC Lorazepam (Ativan) 0.5 mg PRN Q4HRS PRN IV ANXIETY / AGITATION Last administered on 04/02/18at 13:02; Start 03/30/18 at 09:30; Stop 04/02/18 at 15:29 ; Status DC Lorazepam (Ativan) 0.25 mg 1X ONCE IV Last administered on 03/30/18at 10:53; Start 03/30/18 at 10:45; Stop 03/30/18 at 10:46; Status DC Enoxaparin Sodium (Lovenox 40mg Syringe) 40 mg Q24H SQ ; Start 03/30/18 at 13:00 ; Stop 03/30/18 at 13:00; Status DC Haloperidol Lactate (Haldol Inj) 2 mg 1X ONCE IVP Last administered on at 13:00; Start 03/30/18 at 12:45; Stop 03/30/18 at 12:46; Status DC Pantoprazole Sodium (PROTONIX VIAL for IV PUSH) 40 mg DAILYAC IVP Last administered on 04/02/18 06:16; Start 03/30/18 at 13:00; Stop 04/02/18 at 15:29 ; Status DC Enoxaparin Sodium (Lovenox 40mg Syringe) 40 mg Q12H SQ Last administered on 04/01/18at 14:58; Start 03/30/18 at 13:00; Stop 04/02/18 at 15:29; Status DC Info (Tpn Per Pharmacy) 1 each PRN DAILY PRN MC SEE COMMENTS; Start 03/30/18 at 13:30; Stop 03/30/18 at 13:31; Status DC Haloperidol Lactate (Haldol Inj) 5 mg 1X ONCE IVP Last administered on at 13:43; Start 03/30/18 at 13:30; Stop 03/30/18 at 13:31; Status DC Amino Acids/ Glycerin/ Electrolytes 1,000 ml @ 80 mls/hr [id number] IV Last administered on 04/02/18at 03:34; Start 03/30/18 at 13:45; Stop 04/02/18 at 15:30 ; Status DC Fentanyl Citrate (Fentanyl 2ml Vial) 25 mcg PRN Q2HR PRN IV MODERATE PAIN Last administered on 04/02/18at 18:01; Start 03/30/18 at 14:45 Vancomycin HCl 1.25 gm/Sodium Chloride 250 ml @ 167 mls/hr Q24H IV Last administered on 04/01/18at 01:20; Start 03/31/18 at 01:00; Stop 04/01/18 at 12:24 ; Status DC Furosemide (Lasix) 40 mg BID92 IVP Last administered on 03/31/18 14:30; Start 03/31/18 at 09:00; Stop 04/01/18 at 11:43; Status DC Levothyroxine Sodium 50 mcg/ Sodium Chloride 5 ml @ 100 mls/hr DAILY IVP Last administered on 04/02/18 09:22; Start 03/31/18 at 12:00; Stop 04/02/18 at 15:30 ; Status DC Haloperidol Lactate (Haldol Inj) 5 mg 1X ONCE IM ; Start 03/31/18 at 23:30; Stop 03/31/18 at 23:42; Status DC Olanzapine (ZyPREXA IM) 5 mg 1X ONCE IM Last administered on 04/01/18at 01:22; Start 03/31/18 at 23:45; Stop 03/31/18 at 23:46; Status DC Methylprednisolone Sodium Succinate (SOLU-Medrol 125MG VIAL) 80 mg Q8HRS IV Last administered on 04/02/18at 06:00; Start 04/01/18 at 14:00; Stop 04/02/18 at 15:30; Status DC Furosemide (Lasix) 40 mg DAILY IVP Last administered on 04/02/18at 09:21; Start 04/01/18 at 12:00; Stop 04/02/18 at 15:30; Status DC Potassium Chloride/Water 50 ml @ 50 mls/hr Q1H IV ; Start 04/01/18 at 12:00; Stop 04/01/18 at 12:08; Status DC Potassium Chloride 40 meq/ Sodium Chloride 270 ml @ 67.5 mls/hr ONCE ONCE IV ; Start 04/01/18 at 12:30; Stop 04/01/18 at 16:29; Status Cancel Potassium Chloride 40 meq/ Sodium Chloride 520 ml @ 130 mls/hr 1X ONCE IV Last administered on 04/01/18at 14:59; Start 04/01/18 at 13:00; Stop 04/01/18 at 16:59; Status DC Vancomycin HCl (Vancomycin Random Level) 1 each 1X ONCE MC ; Start 04/02/18 at 06:00; Stop 04/02/18 at 06:01; Status Cancel Haloperidol Lactate (Haldol Inj) 2 mg PRN Q6HRS PRN IVP AGITATION Last administered on 04/01/18at 17:00; Start 04/01/18 at 14:30 Olanzapine (ZyPREXA IM) 5 mg 1X ONCE IM Last administered on 04/01/18at 21:35; Start 04/01/18 at 21:15; Stop 04/01/18 at 21:16; Status DC Fentanyl Citrate (Fentanyl 2ml Vial) 50 mcg PRN Q2HR PRN IV SEVERE PAIN Last administered on 04/03/18at 10:25; Start 04/01/18 at 21:15 Olanzapine (ZyPREXA IM) 5 mg 1X ONCE IM ; Start 04/01/18 at 21:15; Stop at 21:16; Status UNV Olanzapine (ZyPREXA IM) 5 mg 1X ONCE IM Last administered on 04/02/18at 06:16; Start 04/01/18 at 21:30; Stop 04/01/18 at 21:31; Status DC Lorazepam (Ativan) 2 mg PRN Q2HR PRN IV ANXIETY / AGITATION Last administered on 04/03/18at 08:40; Start 04/02/18 at 15:30 Furosemide (Lasix) 40 mg DAILY IVP Last administered on 04/03/18at 08:39; Start 04/02/18 at 16:00 Albuterol/ Ipratropium (Duoneb) 3 ml RTQID NEB Last administered on 04/03/18at 07:25; Start 04/02/18 at 20:00 Active Scripts Active Klor-Con M20 (Potassium Chloride) 20 Meq Tab.er.prt 20 Meq PO DAILYWBKFT 30 Days Furosemide 20 Mg Tablet 20 Mg PO BID92 30 Days Prednisone (Prednisone) 10 Mg Tablet 10 Mg PO DAILY Take 50 mg (5 pills) daily for 2 days, then take 40 mg (4 pills) daily for 2 days, then take 30 mg (3 pills) daily for 2 days, then take 20 mg (2 pills) daily for 2 days, then take 10 mg for 2 days. Miralax (Polyethylene Glycol 3350) 17 Gm Powd.pack 17 Gm PO PRN DAILY PRN Oxycodone-Acetaminophen 5-325 (Oxycodone Hcl/Acetaminophen) 1 Each Tablet 1 Tab PO PRN Q4HRS PRN Reported Ranitidine Hcl 150 Mg Tablet 150 Mg PO DAILY Lidopatch (Lidocaine/Menthol) 1 Each Adh..patch 1 Patch TP PRN DAILY PRN Guaifenesin 600 Mg Tablet.er 600 Mg PO BID Advair 250-50 Diskus (Fluticasone/Salmeterol) 1 Each Disk.w.dev 1 Inh IH BID Senna-Docusate Sodium Tablet (Sennosides/Docusate Sodium) 1 Each Tablet 1 Tab PO BID Voltaren (Diclofenac Sodium) 100 Gm Gel..gram. 4 Gm TP PRN Q6HRS PRN Cetirizine Hcl 10 Mg Tablet 10 Mg PO DAILY Duoneb 0.5-3(2.5) Mg/3 Ml (Albuterol/Ipratropium) 3 Ml Ampul.neb 3 Ml NEB Q6HRS Proair Hfa Inhaler (Albuterol Sulfate) 8.5 Gm Hfa.aer.ad 1 Puff INH DAILY Eliquis (Apixaban) 5 Mg Tablet 5 Mg PO BID Nystatin Unknown Strength Powder 1 Keisha TOP PRN BID PRN Tessalon Perle (Benzonatate) 100 Mg Capsule 200 Mg PO PRN Q8HRS Levothyroxine Sodium 100 Mcg Tablet 1 Tab PO DAILY Lorazepam 1 Mg Tablet 1 Mg PO BID Ocuvite Tablet (Vit A,C & E/Lutein/Minerals) 1 Each Tablet 1 Each PO DAILY Vitamin D (Cholecalciferol (Vitamin D3)) 1,000 Unit Tablet 1,000 Unit PO DAILY Amlodipine Besylate 10 Mg Tablet 10 Mg PO DAILY Atorvastatin Calcium 10 Mg Tablet 1 Tab PO DAILY Vital Signs Vital Signs Date Time Temp Pulse Resp B/P (MAP) Pulse Ox O2 Delivery O2 Flow Rate FiO2 04/03/18 10:25 95 Nasal Cannula 3.5 04/03/18 03:07 98.1 70 20 98.1 04/02/18 23:10 Labs Laboratory Tests Test 04/02/18 03:50 Sodium Level 145 mmol/L (136-145) Potassium Level 3.5 mmol/L (3.5-5.1) Chloride Level 106 mmol/L (98-107) Carbon Dioxide Level 28 mmol/L (21-32) Anion Gap 11 (6-14) Blood Urea Nitrogen 35 mg/dL (7-20) Creatinine 1.2 mg/dL (0.6-1.0) Estimated GFR (Cockcroft-Gault) 42.4 Glucose Level 218 mg/dL (70-99) Calcium Level 8.7 mg/dL (8.5-10.1) Allergies Allergies Coded Allergies Type Severity Reaction Last Updated Verified Iodine and Iodide Containing Produc Allergy Intermediate Hives 04/12/17 Yes Penicillins Allergy Intermediate Rash, TOLERATES ROCEPHIN 12/15/17 Yes bacitracin Allergy Intermediate 04/12/17 Yes codeine Allergy Intermediate Hives 04/12/17 Yes cyclobenzaprine Allergy Intermediate 04/12/17 Yes erythromycin base Allergy Intermediate Hives 10/18/17 Yes ethyl alcohol Allergy Intermediate 04/12/17 Yes mold Allergy Intermediate 04/12/17 Yes moxifloxacin Allergy Intermediate Hives 04/12/17 Yes neomycin Allergy Intermediate 04/12/17 Yes polymyxin B Allergy Intermediate 04/12/17 Yes I S O L A T I O N *CONTACT* Allergy Unknown 12/13/17 Yes [facility]: [facility] Patient Instructions d/c planning 32 min LOGAN MCAIEL MD Apr 03, 2018 11:04
--- NOTE | 2018-04-03 11:06 | DISCH ---
DISCHARGE DISCHARGE INFORMATION: FINAL DIAGNOSIS Problems Medical Problems: (1) Cellulitis of both lower extremities Status: Acute CONDITION ON DISCHARGE: Unstable CODE STATUS: Code Status: DNR/DNI LONG-TERM: SNF STAY <30 DAYS: No HOSPICE: HOSPICE: Yes HOSPICE EVAL & TREAT: Yes LTAC: ADMIT TO LTAC: No POST DISCHARGE ORDERS: ACTIVITY ORDERS: Resume previous activity, Activity as tolerated WEIGHT BEARING STATUS: Full weight bearing BATHING ORDERS: No Tub Bath until see Dr. JUSTIN AFTER DISCHARGE: Cardiac WOUND/INCISION CARE: Change dressing CHECKS AFTER DISCHARGE: CHECKS AFTER DISCHARGE: Check blood press - daily TREATMENT/EQUIPMENT ORDERS: ADAPTIVE EQUIPMENT NEEDED: None RESPIRATORY EQUIPMENT NEEDED: Oxygen Physical Therapy For: Evalulation/Treatment Occupational Therapy For: Evaluation/Treatment DISCHARGE MEDICATIONS: Home Meds Active Scripts Potassium Chloride (KLOR-CON M20) 20 Meq Tab.er.prt, 20 MEQ PO DAILYWBKFT for 30 Days, #30 TAB.SR Prov:AMY BOSS MD 02/12/18 Furosemide (FUROSEMIDE) 20 Mg Tablet, 20 MG PO BID92 for 30 Days, #60 TAB Prov:AMY BOSS MD 02/12/18 Prednisone (PREDNISONE ) 10 Mg Tablet, 10 MG PO DAILY, #30 TAB Take 50 mg (5 pills) daily for 2 days, then take 40 mg (4 pills) daily for 2 days, then take 30 mg (3 pills) daily for 2 days, then take 20 mg (2 pills) daily for 2 days, then take 10 mg for 2 days. Prov:Goran GONZALEZ MD 11/28/16 Polyethylene Glycol 3350 (MIRALAX) 17 Gm Powd.pack, 17 GM PO PRN DAILY PRN for CONSTIPATION, #10 Prov:AMY BOSS MD 03/08/16 Oxycodone Hcl/Acetaminophen (OXYCODONE-ACETAMINOPHEN 5-325) 1 Each Tablet, 1 TAB PO PRN Q4HRS PRN for PAIN, #20 Prov:AMY BOSS MD 03/08/16 Reported Medications Ranitidine Hcl (RANITIDINE HCL) 150 Mg Tablet, 150 MG PO DAILY, TAB 02/09/18 Lidocaine/Menthol (LIDOPATCH) 1 Each Adh..patch, 1 PATCH TP PRN DAILY PRN for PAIN, PATCH 02/09/18 Guaifenesin (GUAIFENESIN) 600 Mg Tablet.er, 600 MG PO BID, TAB.SR 02/09/18 Fluticasone/Salmeterol (ADVAIR 250-50 DISKUS) 1 Each Disk.w.dev, 1 INH IH BID, INHALER 02/09/18 Sennosides/Docusate Sodium (Senna-Docusate Sodium Tablet) 1 Each Tablet, 1 TAB PO BID, TAB 02/09/18 Diclofenac Sodium (VOLTAREN) 100 Gm Gel..gram., 4 GM TP PRN Q6HRS PRN for PAIN, EACH 02/09/18 Cetirizine Hcl (CETIRIZINE HCL) 10 Mg Tablet, 10 MG PO DAILY, TAB 02/09/18 Ipratropium/Albuterol Sulfate (DUONEB 0.5-3(2.5) MG/3 ML) 3 Ml Ampul.neb, 3 ML NEB Q6HRS, EACH 02/09/18 Albuterol Sulfate (PROAIR HFA INHALER) 8.5 Gm Hfa.aer.ad, 1 PUFF INH DAILY, INHALER 0 Refills 02/09/18 Apixaban (ELIQUIS) 5 Mg Tablet, 5 MG PO BID, TAB 12/12/17 Nystatin (NYSTATIN) Unknown Strength Powder, 1 STEPHANIE TOP PRN BID PRN for REDNESS 12/12/17 Benzonatate (TESSALON PERLE) 100 Mg Capsule, 200 MG PO PRN Q8HRS, #21 CAP 12/29/16 Levothyroxine Sodium (LEVOTHYROXINE SODIUM) 100 Mcg Tablet, 1 TAB PO DAILY, #30 TAB 5 Refills 03/05/16 Lorazepam (LORAZEPAM) 1 Mg Tablet, 1 MG PO BID, #60 12/02/15 Vit A,C & E/Lutein/Minerals (OCUVITE TABLET) 1 Each Tablet, 1 EACH PO DAILY 10/23/15 Cholecalciferol (Vitamin D3) (VITAMIN D) 1,000 Unit Tablet, 1000 UNIT PO DAILY 10/23/15 Amlodipine Besylate (AMLODIPINE BESYLATE) 10 Mg Tablet, 10 MG PO DAILY, TAB 10/23/15 Atorvastatin Calcium (ATORVASTATIN CALCIUM) 10 Mg Tablet, 1 TAB PO DAILY, #30 TAB 5 Refills 10/23/15 LOGAN MACIEL MD Apr 03, 2018 11:06
[2018-04-03 11:08] VITALS: BP 151/59
--- NOTE | 2018-04-03 11:59 | PDOC ---
Objective: Objective: Reviewed chart. Vital Signs: Vital Signs Date Time Temp Pulse Resp B/P (MAP) Pulse Ox O2 Delivery O2 Flow Rate FiO2 04/03/18 11:10 94 BiPAP/CPAP 04/03/18 11:08 97.7 69 24 151/59 (89) 97.7 04/03/18 10:55 3.5 PE: LUNGS: BiPAP A/P: Resp failure -- Plans to DC to [facility] Hospice. JERALD KAUFFMAN Apr 03, 2018 11:59
[2018-04-03] MEDS: HALOPERIDOL LACTATE 5 MG/ML VIAL. IVP PRN (12:50)
== END 2018-04-03 13:31 | disposition hospice, inpatient (51) | DRG 871 ==
LOC: ER 21:25 → 4 NORTH 22:40
PROVIDERS: ADMIT Internal Medicine; ATTEND Internal Medicine
PROC: 5A09457 Assistance with Respiratory Ventilation, 24-96 Consecutive Hours, Continuous Positive Airway Pressure (ICD-10-PCS; principal; 2018-03-31)
DX: A41.9 Sepsis, unspecified organism (principal); J96.21 Acute and chronic respiratory failure with hypoxia; J18.9 Pneumonia, unspecified organism; I50.31 Acute diastolic (congestive) heart failure; G93.41 Metabolic encephalopathy; J96.22 Acute and chronic respiratory failure with hypercapnia; N17.0 Acute kidney failure with tubular necrosis; L03.116 Cellulitis of left lower limb; B37.89 Other sites of candidiasis; Z68.43 Body mass index [BMI] 50.0-59.9, adult; J44.0 Chronic obstructive pulmonary disease with (acute) lower respiratory infection; J44.1 Chronic obstructive pulmonary disease with (acute) exacerbation; J45.901 Unspecified asthma with (acute) exacerbation; J98.11 Atelectasis; K62.5 Hemorrhage of anus and rectum; L03.115 Cellulitis of right lower limb; M48.56XA Collapsed vertebra, not elsewhere classified, lumbar region, initial encounter for fracture; K57.90 Diverticulosis of intestine, part unspecified, without perforation or abscess without bleeding; M19.90 Unspecified osteoarthritis, unspecified site; I25.10 Atherosclerotic heart disease of native coronary artery without angina pectoris; I48.91 Unspecified atrial fibrillation; Z96.659 Presence of unspecified artificial knee joint; I11.0 Hypertensive heart disease with heart failure; E03.9 Hypothyroidism, unspecified; E66.01 Morbid (severe) obesity due to excess calories; F41.9 Anxiety disorder, unspecified; E78.00 Pure hypercholesterolemia, unspecified; K64.9 Unspecified hemorrhoids; E78.5 Hyperlipidemia, unspecified; G47.33 Obstructive sleep apnea (adult) (pediatric); J20.9 Acute bronchitis, unspecified; K21.9 Gastro-esophageal reflux disease without esophagitis; Z51.5 Encounter for palliative care; Z66 Do not resuscitate; Z90.710 Acquired absence of both cervix and uterus; Z95.0 Presence of cardiac pacemaker; Z95.1 Presence of aortocoronary bypass graft; Z95.2 Presence of prosthetic heart valve; Z82.49 Family history of ischemic heart disease and other diseases of the circulatory system; Z79.899 Other long term (current) drug therapy; Z88.1 Allergy status to other antibiotic agents; Z88.0 Allergy status to penicillin; Z88.8 Allergy status to other drugs, medicaments and biological substances; Z90.49 Acquired absence of other specified parts of digestive tract; Z85.828 Personal history of other malignant neoplasm of skin; Z91.041 Radiographic dye allergy status; Z88.5 Allergy status to narcotic agent; Z91.09 Other allergy status, other than to drugs and biological substances
CPT/HCPCS: 36415; 36600; 71045; 71250; 74018; 80048; 80053; 80202; 81001; 82274; 82805; 83605; 83880; 84145; 85007; 85025; 85027; 85610; 87040; 87086; 87641; 93970; 94640; 94660; 94760; 96360; C9113; J0692; J1630; J1650; J1940; J2060; J2920; J2930; J3010; J3370; J3490; J7030; J7040; J7050; J7512; J7620; J7626; 99285-25